=== PATIENT | female | born 1995 | race Caucasian/White ===

== ENCOUNTER 2016-06-24 11:21 | Emergency (ER) | payer MEDICAID, OTHER ==
[~2016-06-24] VITALS: Ht 167.6 cm; Wt 59.0 kg
[~2016-06-24 11:21] MED LIST: ALBU8.5H2 IH; DCS100C PO; FLUT1DIS4 IH; FRS325T PO; IBP600T1 PO; PRD20T PO; PREN-93 PO; PREN1TAB71 PO; RT-ALBUINH IH; SYMBICORT
--- OUTSIDE RECORDS SUMMARY | 2016-06-24 11:28 | XMS REPORT | Continuity of Care Document ---
Author Author [facility] Organization [facility] Address Unknown Phone Unavailable Care Team Providers Care Household Cook Name Role Phone NO, LOCAL PHYSICIAN PCP Unavailable Insurance Providers Payer Name Policy Number Subscriber Name Relationship Self Pay Joycelyn Parson V 18 Self / Same As Patient Advance Directives Directive Response Recorded Date/Time Advance Directives No 04/10/14 2:30am Health Care Power of Channel Process Supervisor No 04/10/14 2:30am Organ Donor Yes 04/10/14 2:30am Chief Complaint and Reason for Visit Chief Complaint Respiratory Problems Reason for Visit Upper respiratory infection Asthma with acute exacerbation in adult Problems Active Problems Medical Problem Onset Date Status Asthma with acute exacerbation in adult Unknown Acute Upper respiratory infection Unknown Acute Medications Current Home Medications Medication Dose Units Route Directions Days/Qty Instructions Start Date Vit/Fe Fumarate/Fa 1 Each 1 Each Oral Daily as needed for 1 04/10/14 Vit/Fe Fumarate/Fa 1 Each 1 Each Oral Daily 04/12/14 Fluticasone/Salmeterol 1 Each 0 Inhalation Twice A Day 1 PUFF Albuterol 8.5 Gm 1 Puff Inhalation Respiratory Every Four Hours as needed for Air Hunger 1 PUFFS 04/12/14 Ibuprofen 600 Mg 600 Mg Oral Every 6 Hours as needed for Cramps 30 11/19 Ferrous Sulfate 325 Mg 325 Mg Oral Daily@ 30 04/14/14 Docusate Sodium 100 Mg 100 Mg Oral Twice A Day 20 04/14/14 [Symbicort] 12/20/15 Prednisone 20 Mg 40 Mg Oral Daily 10 12/20/15 Albuterol Sulfate 8.5 Gm 2 Puff Inhalation Every 4HRS as needed for Shortness Of Breath 1 12/20/15 Social History Social History Problem Response Recorded Date/Time Recent Foreign Travel No 12/20/2015 12:29pm Recent Hopitalizations No 12/20/2015 12:40pm Hospital Discharge Instructions No hospital discharge instructions. Plan of Care Discharge Date 12/20/15 1:47pm Disposition 01 HOME, SELF-CARE Condition at Discharge Improved Instructions/Education Provided VIRAL RESP ILLNESS-ADULT Asthma (ED) Forms Provided Local Medical Staff Listing Work Release Form Prescriptions See Medication Section Referrals ADELAIDA RING MD - Primary Care Physician Additional Instructions/Education All discharge instructions reviewed with patient and/or family. Voiced understanding. Medications as instructed. Tylenol [id number] as directed for headache, fever, chills, pain. Follow-up with a family practitioner for recheck. Return to the emergency department for worsened shortness of air, wheezing, vomiting, headache, fever, or any other concerns. Functional Status No functional status results. Allergies, Adverse Reactions, Alerts No known allergies. Immunizations No immunization records. Vital Signs Acute Vital Signs Vital Response Date/Time Temperature (Fahrenheit) 98.5 degrees F (97.6 - 99.5) 12/20/2015 12:29pm Temperature (Calculated Celsius) 36.49457 degrees C (36.4 - 37.5) 12/20/2015 12:29pm Temperature Source Temporal 12/20/2015 12:29pm Pulse Rate (Adolescent 12-19yrs) 110 bpm (56 - 106) 12/20/2015 1:47pm O2 Sat by Pulse Oximetry 94 % (88 - 100) 12/20/2015 1:47pm Respiratory Rate (Adolescent 12-19yrs) 18 bpm (15 - 20) 12/20/2015 1:47pm Blood Pressure / Blood Pressure Systolic (Adolescent 12-19yrs) 106 mm Hg (115 - 120) 2015 1:47pm Pain Numeric Pain Scale 0-No Pain 12/20/2015 12:29pm Height (Feet) 5 feet 12/20/2015 12:29pm Height (Inches) 5 inches 12/20/2015 12:29pm Height (Calculated Centimeters) 165.063426 cm 12/20/2015 12:29pm Weight (Pounds) 147 pounds 12/20/2015 12:29pm Weight (Calculated Kilograms) 66.539054 kilograms 12/20/2015 12:29pm Calculated BMI 24.46 12/20/2015 12:29pm Results No known relevant diagnostic tests, laboratory data and/or discharge summary. Procedures No known history of procedures. Encounters Encounter Location Arrival/Admit Date Discharge/Depart Date Attending Provider Registered Emergency Room [facility] 12/20/15 12:31pm LEO WALSH Recent Diagnosis
[2016-06-24] MEDS ORDERED: DEXAMETHASONE 4 MG/ML SDV (DECADRON) IH ONE (12:00)
[2016-06-24] MEDS ORDERED: RT-ALBUTEROL/IPRATROPIUM 3 ML (DUONEB) VIAL INH ONE ×2 (12:00→12:45)
--- NOTE | 2016-06-24 12:21 | Diagnostic Imaging Report ---
INDICATION: Difficulty breathing, history of asthma. Comparison studies: None. FINDINGS: Frontal and lateral views demonstrate lungs to be hyperinflated but clear. The heart, mediastinum, pulmonary vascularity are normal. IMPRESSION: There is hyperinflation. Dictated by: Dictated on workstation # [id number]
[2016-06-24] MEDS ORDERED: RT-IPRATROPIUM (ATROVENT) 0.5MG/2.5ML AMP IH ONE (12:42)
[2016-06-24] MEDS ORDERED: RT-ALBUTEROL SULF 2.5 MG/3 ML PRE-MIX VIAL ONE (12:42)
[2016-06-24] MEDS ORDERED: predniSONE 20 MG TAB PO ONE (12:45)
--- NOTE | 2016-06-24 12:45 | ED Respiratory ---
General Chief Complaint: Respiratory Problems Stated Complaint: ASTHMA Source: patient History of Present Illness Time seen by provider: 11:55 Initial Comments C/O ASTHMA FLARE UP STATES SHE HAS HAD A FLARE UP OF SEASONAL ALLERGIES THE LAST WEEK, AND FOR THE LAST FEW DAYS HAS HAD INCREASED SHORTNESS OF BREATH AND WHEEZING HAS HAD A COUGH WITH GREEN SPUTUM NO FEVER + SICK CONTACTS WITH SAME PT IS SUPPOSED TO USE AN INHALER, BUT DOES NOT HAVE ONE. STATES SHE CANNOT AFFORD ONE. PT DOES NOT HAVE A PCP. PCP: NONE Allergies and Home Medications Allergies Coded Allergies: No Known Drug Allergies (Unverified , 04/10/14) Home Medications Albuterol Sulfate 8.5 Gm Hfa.aer.ad #1 2 PUFF IH Q4H PRN PRN SHORTNESS OF BREATH Prescribed by: LEO WALSH on 12/20/15 1336 Albuterol Sulfate 1 Puff Puff #1 2 PUFF IH Q4H Prescribed by: ANNETTA FIGUEREDO on 06/24/16 1329 Doxycycline Monohydrate 100 Mg Capsule #20 100 MG PO BID Prescribed by: ANNETTA FIGUEREDO on 06/24/16 1329 Methylprednisolone 4 Mg Tab.ds.pk #1 4 MG PO UD Prescribed by: ANNETTA FIGUEREDO on 06/24/16 1329 Prednisone 20 Mg Tab #10 40 MG PO DAILY Prescribed by: LEO WALSH on 12/20/15 1336 Constitutional: no symptoms reportedNo fever EENTM: nose congestion see HPI Respiratory: see HPI cough short of breath wheezing Cardiovascular: no symptoms reported Gastrointestinal: no symptoms reported Genitourinary: no symptoms reported : No LMP: May 27, 2016 (NO CONTROL) Musculoskeletal: no symptoms reported Skin: no symptoms reported Psychiatric/Neurological: No Symptoms Reported Hematologic/Lymphatic: No Symptoms Reported Immunological/Allergic: see HPI Past Nueqasd-Zukspo-Gspibu Hx Patient Social History Alcohol Use: Denies Use Recreational Drug Use: No Smoking Status: Never a Smoker Recent Foreign Travel: No Contact w/Someone Who Travel: No Recent Hopitalizations: No Seasonal Allergies Seasonal Allergies: Yes Surgeries HX Surgeries: No Respiratory Hx Respiratory Disorders: Yes Respiratory Disorders: Asthma Cardiovascular Hx Cardiac Disorders: No Neurological Hx Neurological Disorders: No Reproductive System Hx Reproductive Disorders: No Genitourinary Hx Genitourinary Disorders: No Gastrointestinal Hx Gastrointestinal Disorders: No Musculoskeletal Hx Musculoskeletal Disorders: No Endocrine Hx Endocrine Disorders: No HEENT HX ENT Disorders: No Cancer Hx Cancer: No Psychosocial Hx Psychiatric Problems: No Integumentary HX Skin/Integumentary Disorder: No Blood Transfusions Hx Blood Disorders: No Family Medical History Family Medial History: Asthma 19 MOTHER Cardiovascular disease 19 FATHER Physical Exam Vital Signs Vital Sign - Last 12Hours Capillary Refill : General Appearance: WD/WN no apparent distress other (READING A BOOK WHEN I ENTERED ROOM AND READ BOOK THROUGHOUT ENTIRE ER STAY. DOES NOT APPEAR TO BE IN ANY DISCOMFORT OR DISTRESS. SMILING. TALKS IN FULL SENTENCES. HAIR IS TURQUOISE AND PURPLE) HEENT: PERRL/EOMI normal ENT inspection TMs normal pharynx normal Neck: non-tender full range of motion supple normal inspection Respiratory: no respiratory distress no accessory muscle use decreased breath sounds (IN ALL LUNG REID) wheezing (DIFFUSE EXPIRATORY WHEEZING IN ALL LUNG REID) Cardiovascular: normal peripheral pulses regular rate, rhythm no murmur Gastrointestinal: normal bowel sounds non tender soft Extremities: normal inspection Neurologic/Psychiatric: manager of environmental services II-XII nml as tested no motor/sensory deficits alert normal mood/affect oriented x 3 Skin: normal color warm/dry Progress/Results/Core Measures Results/Orders My Orders Orders-ANNETTA FIGUEREDO DO Albuterol/Ipra Inhalation Soln (Duoneb I (06/24/16 12:00) Dexamethasone Injection (Decadron Inject (06/24/16 12:00) Rt Request For Service (06/24/16 11:57) Svn Sm Volume Nebulizer Rt-Rfs (06/24/16 11:57) Chest Pa/Lat (2 View) (06/24/16 11:57) Albuterol/Ipra Inhalation Soln (Duoneb I (06/24/16 12:45) Svn Sm Volume Nebulizer Rt-Rfs (06/24/16 12:43) Prednisone Tablet (Deltasone Tablet) (06/24/16 12:45) Ipratropium 0.02% Neb Solution (Atrovent (06/24/16 12:42) Albuterol Pre-Mix Nebs (Rt) (Proventil P (06/24/16 12:42) Medications Given in ED Vital Signs/I&O Vital Sign - Last 12Hours 06/24/16 06/24/16 06/24/16 06/24/16 11:57 11:57 12:18 12:49 Temp 96.8 96.8 Pulse 102 102 Resp 24 24 B/P 109/65 109/65 Pulse Ox 95 95 100 O2 Delivery Room Air Room Air 06/24/16 13:39 Pulse 104 Resp 18 Pulse Ox 100 O2 Delivery Room Air Progress Note : Progress Note DECREASED WHEEZING AND INCREASED AERATION AFTER NEB TREATMENTS. PT STILL WITH MILD EXPIRATORY WHEEZING. PT STATES SHE FEELS MUCH BETTER DISCUSSED THE IMPORTANCE OF ESTABLISHING WITH PCP AND ALWAYS HAVING AN INHALER Diagnostic Imaging Comments CXR--NO ACUTE PROCESS, HYPERINFLATION--PER RADIOLOGIST REPORT @ 1244 Reviewed: Reviewed by Me Departure Impression Impression: Primary Impression: Asthma with acute exacerbation in adult Additional Impression: Acute bronchitis Disposition: HOME, SELF-CARE Condition: Improved Departure-Patient Inst. Referrals: NO,LOCAL PHYSICIAN (PCP/Family) Primary Care Physician Patient Instructions: Acute Bronchitis, Adult (DC), Asthma Action Plan, Asthma , Adult (DC), Avoiding Asthma Triggers Add. Discharge Instructions: LOTS OF CLEAR LIQUIDS TYLENOL AND MOTRIN NEEDED FOR PAIN OR FEVER ROBITUSSIN DM FOR COUGH FOLLOW UP WITH OF CHOICE TO ESTABLISH CARE SOON POSSIBLE RETURN TO ER IF WORSE All discharge instructions reviewed with patient and/or family. Voiced understanding. Scripts Albuterol Sulfate (Proair Hfa)1 Puff Puff2 Puff IH Q4H BREATHING #1 GM Prov:ANNETTA FIGUEREDO DO 06/24/16 Methylprednisolone (Medrol)4 Mg Tab.ds.pk4 Mg PO UD #1 PKG Prov:ANNETTA FIGUEREDO DO 06/24/16 Doxycycline Monohydrate 100 Mg [id number] Mg PO BID #20 CAP Prov:ANNETTA FIGUEREDO DO 06/24/16 Work/School Note: Local Medical Staff Listing ANNETTA FIGUEREDO DO Jun 24, 2016 12:45
[2016-06-24] MEDS ORDERED: RT-ALBUINH IH (13:29)
[2016-06-24] MEDS ORDERED: DOXY100C42 PO (13:29)
[2016-06-24] MEDS ORDERED: METH4TAB PO (13:29)
== END 2016-06-24 13:49 | disposition home or self-care (01) ==
LOC: EDUNIT# 11:21 → ER 11:24
DX: J45.901 Unspecified asthma with (acute) exacerbation (principal); J20.9 Acute bronchitis, unspecified
CPT/HCPCS: 71020; 94640; 94644; 99282

== ENCOUNTER 2016-11-10 12:46 | Emergency (ER) | payer MEDICAID ==
[~2016-11-10] VITALS: Ht 152.4 cm; Wt 56.7 kg
[~2016-11-10 12:46] MED LIST changes: +DOXY100C42 PO; +METH4TAB PO
[2016-11-10] MEDS ORDERED: RT-ALBUTEROL/IPRATROPIUM 3 ML (DUONEB) VIAL INH ONE ×3 (13:00→13:30)
[2016-11-10] MEDS ORDERED: DEXAMETHASONE 4 MG/ML SDV (DECADRON) IV ONE (13:00)
[2016-11-10] MEDS ORDERED: DEXAMETHASONE PF 10 MG/ML (DECADRON) VIAL IM ONE (13:15)
[2016-11-10] MEDS ORDERED: DEXAMETHASONE PF 10 MG/ML (DECADRON) VIAL ONE (13:19)
--- NOTE | 2016-11-10 13:25 | ED Respiratory ---
General Chief Complaint: Respiratory Problems Stated Complaint: ASTHMA ATTACK History of Present Illness Time seen by provider: 12:50 Initial Comments Patient reports for acute asthma attack, she has been diagnosed with asthma since age 5. She does not currently have any inhalers, due to financial restrictions. Over the last week she's been feeling tightness in her chest. Today she noted wheezing and SOA. She believes seasonal allergies are the most recent trigger. She is not taking any allergy medicine. Timing/Duration: week, getting worse Severity: moderate Prior Episodes/Possible Cause: occasional episodes, allergen exposure Modifying Factors: Improves With Lying Down, Improves With Rest Associated Symptoms: chest pain/soreness, cough, No fever/chills, No headache, No lightheadedness, nasal congestion, shortness of breath, No sore throat Allergies and Home Medications Allergies Coded Allergies: No Known Drug Allergies (Unverified , 04/10/14) Home Medications Albuterol Sulfate 8.5 Gm Hfa.aer.ad, 2 PUFF IH Q4H PRN for SHORTNESS OF BREATH, #1 Ref 0 Prescribed by: LEO WALSH on 12/20/15 1336 Albuterol Sulfate 1 Puff Puff, 2 PUFF IH Q4H, #1 Prescribed by: ANNETTA FIGUEREDO on 06/24/16 1329 Albuterol Sulfate 0.63 Mg/3 Ml Vial.neb, 0.63 MG IH Q4H, #25 Ref 2 Prescribed by: OMAR NELSON on 11/10/16 1341 Doxycycline Monohydrate 100 Mg Capsule, 100 MG PO BID, #20 Prescribed by: ANNETTA FIGUEREDO on 06/24/16 1329 Loratadine 10 Mg Tablet, 10 MG PO DAILY, #30 Ref 0 Prescribed by: OMAR NELSON on 11/10/16 1343 Methylprednisolone 4 Mg Tab.ds.pk, 4 MG PO UD, #1 Prescribed by: ANNETTA FIGUEREDO on 06/24/16 1329 Prednisone 20 Mg Tab, 40 MG PO DAILY, #10 Ref 0 Prescribed by: LEO WALSH on 12/20/15 1336 Prednisone 5 Mg Tablet, 5 MG PO DAILY, #30 Ref 0 take 2 tablets tid for 2 days; then 2 tablets bid for 2 days; then 1 tablet bid for 2 days Prescribed by: OMAR NELSON on 11/10/16 1341 Constitutional: no symptoms reported, see HPI Respiratory: see HPI, cough, short of breath, wheezing Cardiovascular: no symptoms reported, see HPI : No Past Zeqwkfv-Vkwyqh-Aiuymt Hx Patient Social History Recent Foreign Travel: No Contact w/Someone Who Travel: No Recent Hopitalizations: No Seasonal Allergies Seasonal Allergies: Yes Surgeries HX Surgeries: No Respiratory Hx Respiratory Disorders: Yes Respiratory Disorders: Asthma Cardiovascular Hx Cardiac Disorders: No Neurological Hx Neurological Disorders: No Reproductive System Hx Reproductive Disorders: No Genitourinary Hx Genitourinary Disorders: No Gastrointestinal Hx Gastrointestinal Disorders: No Musculoskeletal Hx Musculoskeletal Disorders: No Endocrine Hx Endocrine Disorders: No HEENT HX ENT Disorders: No Cancer Hx Cancer: No Psychosocial Hx Psychiatric Problems: No Integumentary HX Skin/Integumentary Disorder: No Blood Transfusions Hx Blood Disorders: No Reviewed Nursing Assessment Reviewed/Agree w Nursing PMH: Yes Family Medical History Family Medial History: Asthma 19 MOTHER Cardiovascular disease 19 FATHER Physical Exam Vital Signs Vital Sign - Last 12Hours 11/10/16 11/10/16 11/10/16 12:48 12:50 13:40 Temp 97.6 Pulse 112 Resp 18 B/P (MAP) 140/91 Pulse Ox 91 O2 Delivery Room Air O2 Flow Rate 2.00 Capillary Refill : General Appearance: WD/WN, moderate distress (SOA) Eyes: Bilateral Eye EOMI, Bilateral Eye Normal Inspection, Bilateral Eye PERRL HEENT: PERRL/EOMI, normal ENT inspection, TMs normal, pharynx normal Neck: non-tender, full range of motion, supple, normal inspection, No lymphadenopathy (R), No lymphadenopathy (L) Respiratory: chest non-tender, respiratory distress, decreased breath sounds ( lower lobes), wheezing (throughout all lung brown.) Cardiovascular: normal peripheral pulses, regular rate, rhythm, no edema, no murmur Gastrointestinal: normal bowel sounds, non tender, soft Extremities: normal range of motion, non-tender, normal inspection, normal capillary refill Neurologic/Psychiatric: no motor/sensory deficits, alert, normal mood/affect, oriented x 3 Skin: normal color, warm/dry Progress/Results/Core Measures Results/Orders My Orders Orders - OMAR NELSON Rt Request For Service (11/10/16 12:54) Albuterol/Ipra Inhalation Soln (Duoneb I (11/10/16 13:00) Svn Sm Volume Nebulizer Rt-Rfs (11/10/16 12:54) Dexamethasone Injection (Decadron Inject (11/10/16 13:00) Saline Lock/Iv-Start (11/10/16 12:54) Chest Pa/Lat (2 View) (11/10/16 12:55) Svn Sm Volume Nebulizer Rt-Rfs (11/10/16 13:11) Dexamethasone Pf Injection (Decadron Pf (11/10/16 13:30) Albuterol/Ipra Inhalation Soln (Duoneb I (11/10/16 13:30) Svn Sm Volume Nebulizer Rt-Rfs (11/10/16 13:22) Dexamethasone Pf Injection (Decadron Pf (11/10/16 13:19) Medications Given in ED Current Medications Medications Dose Ordered Sig/Aspen Route Start Time Stop Time Status Last Admin Dose Admin Albuterol/ Ipratropium 3 ml ONCE ONCE INH 11/10/16 13:00 11/10/16 13:01 DC 11/10/16 12:59 3 ML Albuterol/ Ipratropium 3 ml ONCE ONCE INH 11/10/16 13:30 11/10/16 13:31 DC 11/10/16 13:26 3 ML Dexamethasone Sodium Phosphate 10 mg ONCE ONCE INH 11/10/16 13:30 11/10/16 13:31 DC 11/10/16 13:26 10 MG Dexamethasone Sodium Phosphate 10 mg ONCE ONCE IV 11/10/16 13:00 11/10/16 13:01 DC 11/10/16 13:01 10 MG Vital Signs/I&O Vital Sign - Last 12Hours 11/10/16 11/10/16 11/10/16 11/10/16 12:48 12:50 12:59 13:26 Temp 97.6 Pulse 112 B/P (MAP) 140/91 Pulse Ox 91 95 96 O2 Delivery Room Air Nasal Cannula Nasal Cannula Nasal Cannula O2 Flow Rate 2.00 2.00 2.00 11/10/16 11/10/16 13:40 14:24 Pulse 109 100 Resp 18 18 B/P (MAP) 116/87 Pulse Ox 96 94 O2 Delivery Nasal Cannula Room Air O2 Flow Rate 1.00 Progress Note : Time: 12:50 Progress Note Initial evaluation, Decadron 10 mg IV and DuoNeb breathing treatment immediately. Chest x-ray. SaO2 on room air was 93%, oxygen initiated per nasal cannula 1.5 L, SaO2 improved to 97%. 1310 after first DuoNeb treatment the patient did have decreased wheezing and improved air movement. She was less anxious. Oxygen decreased to 1 L nasal cannula, SaO2 98%. 1315 Will repeat breathing treatment with Decadron 8 mg. 1340 patient reports improvement in SOA, maintaining SaO2 greater than 95% on room air. 1350 discharge planning discussed with the patient, she understands the importance of keeping albuterol available at home as rescue. She will establish care at [facility]. Diagnostic Imaging Diagonstic Imaging: Xray Plain Films/CT/US/NM/MRI: chest Comments NAME: JOYCELYN PARSON V MED REC#: [id number] PT STATUS: REG ER : 1995 PHYSICIAN: OMAR NELSON ADMIT DATE: 11/10/16/ER Draft Date of Exam:11/10/16 CHEST PA/LAT (2 VIEW) INDICATION: Dyspnea. DISCUSSION: Two views of the chest were obtained, comparison 06/24/2016. No adverse interval change. No focal consolidation, pleural fluid, or pneumothorax. Stable normal heart size. No osseous abnormality. IMPRESSION: 1. Stable negative chest. Dictated on workstation # [id number] Dict: 11/10/16 1328 Trans: 11/10/16 1331 AS6 [id number] Interpreted by: SARAHI IVEY MD Electronically signed by: Reviewed: Reviewed by Me Departure Impression Impression: Primary Impression: Asthma with acute exacerbation in adult Qualified Codes: J45.21 - Mild intermittent asthma with (acute) exacerbation Disposition: HOME, SELF-CARE Condition: Improved Departure-Patient Inst. Decision time for Depature: 14:00 Referrals: NO,LOCAL PHYSICIAN (PCP/Family) Primary Care Physician Patient Instructions: Asthma, Adult (DC) Add. Discharge Instructions: Use albuterol per nebulizer every 4 hours. Take prednisone as directed. Mucinex whyk-swb-gbaqive twice daily. Increase water intake. Establish care at [facility]. Return to emergency department if difficulty breathing, needing albuterol more than every 4 hours, fever greater than 101, new problems or concerns. All discharge instructions reviewed with patient and/or family. Voiced understanding. Scripts Loratadine (Loratadine) 10 Mg Tablet 10 MG PO DAILY, #30 TAB 0 Refills Prov: OMAR NELSON 11/10/16 Albuterol Sulfate (Albuterol Sulfate) 0.63 Mg/3 Ml Vial.neb 0.63 MG IH Q4H for Shortness of Breath, #25 INHALER 2 Refills Prov: OMAR NELSON 11/10/16 Prednisone (Prednisone) 5 Mg Tablet 5 MG PO DAILY, #30 TAB 0 Refills take 2 tablets tid for 2 days; then 2 tablets bid for 2 days; then 1 tablet bid for 2 days Prov: OMAR NELSON 11/10/16 OMAR NELSON Nov 10, 2016 13:25
[2016-11-10] MEDS ORDERED: DEXAMETHASONE PF 10 MG/ML (DECADRON) VIAL INH ONE (13:30)
--- NOTE | 2016-11-10 13:31 | Diagnostic Imaging Report ---
INDICATION: Dyspnea. DISCUSSION: Two views of the chest were obtained, comparison 06/24/2016. No adverse interval change. No focal consolidation, pleural fluid, or pneumothorax. Stable normal heart size. No osseous abnormality. IMPRESSION: 1. Stable negative chest. Dictated by: Dictated on workstation # [id number]
[2016-11-10 13:40] VITALS: BP 116/87
[2016-11-10] MEDS ORDERED: PRED5TAB PO (13:41)
[2016-11-10] MEDS ORDERED: ALBU0.63 IH (13:41)
[2016-11-10] MEDS ORDERED: LORA10TA7 PO (13:43)
[2016-11-10 14:24] VITALS: BP 108/75
== END 2016-11-10 14:24 | disposition home or self-care (01) ==
LOC: EDUNIT# 12:46 → ER 12:47
DX: J45.901 Unspecified asthma with (acute) exacerbation (principal)
CPT/HCPCS: 71020; 94640

== ENCOUNTER 2017-01-29 20:58 | Emergency (ER) | payer MEDICAID ==
[~2017-01-29] VITALS: Ht 162.6 cm; Wt 56.7 kg
[~2017-01-29 20:58] MED LIST changes: +ALBU0.63 IH; +LORA10TA7 PO; +PRED5TAB PO
[2017-01-29] MEDS ORDERED: RT-ALBUTEROL/IPRATROPIUM 3 ML (DUONEB) VIAL INH ONE (21:45)
[2017-01-29] MEDS ORDERED: DEXAMETHASONE 4 MG/ML SDV (DECADRON) ONE (22:02)
--- NOTE | 2017-01-29 22:05 | Diagnostic Imaging Report ---
INDICATION: Cough and congestion. On antibiotics. EXAMINATION: Two-view chest dated 01/29/2017 COMPARISON: 11/10/2016 FINDINGS: Two views of the chest demonstrate normal appearance of the heart and pulmonary vasculature. Lungs are clear. No infiltrates or effusions are seen. Mild hyperinflation noted. IMPRESSION: 1. Minimal hyperinflation perhaps due to reactive airway process; correlate with symptoms. No infiltrates appreciated. Dictated by: Dictated on workstation # [id number]
--- NOTE | 2017-01-29 22:11 | ED Cough/URI ---
General Chief Complaint: Respiratory Problems Stated Complaint: SOA,ASTHMA Nursing Triage Note: C/O FEELING SOA, CHEST CONGESTION NOT RESPONSIVE TO HOME NEBULIZER. SEEN PCP 01/28/17 FOR SAME History of Present Illness Time seen by provider: 21:35 Initial Comments Patient reports SOA. She was evaluated 2 days ago by her primary care provider she's been using her albuterol nebulizer with no improvement she last used it at 1930. She is on prednisone 10 mg daily. She reports in the past when she has an exacerbation of her asthma specialist usually had to put her on 60 mg of prednisone daily for 2-3 days. Timing/Duration: yesterday Severity/Quality: mild, productive cough Prior Episodes/Possible Cause: frequent episodes Modifying Factors: Improves With Albuterol Nebulizer Allergies and Home Medications Allergies Coded Allergies: No Known Drug Allergies (Unverified , 04/10/14) Home Medications Albuterol Sulfate 8.5 Gm Hfa.aer.ad, 2 PUFF IH Q4H PRN for SHORTNESS OF BREATH, #1 Ref 0 Prescribed by: LEO WALSH on 12/20/15 1336 Albuterol Sulfate 1 Puff Puff, 2 PUFF IH Q4H, #1 Prescribed by: ANNETTA FIGUEREDO on 06/24/16 1329 Albuterol Sulfate 0.63 Mg/3 Ml Vial.neb, 0.63 MG IH Q4H, #25 Ref 2 Prescribed by: OMAR NELSON on 11/10/16 1341 Fluticasone/Salmeterol 1 Each Blst.w.dev, 1 EACH IH BID, #1 Ref 2 Prescribed by: OMAR NELSON on 01/29/17 2238 Prednisone 20 Mg Tab, 40 MG PO DAILY, #10 Ref 0 Prescribed by: LEO WALSH on 12/20/15 1336 Prednisone 20 Mg Tab, 10 MG PO DAILY, #20 Ref 0 Take 3 tablets daily for 2 days, then take 2 tablets daily for 2 days, then take 1 tablet daily for 3 days. Prescribed by: OMAR NELSON on 01/29/172237 Constitutional: no symptoms reported, see HPI EENTM: see HPI, nose congestion, No throat pain, No throat swelling Respiratory: see HPI, cough, dyspnea on exertion, phlegm (patient reports clear phlegm mainly in the morning), short of breath, wheezing All Other Systems Reviewed Negative Unless Noted: Yes Past Hpmljfd-Qgwgxy-Gnxhgb Hx Patient Social History Alcohol Use: Denies Use Recreational Drug Use: No Smoking Status: Current Everyday Smoker Type Used: Cigarettes 2nd Hand Smoke Exposure: Yes Recent Foreign Travel: No Contact w/Someone Who Travel: No Recent Infectious Disease Expo: No Recent Hopitalizations: No Immunizations Up To Date Tetanus Booster (TDap): Unknown Seasonal Allergies Seasonal Allergies: Yes Surgeries History of Surgeries: No Respiratory History of Respiratory Disorde: Yes Respiratory Disorders: Asthma Cardiovascular History of Cardiac Disorders: No Neurological History of Neurological Disord: No Reproductive System : No Last Menstrual Period: Jan 29, 2017 Hx Reproductive Disorders: No Genitourinary History of Genitourinary Disor: No Gastrointestinal History of Gastrointestinal Di: No Musculoskeletal History of Musculoskeletal Dis: No Endocrine History of Endocrine Disorders: No HEENT History of HEENT Disorders: No Cancer History of Cancer: No Psychosocial History of Psychiatric Problem: No Integumentary History of Skin or Integumenta: No Blood Transfusions History of Blood Disorders: No Reviewed Nursing Assessment Reviewed/Agree w Nursing PMH: Yes Family Medical History Family Medial History: Asthma 19 MOTHER Cardiovascular disease 19 FATHER Physical Exam Vital Signs Vital Sign - Last 12Hours 01/29/17 21:25 Temp 97.9 Pulse 129 Resp 22 B/P (MAP) 109/69 Pulse Ox 95 O2 Delivery Room Air Capillary Refill : Less Than 3 Seconds General Appearance: WD/WN, mild distress (SOA) Eyes: Bilateral Eye Normal Inspection, Bilateral Eye PERRL, Bilateral Eye EOMI HEENT: PERRL/EOMI, normal ENT inspection, TMs normal, pharynx normal Neck: non-tender, full range of motion, supple Respiratory: chest non-tender, accessory muscle use, wheezing, expiration, inspiration Cardiovascular: normal peripheral pulses, regular rate, rhythm Gastrointestinal: normal bowel sounds, non tender, soft Extremities: normal range of motion, non-tender, normal inspection, normal capillary refill Neurologic/Psychiatric: no motor/sensory deficits, alert, normal mood/affect, oriented x 3 Skin: normal color, warm/dry Lymphatic: no adenopathy Progress/Results/Core Measures Results/Orders My Orders Orders - OMAR NELSON Albuterol/Ipra Inhalation Soln (Duoneb I (01/29/17 21:45) Svn Sm Volume Nebulizer Rt-Rfs (01/29/17 21:42) Chest Pa/Lat (2 View) (01/29/17 21:42) Dexamethasone Injection (Decadron Inject (01/29/17 22:02) Prednisone Tablet (Deltasone Tablet) (01/29/17 22:45) Montelukast Tablet (Singulair Tablet) (01/29/17 22:45) Medications Given in ED Vital Signs/I&O Vital Sign - Last 12Hours 01/29/17 01/29/17 01/29/17 01/29/17 21:25 21:57 22:15 23:20 Temp 97.9 98.0 Pulse 129 121 Resp 22 20 B/P (MAP) 109/69 Pulse Ox 95 96 98 97 O2 Delivery Room Air Room Air Room Air Room Air Blood Pressure Mean: 82 Progress Note : Time: 21:35 Progress Note Initial evaluation completed, recommended DuoNeb treatment per RT. Then we'll reevaluate. 2145 within a few minutes of starting the DuoNeb treatment, the patient's pulse increased to the 140s in the 150s. The treatment was stopped. There was slight improvement in her wheezing and SOA. Will do a Decadron 10 mg nebulized treatment instead. 2210 less wheezing and improvement in the patient's dyspnea. We'll continue to monitor. 2220 patient reports feeling increased chest tightness, SaO2 on room air 92%. Nasal cannula with oxygen at 2 L administered. Lungs had improved air movement with continued wheezing. SaO2 immediately kari to 94-95%. We'll continue to monitor. The patient states that she is only taking prednisone 10 mg once daily in the evening. She has had not had her evening dose. We'll administer prednisone 30 mg by mouth and Singulair 10 mg. patient reports that she was previously on an Advair Diskus and was doing better with her asthma. Her insurance is changed and she was then started on Breo but ran out of this prescription. 2235 SaO2 on room air is 92-96%. Patient reports that her dyspnea is improving, lungs with minimal wheezing at this time. Patient comfortable with returning home. She has nebulizer machine to continue her albuterol. She will follow up at [facility] for more maintenance management of her asthma. Diagnostic Imaging Diagonstic Imaging: Xray Plain Films/CT/US/NM/MRI: chest Comments NAME: JOYCELYN PARSON [facility] REC#: [id number] PT STATUS: REG ER : 1995 PHYSICIAN: OMAR NELSON ADMIT DATE: 01/29/17/ER Draft Date of Exam:01/29/17 CHEST PA/LAT (2 VIEW) INDICATION: Cough and congestion. On antibiotics. EXAMINATION: Two-view chest dated 01/29/2017 COMPARISON: 11/10/2016 FINDINGS: Two views of the chest demonstrate normal appearance of the heart and pulmonary vasculature. Lungs are clear. No infiltrates or effusions are seen. Mild hyperinflation noted. IMPRESSION: 1. Minimal hyperinflation perhaps due to reactive airway process; correlate with symptoms. No infiltrates appreciated. Dictated on workstation # [id number] Dict: 01/29/179 Trans: 01/29/174 COUNT INCLUDES THE [facility] [id number] Interpreted by: LILLIAM ZAMBRANO MD Electronically signed by: Reviewed: Reviewed by Me Departure Impression Impression: Primary Impression: Asthma with acute exacerbation in adult Qualified Codes: J45.41 - Moderate persistent asthma with (acute) exacerbation Disposition: 01 HOME, SELF-CARE Condition: Improved Departure-Patient Inst. Decision time for Depature: 22:40 Referrals: [facility] (PCP) Primary Care Physician KAY JONES APRN (Family) Primary Care Physician Patient Instructions: Asthma, Adult (DC) Add. Discharge Instructions: Taking medication as prescribed. Continue to use albuterol nebulized treatments at home every 4 hours. Follow up with Diandra Jones APRN. Return to emergency department if persistent difficulty breathing, fever greater than 101, or new problems. All discharge instructions reviewed with patient and/or family. Voiced understanding. Scripts Fluticasone/Salmeterol (Advair 250-50 Diskus) 1 Each Blst.w.dev 1 EACH IH BID, #1 INHALER 2 Refills Prov: OMAR NELSON 01/29/17 Prednisone (Prednisone) 20 Mg Tab 10 MG PO DAILY, #20 TAB 0 Refills Take 3 tablets daily for 2 days, then take 2 tablets daily for 2 days, then take 1 tablet daily for 3 days. Prov: OMAR NELSON 01/29/17 Copy Copies To 1: MILTON TATE MD, AMY ARNP Jan 29, 2017 22:11
[2017-01-29] MEDS ORDERED: PRD20T PO (22:38)
[2017-01-29] MEDS ORDERED: FLUT1DIS26 IH (22:38)
[2017-01-29] MEDS ORDERED: predniSONE 20 MG TAB PO ONE (22:45)
[2017-01-29] MEDS ORDERED: MONTELUKAST 10 MG (SINGULAIR) TAB PO ONE (22:45)
[2017-01-29 23:20] VITALS: BP 112/62
== END 2017-01-29 23:20 | disposition home or self-care (01) ==
LOC: EDUNIT# 20:58 → ER 20:59
DX: J45.901 Unspecified asthma with (acute) exacerbation (principal); F17.210 Nicotine dependence, cigarettes, uncomplicated; Z82.49 Family history of ischemic heart disease and other diseases of the circulatory system
CPT/HCPCS: 71020; 94640; 99282

== ENCOUNTER 2017-05-19 21:18 | Emergency (ER) | payer MEDICAID ==
[~2017-05-19] VITALS: Ht 162.6 cm; Wt 72.6 kg
[~2017-05-19 21:18] MED LIST changes: +FLUT1DIS26 IH
[2017-05-19] MEDS ORDERED: DEXAMETHASONE 4 MG/ML SDV (DECADRON) IH ONE (22:30)
[2017-05-19] MEDS ORDERED: ONDANSETRON 4 MG (ZOFRAN) ORAL DISSOLVE TAB SL ONE (22:30)
[2017-05-19] MEDS ORDERED: RT-ALBUTEROL/IPRATROPIUM 3 ML (DUONEB) VIAL INH ONE (22:30)
[2017-05-19] MEDS ORDERED: methylPREDNISolone 125 MG (Solu-MEDROL) VIAL IVP ONE (22:45)
[2017-05-19] MEDS ORDERED: KETOROLAC 30 MG/ML VIAL IVP ONE (22:45)
[2017-05-19] MEDS ORDERED: predniSONE 20 MG TAB PO ONE (23:45)
[2017-05-19] MEDS ORDERED: PRD20T PO (23:52)
--- NOTE | 2017-05-19 23:53 | ED General ---
General Chief Complaint: Respiratory Problems Stated Complaint: ASTHMA/SOA Nursing Triage Note: PT CO OF SOA HAS WHEEZING NOTED STATES STARTED GETTING COLD COUPLE DAYS AND ASTHAMA HAS WORSEND. PT STATES HAD RX TO ALBUTEROL AND IS AFRAID TO TAKE Nursing Sepsis Screen: No Definite Risk Source of Information: Patient Exam Limitations: No Limitations History of Present Illness Date Seen by Provider: May 19, 2017 Time Seen by Provider: 22:14 Initial Comments This 21-year-old young lady presents to the emergency room with complaints of wheezing, shortness of air and stridor that has worsened over the past couple of days. She does have a history of asthma. She reports the stridorous breathing she is experiencing at present is not unusual for asthma exacerbations. She has never been diagnosed with vocal cord dysfunction or any other upper airway problem. She particularly complains of dyspnea on exertion and pain with inspiration. She has had some posttussive emesis. She reports her inhaler has not been particularly helpful. She denies any fever. She has had associated symptoms of chills, myalgia, and headache. Allergies and Home Medications Allergies Coded Allergies: No Known Drug Allergies (Unverified , 04/10/14) Home Medications Albuterol Sulfate 8.5 Gm Hfa.aer.ad, 2 PUFF IH Q4H PRN for SHORTNESS OF BREATH, #1 Ref 0 Prescribed by: LEO WALSH on 12/20/15 1336 Albuterol Sulfate 1 Puff Puff, 2 PUFF IH Q4H, #1 Prescribed by: ANNETTA FIGUEREDO on 06/24/16 1329 Albuterol Sulfate 0.63 Mg/3 Ml Vial.neb, 0.63 MG IH Q4H, #25 Ref 2 Prescribed by: OMAR NELSON on 11/10/16 1341 Fluticasone/Salmeterol 1 Each Blst.w.dev, 1 EACH IH BID, #1 Ref 2 Prescribed by: OMAR NELSON on 01/29/17 2238 Prednisone 20 Mg Tab, 20 MG PO DAILY, #3 Prescribed by: JULIANO MONTEJO on 05/19/17 2352 Constitutional: see HPI, chills EENTM: no symptoms reported Respiratory: see HPI Cardiovascular: no symptoms reported Gastrointestinal: see HPI Genitourinary: no symptoms reported : No LMP: May 07, 2017 Musculoskeletal: see HPI Skin: no symptoms reported Psychiatric/Neurological: See HPI, Headache Hematologic/Lymphatic: No Symptoms Reported Immunological/Allergic: no symptoms reported Past Tnvnzjt-Xhbhtq-Hecuco Hx Patient Social History Alcohol Use: Denies Use Recreational Drug Use: No Smoking Status: Current Everyday Smoker Type Used: Cigarettes 2nd Hand Smoke Exposure: Yes Recent Foreign Travel: No Contact w/Someone Who Travel: No Recent Infectious Disease Expo: No Recent Hopitalizations: No Physical Abuse: No Sexual Abuse: No Immunizations Up To Date Tetanus Booster (TDap): Unknown Seasonal Allergies Seasonal Allergies: Yes Surgeries History of Surgeries: No Respiratory History of Respiratory Disorde: Yes Respiratory Disorders: Asthma Cardiovascular History of Cardiac Disorders: No Neurological History of Neurological Disord: No Reproductive System : No Last Menstrual Period: May 07, 2017 Hx Reproductive Disorders: No Genitourinary History of Genitourinary Disor: No Gastrointestinal History of Gastrointestinal Di: No Musculoskeletal History of Musculoskeletal Dis: No Endocrine History of Endocrine Disorders: No HEENT History of HEENT Disorders: Yes (Strider with asthma exacerbations) Cancer History of Cancer: No Psychosocial History of Psychiatric Problem: No Suicide Risk Score: 0 Integumentary History of Skin or Integumenta: No Blood Transfusions History of Blood Disorders: No Family Medical History Family Medial History: Asthma 19 MOTHER Cardiovascular disease 19 FATHER Physical Exam Vital Signs Vital Signs - First Documented 05/19/17 21:26 Temp 96.7 Pulse 95 Resp 20 B/P (MAP) 128/87 (101) Pulse Ox 98 O2 Delivery Room Air Capillary Refill : Less Than 3 Seconds General Appearance: No Apparent Distress, WD/WN HEENT: PERRL/EOMI, TMs Normal, Normal ENT Inspection, Pharyngeal Erythema Neck: Normal Inspection, Supple Respiratory: No Accessory Muscle Use, No Respiratory Distress, Stridor, Wheezing Cardiovascular: Regular Rate, Rhythm, No Edema, No Murmur Gastrointestinal: Normal Bowel Sounds, Non Tender, Soft Extremity: Normal Inspection, No Pedal Edema Neurologic/Psychiatric: Alert, Oriented x3, No Motor/Sensory Deficits, Normal Mood/Affect, anesthesiology physician II-XII Norm as Tested Skin: Normal Color, Warm/Dry Progress/Results/Core Measures Suspected Sepsis Recent Fever Within 48 Hours: No Infection Criteria Present: None New/Unexplained Altered Menta: No Sepsis Screen: No Definite Risk Sepsis Diagnosis: SIRS Temperature:96.7 Pulse: 95 Respiratory Rate: 20 Blood Pressure 128 /87 Mean: 101 Results/Orders Lab Results Laboratory Tests Test 05/19/17 22:17 Range/Units Group A Streptococcus Screen NEGATIVE NEGATIVE Micro Results Microbiology 05/19/17 Influenza Types A,B Antigen (HARPREET) - Final, Complete 05/19/17 Throat Culture - Preliminary, Resulted No Beta Strep isolated My Orders Orders - JULIANO TORREZ MD Urine Bedside (05/19/17 22:22) Rapid Strep A Screen (05/19/17 22:22) Influenza A And B Antigens (05/19/17 22:22) Albuterol/Ipra Inhalation Soln (Duoneb I (05/19/17 22:30) Dexamethasone Injection (Decadron Inject (05/19/17 22:30) Chest Pa/Lat (2 View) (05/19/17 22:22) Svn Sm Volume Nebulizer Rt-Rfs (05/19/17 22:22) Ondansetron Oral Dissolve Tab (Zofran (05/19/17 22:30) Methylprednisolone Sod Succ (Solu-Medrol (05/19/17 22:45) Ketorolac Injection (Toradol Injection) (05/19/17 22:45) Prednisone Tablet (Deltasone Tablet) (05/19/17 23:45) Medications Given in ED Vital Signs/I&O Capillary Refill : Less Than 3 Seconds Blood Pressure Mean: 101 Point of Care Testing Urine -Bedside: Negative Progress Note : Progress Note Rapid strep and influenza screens were negative. Chest x-ray was also negative. Patient responded well to DuoNeb treatment and nebulized dexamethasone. Zofran was given for nausea. Prednisone was administered for further treatment of asthma exacerbation. Diagnostic Imaging Diagonstic Imaging: Xray Plain Films/CT/US/NM/MRI: chest Comments Chest x-ray viewed by me. Report not yet available. No acute abnormalities appreciated. Departure Impression Impression: Primary Impression: Asthma with acute exacerbation in adult Qualified Codes: J45.901 - Unspecified asthma with (acute) exacerbation Additional Impression: Stridor Disposition: HOME, SELF-CARE Condition: Improved Departure-Patient Inst. Decision time for Depature: 23:30 Referrals: [facility] (PCP) Primary Care Physician KAY JONES APRN (Family) Primary Care Physician Patient Instructions: Asthma, Adult (DC) Add. Discharge Instructions: Drink plenty of clear liquids. Complete your prednisone prescription as prescribed. Use your inhaler up to 4 puffs and a four-hour period of time. Follow-up with your primary care provider within the next week. Return to care if symptoms worsen. You may take ibuprofen up to 600 mg every 6 hours as needed for your chest and abdominal discomfort. Add Tylenol (acetaminophen) up to 1000 mg every 6 hours as needed for additional pain relief if needed. Take prednisone and ibuprofen with food or milk to avoid stomach irritation. Use Zofran (ondansetron) as prescribed for nausea and vomiting. If you smoke, reduce smoking as much as possible and work toward quitting. You may use nicotine substitutes such as gum, lozenges, and patches. Do not use inhaled nicotine replacement without a prescription. All discharge instructions reviewed with patient and/or family. Voiced understanding. Scripts Prednisone (Prednisone) 20 Mg Tab 20 MG PO DAILY, #3 TAB Prov: JULIANO TORREZ MD 05/19/17 JULIANO TORREZ MD May 19, 2017 23:52
[2017-05-20] VITALS: BP 128/87
--- NOTE | 2017-05-20 07:31 | Diagnostic Imaging Report ---
INDICATION: Shortness of breath and wheezing. Comparison made with prior examination from 01/29/2017. PA and lateral views were obtained. FINDINGS: Heart size is normal. Mediastinum is unremarkable. There is no pleural effusion, pneumothorax or pneumonia. There does appear to be some air trapping. IMPRESSION: Nonspecific air trapping may reflect reactive airways disease. No other acute cardiopulmonary abnormality. Dictated by: Dictated on workstation # [id number]
[2017-05-20] MEDS ORDERED: PRD20T PO (18:37)
[2017-05-20] MEDS ORDERED: ALBU2.5V4 IH (18:37)
[2017-05-20] MEDS ORDERED: RT-ALBUINH IH (18:37)
[2017-05-20] MEDS ORDERED: MONT10TA24 PO (18:37)
== END 2017-05-20 | disposition home or self-care (01) ==
LOC: EDUNIT# 21:18 → ER 21:19
DX: J45.901 Unspecified asthma with (acute) exacerbation (principal); R06.1 Stridor; F17.210 Nicotine dependence, cigarettes, uncomplicated; Z82.49 Family history of ischemic heart disease and other diseases of the circulatory system; Z79.52 Long term (current) use of systemic steroids
CPT/HCPCS: 71046; 84703; 87430; 87804; 94640; 99283

== ENCOUNTER 2017-05-20 16:12 | Inpatient (IN) | payer MEDICAID ==
[~2017-05-20] VITALS: Ht 162.6 cm; Wt 60.1 kg
--- NOTE | 2017-05-20 16:22 | ED Cough/URI ---
General Stated Complaint: ASTHMA Source: patient Exam Limitations: no limitations History of Present Illness Date Seen by Provider: May 20, 2017 Time Seen by Provider: 16:20 Initial Comments To ER with reports of asthma exacerbation. She's been short of breath and increasingly wheezy over the past 4 days. She was seen here last night given a prescription for steroids which she has filled. She's been using her albuterol inhaler and nebulizer at home without relief. She does smoke cigarettes but has not smoked in 48 hours. She denies fevers Timing/Duration: constant, getting worse Severity/Quality: moderate Associated Symptoms: cough, shortness of breath, wheezing Allergies and Home Medications Allergies Coded Allergies: No Known Drug Allergies (Unverified , 04/10/14) Home Medications Albuterol Sulfate 1 Puff Puff, 2 PUFF IH Q4H PRN for SHORTNESS OF BREATH, ( Reported) 1 PUFF = 90 MCG Albuterol Sulfate 2.5 Mg/3 Ml Vial.neb, 2.5 MG IH Q6H PRN for SHORTNESS OF BREATH, (Reported) Montelukast Sodium 10 Mg Tablet, 10 MG PO HS, (Reported) LAST FILLED 03/14/17 #30 Prednisone 20 Mg Tab, 20 MG PO DAILY, (Reported) FILLED 05/20/17 #3 FOR A 3 DAY THERAPY Constitutional: see HPI EENTM: see HPI Respiratory: see HPI, cough, dyspnea on exertion, short of breath Cardiovascular: no symptoms reported Genitourinary: no symptoms reported Musculoskeletal: no symptoms reported Skin: no symptoms reported Psychiatric/Neurological: No Symptoms Reported Past Zhsdyax-Janpqu-Ccqzqv Hx Patient Social History Type Used: Cigarettes 2nd Hand Smoke Exposure: Yes Recent Foreign Travel: No Contact w/Someone Who Travel: No Recent Hopitalizations: No Immunizations Up To Date Tetanus Booster (TDap): Unknown Seasonal Allergies Seasonal Allergies: Yes Surgeries History of Surgeries: No Respiratory History of Respiratory Disorde: Yes Respiratory Disorders: Asthma Cardiovascular History of Cardiac Disorders: No Neurological History of Neurological Disord: No Reproductive System Hx Reproductive Disorders: No Genitourinary History of Genitourinary Disor: No Gastrointestinal History of Gastrointestinal Di: No Musculoskeletal History of Musculoskeletal Dis: No Endocrine History of Endocrine Disorders: No HEENT History of HEENT Disorders: No Cancer History of Cancer: No Psychosocial History of Psychiatric Problem: No Integumentary History of Skin or Integumenta: No Blood Transfusions History of Blood Disorders: No Family Medical History Family Medial History: Asthma 19 MOTHER Cardiovascular disease 19 FATHER Physical Exam Vital Signs Vital Signs - First Documented 05/20/17 05/20/17 16:15 16:36 Temp 98.7 Pulse 147 Resp 36 B/P (MAP) 123/66 (85) Pulse Ox 92 O2 Delivery Room Air O2 Flow Rate 2.00 Capillary Refill : General Appearance: WD/WN, moderate distress HEENT: PERRL/EOMI, normal ENT inspection Neck: non-tender, full range of motion Respiratory: respiratory distress (Speaks in short phrases), decreased breath sounds, accessory muscle use, wheezing Cardiovascular: no murmur, tachycardia (rate of 1:30 to 140) Gastrointestinal: normal bowel sounds, non tender, soft Neurologic/Psychiatric: alert, normal mood/affect, oriented x 3 Skin: normal color, warm/dry Progress/Results/Core Measures Suspected Sepsis SIRS Temperature: Pulse: Respiratory Rate: Laboratory Tests 05/20/17 16:20: White Blood Count 21.1H Blood Pressure / Mean: Laboratory Tests 05/20/17 16:20: Creatinine 0.82, Platelet Count 333, Total Bilirubin 0.2 Results/Orders Lab Results Laboratory Tests Test 05/20/17 16:20 Range/Units White Blood Count 21.1 H 4.3-11.0 10^3/uL Red Blood Count 4.59 4.35-5.85 10^6/uL Hemoglobin 13.4 11.5-16.0 G/DL Hematocrit 39 35-52 % Mean Corpuscular Volume 85 80-99 FL Mean Corpuscular Hemoglobin 29 25-34 PG Mean Corpuscular Hemoglobin Concent 34 32-36 G/DL Red Cell Distribution Width 14.5 10.0-14.5 % Platelet Count 333 130-400 10^3/uL Mean Platelet Volume 10.5 H 7.4-10.4 FL Neutrophils (%) (Auto) 85 H 42-75 % Lymphocytes (%) (Auto) 6 L 12-44 % Monocytes (%) (Auto) 9 0-12 % Eosinophils (%) (Auto) 0 0-10 % Basophils (%) (Auto) 0 0-10 % Neutrophils # (Auto) 17.9 H 1.8-7.8 X 10^3 Lymphocytes # (Auto) 1.3 1.0-4.0 X 10^3 Monocytes # (Auto) 1.9 H 0.0-1.0 X 10^3 Eosinophils # (Auto) 0.0 0.0-0.3 10^3/uL Basophils # (Auto) 0.0 0.0-0.1 10^3/uL Neutrophils % (Manual) 89 % Lymphocytes % (Manual) 4 % Monocytes % (Manual) 7 % Eosinophils % (Manual) 0 % Basophils % (Manual) 0 % Band Neutrophils 0 % Blood Morphology Comment NORMAL Sodium Level 141 135-145 MMOL/L Potassium Level 4.4 3.6-5.0 MMOL/L Chloride Level 106 98-107 MMOL/L Carbon Dioxide Level 21 21-32 MMOL/L Anion Gap 14 5-14 MMOL/L Blood Urea Nitrogen 12 7-18 MG/DL Creatinine 0.82 0.60-1.30 MG/DL Estimat Glomerular Filtration Rate > 60 BUN/Creatinine Ratio 15 Glucose Level 126 H 70-105 MG/DL Calcium Level 9.3 8.5-10.1 MG/DL Magnesium Level 1.7 L 1.8-2.4 MG/DL Total Bilirubin 0.2 0.1-1.0 MG/DL Aspartate Amino Transf (AST/SGOT) 21 5-34 U/L Alanine Aminotransferase (ALT/SGPT) 21 0-55 U/L Alkaline Phosphatase 86 40-136 U/L Total Protein 7.9 6.4-8.2 GM/DL Albumin 4.3 3.2-4.5 GM/DL My Orders Orders - TERRI WALLS BEAM DYER RECESSED VAT Cbc With Automated Diff (05/20/17 16:17) Comprehensive Metabolic Panel (05/20/17 16:17) Saline Lock/Iv-Start (05/20/17 16:17) Ipratropium 0.02% Neb Solution (Atrovent (05/20/17 16:30) Svn Sm Volume Nebulizer Rt-Rfs (05/20/17 16:17) Levalbuterol (Non-Formulary) (Xopenex (N (05/20/17 16:30) Magnesium 1 Gm/100 Ml Ivpb (Magnesium [place] (05/20/17 16:30) Arterial Blood Gas (05/20/17 16:19) Magnesium (05/20/17 16:20) Manual Differential (05/20/17 16:20) Medications Given in ED Current Medications Medications Dose Ordered Sig/Aspen Route Start Time Stop Time Status Last Admin Dose Admin Ipratropium [place] 0.5 mg ONCE ONCE IH 05/20/17 16:30 05/20/17 16:31 DC 05/20/17 16:35 0.5 MG Vital Signs/I&O Vital Sign - Last 12Hours 05/20/17 05/20/17 16:15 16:36 Temp 98.7 Pulse 147 Resp 36 B/P (MAP) 123/66 (85) Pulse Ox 92 94 O2 Delivery Room Air Nasal Cannula O2 Flow Rate 2.00 Capillary Refill : Progress Note : Progress Note Patient was seen last night at around 2300 for the same complaint and had a chest x-ray at this time so we will not be repeating that today.Patient was also given inhaled, IV, and by mouth steroids last night which would explain the patient's leukocytosis today. 1710- Patient's hour long Xopenex treatment continues at this time. She has increased air movement on auscultation she still has wheezes throughout. Departure Communication (Admissions) Progress Notes 1734-since the patient has failed outpatient treatment with oral prednisone and nebulizer at home and presents with respiratory distress, we will admit, she has improved quite significantly, respiratory rate has decreased as has her respiratory effort. Lung sounds are still queasy but she is moving better air at this time. Oxygen saturation 95% on 2 L. We will admit for supple oxygen, continued nebulizer treatments and Solu-Medrol. I discussed this plan with Dr. Aguila she agrees to admit. Impression Impression: Primary Impression: Status asthmaticus Disposition: ADMITTED INPATIENT Condition: Improved Admissions Decision to Admit Reason: Admit from ER (General) Decision to Admit/Date: May 20, 2017 Time/Decision to Admit Time: 17:35 Departure-Patient Inst. Referrals: [facility] (PCP) Primary Care Physician KAY JONES APRN (Family) Primary Care Physician TERRI WALLS APRN May 20, 2017 16:22
[2017-05-20] MEDS ORDERED: RT-IPRATROPIUM (ATROVENT) 0.5MG/2.5ML AMP IH ONE (16:30)
[2017-05-20] MEDS ORDERED: RT-LEVALBUTEROL (XOPENEX) 1.25 MG/3 ML NEB NON-FORMULARY INH SCH (16:30)
[2017-05-20 16:40] LABS: BASOPHILS % (AUTO) 0 % (0-10); EOSINOPHILS % (AUTO) 0 % (0-10); HEMATOCRIT 39 % (35-52); HEMOGLOBIN 13.4 G/DL (11.5-16.0); LYMPHOCYTES # (AUTO) 1.3 X 10^3 (1.0-4.0); LYMPHOCYTES % (AUTO) 6 % (12-44); MEAN CORPUSCULAR HEMOGLOBIN 29 PG (25-34); MEAN CORPUSCULAR HGB CONC 34 G/DL (32-36); MEAN CORPUSCULAR VOLUME 85 FL (80-99); MEAN PLATELET VOLUME 10.5 FL (7.4-10.4); MONOCYTES # (AUTO) 1.9 X 10^3 (0.0-1.0); MONOCYTES % (AUTO) 9 % (0-12); NEUTROPHILS # (AUTO) 17.9 X 10^3 (1.8-7.8); NEUTROPHILS % (AUTO) 85 % (42-75); PLATELET COUNT 333 10^3/uL (130-400); RED BLOOD COUNT 4.59 10^6/uL (4.35-5.85); RED CELL DISTRIBUTION WIDTH 14.5 % (10.0-14.5); WHITE BLOOD COUNT 21.1 10^3/uL (4.3-11.0)
[2017-05-20 17:05] LABS: ALANINE AMINOTRANSFERASE 21 U/L (0-55); ALBUMIN 4.3 GM/DL (3.2-4.5); ALKALINE PHOSPHATASE 86 U/L (40-136); BILIRUBIN,TOTAL 0.2 MG/DL (0.1-1.0); BUN/CREATININE RATIO 15; CALCIUM 9.3 MG/DL (8.5-10.1); CARBON DIOXIDE 21 MMOL/L (21-32); CHLORIDE 106 MMOL/L (98-107); CREATININE SERUM 0.82 MG/DL (0.60-1.30); GFR ESTIMATED > 60; GLUCOSE 126 MG/DL (70-105); MAGNESIUM 1.7 MG/DL (1.8-2.4); POTASSIUM 4.4 MMOL/L (3.6-5.0); SODIUM 141 MMOL/L (135-145); TOTAL PROTEIN 7.9 GM/DL (6.4-8.2)
[2017-05-20] MEDS: MAGNESIUM 1 GM/100 ML IVPB 100 ML IV SCH ×2 (17:13→17:34)
[2017-05-20 17:55] LABS: BAND NEUTROPHILS 0 %; BASOPHILS % (MANUAL) 0 %; EOSINOPHILS % (MANUAL) 0 %; LYMPHOCYTES % (MANUAL) 4 %; MONOCYTES % (MANUAL) 7 %; NEUTROPHILS % (MANUAL) 89 %; RBC MORPH NORMAL
[2017-05-20 18:02] VITALS: BP 109/58
[2017-05-20] MEDS ORDERED: MONT10TA24 PO (18:37)
[2017-05-20] MEDS ORDERED: PRD20T PO (18:37)
[2017-05-20] MEDS ORDERED: ALBU2.5V4 IH (18:37)
[2017-05-20] MEDS ORDERED: RT-ALBUINH IH (18:37)
[2017-05-20] MEDS ORDERED: ONDANSETRON 4 MG/2 ML (SDV) Z0FRAN IVP PRN (19:00)
[2017-05-20] MEDS: NS W/KCL 20 MEQ/L 1,000 ML IV SCH (19:09)
[2017-05-20] MEDS: methylPREDNISolone 125 MG (Solu-MEDROL) VIAL IVP SCH (19:09)
[2017-05-20] MEDS ORDERED: 1/2 NS IV SOLUTION 1,000 ML IV SCH (19:15)
[2017-05-20] MEDS ORDERED: DEXTROSE 10% IV SOLUTION 1,000 ML IV SCH (19:15)
[2017-05-20] MEDS ORDERED: D5 1/2 NS W/KCL 20 MEQ/L 1,000 ML IV SCH (19:15)
[2017-05-20] MEDS ORDERED: 1/2 NS W/KCL 20 MEQ/L 1,000 ML IV SCH (19:15)
[2017-05-20] MEDS ORDERED: NS IV 1000 ML X 1 WIDE OPEN IV ONE (19:15)
[2017-05-20] MEDS ORDERED: D5 1/2 NS IV 1,000 ML IV SCH (19:15)
[2017-05-20 20:00] VITALS: BP 109/58
[2017-05-20] MEDS ORDERED: INFLUENZA TRIvalent 2017-2018 0.5 ML/45 MCG SYR IM ONE (20:15)
[2017-05-20] MEDS ORDERED: RT-ALBUTEROL/IPRATROPIUM 3 ML (DUONEB) VIAL INH SCH (22:00)
[2017-05-21] VITALS (16 sets, daily range): BP systolic 94–123; BP diastolic 41–83
[2017-05-21] MEDS: methylPREDNISolone 125 MG (Solu-MEDROL) VIAL IVP SCH ×3 (02:26→20:10)
[2017-05-21] MEDS: RT-LEVALBUTEROL (XOPENEX) 1.25 MG/3 ML NEB NON-FORMULARY INH SCH ×2 (02:29→06:30)
[2017-05-21] MEDS: NS W/KCL 20 MEQ/L 1,000 ML IV SCH ×2 (05:15→15:17)
[2017-05-21] MEDS ORDERED: RT-IPRATROPIUM (ATROVENT) 0.5MG/2.5ML AMP IH STA (09:24)
[2017-05-21] MEDS ORDERED: RT-LEVALBUTEROL (XOPENEX) 1.25 MG/3 ML NEB NON-FORMULARY INH STA (09:24)
[2017-05-21] MEDS ORDERED: RT-LEVALBUTEROL (XOPENEX) 1.25 MG/3 ML NEB NON-FORMULARY INH SCH (10:00)
[2017-05-21 10:46] LABS: ABG BASE EXCESS -3.3 MMOL/L (-2.5-2.5); ABG OXYGEN SATURATION 96 % (94-100); ABG PCO2 38 MMHG (35-45); ABG PH 7.36 (7.37-7.43); ABG PO2 71 MMHG (79-93); ABG TCO2 22.5 MMOL/L (21.0-31.0)
[2017-05-21 10:47] LABS: ALLENS TEST YES-POS; INSPIRED O2 4 L; PATIENT TEMP 97.7; VENTILATOR NO
--- NOTE | 2017-05-21 11:39 | History & Physicial (CHS) ---
ANDREEA DE LA VEGA MED STUDENT 05/21/17 1139: HPI History of Present Illness: Patient is a 21 yo F w/ PMH of asthma who was admitted through the ED 05/20 for asthma exacerbation. Patient states symptoms started w/ nasal congestion 5 days ago, tried nyquil and dayquil w/o improvement. Day 2 developed asthma symptoms and started to use her albuterol inhaler more frequently. Day 3 patient presented to the ED and was discharged after receiving breathing treatment and PO steroids, strep and flu negative. Day 4 no improvement is symptoms and was admitted through the ED. Today patient was satting 87% on 2 LNC which was increased to 4 LNC w/ minimal improvement in O2 sats. Patient has been hospitalized multiple times for asthma exacerbations w/ allergies and cold temperature triggers, her most recent admission was February or March 2017. Admits SOB, denies CP, cough, soar throat, edema. Source: patient Exam Limitations: no limitations Date seen by provider: May 21, 2017 Time Seen by Provider: 10:30 Attending Physician Tabatha Aguila MD [facility],[facility] Consult Date of Admission May 20, 2017 at 17:37 Home Medications Home Medications Reviewed patient Home Medication Reconciliation Form Allergies Coded Allergies: No Known Drug Allergies (Unverified , 04/10/14) [id number] Hx Patient Social History Alcohol Use: Denies Use Recreational Drug Use: No Smoking Status: Current Everyday Smoker Type Used: Cigarettes 2nd Hand Smoke Exposure: Yes Recent Foreign Travel: No Contact w/other who traveled: No Recent Hopitalizations: No Recent Infectious Disease Expo: No Physical Abuse Screen: No Sexual Abuse: No Immunizations Up To Date Tetanus Booster (TDap): Unknown Date of Pneumonia Vaccine: May 20, 2015 Past Medical History Asthma w/ frequent exacerbations Family Medical History Significant Family History: Asthma, Heart Disease Family History: Asthma 19 MOTHER Cardiovascular disease 19 FATHER Completed stroke paternal grandfather Review of Systems (CHC) Constitutional: No fever EENTM: No blurred vision Respiratory: No cough, dyspnea on exertion, No hemoptysis, short of breath, wheezing Cardiovascular: No chest pain, No edema Gastrointestinal: No abdominal pain, No constipation, No diarrhea Genitourinary: No dysuria Musculoskeletal: no symptoms reported Skin: no symptoms reported Psychiatric/Neurological: No Symptoms Reported Physical Exam-(CHC) Physical Exam Vital Signs VS - Last 72 Hours, by Label 05/20/17 05/20/17 05/20/17 05/20/17 16:15 16:36 18:02 18:06 Temp 98.7 97.3 98.7 Pulse 147 117 123 Resp 36 16 24 B/P (MAP) 123/66 (85) 109/58 (75) Pulse Ox 92 94 96 93 O2 Delivery Room Air Nasal Cannula Nasal Cannula Nasal Cannula O2 Flow Rate 2.00 2.00 05/20/17 05/20/17 05/20/17 05/20/17 18:15 19:06 19:30 20:00 Temp 99.3 Pulse 108 123 89 Resp 20 B/P (MAP) 109/58 (75) Pulse Ox 93 97 O2 Delivery Room Air Nasal Cannula FiO2 2 05/20/17 05/20/17 05/21/17 05/21/17 20:15 22:36 00:00 00:30 Temp 97.5 Pulse 118 107 Resp 17 B/P (MAP) 102/53 (69) Pulse Ox 96 93 O2 Delivery Nasal Cannula Nasal Cannula Nasal Cannula O2 Flow Rate 2.00 2.00 1.00 05/21/17 05/21/17 05/21/17 05/21/17 01:00 02:30 04:00 06:30 Temp 97.4 Pulse 103 99 Resp 18 B/P (MAP) 101/58 (72) Pulse Ox 96 95 96 O2 Delivery Nasal Cannula Nasal Cannula Nasal Cannula O2 Flow Rate 2.00 1.00 2.00 05/21/17 05/21/17 05/21/17 05/21/17 07:00 08:00 08:54 09:00 Temp 97.9 Pulse 88 106 Resp 18 B/P (MAP) 101/58 (72) Pulse Ox 93 87 89 O2 Delivery Nasal Cannula Nasal Cannula Nasal Cannula O2 Flow Rate 2.00 2.00 4.00 05/21/17 05/21/17 09:30 11:54 Pulse Ox 89 93 O2 Delivery Nasal Cannula O2 Flow Rate 4.00 Capillary Refill : Less Than 3 Seconds General Appearance: mild distress Eyes: Bilateral Eye EOMI HEENT: PERRL/EOMI Neck: non-tender, full range of motion, supple Respiratory: respiratory distress, wheezing, expiration Cardiovascular: no edema Peripheral Pulses: 2+ Radial Pulses (R), 2+ Radial Pulses (L) Gastrointestinal: normal bowel sounds, non tender, soft, No distended, No guarding, No rebound Extremities: normal range of motion, no pedal edema, no calf tenderness 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, no motor/sensory deficits Skin: normal color, warm/dry Clinical Quality Measures DVT/VTE Risk/Contraindication: Risk Factor Score Per Nursin RFS Level Per Nursing on Admit: 1=Low/No VTE PPX Assessment/Plan Assessment/Plan Admission Dx Status Asthmaticus Plan Status Asthmaticus, hx of multiple hospital admissions for asthma exacerbations - expiratory wheezing throughout bilateral lung brown - requiring 4 L NC Plan: Continue heliox therapy Duonebs q2h Methylprednisolone q8h Transfer to ICU for inceased level of care Nausea Ondansetron prn TABATHA AGUILA MD 05/21/172141: Home Medications Allergies Coded Allergies: No Known Drug Allergies (Unverified , 04/10/14) [id number] Hx Past Medical History Never been intubated for asthma Family Medical History Family History: Asthma 19 MOTHER Cardiovascular disease 19 FATHER Completed stroke paternal grandfather Review of Systems (CHC) Constitutional: no symptoms reported EENTM: nose congestion (5 days prior) Physical Exam-([facility]) Physical Exam Vital Signs VS - Last 72 Hours, by Label 05/20/17 05/20/17 05/20/17 05/20/17 16:15 16:36 18:02 18:06 Temp 98.7 97.3 98.7 Pulse 147 117 123 Resp 36 16 24 B/P (MAP) 123/66 (85) 109/58 (75) Pulse Ox 92 94 96 93 O2 Delivery Room Air Nasal Cannula Nasal Cannula Nasal Cannula O2 Flow Rate 2.00 2.00 05/20/17 05/20/17 05/20/17 05/20/17 18:15 19:06 19:30 20:00 Temp 99.3 Pulse 108 123 89 Resp 20 B/P (MAP) 109/58 (75) Pulse Ox 93 97 O2 Delivery Room Air Nasal Cannula FiO2 2 05/20/17 05/20/17 05/21/17 05/21/17 20:15 22:36 00:00 00:30 Temp 97.5 Pulse 118 107 Resp 17 B/P (MAP) 102/53 (69) Pulse Ox 96 93 O2 Delivery Nasal Cannula Nasal Cannula Nasal Cannula O2 Flow Rate 2.00 2.00 1.00 05/21/17 05/21/17 05/21/17 05/21/17 01:00 02:30 04:00 06:30 Temp 97.4 Pulse 103 99 Resp 18 B/P (MAP) 101/58 (72) Pulse Ox 96 95 96 O2 Delivery Nasal Cannula Nasal Cannula Nasal Cannula O2 Flow Rate 2.00 1.00 2.00 05/21/17 05/21/17 05/21/17 05/21/17 07:00 08:00 08:54 09:00 Temp 97.9 Pulse 88 106 Resp 18 B/P (MAP) 101/58 (72) Pulse Ox 93 87 89 O2 Delivery Nasal Cannula Nasal Cannula Nasal Cannula O2 Flow Rate 2.00 2.00 4.00 05/21/17 05/21/17 05/21/17 05/21/17 09:30 11:54 12:00 13:00 Temp 97.7 Pulse 115 129 Resp 20 B/P (MAP) 118/58 (78) Pulse Ox 89 93 95 O2 Delivery Nasal Cannula Non Rebreather O2 Flow Rate 4.00 4.00 05/21/17 05/21/17 05/21/17 05/21/17 13:30 13:30 13:45 14:00 Temp 98.1 Pulse 140 126 123 Resp 18 20 18 B/P (MAP) 107/69 (82) 123/75 (91) 110/74 (86) Pulse Ox 94 95 97 O2 Delivery Room Air Non Rebreather Non Rebreather Non Rebreather O2 Flow Rate 4.00 4.00 4.00 05/21/17 05/21/17 05/21/17 05/21/17 14:54 15:00 16:00 16:00 Pulse 133 108 Resp 18 20 B/P (MAP) 122/80 (94) 104/41 (62) Pulse Ox 97 97 98 O2 Delivery Nasal Cannula Non Rebreather Room Air Non Rebreather O2 Flow Rate 4.00 4.00 4.00 05/21/17 05/21/17 05/21/17 05/21/17 16:31 17:00 18:00 18:52 Pulse 130 111 Resp 16 18 B/P (MAP) 112/74 (87) 107/71 (83) Pulse Ox 97 98 95 O2 Delivery Nasal Cannula Non Rebreather Non Rebreather Nasal Cannula O2 Flow Rate 4.00 4.00 4.00 4.00 05/21/17 05/21/17 19:00 20:15 Pulse 136 Pulse Ox 98 O2 Delivery Nasal Cannula O2 Flow Rate 4.00 General Appearance: moderate distress (shortness of breath with talking) HEENT: PERRL/EOMI Neck: non-tender, supple Respiratory: accessory muscle use, No crackles, wheezing (diffuse with ins/exp) Cardiovascular: regular rate, rhythm, no edema, no murmur Gastrointestinal: normal bowel sounds, non tender, soft Back: no CVA tenderness Extremities: normal range of motion, no pedal edema, no calf tenderness 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, no motor/sensory deficits, alert, normal mood/affect, oriented x 3 Skin: normal color, warm/dry Lymphatic: no adenopathy Assessment/Plan Assessment/Plan (1) DVT prophylaxis Status: Acute Assessment & Plan: - SCDs and ambulation (2) Tobacco abuse Status: Chronic Assessment & Plan: - Discussed the importance of cessation given uncontrolled asthma with frequent exacerbations (3) Status asthmaticus Status: Acute Assessment & Plan: - Consulted Pulm given need for heliox - Continue q 2hr duoneb treatment - Mag Sulfate - IV steroids - Titrate oxygen as tolerated ANDREEA DE LA VEGA MED STUDENT May 21, 2017 11:39 TABATHA AGUILA MD May 21, 2017 21:42
[2017-05-21] MEDS: RT-ALBUTEROL/IPRATROPIUM 3 ML (DUONEB) VIAL INH SCH ×4 (11:54→20:15)
--- NOTE | 2017-05-21 12:44 | Pulmonary Consultation ---
History of Present Illness History of Present Illness Date of Consultation 05/21/17 12:37 Time Seen by Provider: 12:37 Date of Admission History of Present Illness 21yo with hx of asthma and multiple hospitalizations secondary to asthma presented to ED secondary to progressive worsening SOB. last admission was . Onset was 5days ago with nasal congestion and progressed to SOB and wheezing. Pt used over the counter meds without improvement. She was seen in ED 3days ago and discharged after receiving SVN tx and steroids. Sp02 on 2liters today was 87% in ED. CXR shows airtrapping. I am consulted for pulmonary management. Allergies and Home Medications Allergies Coded Allergies: No Known Drug Allergies (Unverified , 04/10/14) Home Medications Albuterol Sulfate 1 Puff Puff, 2 PUFF IH Q4H PRN for SHORTNESS OF BREATH, ( Reported) 1 PUFF = 90 MCG Albuterol Sulfate 2.5 Mg/3 Ml Vial.neb, 2.5 MG IH Q6H PRN for SHORTNESS OF BREATH, (Reported) Montelukast Sodium 10 Mg Tablet, 10 MG PO HS, (Reported) LAST FILLED 03/14/17 #30 Prednisone 20 Mg Tab, 20 MG PO DAILY, (Reported) FILLED 05/20/17 #3 FOR A 3 DAY THERAPY Past [id number]-Ytzquo Hx Patient Social History Alcohol Use: Denies Use Recreational Drug Use: No Smoking Status: Current Everyday Smoker Type Used: Cigarettes 2nd Hand Smoke Exposure: Yes Recent Foreign Travel: No Contact w/Someone Who Travel: No Recent Infectious Disease Expo: No Recent Hopitalizations: No Immunizations Up To Date Tetanus Booster (TDap): Unknown PED Vaccines UTD: Yes Date of Pneumonia Vaccine: May 20, 2015 Seasonal Allergies Seasonal Allergies: Yes Surgeries History of Surgeries: No Respiratory History of Respiratory Disorde: Yes Respiratory Disorders: Asthma Currently Using CPAP: No Currently Using BIPAP: No Cardiovascular History of Cardiac Disorders: No Neurological History of Neurological Disord: No Reproductive System Hx Reproductive Disorders: No Genitourinary History of Genitourinary Disor: No Gastrointestinal History of Gastrointestinal Di: No Musculoskeletal History of Musculoskeletal Dis: No Endocrine History of Endocrine Disorders: No HEENT History of HEENT Disorders: Yes (Strider with asthma exacerbations) Cancer History of Cancer: No Psychosocial History of Psychiatric Problem: No Integumentary History of Skin or Integumenta: Yes Skin/Integumentary Disorders: Eczema Blood Transfusions History of Blood Disorders: No Family Medical History Significant Family History: Asthma, Heart Disease Family Medial History: Asthma 19 MOTHER Cardiovascular disease 19 FATHER Completed stroke paternal grandfather Review of Systems Time Seen by Provider: 13:19 Constitutional: Sweats, Weakness, Malaise, No: Fever, Chills, Other Eyes: No: Pain, Vision change, Conjunctivae inflammation, Eyelid inflammation, Other, Redness ENT: No: Ear pain, Ear discharge, Nose pain, Nose discharge, Nose congestion, Mouth pain, Mouth swelling, Throat pain, Throat swelling, Other Respiratory: Cough, Dry, Shortness of breath, SOB with excertion, Wheezing, Pleuritic Pain, No: Hemoptysis Cardiovascular: Chest Pain, Palpitations, Orthopnea, Paroxysmal Noc. Dyspnea, Lt Headedness, No: Edema Gastrointestinal: No: Nausea, Vomiting, Abdominal Pain, Diarrhea, Constipation , Melena, Hematochezia, Other Genitourinary: No Dysuria, No Frequency, No Incontinence, No Hematuria, No Retention, No Other Musculoskeletal: back pain, No: other, neck pain, shoulder pain, arm pain, hand pain, leg pain, foot pain Skin: No: Rash, Lesions, Jaundice Neurological: Weakness, Incoordination, No: Confusion Exam Exam Vital Signs Date Time Temp Pulse Resp B/P (MAP) Pulse Ox O2 Delivery O2 Flow Rate FiO2 05/21/17 11:54 93 05/21/17 09:30 89 Nasal Cannula 4.00 05/21/17 09:00 89 Nasal Cannula 4.00 05/21/17 08:54 87 Nasal Cannula 2.00 05/21/17 08:00 97.9 106 18 101/58 (72) 93 Nasal Cannula 2.00 05/21/17 07:00 88 05/21/17 06:30 96 Nasal Cannula 2.00 05/21/17 04:00 97.4 99 18 101/58 (72) 95 Nasal Cannula 1.00 05/21/17 02:30 96 Nasal Cannula 2.00 05/21/17 01:00 103 05/21/17 00:30 107 05/21/17 00:00 97.5 118 17 102/53 (69) 93 Nasal Cannula 1.00 05/20/17 22:36 96 Nasal Cannula 2.00 05/20/17 20:15 Nasal Cannula 2.00 05/20/17 20:00 99.3 89 20 109/58 (75) 97 Nasal Cannula 05/20/17 19:30 123 93 2 05/20/17 19:06 108 05/20/17 18:15 Room Air 05/20/17 18:06 98.7 123 24 93 Nasal Cannula 2.00 05/20/17 18:02 97.3 117 16 109/58 (75) 96 Nasal Cannula 05/20/17 16:36 94 Nasal Cannula 2.00 05/20/17 16:15 98.7 147 36 123/66 (85) 92 Room Air I & O 05/21/17 07:00 Intake Total 1620 ml Output Total 900 ml Balance 720 ml General Appearance: Anxious, Moderate Distress HEENT: PERRL/EOMI Neck: Full Range of Motion, Non Tender Respiratory: Accessory Muscle Use, Decreased Breath Sounds, Respiratory Distress, Wheezing Cardiovascular: No Edema, Tachycardia Capillary Refill: Less Than 3 Seconds Peripheral Pulses: 2+ Radial Pulses (R), 2+ Radial Pulses (L) Gastrointestinal: normal bowel sounds, non tender, soft, No distended, No guarding, No rebound Extremity: Normal Capillary Refill, Normal Inspection, Normal Range of Motion, Non Tender Neurologic/Psychiatric: Alert, Oriented x3 Skin: Normal Color, Cool Lymphatic: No Adenopathy Results Lab Laboratory Tests 05/20/17 16:20 Assessment/Plan Assessment/Plan Asthma AE - chronically uncontrolled -SVNs Q2, solumedrol -Continue Heliox -IVF -s/p magnesium sulfate. 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 I discussed with pt ITALIAN TEACHER and Dr. Aguila. 60min critical time spent with patient and medical staff discussing pt's current situation. Clinical Quality Measures DVT/VTE Risk/Contraindication: Risk Factor Score Per Nursin RFS Level Per Nursing on Admit: 1=Low/No VTE PPX CHINEDU MOSQUEDA DO May 21, 2017 12:44
[2017-05-21 13:52] LABS: BASOPHILS % (AUTO) 0 % (0-10); EOSINOPHILS % (AUTO) 0 % (0-10); HEMATOCRIT 37 % (35-52); HEMOGLOBIN 12.7 G/DL (11.5-16.0); LYMPHOCYTES # (AUTO) 0.6 X 10^3 (1.0-4.0); LYMPHOCYTES % (AUTO) 2 % (12-44); MEAN CORPUSCULAR HEMOGLOBIN 29 PG (25-34); MEAN CORPUSCULAR HGB CONC 34 G/DL (32-36); MEAN CORPUSCULAR VOLUME 86 FL (80-99); MEAN PLATELET VOLUME 10.5 FL (7.4-10.4); MONOCYTES # (AUTO) 0.8 X 10^3 (0.0-1.0); MONOCYTES % (AUTO) 3 % (0-12); NEUTROPHILS # (AUTO) 23.5 X 10^3 (1.8-7.8); NEUTROPHILS % (AUTO) 95 % (42-75); PLATELET COUNT 318 10^3/uL (130-400); RED BLOOD COUNT 4.33 10^6/uL (4.35-5.85); WHITE BLOOD COUNT 24.9 10^3/uL (4.3-11.0)
[2017-05-21 14:15] LABS: BUN/CREATININE RATIO 13; CALCIUM 9.1 MG/DL (8.5-10.1); CARBON DIOXIDE 22 MMOL/L (21-32); CHLORIDE 109 MMOL/L (98-107); CREATININE SERUM 0.78 MG/DL (0.60-1.30); GFR ESTIMATED > 60; GLUCOSE 218 MG/DL (70-105); MAGNESIUM 1.9 MG/DL (1.8-2.4); PHOSPHORUS 3.4 MG/DL (2.3-4.7); POTASSIUM 4.4 MMOL/L (3.6-5.0); SODIUM 140 MMOL/L (135-145)
[2017-05-21] MEDS: MAGNESIUM 1 GM/D5W 100 ML IVPB IV SCH (18:31)
[2017-05-21] MEDS: RT-ALBUTEROL SULF 2.5 MG/3 ML PRE-MIX VIAL INH SCH ×2 (18:52→21:58)
[2017-05-21] MEDS: MONTELUKAST 10 MG (SINGULAIR) TAB PO SCH (20:11)
[2017-05-22] MEDS: RT-ALBUTEROL/IPRATROPIUM 3 ML (DUONEB) VIAL INH SCH ×7 (00:03→22:11)
[2017-05-22] MEDS: RT-ALBUTEROL SULF 2.5 MG/3 ML PRE-MIX VIAL INH SCH ×4 (02:06→15:02)
[2017-05-22] MEDS: methylPREDNISolone 125 MG (Solu-MEDROL) VIAL IVP SCH ×4 (02:46→18:04)
[2017-05-22] MEDS: NS W/KCL 20 MEQ/L 1,000 ML IV SCH ×4 (02:46→23:09)
[2017-05-22 03:52] LABS: BASOPHILS % (AUTO) 0 % (0-10); EOSINOPHILS % (AUTO) 0 % (0-10); HEMATOCRIT 36 % (35-52); HEMOGLOBIN 12.2 G/DL (11.5-16.0); LYMPHOCYTES # (AUTO) 0.8 X 10^3 (1.0-4.0); LYMPHOCYTES % (AUTO) 3 % (12-44); MEAN CORPUSCULAR HEMOGLOBIN 29 PG (25-34); MEAN CORPUSCULAR HGB CONC 34 G/DL (32-36); MEAN CORPUSCULAR VOLUME 86 FL (80-99); MEAN PLATELET VOLUME 10.6 FL (7.4-10.4); MONOCYTES # (AUTO) 1.3 X 10^3 (0.0-1.0); MONOCYTES % (AUTO) 4 % (0-12); NEUTROPHILS # (AUTO) 29.1 X 10^3 (1.8-7.8); NEUTROPHILS % (AUTO) 93 % (42-75); PLATELET COUNT 297 10^3/uL (130-400); RED BLOOD COUNT 4.16 10^6/uL (4.35-5.85); RED CELL DISTRIBUTION WIDTH 15.2 % (10.0-14.5)
[2017-05-22 04:05] LABS: WHITE BLOOD COUNT 31.2 10^3/uL (4.3-11.0)
--- NOTE | 2017-05-22 04:23 | Pulmonary Progress Note ---
Subjective Time Seen by Provider: 04:23 Subjective/Events-last exam PT is still very wheezy and SOB. Exam Exam Vital Signs Date Time Temp Pulse Resp B/P (MAP) Pulse Ox O2 Delivery O2 Flow Rate FiO2 05/22/17 04:07 35 Vapotherm 10 05/22/17 03:43 92 Vapotherm 10.00 35 05/22/17 02:06 92 Vapotherm 10.00 35 05/22/17 01:00 119 05/22/17 00:03 95 Vapotherm 10.00 35 05/22/17 00:00 35 Vapotherm 10 05/21/17 23:00 124 114/76 (89) 95 Vapotherm 35.00 10.00 05/21/17 22:00 132 118/83 (95) 95 Vapotherm 35.00 10.00 05/21/17 21:58 96 Vapotherm 10.00 35 05/21/17 21:00 130 114/71 (85) 95 Vapotherm 35.00 10.00 05/21/17 20:15 98 Nasal Cannula 4.00 05/21/17 20:00 111 94/51 (65) 98 Vapotherm 35.00 10.00 05/21/17 20:00 Room Air 05/21/17 19:00 135 117/72 (87) 97 Non Rebreather 4.00 05/21/17 19:00 136 05/21/17 18:52 95 Nasal Cannula 4.00 05/21/17 18:00 111 18 107/71 (83) 98 Non Rebreather 4.00 05/21/17 17:00 130 16 112/74 (87) 97 Non Rebreather 4.00 05/21/17 16:31 Nasal Cannula 4.00 05/21/17 16:00 108 20 104/41 (62) 98 Non Rebreather 4.00 05/21/17 16:00 Room Air 05/21/17 15:00 133 18 122/80 (94) 97 Non Rebreather 4.00 05/21/17 14:54 97 Nasal Cannula 4.00 05/21/17 14:00 123 18 110/74 (86) 97 Non Rebreather 4.00 05/21/17 13:45 126 20 123/75 (91) 95 Non Rebreather 4.00 05/21/17 13:30 98.1 140 18 107/69 (82) 94 Non Rebreather 4.00 05/21/17 13:30 Room Air 05/21/17 13:00 129 05/21/17 12:00 97.7 115 20 118/58 (78) 95 Non Rebreather 4.00 05/21/17 11:54 93 05/21/17 09:30 89 Nasal Cannula 4.00 05/21/17 09:00 89 Nasal Cannula 4.00 05/21/17 08:54 87 Nasal Cannula 2.00 05/21/17 08:00 97.9 106 18 101/58 (72) 93 Nasal Cannula 2.00 05/21/17 07:00 88 05/21/17 06:30 96 Nasal Cannula 2.00 I & O 05/22/17 07:00 Intake Total 1522 ml Output Total 500 ml Balance 1022 ml General Appearance: Anxious, Moderate Distress HEENT: PERRL/EOMI Neck: Full Range of Motion, Non Tender Respiratory: Accessory Muscle Use, Decreased Breath Sounds, Wheezing Cardiovascular: No Edema, Tachycardia Capillary Refill: Less Than 3 Seconds Peripheral Pulses: 2+ Radial Pulses (R), 2+ Radial Pulses (L) Gastrointestinal: normal bowel sounds, non tender, soft Extremity: Normal Capillary Refill, Normal Inspection, Normal Range of Motion, Non Tender Neurologic/Psychiatric: Alert, Oriented x3 Skin: Normal Color, Cool Lymphatic: No Adenopathy Results Lab Laboratory Tests 05/20/17 16:20 05/21/17 13:42 05/22/17 03:20 Assessment/Plan Assessment/Plan Asthma AE - chronically uncontrolled -SVNs Q2, solumedrol -Continue Heliox -IVF -s/p magnesium sulfate. -repeat labs Allergic rhinitis -singulair, zyrtec, flonase Leukocytosis - secondary to steroids -Decrease solumedrol 40 IV Q 6. 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 233 Clinical Quality Measures DVT/VTE Risk/Contraindication: Risk Factor Score Per Nursin RFS Level Per Nursing on Admit: 1=Low/No VTE PPX CHINEDU MOSQUEDA DO May 22, 2017 04:23
[2017-05-22 04:32] LABS: ALANINE AMINOTRANSFERASE 25 U/L (0-55); ALBUMIN 3.6 GM/DL (3.2-4.5); ALKALINE PHOSPHATASE 69 U/L (40-136); BILIRUBIN,TOTAL 0.2 MG/DL (0.1-1.0); BUN/CREATININE RATIO 18; CALCIUM 8.5 MG/DL (8.5-10.1); CARBON DIOXIDE 19 MMOL/L (21-32); CHLORIDE 109 MMOL/L (98-107); CREATININE SERUM 0.66 MG/DL (0.60-1.30); GFR ESTIMATED > 60; GLUCOSE 161 MG/DL (70-105); POTASSIUM 4.2 MMOL/L (3.6-5.0); SODIUM 141 MMOL/L (135-145); TOTAL PROTEIN 6.4 GM/DL (6.4-8.2)
[2017-05-22 04:38] LABS: ANISOCYTOSIS SLIGHT; BAND NEUTROPHILS 1 %; BASOPHILS % (MANUAL) 0 %; EOSINOPHILS % (MANUAL) 0 %; LYMPHOCYTES % (MANUAL) 2 %; MONOCYTES % (MANUAL) 2 %; NEUTROPHILS % (MANUAL) 95 %
[2017-05-22] MEDS ORDERED: methylPREDNISolone 125 MG (Solu-MEDROL) VIAL IVP SCH (06:00)
--- NOTE | 2017-05-22 06:24 | Diagnostic Imaging Report ---
INDICATION: Shortness of breath Portable chest 4:31 AM Heart size and pulmonary vascularity are normal. Lungs are clear. There are no effusions or pneumothoraces. IMPRESSION: Negative chest Dictated by: Dictated on workstation # [id number]
[2017-05-22] MEDS: LORATADINE (CLARITIN) 10 MG TAB PO SCH (08:14)
[2017-05-22] MEDS: RT-BUDESONIDE NEBS 0.5 MG/2ML (PULMICORT) AMP INH SCH ×2 (08:26→18:19)
[2017-05-22 10:15] VITALS: BP_SYST 132; BP_DIAS 58; BP_DIAS 90
[2017-05-22] MEDS: BENZONATATE 100 MG (TESSALON) CAPSULE PO PRN ×2 (10:28→18:04)
--- NOTE | 2017-05-22 10:37 | Progress Note (SOAP) ---
ANDREEA DE LA VEGA MED STUDENT 05/22/17 1037: Subjective Subjective/Events-last exam Patient is a 21 F admitted for status asthmaticus. Reports feeling better today but still wheezing and cough has become productive w/ thick green mucus. She was able to ambulate to the toilet w/ minimal difficulty. No other questions or concerns. Review of Systems Date Seen by Provider: May 22, 2017 Time Seen by Provider: 09:45 General: No Chills HEENT: No Head Aches, No Visual Changes Pulmonary: Cough Cardiovascular: No: Chest Pain, Edema Gastrointestinal: No: Nausea, Vomiting, Abdominal Pain, Diarrhea, Constipation Genitourinary: No Dysuria Objective Exam Last Set of Vital Signs Vital Signs Date Time Temp Pulse Resp B/P (MAP) Pulse Ox O2 Delivery O2 Flow Rate FiO2 05/22/17 10:11 94 Vapotherm 10.00 35 05/22/17 08:01 98.0 05/22/17 07:00 125 05/21/17 23:00 114/76 (89) 05/21/17 18:00 18 Capillary Refill : Less Than 3 Seconds I&O Intake and Output 05/22/17 00:00 Intake Total 2722 ml Output Total 1400 ml Balance 1322 ml Intake Oral 622 ml IV Total 2100 ml Output Urine Total 1400 ml # Voids 2 # Bowel Movements 1 General: Alert, Oriented X3, Cooperative, No Acute Distress HEENT: Atraumatic, EOMI Neck: Supple, No JVD Lungs: Other (Expiratory wheezing throughout lung brown bilaterally) Heart: Normal S1, Normal S2, No Murmurs Abdomen: Normal Bowel Sounds, Soft, No Tenderness Extremities: No Clubbing, No Cyanosis, No Edema, Normal Pulses Neuro: Cranial Nerves 3-12 NL Psych/Mental Status: Mental Status NL, Mood NL Results/Procedures Lab Laboratory Tests 05/21/17 10:38: Blood Gas Puncture Site RT RAD, Blood Gas Patient Temperature 97.7, Arterial Blood pH 7.36L, Arterial Blood Partial Pressure CO2 38, Arterial Blood Partial Pressure O2 71L, Arterial Blood HCO3 21L, Arterial Blood Total CO2 22.5, Arterial Blood Oxygen Saturation 96, Arterial Blood Base Excess -3.3L, Donovan Test YES-POS, Blood Gas Ventilator Setting NO, Blood Gas Inspired Oxygen 4 L 05/21/17 13:42: White Blood Count 24.9H, Red Blood Count 4.33L, Hemoglobin 12.7, Hematocrit 37, Mean Corpuscular Volume 86, Mean Corpuscular Hemoglobin 29, Mean Corpuscular Hemoglobin Concent 34, Red Cell Distribution Width 15.0H, Platelet Count 318, Mean Platelet Volume 10.5H, Neutrophils (%) (Auto) 95H, Lymphocytes (%) (Auto) 2L, Monocytes (%) (Auto) 3, Eosinophils (%) (Auto) 0, Basophils (%) (Auto) 0, Neutrophils # (Auto) 23.5H, Lymphocytes # (Auto) 0.6L, Monocytes # (Auto) 0.8, Eosinophils # (Auto) 0.0, Basophils # (Auto) 0.0, Sodium Level 140, Potassium Level 4.4, Chloride Level 109H, Carbon Dioxide Level 22, Anion Gap 9, Blood Urea Nitrogen 10, Creatinine 0.78, Estimat Glomerular Filtration Rate > 60, BUN/ Creatinine Ratio 13, Glucose Level 218H, Calcium Level 9.1, Phosphorus Level 3.4 , Magnesium Level 1.9 05/22/17 03:20: White Blood Count 31.2*H, Red Blood Count 4.16L, Hemoglobin 12.2, Hematocrit 36 , Mean Corpuscular Volume 86, Mean Corpuscular Hemoglobin 29, Mean Corpuscular Hemoglobin Concent 34, Red Cell Distribution Width 15.2H, Platelet Count 297, Mean Platelet Volume 10.6H, Neutrophils (%) (Auto) 93H, Lymphocytes (%) (Auto) 3L, Monocytes (%) (Auto) 4, Eosinophils (%) (Auto) 0, Basophils (%) (Auto) 0, Neutrophils # (Auto) 29.1H, Lymphocytes # (Auto) 0.8L, Monocytes # (Auto) 1.3H, Eosinophils # (Auto) 0.0, Basophils # (Auto) 0.0, Sodium Level 141, Potassium Level 4.2, Chloride Level 109H, Carbon Dioxide Level 19L, Anion Gap 13, Blood Urea Nitrogen 12, Creatinine 0.66, Estimat Glomerular Filtration Rate > 60, BUN/ Creatinine Ratio 18, Glucose Level 161H, Calcium Level 8.5, Magnesium Level 2.1 , Neutrophils % (Manual) 95, Lymphocytes % (Manual) 2, Monocytes % (Manual) 2, Eosinophils % (Manual) 0, Basophils % (Manual) 0, Band Neutrophils 1, Anisocytosis SLIGHT, Total Bilirubin 0.2, Aspartate Amino Transf (AST/SGOT) 17, Alanine Aminotransferase (ALT/SGPT) 25, Alkaline Phosphatase 69, Total Protein 6.4, Albumin 3.6 Assessment/Plan Assessment/Plan Admission Dx Status Asthmaticus, hx of multiple hospital admissions for asthma exacerbations Plan Expiratory wheezing throughout bilateral lung brown Requiring 10 L vapotherm w/ 35% FiO2 w/ low 90s sats Plan: Continue vapotherm w/ trial of wheening Duonebs q4h Methylprednisolone q6h Albuterol q4h Budesonide bid Montelukast qhs Fluticasone qd Continue ICU care w/ anticipated d/c to floor pending O2 wheening trial Nausea Ondansetron prn Clinical Quality Measures DVT/VTE Risk/Contraindication: Risk Factor Score Per Nursin RFS Level Per Nursing on Admit: 1=Low/No VTE PPX TABATHA ROJAS MD 05/22/17 1941: Assessment/Plan Assessment/Plan (1) Status asthmaticus Status: Acute Assessment & Plan: - Dr Ahn consulted - Continue q 2hr duoneb treatment - Mag Sulfate - IV steroids - Titrate oxygen as tolerated - Encourage ambulation (2) Tobacco abuse Status: Chronic Assessment & Plan: - Discussed the importance of cessation given uncontrolled asthma with frequent exacerbations (3) DVT prophylaxis Status: Acute Assessment & Plan: - SCDs and ambulation ANDREEA DE LA VEGA MED STUDENT May 22, 2017 10:37 TABATHA ROJAS MD May 22, 2017 19:41
[2017-05-22] MEDS: FLUTICASONE NASAL SPRAY (FLONASE) 16 GM BTL NS SCH (11:33)
[2017-05-22] MEDS ORDERED: RT-ALBUTEROL/IPRATROPIUM 3 ML (DUONEB) VIAL INH SCH (14:00)
[2017-05-22 16:36] VITALS: BP 126/80
[2017-05-22] MEDS: RT-ALBUTEROL/IPRATROPIUM 3 ML (DUONEB) VIAL INH PRN (18:19)
[2017-05-22 20:00] VITALS: BP 119/94
[2017-05-22] MEDS: MONTELUKAST 10 MG (SINGULAIR) TAB PO SCH (20:56)
[2017-05-23] VITALS (7 sets, daily range): BP systolic 99–134; BP diastolic 55–83
[2017-05-23] MEDS: methylPREDNISolone 125 MG (Solu-MEDROL) VIAL IVP SCH ×4 (00:26→18:47)
[2017-05-23] MEDS: RT-ALBUTEROL/IPRATROPIUM 3 ML (DUONEB) VIAL INH PRN ×2 (00:42→13:30)
[2017-05-23] MEDS: RT-ALBUTEROL/IPRATROPIUM 3 ML (DUONEB) VIAL INH SCH ×5 (03:09→21:05)
[2017-05-23 04:27] LABS: BASOPHILS % (AUTO) 0 % (0-10); EOSINOPHILS % (AUTO) 0 % (0-10); HEMATOCRIT 39 % (35-52); HEMOGLOBIN 13.1 G/DL (11.5-16.0); LYMPHOCYTES # (AUTO) 1.1 X 10^3 (1.0-4.0); LYMPHOCYTES % (AUTO) 4 % (12-44); MEAN CORPUSCULAR HEMOGLOBIN 29 PG (25-34); MEAN CORPUSCULAR HGB CONC 34 G/DL (32-36); MEAN CORPUSCULAR VOLUME 87 FL (80-99); MEAN PLATELET VOLUME 10.9 FL (7.4-10.4); MONOCYTES # (AUTO) 0.9 X 10^3 (0.0-1.0); MONOCYTES % (AUTO) 4 % (0-12); NEUTROPHILS # (AUTO) 23.8 X 10^3 (1.8-7.8); NEUTROPHILS % (AUTO) 92 % (42-75); PLATELET COUNT 323 10^3/uL (130-400); RED CELL DISTRIBUTION WIDTH 15.5 % (10.0-14.5); WHITE BLOOD COUNT 25.8 10^3/uL (4.3-11.0)
[2017-05-23 04:39] LABS: BUN/CREATININE RATIO 18; CARBON DIOXIDE 22 MMOL/L (21-32); CHLORIDE 106 MMOL/L (98-107); CREATININE SERUM 0.71 MG/DL (0.60-1.30); GFR ESTIMATED > 60; GLUCOSE 126 MG/DL (70-105); POTASSIUM 4.1 MMOL/L (3.6-5.0); SODIUM 139 MMOL/L (135-145)
[2017-05-23 04:47] LABS: MAGNESIUM 2.1 MG/DL (1.8-2.4)
--- NOTE | 2017-05-23 06:15 | Pulmonary Progress Note ---
Subjective Time Seen by Provider: 06:11 Subjective/Events-last exam PT still wheezing and requiring oxygen Exam Exam Vital Signs Date Time Temp Pulse Resp B/P (MAP) Pulse Ox O2 Delivery O2 Flow Rate FiO2 05/23/17 04:00 98.5 95 24 125/63 (83) 95 Nasal Cannula 4.00 05/23/17 04:00 Nasal Cannula 4.00 05/23/17 03:10 97 Nasal Cannula 4.00 05/23/17 01:00 124 05/23/17 00:43 94 Nasal Cannula 4.00 05/23/17 00:00 Nasal Cannula 4.00 05/23/17 00:00 97.2 98 22 134/83 (100) 95 Nasal Cannula 4.00 05/22/17 22:11 92 Nasal Cannula 4.00 05/22/17 20:17 93 Nasal Cannula 4.00 05/22/17 20:00 Nasal Cannula 4.00 05/22/17 20:00 96.8 126 24 119/94 (102) 92 Nasal Cannula 4.00 05/22/17 19:00 142 05/22/17 18:38 96 Nasal Cannula 4.00 05/22/17 18:19 95 Nasal Cannula 4.00 05/22/17 16:36 98.1 117 20 126/80 (95) 96 Nasal Cannula 4.00 05/22/17 16:36 Nasal Cannula 4.00 05/22/17 15:43 94 Nasal Cannula 4.00 05/22/17 13:00 100 05/22/17 12:59 Nasal Cannula 4.00 05/22/17 12:11 98.2 05/22/17 12:03 94 Nasal Cannula 4.00 05/22/17 10:15 114 20 132/58 (82) 92 Vapotherm 35.00 10.00 05/22/17 10:11 94 Vapotherm 10.00 35 05/22/17 08:27 Vapotherm 05/22/17 08:26 94 Vapotherm 10.00 35 05/22/17 08:25 35 Vapotherm 10 05/22/17 08:01 98.0 05/22/17 07:00 125 05/22/17 06:26 94 Vapotherm 10.00 35 I & O 05/23/17 07:00 Intake Total 1500 ml Balance 1500 ml General Appearance: Anxious, Mild Distress HEENT: PERRL/EOMI Neck: Full Range of Motion, Non Tender Respiratory: Accessory Muscle Use, Decreased Breath Sounds, Wheezing Cardiovascular: No Edema, Tachycardia Capillary Refill: Less Than 3 Seconds Peripheral Pulses: 2+ Radial Pulses (R), 2+ Radial Pulses (L) Gastrointestinal: normal bowel sounds, non tender, soft Extremity: Normal Capillary Refill, Normal Inspection, Normal Range of Motion, Non Tender Neurologic/Psychiatric: Alert, Oriented x3 Skin: Normal Color, Cool Lymphatic: No Adenopathy Results Lab Laboratory Tests 05/21/17 13:42 05/22/17 03:20 05/23/17 03:20 Assessment/Plan Assessment/Plan Asthma AE - chronically uncontrolled -SVNs Q2, solumedrol -IVF -repeat labs Allergic rhinitis -singulair, zyrtec, flonase Leukocytosis - secondary to steroids -solumedrol 40 IV Q 6. 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
[2017-05-23] MEDS: RT-BUDESONIDE NEBS 0.5 MG/2ML (PULMICORT) AMP INH SCH ×2 (06:25→18:43)
[2017-05-23] MEDS: RT-ALBUTEROL SULF 2.5 MG/3 ML PRE-MIX VIAL INH SCH (06:26)
[2017-05-23] MEDS: PANTOPRAZOLE 40 MG (PROTONIX) TAB PO SCH (06:58)
--- NOTE | 2017-05-23 07:24 | Diagnostic Imaging Report ---
INDICATION: Status asthmaticus, shortness of air. TECHNIQUE: Single view chest 3:19 AM. CORRELATION STUDY: 05/22/2017 FINDINGS: The heart size, mediastinal configuration and pulmonary vascularity are within normal limits. Lung brown do remain mildly hyperinflated but overall clear. No infiltrate. IMPRESSION: 1. Nonspecific air trapping. No infiltrate. Dictated by: Dictated on workstation # [id number]
[2017-05-23] MEDS: LORATADINE (CLARITIN) 10 MG TAB PO SCH (08:46)
[2017-05-23] MEDS: FLUTICASONE NASAL SPRAY (FLONASE) 16 GM BTL NS SCH (08:46)
[2017-05-23] MEDS: NS W/KCL 20 MEQ/L 1,000 ML IV SCH (09:21)
--- NOTE | 2017-05-23 11:34 | Progress Note (SOAP) ---
ANDREEA DE LA VEGA MED STUDENT 05/23/17 1133: Subjective Subjective/Events-last exam Patient states feeling better than yesterday and was able to move about the room w/o SOB. She would like to be moved to the 4th floor and take a shower. No other questions or concerns. Review of Systems Date Seen by Provider: May 23, 2017 Time Seen by Provider: 10:06 General: No Chills, No Night Sweats HEENT: No Head Aches, No Visual Changes Pulmonary: Cough Cardiovascular: No: Chest Pain, Edema Gastrointestinal: No: Nausea, Vomiting, Abdominal Pain, Diarrhea, Constipation Genitourinary: No Dysuria Neurological: No: Weakness, Numbness Objective Exam Last Set of Vital Signs Vital Signs Date Time Temp Pulse Resp B/P (MAP) Pulse Ox O2 Delivery O2 Flow Rate FiO2 05/23/17 10:16 92 Nasal Cannula 4.00 05/23/17 07:00 106 05/23/17 04:00 98.5 24 125/63 (83) 05/22/17 10:11 35 Capillary Refill : Less Than 3 Seconds I&O Intake and Output 05/23/17 00:00 Intake Total 1800 ml Output Total 550 ml Balance 1250 ml Intake Oral 800 ml IV Total 1000 ml Output Urine Total 550 ml # Voids 3 General: Alert, Oriented X3 HEENT: Atraumatic, PERRLA, EOMI Neck: Supple, No JVD Lungs: Other (bilateral wheezing throughout) Heart: Normal S1, Normal S2, No Murmurs, Other (Tachy) Abdomen: Normal Bowel Sounds, Soft, No Tenderness Extremities: No Clubbing, No Cyanosis, No Edema, Normal Pulses Skin: No Rashes, No Breakdown Psych/Mental Status: Mental Status NL, Mood NL Results/Procedures Lab Laboratory Tests 05/23/17 03:20: White Blood Count 25.8H, Red Blood Count 4.50, Hemoglobin 13.1, Hematocrit 39, Mean Corpuscular Volume 87, Mean Corpuscular Hemoglobin 29, Mean Corpuscular Hemoglobin Concent 34, Red Cell Distribution Width 15.5H, Platelet Count 323, Mean Platelet Volume 10.9H, Neutrophils (%) (Auto) 92H, Lymphocytes (%) (Auto) 4L, Monocytes (%) (Auto) 4, Eosinophils (%) (Auto) 0, Basophils (%) (Auto) 0, Neutrophils # (Auto) 23.8H, Lymphocytes # (Auto) 1.1, Monocytes # (Auto) 0.9, Eosinophils # (Auto) 0.0, Basophils # (Auto) 0.0, Sodium Level 139, Potassium Level 4.1, Chloride Level 106, Carbon Dioxide Level 22, Anion Gap 11, Blood Urea Nitrogen 13, Creatinine 0.71, Estimat Glomerular Filtration Rate > 60, BUN/ Creatinine Ratio 18, Glucose Level 126H, Calcium Level 9.0, Phosphorus Level 4.0 , Magnesium Level 2.1 Radiology CXR 05/22 416 IMPRESSION: Negative chest CXR 05/23 315 IMPRESSION: 1. Nonspecific air trapping. No infiltrate. Assessment/Plan Assessment/Plan Admission Dx Status asthmaticus Plan Expiratory wheezing throughout bilateral lung brown Off vapotherm 4 L O2 via NC sating low 90's Subjectively feeling better Plan: Duonebs q3h & q2h prn Methylprednisolone q6h Albuterol q3h Budesonide bid Montelukast qhs Fluticasone qd Loratadine qd Transfer to 4th floor for continued care Nausea Ondansetron prn Clinical Quality Measures DVT/VTE Risk/Contraindication: Risk Factor Score Per Nursin RFS Level Per Nursing on Admit: 1=Low/No VTE PPX TABATHA ROJAS MD 05/23/17 1201: Objective Exam General: Alert, Oriented X3 Lungs: Other (bilateral wheezing throughout, breathless with speech, mild increase work of breathing) Heart: No Murmurs, Other (Tachycardic) Assessment/Plan Assessment/Plan (1) Tachycardia Assessment & Plan: - Likely Iatrogenic from medication - TSH pending (2) Status asthmaticus Status: Acute Assessment & Plan: - Dr Ahn consulted - Will space to q 3hr treatments and continue to monitor - Mag Sulfate - IV steroids - Titrate oxygen as tolerated - Encourage ambulation - Transfer to floor today (3) Tobacco abuse Status: Chronic Assessment & Plan: - Discussed the importance of cessation given uncontrolled asthma with frequent exacerbations (4) DVT prophylaxis Status: Acute Assessment & Plan: - SCDs and ambulation ANDREEA DE LA VEGA MED STUDENT May 23, 2017 11:33 TABATHA ROJAS MD May 23, 2017 12:01
[2017-05-23] MEDS: MONTELUKAST 10 MG (SINGULAIR) TAB PO SCH (20:13)
[2017-05-24] MEDS: RT-ALBUTEROL/IPRATROPIUM 3 ML (DUONEB) VIAL INH PRN (00:09)
[2017-05-24] MEDS: methylPREDNISolone 125 MG (Solu-MEDROL) VIAL IVP SCH ×3 (00:59→13:03)
[2017-05-24 03:47] VITALS: BP 105/59
[2017-05-24 05:07] LABS: BASOPHILS % (AUTO) 0 % (0-10); EOSINOPHILS % (AUTO) 0 % (0-10); HEMATOCRIT 36 % (35-52); HEMOGLOBIN 12.2 G/DL (11.5-16.0); LYMPHOCYTES # (AUTO) 1.2 X 10^3 (1.0-4.0); LYMPHOCYTES % (AUTO) 6 % (12-44); MEAN CORPUSCULAR HEMOGLOBIN 29 PG (25-34); MEAN CORPUSCULAR HGB CONC 34 G/DL (32-36); MEAN CORPUSCULAR VOLUME 86 FL (80-99); MEAN PLATELET VOLUME 10.7 FL (7.4-10.4); MONOCYTES # (AUTO) 0.9 X 10^3 (0.0-1.0); MONOCYTES % (AUTO) 5 % (0-12); NEUTROPHILS # (AUTO) 16.1 X 10^3 (1.8-7.8); NEUTROPHILS % (AUTO) 88 % (42-75); PLATELET COUNT 307 10^3/uL (130-400); RED BLOOD COUNT 4.19 10^6/uL (4.35-5.85); RED CELL DISTRIBUTION WIDTH 15.1 % (10.0-14.5); WHITE BLOOD COUNT 18.2 10^3/uL (4.3-11.0)
[2017-05-24 05:18] LABS: ALANINE AMINOTRANSFERASE 42 U/L (0-55); ALBUMIN 3.5 GM/DL (3.2-4.5); ALKALINE PHOSPHATASE 64 U/L (40-136); BILIRUBIN,TOTAL 0.2 MG/DL (0.1-1.0); BUN/CREATININE RATIO 20; CALCIUM 8.7 MG/DL (8.5-10.1); CARBON DIOXIDE 24 MMOL/L (21-32); CHLORIDE 102 MMOL/L (98-107); GFR ESTIMATED > 60; GLUCOSE 141 MG/DL (70-105); POTASSIUM 4.4 MMOL/L (3.6-5.0); SODIUM 139 MMOL/L (135-145); TOTAL PROTEIN 6.1 GM/DL (6.4-8.2)
[2017-05-24] MEDS: PANTOPRAZOLE 40 MG (PROTONIX) TAB PO SCH (06:10)
[2017-05-24] MEDS: RT-BUDESONIDE NEBS 0.5 MG/2ML (PULMICORT) AMP INH SCH ×2 (07:14→18:39)
[2017-05-24 08:30] VITALS: BP 106/63
[2017-05-24] MEDS: LORATADINE (CLARITIN) 10 MG TAB PO SCH (08:40)
[2017-05-24] MEDS: FLUTICASONE NASAL SPRAY (FLONASE) 16 GM BTL NS SCH (08:40)
[2017-05-24] MEDS ORDERED: RT-ALBUTEROL SULF 2.5 MG/3 ML PRE-MIX VIAL INH SCH (10:00)
[2017-05-24] MEDS ORDERED: RT-ALBUTEROL SULF 2.5 MG/3 ML PRE-MIX VIAL INH PRN (12:00)
[2017-05-24] MEDS: RT-ALBUTEROL/IPRATROPIUM 3 ML (DUONEB) VIAL INH SCH ×5 (12:18→22:38)
[2017-05-24 12:30] VITALS: BP 102/72
--- NOTE | 2017-05-24 13:20 | Progress Note (SOAP) ---
Subjective Subjective/Events-last exam Patient states that she is feeling better but she is still requiring oxygen. Tolerating PO diet and ambulation. Review of Systems Date Seen by Provider: May 24, 2017 Time Seen by Provider: 11:30 Pulmonary: Dyspnea, Cough Cardiovascular: Palpitations, No: Chest Pain, Edema Gastrointestinal: No: Nausea, Vomiting, Abdominal Pain, Diarrhea, Constipation Genitourinary: No Dysuria, No Frequency Objective Exam Last Set of Vital Signs Vital Signs Date Time Temp Pulse Resp B/P (MAP) Pulse Ox O2 Delivery O2 Flow Rate FiO2 05/24/17 12:20 91 Nasal Cannula 2.50 05/24/17 08:30 97.5 120 20 106/63 (77) 05/22/17 10:11 35 Capillary Refill : Less Than 3 Seconds I&O Intake and Output 05/24/17 00:00 Intake Total 2860 ml Balance 2860 ml Intake Oral 2460 ml IV Total 400 ml # Voids 12 # Bowel Movements 1 General: Alert, Oriented X3, Cooperative, No Acute Distress HEENT: Mucous Memb Moist/[place] Lungs: Other (Diffuse wheezing in all lung brown, no crackles, mild increased work of breathing with minimal activity) Heart: Regular Rate, No Murmurs Abdomen: Normal Bowel Sounds, Soft, No Tenderness Extremities: No Clubbing, No Edema, No Tenderness/Swelling Results/Procedures Lab Laboratory Tests 05/24/17 04:45: White Blood Count 18.2H, Red Blood Count 4.19L, Hemoglobin 12.2, Hematocrit 36, Mean Corpuscular Volume 86, Mean Corpuscular Hemoglobin 29, Mean Corpuscular Hemoglobin Concent 34, Red Cell Distribution Width 15.1H, Platelet Count 307, Mean Platelet Volume 10.7H, Neutrophils (%) (Auto) 88H, Lymphocytes (%) (Auto) 6L, Monocytes (%) (Auto) 5, Eosinophils (%) (Auto) 0, Basophils (%) (Auto) 0, Neutrophils # (Auto) 16.1H, Lymphocytes # (Auto) 1.2, Monocytes # (Auto) 0.9, Eosinophils # (Auto) 0.0, Basophils # (Auto) 0.0, Sodium Level 139, Potassium Level 4.4, Chloride Level 102, Carbon Dioxide Level 24, Anion Gap 13, Blood Urea Nitrogen 14, Creatinine 0.70, Estimat Glomerular Filtration Rate > 60, BUN/ Creatinine Ratio 20, Glucose Level 141H, Calcium Level 8.7, Total Bilirubin 0.2 , Aspartate Amino Transf (AST/SGOT) 18, Alanine Aminotransferase (ALT/SGPT) 42, Alkaline Phosphatase 64, Total Protein 6.1L, Albumin 3.5, Thyroid Stimulating Hormone (TSH) 0.16L Radiology CXR 05/22 416 IMPRESSION: Negative chest CXR 05/23 315 IMPRESSION: 1. Nonspecific air trapping. No infiltrate. Assessment/Plan Assessment/Plan Plan (1) Tachycardia Status: Acute Assessment & Plan: - Likely Iatrogenic from medication but improved - TSH low, T4/T3 pending (2) Status asthmaticus Status: Acute Assessment & Plan: - Dr Ahn consulted - Will space to q 4 hr treatments with PRN albuterol available q 2hrs and continue to monitor - Mag Sulfate - IV steroids spaced to q8hrs - Titrate oxygen as tolerated - Encourage ambulation Qualifiers: Qualified Codes: J45.52 - Severe persistent asthma with status asthmaticus (3) Tobacco abuse Status: Chronic Assessment & Plan: - Discussed the importance of cessation given uncontrolled asthma with frequent exacerbations (4) DVT prophylaxis Status: Acute Assessment & Plan: - SCDs and ambulation Clinical Quality Measures DVT/VTE Risk/Contraindication: Risk Factor Score Per Nursin RFS Level Per Nursing on Admit: 1=Low/No VTE PPX TABATHA ROJAS MD May 24, 2017 13:20
[2017-05-24] MEDS: methylPREDNISolone 40 MG/ML (Solu-MEDROL) VIAL IV SCH ×2 (13:56→20:47)
[2017-05-24 16:25] VITALS: BP 113/65
[2017-05-24 19:40] VITALS: BP 117/74
[2017-05-24] MEDS: MONTELUKAST 10 MG (SINGULAIR) TAB PO SCH (20:47)
[2017-05-24 23:46] VITALS: BP 122/88
[2017-05-25] MEDS: RT-ALBUTEROL/IPRATROPIUM 3 ML (DUONEB) VIAL INH SCH ×4 (02:28→14:31)
[2017-05-25 04:00] VITALS: BP 123/81
[2017-05-25 04:56] LABS: BASOPHILS % (AUTO) 0 % (0-10); EOSINOPHILS % (AUTO) 0 % (0-10); HEMATOCRIT 38 % (35-52); HEMOGLOBIN 12.9 G/DL (11.5-16.0); LYMPHOCYTES # (AUTO) 1.5 X 10^3 (1.0-4.0); LYMPHOCYTES % (AUTO) 8 % (12-44); MEAN CORPUSCULAR HEMOGLOBIN 29 PG (25-34); MEAN CORPUSCULAR HGB CONC 34 G/DL (32-36); MEAN CORPUSCULAR VOLUME 85 FL (80-99); MEAN PLATELET VOLUME 10.4 FL (7.4-10.4); MONOCYTES # (AUTO) 1.6 X 10^3 (0.0-1.0); MONOCYTES % (AUTO) 8 % (0-12); NEUTROPHILS # (AUTO) 16.7 X 10^3 (1.8-7.8); NEUTROPHILS % (AUTO) 85 % (42-75); PLATELET COUNT 336 10^3/uL (130-400); RED BLOOD COUNT 4.49 10^6/uL (4.35-5.85); RED CELL DISTRIBUTION WIDTH 14.9 % (10.0-14.5); WHITE BLOOD COUNT 19.7 10^3/uL (4.3-11.0)
[2017-05-25 05:22] LABS: ALANINE AMINOTRANSFERASE 63 U/L (0-55); ALBUMIN 3.7 GM/DL (3.2-4.5); ALKALINE PHOSPHATASE 65 U/L (40-136); BILIRUBIN,TOTAL 0.2 MG/DL (0.1-1.0); BUN/CREATININE RATIO 28; CALCIUM 8.7 MG/DL (8.5-10.1); CARBON DIOXIDE 23 MMOL/L (21-32); CHLORIDE 103 MMOL/L (98-107); CREATININE SERUM 0.72 MG/DL (0.60-1.30); GFR ESTIMATED > 60; GLUCOSE 118 MG/DL (70-105); POTASSIUM 4.2 MMOL/L (3.6-5.0); SODIUM 138 MMOL/L (135-145); TOTAL PROTEIN 6.6 GM/DL (6.4-8.2)
[2017-05-25] MEDS: methylPREDNISolone 40 MG/ML (Solu-MEDROL) VIAL IV SCH (06:14)
[2017-05-25] MEDS: PANTOPRAZOLE 40 MG (PROTONIX) TAB PO SCH (06:18)
[2017-05-25] MEDS: RT-BUDESONIDE NEBS 0.5 MG/2ML (PULMICORT) AMP INH SCH (06:37)
[2017-05-25 08:00] VITALS: BP 116/60
[2017-05-25] MEDS: LORATADINE (CLARITIN) 10 MG TAB PO SCH (09:43)
[2017-05-25] MEDS: FLUTICASONE NASAL SPRAY (FLONASE) 16 GM BTL NS SCH (09:43)
[2017-05-25 12:00] VITALS: BP 121/74
--- NOTE | 2017-05-25 15:25 | Discharge Summary ---
Diagnosis/Chief Complaint Date of Admission May 20, 2017 at 17:37 Date of Discharge May 25, 2017 Admission Diagnosis Admission Diagnosis Status Asthmaticus Persistent Tachycardia Tobacco Use Discharge Diagnosis See Above Chief Complaint/HPI Chief Complaint/HPI See H&P Discharge Summary-Simple/Stand Consultations Dr Ahn: Pulmonology Discharge Physical Examination Allergies: Coded Allergies: No Known Drug Allergies (Unverified , 04/10/14) Vitals & I&Os Vital Sign - Last 12Hours Date Time Temp Pulse Resp B/P (MAP) Pulse Ox O2 Delivery O2 Flow Rate FiO2 05/25/17 14:31 88 Room Air 05/25/17 12:00 97.4 97 20 121/74 (90) 1.00 05/22/17 10:11 35 Intake and Output 05/25/17 00:00 Intake Total 1140 ml Balance 1140 ml General Appearance: Alert, Oriented X3, Cooperative, No Acute Distress HEENT: Mucous Memb Moist/Thor Respiratory: Other (Mild inspiratory wheezing, normal work of breathing off oxygen, no crackles) Cardiovascular: Regular Rate, No Murmurs Abdominal: Normal Bowel Sounds, Soft, No Tenderness, No Hepatosplenomegaly, No Masses Extremities: No Edema, No Tenderness/Swelling Skin: No Rashes Neuro: Normal Speech, Strength at 5/5 X4 Ext, Sensation Intact, Cranial Nerves 3-12 NL Psych/Mental Status: Mental Status NL, Mood NL Hospital Course See final discharge diagnosis. Pending Labs T3 pending Radiology Reviewed CXR 05/22 416 IMPRESSION: Negative chest CXR 05/23 315 IMPRESSION: 1. Nonspecific air trapping. No infiltrate. Discussion & Recommendations Status Asthmaticus: Patient required 2 days in ICU for Heliox and q 2 hrs breathing treatments. She was then transitioned to floor as steroids and breathing treatments were spaced out. Patient continued to improved daily. On day of discharge patient had some mild inspiratory wheezing but was insistent that she wanted to go home. Patient did well off oxygen and was satting 92s at time of discharge. She has nebulizer and solution at home. Breo inhalers waiting for patient at [facility] for pickup. She was discharged on a prolonged steroid taper and will have appt with PCP Diandra Love this week. She is to continue breathing treatments every 4 hrs until seen by PCP. Discussed the concern with her working in [employer] given poorly controlled asthma. Discussed the importance of smoking cessation given severity of asthma. Patient also discharged on Singulair and allergy medication to start daily. Persistent Tachycardia: TSH was found to be low. T4 normal but T3 pending. Will need follow up in clinic. Tobacco Use: Discussed cessation at length with patient and she is motivated to quit. Discharge Condition at discharge Guarded Instructions to patient/family Please see electronic discharge instructions given to patient. Discharge Medications Reviewed and agree with Discharge Medication list on patient's Discharge Instruction sheet Clinical Quality Measures DVT/VTE Risk/Contraindication: Risk Factor Score Per Nursin RFS Level Per Nursing on Admit: 1=Low/No VTE PPX Copy Copies To 1: Diandra ROSARIO HOLLY R MD May 25, 2017 15:25
[2017-05-25] MEDS ORDERED: FLUT1AER IH (15:31)
[2017-05-25] MEDS ORDERED: LORA10TA7 PO (15:31)
[2017-05-25] MEDS ORDERED: PRD20T PO (15:31)
--- NOTE | 2017-05-25 15:36 | Discharge Instructions ---
Discharge Inst-[facility] Discharge Medications New, Converted or Re-Newed RX: Transmitted to Pharmacy New Medications: Fluticasone/Vilanterol (Breo Ellipta 100-25 Mcg INH) 1 Each Blst.w.dev 1 EACH IH DAILY, #1 DISK Prednisone (Prednisone) 20 Mg Tab 20 MG PO DAILY, #70 TAB 3 tabs BID x 5 days 2 tabs BID x 5 days 1 tab BID x 5 days 1 tab daily x 5 days 1/2 tab daily x 4 days then STOP Loratadine (Loratadine) 10 Mg Tablet 10 MG PO DAILY, #30 TAB Continued Medications: Albuterol Sulfate (Proair Hfa) 1 Puff Puff 2 PUFF IH Q4H PRN for SHORTNESS OF BREATH, PUFF 1 PUFF = 90 MCG Albuterol Sulfate (Albuterol Sulfate) 2.5 Mg/3 Ml Vial.neb 2.5 MG IH Q6H PRN for SHORTNESS OF BREATH, EA Montelukast Sodium (Montelukast Sodium) 10 Mg Tablet 10 MG PO HS, TAB LAST FILLED 03/14/17 #30 Patient Instructions Goal/Follow Up Appt: You will be called tomorrow with followup appt with Diandra Love Patient Instructions: - Make sure you start you prednisone taper tomorrow - Schedule your breathing treatments at home with nebulizer - DO NOT SMOKE [facility] - Increasing shortness of breath after breathing treatments Activity & Diet Discharge Diet: No Restrictions Activity as Tolerated: Yes [facility] 1[facility] May 25, 2017 15:36
--- NOTE | 2017-05-28 08:59 | Physician Query Clarification ---
PQ-Intro New Diagnosis Admission/Discharge Admission Date: May 20, 2017 at 18:00 Discharge Date: May 25, 2017 at 16:05 The medical record reflects the following clinical scenario: History/Risk Factors: Patient moved to ICU Clinical Findings: 05/21/2017- Sats 87%, pulse over 100, accessory muscle use Treatment: Patient put on nonrebreather at 4L, Vapotherm Question: What condition best reflects the above clinical scenario? Please document below. 1. Acute Respiratory failure 2. Asthma with Status Asthmaticus 3. Other, with explanation of the clinical findings. 4. Clinically undetermined, no explanation for the clinical findings. PHYSICIAN RESPONSE What condition reflects above: 2 In responding to this query, please exercise your independent professional judgment. The purpose of this communication is to more accurately reflect the complexity of your patients condition. The fact that a question is asked does not imply that any particular answer is desired or expected. Thank you for your timely response to this clarification. Requestors name: [ ] Phone # [ ] THIS PHYSICIAN QUERY FORM IS A PERMANENT PART OF THE MEDICAL RECORD ARSH GONZALEZ May 28, 2017 08:59 TABATHA ROJAS MD Jun 04, 2017 21:11
== END 2017-05-25 16:05 | disposition home or self-care (01) | DRG 203 ==
LOC: EDUNIT# 16:12 → ER 16:13 → OBSVTOIN 17:37 → INTOOBSV 17:37 → UNDOADMOB 17:37 → 4TH 17:37 → ICU 05-21 13:25 → 4TH 05-21 13:25 → ICU 05-22 00:11 → 4TH 05-23 11:45 → UNDODISIN 05-25 16:05
PROVIDERS: ADMIT Family Medicine; ATTEND Family Medicine
DX: J45.902 Unspecified asthma with status asthmaticus (principal); R00.0 Tachycardia, unspecified; F17.210 Nicotine dependence, cigarettes, uncomplicated
CPT/HCPCS: 36415; 71045; 80048; 80053; 82805; 83735; 84100; 84439; 84443; 84481; 85007; 85025; 85027; 94150; 94640; 94644; 94664; 94760; 96365

== ENCOUNTER 2017-08-29 08:50 | Emergency (ER) | payer MEDICAID ==
[~2017-08-29] VITALS: Ht 162.6 cm; Wt 61.2 kg
[~2017-08-29 08:50] MED LIST changes: +ALBU2.5V4 IH; +FLUT1AER IH; +MONT10TA24 PO
[2017-08-29 08:55] VITALS: BP 108/85
[2017-08-29] MEDS: RT-ALBUTEROL/IPRATROPIUM 3 ML (DUONEB) VIAL ONE (09:07)
[2017-08-29] MEDS: RT-ALBUTEROL/IPRATROPIUM 3 ML (DUONEB) VIAL INH ONE ×2 (09:15→09:35)
--- NOTE | 2017-08-29 09:26 | ED Respiratory ---
General Chief Complaint: Respiratory Problems Stated Complaint: ASTHMA Nursing Triage Note: PT TO ED 6 CO OF ASHTMA ATTACK, PT STATES STARTED LAST PM WORSENING THIS AM. Source: patient Exam Limitations: no limitations History of Present Illness Date Seen by Provider: August 29, 2017 Time Seen by Provider: 08:58 Initial Comments This 21-year-old young lady presents to the emergency room with complaints of shortness of air and tight wheezing. She has known history of asthma and has required admission in the past for asthma exacerbations. Despite her asthma problems, she continues to smoke. 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 She uses a nebulizer machine at home and did treatments last night and again this morning. She does not have a rescue inhaler. She denies any notable cough or fever. She does complain of problems with allergies with nasal congestion. Allergies and Home Medications Allergies Coded Allergies: No Known Drug Allergies (Unverified , 04/10/14) Home Medications Albuterol Sulfate 1 Puff Puff, 2 PUFF IH Q4H PRN for SHORTNESS OF BREATH, ( Reported) 1 PUFF = 90 MCG Albuterol Sulfate 2.5 Mg/3 Ml Vial.neb, 2.5 MG IH Q6H PRN for SHORTNESS OF BREATH, (Reported) Albuterol Sulfate 1 Puff Puff, 1-4 PUFF IH Q4H PRN for SHORTNESS OF BREATH 1 PUFF = 90 MCG Prescribed by: JULIANO MONTEJO on 08/29/17926 Fluticasone/Vilanterol 1 Each Blst.w.dev, 1 EACH IH DAILY Prescribed by: TABATHA ROJAS on 05/25/17 153 Loratadine 10 Mg Tablet, 10 MG PO DAILY Prescribed by: TABATHA ROJAS on 05/25/17 153 Montelukast Sodium 10 Mg Tablet, 10 MG PO HS, (Reported) LAST FILLED 03/14/17 #30 Prednisone 20 Mg Tab, 20 MG PO DAILY 3 tabs BID x 5 days 2 tabs BID x 5 days 1 tab BID x 5 days 1 tab daily x 5 days 1/2 tab daily x 4 days then STOP Prescribed by: TABATHA ROJAS on 05/25/17 153 Prednisone 20 Mg Tab, 40 MG PO DAILY Prescribed by: JULIANO MONTEJO on 08/29/17926 Patient Home Medication List Home Medication List Reviewed: Yes Review of Systems Constitutional: no symptoms reported EENTM: see HPI Respiratory: see HPI Cardiovascular: no symptoms reported Gastrointestinal: no symptoms reported Genitourinary: no symptoms reported : No Musculoskeletal: no symptoms reported Skin: no symptoms reported Psychiatric/Neurological: No Symptoms Reported Hematologic/Lymphatic: No Symptoms Reported Past Hzsudyk-Jyunmx-Tyrkie Hx Past Med/Social Hx: Reviewed Nursing Past Med/Soc Hx Patient Social History Alcohol Use: Denies Use Recreational Drug Use: No Type Used: Cigarettes 2nd Hand Smoke Exposure: Yes Recent Foreign Travel: No Contact w/Someone Who Travel: No Recent Infectious Disease Expo: No Recent Hopitalizations: No Physical Abuse: No Sexual Abuse: No Immunizations Up To Date Tetanus Booster (TDap): Unknown PED Vaccines UTD: Yes Date of Pneumonia Vaccine: May 20, 2015 Seasonal Allergies Seasonal Allergies: Yes Past Medical History Surgeries: No Respiratory: Yes Asthma Currently Using CPAP: No Currently Using BIPAP: No Cardiac: No Neurological: No Reproductive Disorders: No Genitourinary: No Gastrointestinal: No Musculoskeletal: No Endocrine: No HEENT: Yes (Strider with asthma exacerbations) Cancer: No Psychosocial: No Nursing Suicide Risk Score: 0 Integumentary: Yes Eczema Blood Disorders: No Family Medical History Asthma 19 MOTHER Cardiovascular disease 19 FATHER Completed stroke paternal grandfather Asthma, Heart Disease Physical Exam Vital Signs Vital Signs - First Documented 08/29/17 08:55 Temp 96.2 Pulse 101 Resp 24 B/P (MAP) 108/85 (93) Pulse Ox 96 O2 Delivery Room Air Capillary Refill : Less Than 3 Seconds General Appearance: WD/WN, no apparent distress HEENT: PERRL/EOMI, normal ENT inspection, TMs normal, pharynx normal Neck: normal inspection Respiratory: no respiratory distress, no accessory muscle use, wheezing (tight inspiratory and expiratory wheezes throughout) Cardiovascular: regular rate, rhythm, no edema, no murmur Extremities: normal inspection, no pedal edema 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, no motor/sensory deficits, alert, normal mood/affect, oriented x 3 Skin: normal color, warm/dry Progress/Results/Core Measures Suspected Sepsis Recent Fever Within 48 Hours: No Infection Criteria Present: None New/Unexplained Altered Menta: No Sepsis Screen: No Definite Risk SIRS Temperature:96.2 Pulse: 101 Respiratory Rate: 24 Blood Pressure 108 /85 Mean: 93 Results/Orders My Orders Orders - JULIANO TORREZ MD Albuterol/Ipra Inhalation Soln (Duoneb I (08/29/17 09:15) Svn Small Volume Nebulizer (08/29/17 09:02) Albuterol/Ipra Inhalation Soln (Duoneb I (08/29/17 08:59) Prednisone Tablet (Deltasone Tablet) (08/29/17 09:30) Albuterol/Ipra Inhalation Soln (Duoneb I (08/29/17 09:30) Svn Small Volume Nebulizer (08/29/17 09:18) Rx-Albuterol Inhaler (Rx-Proair) (08/29/17 09:29) Medications Given in ED Current Medications Medications Dose Ordered Sig/Aspen Route Start Time Stop Time Status Last Admin Dose Admin Albuterol/ Ipratropium 3 ml ONCE ONCE INH 08/29/17 09:15 08/29/17 09:16 DC 08/29/17 09:15 3 ML Albuterol/ Ipratropium 3 ml STK-MED ONCE .ROUTE 08/29/17 08:59 08/29/17 09:04 DC 08/29/17 09:07 3 ML Prednisone 40 mg ONCE ONCE PO 08/29/17 09:30 08/29/17 09:31 DC 08/29/17 09:31 40 MG Vital Signs/I&O 08/29/17 08/29/17 08/29/17 08:55 09:08 09:15 Temp 96.2 Pulse 101 Resp 24 B/P (MAP) 108/85 (93) Pulse Ox 96 97 97 O2 Delivery Room Air Room Air Room Air Capillary Refill : Less Than 3 Seconds Blood Pressure Mean: 93 Progress Note : Progress Note Patient received a DuoNeb treatment and was reassessed. She still had some significant wheezing. A second DuoNeb treatment was administered. She had improvement in her wheezing and shortness of air with some mild residual wheezing on repeat exam. Patient declined IV therapy with hydration and IV steroids. Alternatively she was given prednisone 40 mg orally and orally hydrated. She was given strict instructions to return if symptoms worsen. She was advised to stay home from work for the remainder of the day. She was also strongly advised to discontinue smoking. Departure Impression Primary Impression: Acute asthma exacerbation Qualified Codes: J45.901 - Unspecified asthma with (acute) exacerbation Additional Impressions: Environmental and seasonal allergies Smoking Disposition: 01 HOME, SELF-CARE Condition: Improved Departure-Patient Inst. Decision time for Depature: 09:20 Referrals: [facility] (PCP) Primary Care Physician KAY JONES APRN (Family) Primary Care Physician Patient Instructions: Asthma, Adult (DC) Add. Discharge Instructions: Use your nebulizer machine up to every 4 hours as needed for wheezing and shortness of air. Use your rescue inhaler when your nebulizer machine is not available. You may use up to 4 puffs in a 4 hour period of time. Complete the prednisone prescription as prescribed. Continue use of Singulair and add an antihistamine such as Claritin (loratadine) , Zyrtec (cetirizine), etc. It is critical that you quit smoking. Work toward quitting smoking immediately. You may use nicotine replacement with patches, gum, or lozenges. Avoid nicotine replacement with inhaled products or chewing tobacco. Seek assistance from your primary care provider if needed. Follow-up with your primary care provider for asthma maintenance as soon as possible. Return to the ER if you have worsening symptoms. Continue using your respirator at work. Stay well-hydrated. All discharge instructions reviewed with patient and/or family. Voiced understanding. Scripts Prednisone (Prednisone) 20 Mg Tab 40 MG PO DAILY, #8 TAB Prov: JULIANO TORREZ MD 08/29/17 Albuterol Sulfate (PROAIR HFA) 1 Puff Puff 1-4 PUFF IH Q4H PRN for SHORTNESS OF BREATH, #1 PUFF 1 PUFF = 90 MCG Prov: JULIANO TORREZ MD 08/29/17 Work/School Note: Work Release Form Date Seen in the Emergency Department: August 29, 2017 Return to Work: August 30, 2017 Other Restrictions Listed Below: Must use respirator at work JULIANO TORREZ MD August 29, 2017 09:26
[2017-08-29] MEDS ORDERED: PRD20T PO (09:27)
[2017-08-29] MEDS ORDERED: RT-ALBUINH IH (09:27)
[2017-08-29] MEDS ORDERED: RX-ALBUTEROL INHALER (PROAIR) 8 GM IH ONE (09:29)
[2017-08-29] MEDS: predniSONE 20 MG TAB PO ONE (09:31)
== END 2017-08-29 09:37 | disposition home or self-care (01) ==
LOC: EDUNIT# 08:50 → ER 08:52
DX: J45.901 Unspecified asthma with (acute) exacerbation (principal); J30.2 Other seasonal allergic rhinitis; F17.200 Nicotine dependence, unspecified, uncomplicated; Z79.51 Long term (current) use of inhaled steroids; Z79.52 Long term (current) use of systemic steroids; Z82.49 Family history of ischemic heart disease and other diseases of the circulatory system
CPT/HCPCS: 94640; 99282

== ENCOUNTER 2017-10-01 21:01 | Emergency (ER) | payer MEDICAID ==
[~2017-10-01] VITALS: Ht 162.6 cm; Wt 63.5 kg
[2017-10-01] MEDS ORDERED: CYCL10TA9 PO (21:18)
--- NOTE | 2017-10-01 21:18 | ED General ---
General Stated Complaint: POSS HEAT EXHASTION Source of Information: Patient, Other Exam Limitations: No Limitations History of Present Illness Date Seen by Provider: Oct 01, 2017 Time Seen by Provider: 21:05 Initial Comments The patient presents to the ER by private conveyance with her significant other a chief complaint that she thinks she got dehydrated today. She says she was drinking fluids but several times about the day she stopped sweating and just felt dizzy and weak as well as she thinks she's heard some muscles in her back, Between her shoulder blades. She urinated several times a day but she just feels miserable. She also has pain in the right side of her thoracic spine between her shoulder blades is tender to palpation. She's been using ibuprofen and Aleve for her pain tonight. She's been drinking water but not Gatorade. She' s had no nausea or vomiting. No fevers or chills. No cough, diarrhea, constipation or pain anywhere else. Allergies and Home Medications Allergies Coded Allergies: No Known Drug Allergies (Unverified , 04/10/14) Home Medications Albuterol Sulfate 1 Puff Puff, 2 PUFF IH Q4H PRN for SHORTNESS OF BREATH, ( Reported) 1 PUFF = 90 MCG Albuterol Sulfate 2.5 Mg/3 Ml Vial.neb, 2.5 MG IH Q6H PRN for SHORTNESS OF BREATH, (Reported) Albuterol Sulfate 1 Puff Puff, 1-4 PUFF IH Q4H PRN for SHORTNESS OF BREATH 1 PUFF = 90 MCG Prescribed by: JULIANO MONTEJO on 08/29/17 0927 Fluticasone/Vilanterol 1 Each Blst.w.dev, 1 EACH IH DAILY Prescribed by: TABATHA ROJAS on 05/25/17 1531 Loratadine 10 Mg Tablet, 10 MG PO DAILY Prescribed by: TABATHA ROJAS on 05/25/17 1531 Montelukast Sodium 10 Mg Tablet, 10 MG PO HS, (Reported) LAST FILLED 03/14/17 #30 Prednisone 20 Mg Tab, 20 MG PO DAILY 3 tabs BID x 5 days 2 tabs BID x 5 days 1 tab BID x 5 days 1 tab daily x 5 days 1/2 tab daily x 4 days then STOP Prescribed by: TABATHA ROJAS on 05/25/17 1531 Prednisone 20 Mg Tab, 40 MG PO DAILY Prescribed by: JULIANO MONTEJO on 08/29/17 9986 Patient Home Medication List Home Medication List Reviewed: Yes Review of Systems Constitutional: No chills, No diaphoresis; malaise EENTM: No ear discharge, No ear pain Respiratory: No cough, No short of breath Cardiovascular: No chest pain Gastrointestinal: No abdominal pain, No constipation, No diarrhea, No nausea Genitourinary: No decreased output, No discharge, No dysuria, No frequency, No hematuria Musculoskeletal: see HPI, back pain; No joint pain Skin: No dryness, No pruritus Past Qrmcnvb-Mcxcky-Stmwic Hx Patient Social History Alcohol Use: Denies Use Recreational Drug Use: No Smoking Status: Current Everyday Smoker Type Used: Cigarettes (0.25 ppd) 2nd Hand Smoke Exposure: Yes Recent Foreign Travel: No Contact w/Someone Who Travel: No Recent Hopitalizations: No Immunizations Up To Date Tetanus Booster (TDap): Unknown PED Vaccines UTD: Yes Date of Pneumonia Vaccine: May 20, 2015 Seasonal Allergies Seasonal Allergies: Yes Past Medical History Surgeries: No Respiratory: Yes Asthma Currently Using CPAP: No Currently Using BIPAP: No Cardiac: No Neurological: No Reproductive Disorders: No Genitourinary: No Gastrointestinal: No Musculoskeletal: No Endocrine: No HEENT: Yes (Strider with asthma exacerbations) Cancer: No Psychosocial: No Integumentary: Yes Eczema Blood Disorders: No Family Medical History Asthma 19 MOTHER Cardiovascular disease 19 FATHER Completed stroke paternal grandfather Asthma, Heart Disease Physical Exam Vital Signs Capillary Refill : General Appearance: No Apparent Distress, WD/WN Eyes: Bilateral Eye Normal Inspection, Bilateral Eye PERRL, Bilateral Eye EOMI HEENT: PERRL/EOMI, TMs Normal, Normal ENT Inspection, Pharynx Normal Neck: Full Range of Motion, Normal Inspection, Non Tender, Supple Respiratory: Chest Non Tender, Lungs Clear, Normal Breath Sounds, No Accessory Muscle Use, No Respiratory Distress Cardiovascular: Regular Rate, Rhythm, No Edema, Normal Peripheral Pulses Back: Normal Inspection, Vertebral Tenderness (T8 through T10 mildly tender to palpation as well as the right paraspinous muscles.) Extremity: Normal Capillary Refill, Normal Inspection Neurologic/Psychiatric: Alert, Oriented x3, Normal Mood/Affect Progress/Results/Core Measures Suspected Sepsis SIRS Temperature: Pulse: Respiratory Rate: Blood Pressure / Mean: Results/Orders Vital Signs/I&O Capillary Refill : Departure Impression Primary Impression: Heat exposure Qualified Codes: T67.9XXA - Effect of heat and light, unspecified, initial encounter Additional Impression: Strain of thoracic paraspinal muscles excluding T1 and T2 levels Qualified Codes: S29.012A - Strain of muscle and tendon of back wall of thorax , initial encounter Disposition: 01 HOME, SELF-CARE Condition: Stable Departure-Patient Inst. Decision time for Depature: 21:16 Referrals: [facility] (PCP) Primary Care Physician KAY JONES APRN (Family) Primary Care Physician Patient Instructions: Heat Exhaustion and Heat Stroke (DC) Add. Discharge Instructions: Go home and drink water or half strength sports drinks. Start with a clear liquid diet if you tolerates that with no nausea or problems then you can advance that to more substantial findings. For your back pain you can use a heating pad alternated with ice as well as creams such as icy hot or Biofreeze. You can use Tylenol 1000 mg every 8 hours and either ibuprofen 800 mg every 8 hours or Aleve 2 capsules twice a day. If you have spasm of the muscles in your back you can take one tablet of the Flexeril every 8 hours as needed. If your symptoms are not resolved in the next 2 days then you should follow up with your primary care provider. Scripts Cyclobenzaprine HCl (Cyclobenzaprine HCl) 10 Mg Tablet 10 MG PO Q8H PRN for SPASMS, #8 TAB 0 Refills Prov: HONEY QUINTERO 10/01/17 Work/School Note: Work Release Form Date Seen in the Emergency Department: Oct 01, 2017 Return to Work: Oct 03, 2017 Restrictions: No Restrictions Copy Copies To 1: MATTHEW RINCON TITUS J Oct 01, 2017 21:18
[2017-10-01 21:23] VITALS: BP 123/74
== END 2017-10-01 21:23 | disposition home or self-care (01) ==
LOC: EDUNIT# 21:01 → ER 21:02
DX: S29.012A Strain of muscle and tendon of back wall of thorax, initial encounter (principal); T67.9XXA Effect of heat and light, unspecified, initial encounter; J45.909 Unspecified asthma, uncomplicated; F17.210 Nicotine dependence, cigarettes, uncomplicated; Z87.2 Personal history of diseases of the skin and subcutaneous tissue; Z79.52 Long term (current) use of systemic steroids; X50.0XXA Overexertion from strenuous movement or load, initial encounter
CPT/HCPCS: 99281

== ENCOUNTER 2017-10-06 16:45 | Emergency (ER) | payer MEDICAID ==
[~2017-10-06] VITALS: Ht 162.6 cm; Wt 63.5 kg
[~2017-10-06 16:45] MED LIST changes: +CYCL10TA9 PO
[2017-10-06] MEDS ORDERED: METH-313 PO (17:19)
--- NOTE | 2017-10-06 17:19 | ED Upper Extremity ---
General Stated Complaint: BACK PAIN Source: patient Exam Limitations: no limitations History of Present Illness Date Seen by Provider: Oct 06, 2017 Time Seen by Provider: 17:16 Initial Comments to ER with reports of medial right shoulder blade pain. This been present for about a week. She was seen here on October 01 for he exposure illness. She mentioned it to the provider at that time and was given a prescription for ibuprofen and Flexeril but she denies improvement. Pain is worse with any arm movement, deep breathing and coughing. Onset: last week Severity: moderate Pain/Injury Location: right shoulder Modifying Factors: Worse With Movement Allergies and Home Medications Allergies Coded Allergies: No Known Drug Allergies (Unverified , 04/10/14) Home Medications Albuterol Sulfate 1 Puff Puff, 2 PUFF IH Q4H PRN for SHORTNESS OF BREATH, ( Reported) 1 PUFF = 90 MCG Albuterol Sulfate 2.5 Mg/3 Ml Vial.neb, 2.5 MG IH Q6H PRN for SHORTNESS OF BREATH, (Reported) Albuterol Sulfate 1 Puff Puff, 1-4 PUFF IH Q4H PRN for SHORTNESS OF BREATH 1 PUFF = 90 MCG Prescribed by: JULIANO MONTEJO on 08/29/17 0927 Cyclobenzaprine HCl 10 Mg Tablet, 10 MG PO Q8H PRN for SPASMS Prescribed by: HONEY QUINTERO on 10/01/172117 Fluticasone/Vilanterol 1 Each Blst.w.dev, 1 EACH IH DAILY Prescribed by: TABATHA ROJAS on 05/25/17 1531 Loratadine 10 Mg Tablet, 10 MG PO DAILY Prescribed by: TABATHA ROJAS on 05/25/17 1531 Methocarbamol 750 Mg Tablet, 750 MG PO Q6H PRN for PAIN-MODERATE TO SEVERE Prescribed by: TERRI WALLS on 10/06/17 1719 Montelukast Sodium 10 Mg Tablet, 10 MG PO HS, (Reported) LAST FILLED 03/14/17 #30 Prednisone 20 Mg Tab, 20 MG PO DAILY 3 tabs BID x 5 days 2 tabs BID x 5 days 1 tab BID x 5 days 1 tab daily x 5 days 1/2 tab daily x 4 days then STOP Prescribed by: TABATHA ROJAS on 05/25/17 1531 Prednisone 20 Mg Tab, 40 MG PO DAILY Prescribed by: JULIANO MONTEJO on 08/29/17 0927 Patient Home Medication List Home Medication List Reviewed: Yes Constitutional: see HPI EENTM: see HPI Respiratory: no symptoms reported Cardiovascular: no symptoms reported Genitourinary: no symptoms reported Musculoskeletal: see HPI Skin: no symptoms reported Psychiatric/Neurological: No Symptoms Reported Past Xeflrqz-Kgqxls-Ftvpch Hx Patient Social History Type Used: Cigarettes 2nd Hand Smoke Exposure: Yes Recent Foreign Travel: No Contact w/Someone Who Travel: No Recent Hopitalizations: No Immunizations Up To Date Tetanus Booster (TDap): Unknown PED Vaccines UTD: Yes Date of Pneumonia Vaccine: May 20, 2015 Seasonal Allergies Seasonal Allergies: Yes Past Medical History Surgeries: No Respiratory: Yes Asthma Currently Using CPAP: No Currently Using BIPAP: No Cardiac: No Neurological: No Reproductive Disorders: No Genitourinary: No Gastrointestinal: No Musculoskeletal: No Endocrine: No HEENT: Yes (Strider with asthma exacerbations) Cancer: No Psychosocial: No Integumentary: Yes Eczema Blood Disorders: No Family Medical History Asthma 19 MOTHER Cardiovascular disease 19 FATHER Completed stroke paternal grandfather Asthma, Heart Disease Physical Exam Vital Signs Vital Signs - First Documented 10/06/17 17:11 Temp 98.0 Pulse 88 Resp 16 B/P (MAP) 106/79 (88) Pulse Ox 99 O2 Delivery Room Air Capillary Refill : General Appearance: WD/WN, no apparent distress HEENT: PERRL/EOMI, normal ENT inspection Neck: non-tender, full range of motion Respiratory: no respiratory distress, no accessory muscle use Gastrointestinal: normal bowel sounds, non tender Shoulder: normal inspection, non-tender, no evidence of injury, limited ROM Elbow/Forearm: normal inspection, non-tender Wrist: Yes normal inspection, Yes non-tender Hand: normal inspection, non-tender, Right Neurologic/Psychiatric: alert, normal mood/affect, oriented x 3 Skin: normal color, warm/dry Progress/Results/Core Measures Results/Orders My Orders Orders - TERRI WALLS APRN Chest Pa/Lat (2 View) (10/06/17 17:15) Vital Signs/I&O 10/06/17 17:11 Temp 98.0 Pulse 88 Resp 16 B/P (MAP) 106/79 (88) Pulse Ox 99 O2 Delivery Room Air Departure Impression Primary Impression: Periscapular pain Disposition: 01 HOME, SELF-CARE Condition: Critical Departure-Patient Inst. Decision time for Depature: 17:17 Referrals: [facility] (PCP) Primary Care Physician KAY JONES APRN (Family) Primary Care Physician Patient Instructions: Shoulder Pain (DC) Add. Discharge Instructions: 1. Follow-up with your doctor when you're able to. Take steroids as directed but do not use the ibuprofen while you're using the steroids as this can upset her stomach. If you do choose to use both make sure that you're also taking an acid day worker like Prilosec or Pepcid. Heat would be helpful, stop the Flexeril use the new muscle relaxer. Scripts Prednisone (Prednisone) 20 Mg Tab 40 MG PO DAILY, #6 TAB Prov: TERRI WALLS APRN 10/06/17 Methocarbamol (Robaxin-750) 750 Mg Tablet 750 MG PO Q6H PRN for PAIN-MODERATE TO SEVERE, #14 TAB Prov: TERRI WALLS APRN 10/06/17 TERRI WALLS APRN Oct 06, 2017 17:19
--- NOTE | 2017-10-06 17:44 | Diagnostic Imaging Report ---
CHEST PA/LAT (2 VIEW) Indication: Mid back pain. Difficult to breathe. Comparison: 05/23/2017. Findings: No focal pneumonic consolidation, pleural effusion or pneumothorax. Normal heart size and pulmonary vasculature. No compression fracture of the thoracic spine. There are no displaced rib fractures. Impression: No acute cardiopulmonary process. Dictated by: Dictated on workstation # [id number]
[2017-10-06] MEDS ORDERED: PRD20T PO (17:52)
[2017-10-06 17:58] VITALS: BP 106/79
== END 2017-10-06 17:58 | disposition home or self-care (01) ==
LOC: EDUNIT# 16:45 → ER 16:46
DX: M25.511 Pain in right shoulder (principal); J45.909 Unspecified asthma, uncomplicated; Z79.51 Long term (current) use of inhaled steroids; Z79.52 Long term (current) use of systemic steroids; Z87.2 Personal history of diseases of the skin and subcutaneous tissue
CPT/HCPCS: 71046

== ENCOUNTER 2018-01-07 14:15 | Emergency (ER) | payer SELFPAY ==
[~2018-01-07] VITALS: Ht 162.6 cm; Wt 63.5 kg
[~2018-01-07 14:15] MED LIST changes: +METH-313 PO
[2018-01-07] MEDS ORDERED: RT-ALBUTEROL/IPRATROPIUM 3 ML (DUONEB) VIAL INH ONE (14:45)
[2018-01-07] MEDS ORDERED: predniSONE 20 MG TAB PO ONE (14:45)
--- NOTE | 2018-01-07 15:00 | Diagnostic Imaging Report ---
INDICATION: Asthma and malaise. PA and lateral chest obtained at 0312 hours p.m. and is compared 10/06/2017. Heart and mediastinal silhouette are normal in appearance. The lungs are clear. There is no pneumothorax or pleural fluid. There is hyperinflation. IMPRESSION: Hyperinflation with no acute pulmonary infiltrate or pleural fluid. Dictated by: Dictated on workstation # [id number]
--- NOTE | 2018-01-07 15:25 | ED Respiratory ---
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 Source: patient Exam Limitations: no limitations History of Present Illness Date Seen by Provider: Jan 07, 2018 Time Seen by Provider: 14:30 Initial Comments Patient is a 22-year-old female who presents to the emergency room with complaints of chest tightness, shortness of breath, and wheezing for the past day. She reports that yesterday she was welding galvanized metal that caused her asthma to flareup. She has tried breathing treatments at home without relief. She does have a history of asthma. Timing/Duration: yesterday Prior Episodes/Possible Cause: irritant gases exposure, smoke exposure Associated Symptoms: shortness of breath, wheezing Allergies and Home Medications Allergies Coded Allergies: No Known Drug Allergies (Unverified , 04/10/14) Home Medications Albuterol Sulfate 1 Puff Puff, 2 PUFF IH Q4H PRN for SHORTNESS OF BREATH, ( Reported) 1 PUFF = 90 MCG Albuterol Sulfate 2.5 Mg/3 Ml Vial.neb, 2.5 MG IH Q6H PRN for SHORTNESS OF BREATH, (Reported) Albuterol Sulfate 1 Puff Puff, 1-4 PUFF IH Q4H PRN for SHORTNESS OF BREATH 1 PUFF = 90 MCG Prescribed by: JULIANO MONTEJO on 08/29/17 09 Cyclobenzaprine HCl 10 Mg Tablet, 10 MG PO Q8H PRN for SPASMS Prescribed by: HONEY QUINTERO on 10/01/172117 Fluticasone/Vilanterol 1 Each Blst.w.dev, 1 EACH IH DAILY Prescribed by: TABATHA ROJAS on 05/25/17 1531 Loratadine 10 Mg Tablet, 10 MG PO DAILY Prescribed by: TABATHA ROJAS on 05/25/17 1531 Methocarbamol 750 Mg Tablet, 750 MG PO Q6H PRN for PAIN-MODERATE TO SEVERE Prescribed by: TERRI WALLS on 10/06/17 1719 Montelukast Sodium 10 Mg Tablet, 10 MG PO HS, (Reported) LAST FILLED 03/14/17 #30 Prednisone 20 Mg Tab, 20 MG PO DAILY 3 tabs BID x 5 days 2 tabs BID x 5 days 1 tab BID x 5 days 1 tab daily x 5 days 1/2 tab daily x 4 days then STOP Prescribed by: TABATHA ROJAS on 05/25/17 1531 Prednisone 20 Mg Tab, 40 MG PO DAILY Prescribed by: JULIANO MONTEJO on 08/29/17 0927 Prednisone 20 Mg Tab, 40 MG PO DAILY Prescribed by: TERRI WALLS on 10/06/17 1752 Prednisone 20 Mg Tab, 40 MG PO DAILY Prescribed by: LOUIE KHAN on 01/07/18 1533 Patient Home Medication List Home Medication List Reviewed: Yes Review of Systems Review of Systems Constitutional: see HPI; No chills, No fever Respiratory: see HPI, short of breath, wheezing All Other Systems Reviewed Negative Unless Noted: Yes Past Tsnlcnb-Auyvty-Rcfdev Hx Past Med/Social Hx: Reviewed Nursing Past Med/Soc Hx Patient Social History Alcohol Use: Rarely Uses Recreational Drug Use: No Type Used: Cigarettes 2nd Hand Smoke Exposure: Yes Recent Foreign Travel: No Contact w/Someone Who Travel: No Recent Infectious Disease Expo: No Recent Hopitalizations: No Physical Abuse: No Sexual Abuse: No Immunizations Up To Date Tetanus Booster (TDap): Unknown PED Vaccines UTD: Yes Date of Pneumonia Vaccine: May 20, 2015 Seasonal Allergies Seasonal Allergies: Yes Past Medical History Surgeries: No Respiratory: Yes Asthma Currently Using CPAP: No Currently Using BIPAP: No Cardiac: No Neurological: No Last Menstrual Period: Dec 30, 2017 Reproductive Disorders: No Genitourinary: No Gastrointestinal: No Musculoskeletal: No Endocrine: No HEENT: Yes (Strider with asthma exacerbations) Cancer: No Psychosocial: No Integumentary: Yes Eczema Blood Disorders: No Family Medical History Reviewed Nursing Family Hx Asthma 19 MOTHER Cardiovascular disease 19 FATHER Completed stroke paternal grandfather Asthma, Heart Disease Physical Exam Vital Signs - First Documented 01/07/18 01/07/18 14:25 15:10 Temp 97.9 Pulse 92 Resp 18 B/P (MAP) 124/72 (89) Pulse Ox 97 O2 Delivery Room Air Capillary Refill : Less Than 3 Seconds Height: 5'4.00" Weight: 140lbs. 9.0oz. 63.351074vh; 22.8 BMI Method:Stated General Appearance: WD/WN, no apparent distress Neck: non-tender, full range of motion, supple, normal inspection, carotid bruit Respiratory: chest non-tender, no respiratory distress, no accessory muscle use , wheezing (through all lung feilds ) Cardiovascular: normal peripheral pulses, regular rate, rhythm, no edema, no gallop, no JVD, no murmur Gastrointestinal: normal bowel sounds, non tender, soft, no organomegaly, no pulsatile mass Neurologic/Psychiatric: alert, normal mood/affect, oriented x 3 Skin: normal color, warm/dry Progress/Results/Core Measures Suspected Sepsis Recent Fever Within 48 Hours: No Infection Criteria Present: None New/Unexplained Altered Menta: No Sepsis Screen: No Definite Risk SIRS Temperature:97.9 Pulse: 92 Respiratory Rate: 18 Blood Pressure 124 /72 Mean: 89 Results/Orders My Orders Orders - LOUIE KHAN Albuterol/Ipra Inhalation Soln (Duoneb I (01/07/18 14:45) Svn Small Volume Nebulizer (01/07/18 14:38) Prednisone Tablet (Deltasone Tablet) (01/07/18 14:45) Chest Pa/Lat (2 View) (01/07/18 14:38) Vital Signs/I&O 01/07/18 01/07/18 01/07/18 14:25 15:10 15:37 Temp 97.9 Pulse 92 80 Resp 18 18 B/P (MAP) 124/72 (89) 100/70 (89) Pulse Ox 97 97 O2 Delivery Room Air Room Air Capillary Refill : Less Than 3 Seconds Blood Pressure Mean: 89 Progress Note : Time: 15:29 Progress Note Seen and evaluated the patient. She did have wheezing throughout all lung brown. She is now feeling much better after the breathing treatment. There is no wheezing noted on auscultation at this time. Her chest tightness has resolved. I will be giving her a prescription for steroids to help resolve any inflammation she might have. She agrees with plan of care, plans for discharge, return precautions were given. Diagnostic Imaging Diagonstic Imaging: Xray Plain Films/CT/US/NM/MRI: chest Comments NAME: JOYCELYN PARSON MED REC#: [id number] PT STATUS: DEP ER : 1995 PHYSICIAN: LOUIE KHAN ADMIT DATE: 01/07/18/ER Signed Date of Exam: 01/07/18 CHEST PA/LAT (2 VIEW) INDICATION: Asthma and malaise. PA and lateral chest obtained at 0312 hours p.m. and is compared 10/06/2017. Heart and mediastinal silhouette are normal in appearance. The lungs are clear. There is no pneumothorax or pleural fluid. There is hyperinflation. IMPRESSION: Hyperinflation with no acute pulmonary infiltrate or pleural fluid. Dictated by: Dictated on workstation # [id number] Dict: 01/07/18 1456 Trans: 01/07/18 1620 Interpreted by: MALLORY OSEGUERA MD Electronically signed by: MALLORY OSEGUERA MD 01/07/18 1620 Reviewed: Reviewed by Me Departure Impression Primary Impression: Asthma with acute exacerbation in adult Disposition: HOME, SELF-CARE Condition: Stable/Unchanged Departure-Patient Inst. Decision time for Depature: 15:30 Referrals: [facility] ([facility]) Primary Care Physician KAY JONES APRN (Family) Primary Care Physician Patient Instructions: Asthma, Adult (DC) Add. Discharge Instructions: Take medication as directed. Continue home medications as previously prescribed. Follow-up with her primary care provider within 1 week for recheck. Return back to the emergency room for any worsening symptoms or concerns as needed. If you are welding anything with aluminum I'm advising you to use a respirator with appropriate filter. All discharge instructions reviewed with patient and/or family. Voiced understanding. Scripts Prednisone (Prednisone) 20 Mg Tab 40 MG PO DAILY for 5 Days, #10 TAB Prov: LOUIE KHAN 01/07/18 Work/School Note: Work Release Form Date Seen in the Emergency Department: Jan 07, 2018 Return to Work: Jan 08, 2018 Restrictions: No Restrictions LOUIE KHAN Jan 07, 2018 15:25
[2018-01-07] MEDS ORDERED: PRD20T PO (15:33)
[2018-01-07 15:37] VITALS: BP 100/70
== END 2018-01-07 15:35 | disposition home or self-care (01) ==
LOC: EDUNIT# 14:15 → ER 14:16
DX: J45.901 Unspecified asthma with (acute) exacerbation (principal); R07.89 Other chest pain; Z79.52 Long term (current) use of systemic steroids; Z79.51 Long term (current) use of inhaled steroids; Z77.22 Contact with and (suspected) exposure to environmental tobacco smoke (acute) (chronic); Z82.49 Family history of ischemic heart disease and other diseases of the circulatory system
CPT/HCPCS: 71046; 94640

== ENCOUNTER 2018-01-15 18:10 | Emergency (ER) | payer SELFPAY ==
[~2018-01-15] VITALS: Ht 162.6 cm; Wt 63.5 kg
--- OUTSIDE RECORDS SUMMARY | 2018-01-15 18:14 | XMS REPORT ---
Author Author JONESKAY Magallanes [facility] Address [address] [place] [address] Care Team Providers Care Rug Frame Mounter Name Role Phone KAY JONES Unavailable PROBLEMS Type Condition ICD9-CM Code BEM79-HF Code Onset Dates Condition Status SNOMED Code Problem Flexural eczema L20.82 Active 00771329 Problem Mild intermittent asthma with acute exacerbation J45.21 Active 712116263 Problem Abnormal CBC R79.89 Active [id number] ALLERGIES No Information ENCOUNTERS Encounter Location Date Diagnosis [place] [address] [address] Dec, [facility] [address] [address] Sep, Mild intermittent asthma with acute exacerbation J45.21 [facility] [address] [address] Sep, Mild intermittent asthma with acute exacerbation J45.21 [place] [address] [place] [id number] [place] [id number] May, [place] [id number] [address] Apr, [place] [id number] [address] Mar, Mild intermittent asthma with acute exacerbation J45.21 [place] [address] [address] Mar, Mild intermittent asthma with acute exacerbation J45.21 ; Flexural eczema L20.82 ; Tobacco abuse Z72.0 and Tobacco abuse counseling Z71.6 [place] [id number] [address] Jan, Mild intermittent asthma with acute exacerbation J45.21 [facility] [address] [facility] [id number] [place] [address] Jan, Mild intermittent asthma with acute exacerbation J45.21 [facility] [address] [facility] [id number] [place] [address] Jul, Bronchitis J40 IMMUNIZATIONS No Known Immunizations SOCIAL HISTORY Never Assessed REASON FOR VISIT PALS PLAN OF CARE VITAL SIGNS MEDICATIONS Medication Instructions Dosage Frequency Start Date End Date Duration Status Breo Ellipta 100-25 MCG/INH Inhalation Once a day 1 puff 24h May, 90 days Active ProAir HFA 108 (90 Base) MCG/ACT Inhalation every 4 hrs 2 puffs as needed 4h Jul, 90 days Active RESULTS No Results PROCEDURES No Known procedures INSTRUCTIONS MEDICATIONS ADMINISTERED No Known Medications MEDICAL (GENERAL) HISTORY Type Description Date Medical History asthma Hospitalization History Asthma/ Bronchitis February 2017
--- OUTSIDE RECORDS SUMMARY | 2018-01-15 18:14 | XMS REPORT ---
Author Author JONESKAY Magallanes Organization [facility] Address [address] [place] [address] Care Team Providers Care Tax Expert Name Role Phone KAY JONES Unavailable PROBLEMS Type Condition ICD9-CM Code EEO65-AN Code Onset Dates Condition Status SNOMED Code Problem Flexural eczema L20.82 Active 78660355 Problem Mild intermittent asthma with acute exacerbation J45.21 Active 576642497 Problem Abnormal CBC R79.89 Active 508813465 ALLERGIES No Information ENCOUNTERS Encounter Location Date Diagnosis [facility] [address] [address] Sep, [facility] [address] [address] May, [facility] [address] [address] Apr, [facility] [address] [address] Mar, Mild intermittent asthma with acute exacerbation J45.21 [facility] [id number] [place] [address] Mar, Mild intermittent asthma with acute exacerbation J45.21 ; Flexural eczema L20.82 ; Tobacco abuse Z72.0 and Tobacco abuse counseling Z71.6 [facility] [id number] [place] [address] Jan, Mild intermittent asthma with acute exacerbation J45.21 [facility] [id number] [place] [address] Jan, Mild intermittent asthma with acute exacerbation J45.21 [facility] [address] [address] Jul, Bronchitis J40 IMMUNIZATIONS No Known Immunizations SOCIAL HISTORY Never Assessed REASON FOR VISIT BREO note PLAN OF CARE VITAL SIGNS MEDICATIONS Medication Instructions Dosage Frequency Start Date End Date Duration Status Qvar 40 MCG/ACT Inhalation Twice a day 1 puff 12h Jan, 30 days Active RESULTS No Results PROCEDURES No Known procedures INSTRUCTIONS MEDICATIONS ADMINISTERED No Known Medications MEDICAL (GENERAL) HISTORY Type Description Date Medical History asthma Hospitalization History Asthma/ Bronchitis February 2016
--- OUTSIDE RECORDS SUMMARY | 2018-01-15 18:14 | XMS REPORT ---
Author Author KAY JONES [facility] Address [address] [place] [address] Care Team Providers Care Handbag Designer Name Role Phone KAY JONES Unavailable PROBLEMS Type Condition ICD9-CM Code VZO11-DS Code Onset Dates Condition Status SNOMED Code Problem Flexural eczema L20.82 Active 29832598 Problem Mild intermittent asthma with acute exacerbation J45.21 Active 765203440 Problem Abnormal CBC R79.89 Active 515129204 ALLERGIES No Known Allergies ENCOUNTERS Encounter Location Date Diagnosis [place] [address] [address] Dec, [facility] [address] [address] Sep, Mild intermittent asthma with acute exacerbation J45.21 [facility] [address] [address] Sep, Mild intermittent asthma with acute exacerbation J45.21 [place] [address] [id number] [place] [address] May, [place] [address] [place] [address] [id number] [place] [address] Apr, [place] [address] [address] Mar, Mild intermittent asthma with acute exacerbation J45.21 [place] [address] [address] Mar, Mild intermittent asthma with acute exacerbation J45.21 ; Flexural eczema L20.82 ; Tobacco abuse Z72.0 and Tobacco abuse counseling Z71.6 [place] [address] [address] Jan, Mild intermittent asthma with acute exacerbation J45.21 [facility] [address] [facility] [id number] [place] [address] Jan, Mild intermittent asthma with acute exacerbation J45.21 [facility] [address] [facility] [id number] [place] [address] Jul, Bronchitis J40 IMMUNIZATIONS No Known Immunizations SOCIAL HISTORY Never Assessed REASON FOR VISIT Asthma-twoodeNVA PLAN OF CARE Activity Details Follow Up 3 Months, prn Reason:CHM/Asthma VITAL SIGNS Height 64 in 2017-09-09 Weight 142.4 lbs 2017-09-09 Temperature 98.0 degrees Fahrenheit 2017-09-09 Heart Rate 76 bpm 2017-09-09 Respiratory Rate 18 2017-09-09 BMI 24.44 kg/m2 2017-09-09 Blood pressure systolic 98 mmHg 2017-09-09 Blood pressure diastolic 74 mmHg 2017-09-09 MEDICATIONS Medication Instructions Dosage Frequency Start Date End Date Duration Status ProAir HFA 108 (90 Base) MCG/ACT Inhalation every 4 hrs 2 puffs as needed 4h Jul, 12 months Active Albuterol Sulfate 0.083% USE ONE VIAL IN NEBULIZER EVERY 6 HOURS NEEDED Active PredniSONE 20 mg Orally Once a day 2 tablet 24h Sep, Sep, 05 days Active Fluticasone Propionate 50 MCG/ACT Nasally Once a day 1 spray in each nostril 24h 12 months Active Albuterol Sulfate (2.5 MG/3ML) 0.083% Inhalation every 6 hrs prn 1 ampule Jan, 12 months Active Breo Ellipta 100-25 MCG/INH Inhalation Once a day 1 puff 24h May, Sep, 12 months Active Singulair 10 mg Orally Once a day 1 tablet in the evening 24h 90 days Active RESULTS No Results PROCEDURES No Known procedures INSTRUCTIONS MEDICATIONS ADMINISTERED No Known Medications MEDICAL (GENERAL) HISTORY Type Description Date Medical History asthma Hospitalization History Asthma/ Bronchitis February 2017
--- OUTSIDE RECORDS SUMMARY | 2018-01-15 18:14 | XMS REPORT ---
Author Author JONESKAY Magallanes [facility] Address [address] [place] [address] Care Team Providers Care Yellow Pages Space Salesperson Name Role Phone KAY JONES Unavailable PROBLEMS Type Condition ICD9-CM Code VZJ43-BG Code Onset Dates Condition Status SNOMED Code Problem Flexural eczema L20.82 Active 52460075 Problem Mild intermittent asthma with acute exacerbation J45.21 Active 503368673 Problem Abnormal CBC R79.89 Active 670467952 ALLERGIES No Known Allergies ENCOUNTERS Encounter Location Date Diagnosis [facility] [id number] [place] [address] Sep, [facility] [address] [address] May, [facility] [id number] [place] [address] Apr, [facility] [address] [address] Mar, Mild intermittent asthma with acute exacerbation J45.21 [facility] [id number] [place] [address] Mar, Mild intermittent asthma with acute exacerbation J45.21 ; Flexural eczema L20.82 ; Tobacco abuse Z72.0 and Tobacco abuse counseling Z71.6 [facility] [id number] [place] [address] Jan, Mild intermittent asthma with acute exacerbation J45.21 [facility] [id number] [place] [address] Jan, Mild intermittent asthma with acute exacerbation J45.21 [facility] [id number] [place] [phone] Jul, Bronchitis J40 IMMUNIZATIONS No Known Immunizations SOCIAL HISTORY Never Assessed REASON FOR VISIT Congestion x 2 weeks---CRyburn,CCMA PLAN OF CARE Activity Details Follow Up prn Reason:est care VITAL SIGNS Height 64 in 2017-01-27 Weight 126.0 lbs 2017-01-27 Temperature 98.1 degrees Fahrenheit 2017-01-27 Heart Rate 86 bpm 2017-01-27 Respiratory Rate 20 2017-01-27 BMI 21.63 kg/m2 2017-01-27 Blood pressure systolic 118 mmHg 2017-01-27 Blood pressure diastolic 77 mmHg 2017-01-27 MEDICATIONS Medication Instructions Dosage Frequency Start Date End Date Duration Status Singulair 10 mg Orally Once a day 1 tablet in the evening 24h 90 days Active Albuterol Sulfate (2.5 MG/3ML) 0.083% Inhalation every 6 hrs prn 1 ampule Jan, 12 months Active PredniSONE 20 mg Orally Once a day 1 tablet 24h Jan, Jan, 05 days Active Breo Ellipta 100-25 MCG/INH Inhalation Once a day 1 puff 24h Jan, 12 months Active ProAir HFA 108 (90 Base) MCG/ACT Inhalation every 4 hrs 2 puffs as needed 4h Jul, 12 months Active RESULTS No Results PROCEDURES No Known procedures INSTRUCTIONS MEDICATIONS ADMINISTERED No Known Medications MEDICAL (GENERAL) HISTORY Type Description Date Medical History asthma Hospitalization History Asthma/ Bronchitis February 2016
[2018-01-15] MEDS ORDERED: RT-ALBUTEROL/IPRATROPIUM 3 ML (DUONEB) VIAL INH ONE (18:15)
--- OUTSIDE RECORDS SUMMARY | 2018-01-15 18:15 | XMS REPORT ---
Author Author JONESKAY Magallanes Organization [facility] Address [address] [place] [address] Care Team Providers Care Fitting Room Attendant Name Role Phone KAY JONES Unavailable PROBLEMS Type Condition ICD9-CM Code YIR25-IX Code Onset Dates Condition Status SNOMED Code Problem Flexural eczema L20.82 Active 63030059 Problem Mild intermittent asthma with acute exacerbation J45.21 Active 429447111 Problem Abnormal CBC R79.89 Active 297552044 ALLERGIES No Information ENCOUNTERS Encounter Location Date Diagnosis [facility] [address] [id number] [place] [address] Sep, Mild intermittent asthma with acute exacerbation J45.21 [facility] [id number] [place] [address] May, [facility] [id number] [place] [address] Apr, [facility] [id number] [place] [address] Mar, Mild intermittent asthma with acute exacerbation J45.21 [facility] [id number] [place] [address] Mar, Mild intermittent asthma with acute exacerbation J45.21 ; Flexural eczema L20.82 ; Tobacco abuse Z72.0 and Tobacco abuse counseling Z71.6 [facility] [id number] [place] [address] Jan, Mild intermittent asthma with acute exacerbation J45.21 [facility] [id number] [place] [address] Jan, Mild intermittent asthma with acute exacerbation J45.21 [facility] [address] [id number] [place] [address] Jul, Bronchitis J40 IMMUNIZATIONS No Known Immunizations SOCIAL HISTORY Never Assessed REASON FOR VISIT Deferred lab order PLAN OF CARE VITAL SIGNS MEDICATIONS No Known Medications RESULTS No Results PROCEDURES No Known procedures INSTRUCTIONS MEDICATIONS ADMINISTERED No Known Medications MEDICAL (GENERAL) HISTORY Type Description Date Medical History asthma Hospitalization History Asthma/ Bronchitis February 2017
--- OUTSIDE RECORDS SUMMARY | 2018-01-15 18:15 | XMS REPORT ---
Author Author JONESKAY Magallanes Organization [facility] Address [address] [place] [address] Care Team Providers Care College Director Name Role Phone KAY JONES Unavailable PROBLEMS Type Condition ICD9-CM Code ORN80-ZB Code Onset Dates Condition Status SNOMED Code Problem Flexural eczema L20.82 Active 91379467 Problem Mild intermittent asthma with acute exacerbation J45.21 Active 700001512 Problem Abnormal CBC R79.89 Active 526068071 ALLERGIES No Known Allergies ENCOUNTERS Encounter Location Date Diagnosis [facility] [id number] [place] [address] Sep, Mild intermittent asthma with acute exacerbation J45.21 [facility] [id number] [place] [address] May, [facility] [id number] [place] [address] Apr, [facility] [id number] [place] [address] Mar, Mild intermittent asthma with acute exacerbation J45.21 [facility] [id number] [place] [address] Mar, Mild intermittent asthma with acute exacerbation J45.21 ; Flexural eczema L20.82 ; Tobacco abuse Z72.0 and Tobacco abuse counseling Z71.6 [facility] [id number] [place] [address] Jan, Mild intermittent asthma with acute exacerbation J45.21 [facility] [id number] [place] [address] Jan, Mild intermittent asthma with acute exacerbation J45.21 [facility] [address] [place] [id number] [address] Jul, Bronchitis J40 IMMUNIZATIONS No Known Immunizations SOCIAL HISTORY Never Assessed REASON FOR VISIT Establish Care-----ROSIennettRViolet PLAN OF CARE Activity Details Follow Up 6 Months, prn Reason: VITAL SIGNS Height 64 in 2017-03-14 Weight 130 lbs 2017-03-14 Temperature 97.7 degrees Fahrenheit 2017-03-14 Heart Rate 70 bpm 2017-03-14 Respiratory Rate 20 2017-03-14 BMI 22.31 kg/m2 2017-03-14 Blood pressure systolic 104 mmHg 2017-03-14 Blood pressure diastolic 60 mmHg 2017-03-14 MEDICATIONS Medication Instructions Dosage Frequency Start Date End Date Duration Status Qvar 40 MCG/ACT Inhalation Twice a day 1 puff 12h Jan, 30 days Not-Taking Albuterol Sulfate (2.5 MG/3ML) 0.083% Inhalation every 6 hrs prn 1 ampule Jan, 12 months Active Triamcinolone Acetonide 0.025 % Externally Twice a day apply thin layer to eczematous areas twice daily 12h Mar, 10 days Active PredniSONE 20 mg Orally Once a day 1 tablet 24h Mar, Mar, 05 days Active ProAir HFA 108 (90 Base) MCG/ACT Inhalation every 4 hrs 2 puffs as needed 4h Jul, 12 months Active Singulair 10 mg Orally Once a day 1 tablet in the evening 24h 90 days Active RESULTS No Results PROCEDURES Procedure Date Ordered Result Body Site COMPLETE CBC W/AUTO DIFF WBC Mar 14, 2017 COMPREHEN METABOLIC PANEL Mar 14, 2017 LIPID PANEL Mar 14, 2017 ASSAY THYROID STIM HORMONE Mar 14, 2017 VENIPUNCT, ROUTINE* Mar 14, 2017 INSTRUCTIONS MEDICATIONS ADMINISTERED No Known Medications MEDICAL (GENERAL) HISTORY Type Description Date Medical History asthma Hospitalization History Asthma/ Bronchitis February 2017
--- OUTSIDE RECORDS SUMMARY | 2018-01-15 18:15 | XMS REPORT ---
Author Author JONESKAY Magallanes Organization [facility] Address [address] [place] [address] Care Team Providers Care Front Desk Coordinator Name Role Phone KAY JONES Unavailable PROBLEMS Type Condition ICD9-CM Code GKR65-VQ Code Onset Dates Condition Status SNOMED Code Problem Flexural eczema L20.82 Active 90918629 Problem Mild intermittent asthma with acute exacerbation J45.21 Active 095589655 Problem Abnormal CBC R79.89 Active 083158698 ALLERGIES No Information ENCOUNTERS Encounter Location Date Diagnosis [place] [address] [place] [id number] [place] [address] Sep, Mild intermittent asthma with acute exacerbation J45.21 [facility] [id number] [place] [address] Sep, Mild intermittent asthma with acute exacerbation J45.21 [facility] [id number] [place] [address] May, [facility] [id number] [place] [address] Apr, [facility] [id number] [place] [address] Mar, Mild intermittent asthma with acute exacerbation J45.21 [facility] [id number] [place] [address] Mar, Mild intermittent asthma with acute exacerbation J45.21 ; Flexural eczema L20.82 ; Tobacco abuse Z72.0 and Tobacco abuse counseling Z71.6 [place] [address] [place] [id number] [place] [address] Jan, Mild intermittent asthma with acute exacerbation J45.21 [place] [address] [place] [address] Jan, Mild intermittent asthma with acute exacerbation J45.21 [facility] [address] [facility] [id number] [place] [phone] Jul, Bronchitis J40 IMMUNIZATIONS No Known Immunizations SOCIAL HISTORY Never Assessed REASON FOR VISIT Medication refill request PLAN OF CARE VITAL SIGNS MEDICATIONS Unknown Medications RESULTS No Results PROCEDURES No Known procedures INSTRUCTIONS MEDICATIONS ADMINISTERED No Known Medications MEDICAL (GENERAL) HISTORY Type Description Date Medical History asthma Hospitalization History Asthma/ Bronchitis February 2017
--- OUTSIDE RECORDS SUMMARY | 2018-01-15 18:15 | XMS REPORT | Continuity of Care Document ---
Author Author [facility] Organization [facility] Address Unknown Phone Unavailable Allergies Active Description Code Type Severity Reaction Onset Reported/Identified Relationship to Patient Clinical Status Yes No Known Drug Allergies [id number] Drug Allergy Unknown N/A 04/10/2014 Medications There is no data. Problems Date Dx Coded Attending Type Code Diagnosis Diagnosed By 04/10/2014 MARÍA ELENA HESS, ADELAIDA Miranda Ot V22.1 SUPERVIS OTH NORMAL PREG 04/14/2014 Ot 285.1 AC POSTHEMORRHAG ANEMIA 04/14/2014 Ot 645.11 POST TERM PREG, DELIV W/WO MENTION OF AN 04/14/2014 Ot 648.22 ANEMIA- DELIVERED W P/P 04/14/2014 Ot V06.1 DIPHTHERIA- TETANUS-PERTUSSIS, COMBINED [ 04/14/2014 Ot V06.4 VAC-MEASLE- MUMPS-RUBELLA 04/14/2014 Ot V27.0 DELIVER- SINGLE LIVEBORN 08/09/2014 MARÍA ELENA HESS, ADELAIDA Miranda Ot V28.89 08/09/2014 ADELAIDA RING MD Ot V28.89 08/09/2014 ADELAIDA RING MD Ot V28.89 08/26/2014 ADELAIDA RING MD Ot V28.89 12/20/2015 LEO GARCIA Ot J06.9 ACUTE UPPER RESPIRATORY INFECTION, UNSPE 12/20/2015 LEO GARCIA Ot J45.901 UNSPECIFIED ASTHMA WITH (ACUTE) EXACERBA 12/20/2015 LEO GARCIA Ot R06.02 SHORTNESS OF BREATH 12/21/2015 LEO GARCIA Ot J06.9 ACUTE UPPER RESPIRATORY INFECTION, UNSPE 12/21/2015 LEO GARCIA Ot J45.901 UNSPECIFIED ASTHMA WITH (ACUTE) EXACERBA 12/21/2015 LEO GARCIA Ot R06.02 SHORTNESS OF BREATH 06/24/2016 TERELL DO, ANNETTA K Ot J20.9 ACUTE BRONCHITIS, UNSPECIFIED 06/24/2016 TERELL DO, ANNETTA K Ot J45.901 UNSPECIFIED ASTHMA WITH (ACUTE) EXACERBA 06/26/2016 TERELL DO, ANNETTA K Ot J20.9 ACUTE BRONCHITIS, UNSPECIFIED 06/26/2016 TERELL DO, ANNETTA K Ot J45.901 UNSPECIFIED ASTHMA WITH (ACUTE) EXACERBA 11/10/2016 LESLIE, OMAR STUCCO APPLICATOR Ot J45.901 UNSPECIFIED ASTHMA WITH (ACUTE) EXACERBA 11/10/2016 LESLIE, OMAR STUCCO APPLICATOR Ot J45.909 UNSPECIFIED ASTHMA, UNCOMPLICATED 11/12/2016 LESLIE, OMAR STUCCO APPLICATOR Ot J45.901 UNSPECIFIED ASTHMA WITH (ACUTE) EXACERBA 11/12/2016 LESLIE, OMAR STUCCO APPLICATOR Ot J45.909 UNSPECIFIED ASTHMA, UNCOMPLICATED 01/29/2017 LESLIE, OMAR STUCCO APPLICATOR Ot F17.210 NICOTINE DEPENDENCE, CIGARETTES, UNCOMPL 01/29/2017 LESLIE, OMAR STUCCO APPLICATOR Ot J45.901 UNSPECIFIED ASTHMA WITH (ACUTE) EXACERBA 01/29/2017 LESLIE, OMAR STUCCO APPLICATOR Ot R06.02 SHORTNESS OF BREATH 01/29/2017 LESLIE, OMAR STUCCO APPLICATOR Ot Z82.49 FAMILY HX OF ISCHEM HEART DIS AND OTH DI 01/31/2017 LESLIE, OMAR STUCCO APPLICATOR Ot F17.210 NICOTINE DEPENDENCE, CIGARETTES, UNCOMPL 01/31/2017 LESLIE, OMAR STUCCO APPLICATOR Ot J45.901 UNSPECIFIED ASTHMA WITH (ACUTE) EXACERBA 01/31/2017 LESLIE, OMAR STUCCO APPLICATOR Ot R06.02 SHORTNESS OF BREATH 01/31/2017 LESLIE, OMAR STUCCO APPLICATOR Ot Z82.49 FAMILY HX OF ISCHEM HEART DIS AND OTH DI 05/20/2017 SHAN HESS, JULIANO T Ot F17.210 NICOTINE DEPENDENCE, CIGARETTES, UNCOMPL 05/20/2017 SHAN HESS, JULIANO T Ot J45.901 UNSPECIFIED ASTHMA WITH (ACUTE) EXACERBA 05/20/2017 SHAN HESS, JULIANO T Ot R06.02 SHORTNESS OF BREATH 05/20/2017 SHAN HESS, JULIANO T Ot R06.1 STRIDOR 05/20/2017 SHAN HESS, JULIANO T Ot 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 05/20/2017 JULIANO TORREZ MD T Ot Z82.49 FAMILY HX OF ISCHEM HEART DIS AND OTH DI 05/20/2017 TABATHA ROJAS MD R Ot F17.210 NICOTINE DEPENDENCE, CIGARETTES, UNCOMPL 05/20/2017 CRYSTAL HESS, TABATHA R Ot J45.902 UNSPECIFIED ASTHMA WITH STATUS ASTHMATIC 05/20/2017 TABATHA ROJAS MD R Ot R00.0 TACHYCARDIA, UNSPECIFIED 05/21/2017 JULIANO TORREZ MD T Ot F17.210 NICOTINE DEPENDENCE, CIGARETTES, UNCOMPL 05/21/2017 JULIANO TORREZ MD T Ot J45.901 UNSPECIFIED ASTHMA WITH (ACUTE) EXACERBA 05/21/2017 JULIANO TORREZ MD T Ot R06.02 SHORTNESS OF BREATH 05/21/2017 JULIANO TORREZ MD T Ot R06.1 STRIDOR 05/21/2017 JULIANO TORREZ MD T Ot 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 05/21/2017 JULIANO TORREZ MD T Ot Z82.49 FAMILY HX OF ISCHEM HEART DIS AND OTH DI 05/25/2017 TABATHA ROJAS MD Ot F17.210 NICOTINE DEPENDENCE, CIGARETTES, UNCOMPL 05/25/2017 TABATHA ROJAS MD R Ot J45.902 UNSPECIFIED ASTHMA WITH STATUS ASTHMATIC 05/25/2017 TABATHA ROJAS MD Ot R00.0 TACHYCARDIA, UNSPECIFIED 05/26/2017 TABATHA ROJAS MD R Ot F17.210 NICOTINE DEPENDENCE, CIGARETTES, UNCOMPL 05/26/2017 TABATHA ROJAS MD R Ot J45.902 UNSPECIFIED ASTHMA WITH STATUS ASTHMATIC 05/26/2017 TABATHA ROJAS MD R Ot R00.0 TACHYCARDIA, UNSPECIFIED 05/26/2017 TABATHA ROJAS MD R Ot F17.210 NICOTINE DEPENDENCE, CIGARETTES, UNCOMPL 05/26/2017 TABATHA ROJAS MD R Ot J45.902 UNSPECIFIED ASTHMA WITH STATUS ASTHMATIC 05/26/2017 TABATHA ROJAS MD Ot R00.0 TACHYCARDIA, UNSPECIFIED 08/29/2017 JULIANO TORREZ MD T Ot F17.200 NICOTINE DEPENDENCE, UNSPECIFIED, UNCOMP 08/29/2017 JULIANO TORREZ MD Ot J30.2 OTHER SEASONAL ALLERGIC RHINITIS 08/29/2017 JULIANO TORREZ MD Ot J45.901 UNSPECIFIED ASTHMA WITH (ACUTE) EXACERBA 08/29/2017 JULIANO TORREZ MD Ot R06.02 SHORTNESS OF BREATH 08/29/2017 JULIANO TORREZ MD Ot Z79.51 ALF (CURRENT) USE OF INHALED STERO 08/29/2017 JULIANO TORREZ MD Ot Z79.52 ALF (CURRENT) USE OF SYSTEMIC STER 08/29/2017 JULIANO TORREZ MD Ot Z82.49 FAMILY HX OF ISCHEM HEART DIS AND OTH DI 09/01/2017 JULIANO TORREZ MD Ot F17.200 NICOTINE DEPENDENCE, UNSPECIFIED, UNCOMP 09/01/2017 JULIANO TORREZ MD Ot J30.2 OTHER SEASONAL ALLERGIC RHINITIS 09/01/2017 JULIANO TORREZ MD, Ot J45.901 UNSPECIFIED ASTHMA WITH (ACUTE) EXACERBA 09/01/2017 JULIANO TORREZ MD Ot R06.02 SHORTNESS OF BREATH 09/01/2017 JULIANO TORREZ MD Ot Z79.51 ALF (CURRENT) USE OF INHALED STERO 09/01/2017 JULIANO TORREZ MD Ot Z79.52 ALF (CURRENT) USE OF SYSTEMIC STER 09/01/2017 JULIANO TORREZ MD Ot Z82.49 FAMILY HX OF ISCHEM HEART DIS AND OTH DI 10/01/2017 HONEY QUINTERO MD Ot F17.210 NICOTINE DEPENDENCE, CIGARETTES, UNCOMPL 10/01/2017 HONEY QUINTERO MD Ot J45.909 UNSPECIFIED ASTHMA, UNCOMPLICATED 10/01/2017 HONEY QUINTERO MD Ot R42 DIZZINESS AND GIDDINESS 10/01/2017 HONEY QUINTERO MD Ot S29.012A STRAIN OF MUSCLE AND TENDON OF BACK WALL 10/01/2017 HONEY QUINTERO MD Ot T67.9XXA EFFECT OF HEAT AND LIGHT, UNSPECIFIED, I 10/01/2017 HONEY QUINTERO MD Ot X50.0XXA OVEREXERTION FROM STRENUOUS MOVEMENT OR 10/01/2017 HONEY QUINTERO MD Ot 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 10/01/2017 HONEY QUINTERO MD Ot Z87.2 PERSONAL HISTORY OF DISEASES OF THE SKIN 10/06/2017 TERRI WALLS APRN Ot J45.909 UNSPECIFIED ASTHMA, UNCOMPLICATED 10/06/2017 TERRI WALLS APRN Ot M25.511 PAIN IN RIGHT SHOULDER 10/06/2017 TERRI WALLS APRN Ot Z79.51 ALF (CURRENT) USE OF INHALED STERO 10/06/2017 TERRI WALLS APRN Ot Z79.52 ALF (CURRENT) USE OF SYSTEMIC STER 10/06/2017 TERRI WALLS APRN Ot Z87.2 PERSONAL HISTORY OF DISEASES OF THE SKIN 01/09/2018 LOUIE KHAN Ot J45.901 UNSPECIFIED ASTHMA WITH (ACUTE) EXACERBA 01/09/2018 LOUIE KHAN Ot R07.89 OTHER CHEST PAIN 01/09/2018 LOUIE KHAN Ot Z77.22 CNTCT W AND EXPSR TO ENVIRON TOBACCO SMO 01/09/2018 LOUIE KHAN Ot Z79.51 AIDS COUNSELOR (CURRENT) USE OF INHALED STERO 01/09/2018 LOUIE KHAN Ot Z79.52 ALF (CURRENT) USE OF SYSTEMIC STER 01/09/2018 LOUIE KHAN Ot Z82.49 FAMILY HX OF ISCHEM HEART DIS AND OTH DI Procedures Code Description Performed By Performed On 96.49 OTHER INSTILLATION 04/11/2014 73.6 EPISIOTOMY 04/12/2014 Results Test Result Range THYROID ANALYZER - 03/14/17 10:01 TSH 1.97 mIU/L NR Streptococcus pyogenes antigen detection - 05/19/17 22:17 Streptococcus pyogenes antigen detection NEGATIVE NEGATIVE Bacterial throat culture - 05/19/17 22:17 Bacterial throat culture NBS [facility] Influenza virus A and B antigen detection - 05/19/17 22:30 FLU RESULT NEGATIVE FOR INFLUENZA A AND B ANTIGENS BY IA [facility] Complete blood count (CBC) with automated white blood cell (WBC) differential - 05/20/17 16:20 Blood leukocytes automated count (number/volume) 21.1 10*3/uL 4.3-11.0 Blood erythrocytes automated count (number/volume) 4.59 10*6/uL 4.35-5.85 Venous blood hemoglobin measurement (mass/volume) 13.4 g/dL 11.5-16.0 Blood hematocrit (volume fraction) 39 % 35-52 Automated erythrocyte mean corpuscular volume 85 [foz_us] 80-99 Automated erythrocyte mean corpuscular hemoglobin (mass per erythrocyte) 29 pg 25-34 Automated erythrocyte mean corpuscular hemoglobin concentration measurement ( mass/volume) 34 g/dL 32-36 Automated erythrocyte distribution width ratio 14.5 % 10.0-14.5 Automated blood platelet count (count/volume) 333 10*3/uL 130-400 Automated blood platelet mean volume measurement 10.5 [foz_us] 7.4-10.4 Automated blood neutrophils/100 leukocytes 85 % 42-75 Automated blood lymphocytes/100 leukocytes 6 % 12-44 Blood monocytes/100 leukocytes 9 % 0-12 Automated blood eosinophils/100 leukocytes 0 % 0-10 Automated blood basophils/100 leukocytes 0 % 0-10 Blood neutrophils automated count (number/volume) 17.9 10*3 1.8-7.8 Blood lymphocytes automated count (number/volume) 1.3 10*3 1.0-4.0 Blood monocytes automated count (number/volume) 1.9 10*3 0.0-1.0 Automated eosinophil count 0.0 10*3/uL 0.0-0.3 Automated blood basophil count (count/volume) 0.0 10*3/uL 0.0-0.1 Comprehensive metabolic panel - 05/20/17 16:20 Serum or plasma sodium measurement (moles/volume) 141 mmol/L 135-145 Serum or plasma potassium measurement (moles/volume) 4.4 mmol/L 3.6-5.0 Serum or plasma chloride measurement (moles/volume) 106 mmol/L 98-107 Carbon dioxide 21 mmol/L 21-32 Serum or plasma anion gap determination (moles/volume) 14 mmol/L 5-14 Serum or plasma urea nitrogen measurement (mass/volume) 12 mg/dL 7-18 Serum or plasma creatinine measurement (mass/volume) 0.82 mg/dL 0.60-1.30 Serum or plasma urea nitrogen/creatinine mass ratio 15 NRG Serum or plasma creatinine measurement with calculation of estimated glomerular filtration rate > NRG Serum or plasma glucose measurement (mass/volume) 126 mg/dL 70-105 Serum or plasma calcium measurement (mass/volume) 9.3 mg/dL 8.5-10.1 Serum or plasma total bilirubin measurement (mass/volume) 0.2 mg/dL 0.1-1.0 Serum or plasma alkaline phosphatase measurement (enzymatic activity/volume) 86 U/L 40-136 Serum or plasma aspartate aminotransferase measurement (enzymatic activity/ volume) 21 U/L 5-34 Serum or plasma alanine aminotransferase measurement (enzymatic activity/volume ) 21 U/L 0-55 Serum or plasma protein measurement (mass/volume) 7.9 g/dL 6.4-8.2 Serum or plasma albumin measurement (mass/volume) 4.3 g/dL 3.2-4.5 Magnesium - 05/20/17 16:20 Magnesium 1.7 mg/dL 1.8-2.4 Blood manual differential performed detection - 05/20/17 16:20 Blood monocytes/100 leukocytes 7 % NRG Manual blood segmented neutrophils/100 leukocytes 89 % NRG Blood band neutrophils/100 leukocytes 0 % NRG Manual blood lymphocytes/100 leukocytes 4 % NRG Manual eosinophils/100 leukocytes in nose 0 % NRG Manual blood basophils/100 leukocytes 0 % NRG Blood erythrocyte morphology finding identification NORMAL NRG Arterial blood gas measurement - 05/21/17 10:38 Blood pCO2 38 mm[Hg] 35-45 Blood pO2 71 mm[Hg] 79-93 Arterial blood bicarbonate measurement (moles/volume) 21 mmol/L 23-27 Arterial blood base excess by calculation -3.3 mmol/L - 2.5-2.5 Arterial blood oxygen saturation measurement 96 % 94-100 * Inhaled oxygen flow rate 4 L NRG Arterial blood pH measurement with patient temperature correction 7.36 7.37-7.43 Arterial blood carbon dioxide, total measurement (moles/volume) 22.5 mmol/L 21.0-31.0 Body site RT RAD NRG Assessment of wrist artery patency prior to arterial puncture YES- POS NRG Setting of ventilation mode NO NRG Measurement of body temperature 97.7 NRG Complete blood count (CBC) with automated white blood cell (WBC) differential - 05/21/17 13:42 Blood leukocytes automated count (number/volume) 24.9 10*3/uL 4.3-11.0 Blood erythrocytes automated count (number/volume) 4.33 10*6/uL 4.35-5.85 Venous blood hemoglobin measurement (mass/volume) 12.7 g/dL 11.5-16.0 Blood hematocrit (volume fraction) 37 % 35-52 Automated erythrocyte mean corpuscular volume 86 [foz_us] 80-99 Automated erythrocyte mean corpuscular hemoglobin (mass per erythrocyte) 29 pg 25-34 Automated erythrocyte mean corpuscular hemoglobin concentration measurement ( mass/volume) 34 g/dL 32-36 Automated erythrocyte distribution width ratio 15.0 % 10.0-14.5 Automated blood platelet count (count/volume) 318 10*3/uL 130-400 Automated blood platelet mean volume measurement 10.5 [foz_us] 7.4-10.4 Automated blood neutrophils/100 leukocytes 95 % 42-75 Automated blood lymphocytes/100 leukocytes 2 % 12-44 Blood monocytes/100 leukocytes 3 % 0-12 Automated blood eosinophils/100 leukocytes 0 % 0-10 Automated blood basophils/100 leukocytes 0 % 0-10 Blood neutrophils automated count (number/volume) 23.5 10*3 1.8-7.8 Blood lymphocytes automated count (number/volume) 0.6 10*3 1.0-4.0 Blood monocytes automated count (number/volume) 0.8 10*3 0.0-1.0 Automated eosinophil count 0.0 10*3/uL 0.0-0.3 Automated blood basophil count (count/volume) 0.0 10*3/uL 0.0-0.1 Whole blood basic metabolic panel - 05/21/17 13:42 Serum or plasma sodium measurement (moles/volume) 140 mmol/L 135-145 Serum or plasma potassium measurement (moles/volume) 4.4 mmol/L 3.6-5.0 Serum or plasma chloride measurement (moles/volume) 109 mmol/L 98-107 Carbon dioxide 22 mmol/L 21-32 Serum or plasma anion gap determination (moles/volume) 9 mmol/L 5-14 Serum or plasma urea nitrogen measurement (mass/volume) 10 mg/dL 7-18 Serum or plasma creatinine measurement (mass/volume) 0.78 mg/dL 0.60-1.30 Serum or plasma urea nitrogen/creatinine mass ratio 13 NRG Serum or plasma creatinine measurement with calculation of estimated glomerular filtration rate > NRG Serum or plasma glucose measurement (mass/volume) 218 mg/dL 70-105 Serum or plasma calcium measurement (mass/volume) 9.1 mg/dL 8.5-10.1 Serum or plasma phosphate measurement (mass/volume) - 05/21/17 13:42 Serum or plasma phosphate measurement (mass/volume) 3.4 mg/dL 2.3-4.7 Magnesium - 05/21/17 13:42 Magnesium 1.9 mg/dL 1.8-2.4 Complete blood count (CBC) with automated white blood cell (WBC) differential - 05/22/17 03:20 Blood leukocytes automated count (number/volume) 31.2 10*3/uL 4.3-11.0 Blood erythrocytes automated count (number/volume) 4.16 10*6/uL 4.35-5.85 Venous blood hemoglobin measurement (mass/volume) 12.2 g/dL 11.5-16.0 Blood hematocrit (volume fraction) 36 % 35-52 Automated erythrocyte mean corpuscular volume 86 [foz_us] 80-99 Automated erythrocyte mean corpuscular hemoglobin (mass per erythrocyte) 29 pg 25-34 Automated erythrocyte mean corpuscular hemoglobin concentration measurement ( mass/volume) 34 g/dL 32-36 Automated erythrocyte distribution width ratio 15.2 % 10.0-14.5 Automated blood platelet count (count/volume) 297 10*3/uL 130-400 Automated blood platelet mean volume measurement 10.6 [foz_us] 7.4-10.4 Automated blood neutrophils/100 leukocytes 93 % 42-75 Automated blood lymphocytes/100 leukocytes 3 % 12-44 Blood monocytes/100 leukocytes 4 % 0-12 Automated blood eosinophils/100 leukocytes 0 % 0-10 Automated blood basophils/100 leukocytes 0 % 0-10 Blood neutrophils automated count (number/volume) 29.1 10*3 1.8-7.8 Blood lymphocytes automated count (number/volume) 0.8 10*3 1.0-4.0 Blood monocytes automated count (number/volume) 1.3 10*3 0.0-1.0 Automated eosinophil count 0.0 10*3/uL 0.0-0.3 Automated blood basophil count (count/volume) 0.0 10*3/uL 0.0-0.1 Comprehensive metabolic panel - 05/22/17 03:20 Serum or plasma sodium measurement (moles/volume) 141 mmol/L 135-145 Serum or plasma potassium measurement (moles/volume) 4.2 mmol/L 3.6-5.0 Serum or plasma chloride measurement (moles/volume) 109 mmol/L 98-107 Carbon dioxide 19 mmol/L 21-32 Serum or plasma anion gap determination (moles/volume) 13 mmol/L 5-14 Serum or plasma urea nitrogen measurement (mass/volume) 12 mg/dL 7-18 Serum or plasma creatinine measurement (mass/volume) 0.66 mg/dL 0.60-1.30 Serum or plasma urea nitrogen/creatinine mass ratio 18 NRG Serum or plasma creatinine measurement with calculation of estimated glomerular filtration rate > NRG Serum or plasma glucose measurement (mass/volume) 161 mg/dL 70-105 Serum or plasma calcium measurement (mass/volume) 8.5 mg/dL 8.5-10.1 Serum or plasma total bilirubin measurement (mass/volume) 0.2 mg/dL 0.1-1.0 Serum or plasma alkaline phosphatase measurement (enzymatic activity/volume) 69 U/L 40-136 Serum or plasma aspartate aminotransferase measurement (enzymatic activity/ volume) 17 U/L 5-34 Serum or plasma alanine aminotransferase measurement (enzymatic activity/volume ) 25 U/L 0-55 Serum or plasma protein measurement (mass/volume) 6.4 g/dL 6.4-8.2 Serum or plasma albumin measurement (mass/volume) 3.6 g/dL 3.2-4.5 Blood manual differential performed detection - 05/22/17 03:20 Blood monocytes/100 leukocytes 2 % NRG Manual blood segmented neutrophils/100 leukocytes 95 % NRG Blood band neutrophils/100 leukocytes 1 % NRG Manual blood lymphocytes/100 leukocytes 2 % NRG Manual eosinophils/100 leukocytes in nose 0 % NRG Manual blood basophils/100 leukocytes 0 % NRG Blood anisocytosis detection by light microscopy SLIGHT NRG Magnesium - 05/22/17 03:20 Magnesium 2.1 mg/dL 1.8-2.4 Complete blood count (CBC) with automated white blood cell (WBC) differential - 05/23/17 03:20 Blood leukocytes automated count (number/volume) 25.8 10*3/uL 4.3-11.0 Blood erythrocytes automated count (number/volume) 4.50 10*6/uL 4.35-5.85 Venous blood hemoglobin measurement (mass/volume) 13.1 g/dL 11.5-16.0 Blood hematocrit (volume fraction) 39 % 35-52 Automated erythrocyte mean corpuscular volume 87 [foz_us] 80-99 Automated erythrocyte mean corpuscular hemoglobin (mass per erythrocyte) 29 pg 25-34 Automated erythrocyte mean corpuscular hemoglobin concentration measurement ( mass/volume) 34 g/dL 32-36 Automated erythrocyte distribution width ratio 15.5 % 10.0-14.5 Automated blood platelet count (count/volume) 323 10*3/uL 130-400 Automated blood platelet mean volume measurement 10.9 [foz_us] 7.4-10.4 Automated blood neutrophils/100 leukocytes 92 % 42-75 Automated blood lymphocytes/100 leukocytes 4 % 12-44 Blood monocytes/100 leukocytes 4 % 0-12 Automated blood eosinophils/100 leukocytes 0 % 0-10 Automated blood basophils/100 leukocytes 0 % 0-10 Blood neutrophils automated count (number/volume) 23.8 10*3 1.8-7.8 Blood lymphocytes automated count (number/volume) 1.1 10*3 1.0-4.0 Blood monocytes automated count (number/volume) 0.9 10*3 0.0-1.0 Automated eosinophil count 0.0 10*3/uL 0.0-0.3 Automated blood basophil count (count/volume) 0.0 10*3/uL 0.0-0.1 Whole blood basic metabolic panel - 05/23/17 03:20 Serum or plasma sodium measurement (moles/volume) 139 mmol/L 135-145 Serum or plasma potassium measurement (moles/volume) 4.1 mmol/L 3.6-5.0 Serum or plasma chloride measurement (moles/volume) 106 mmol/L 98-107 Carbon dioxide 22 mmol/L 21-32 Serum or plasma anion gap determination (moles/volume) 11 mmol/L 5-14 Serum or plasma urea nitrogen measurement (mass/volume) 13 mg/dL 7-18 Serum or plasma creatinine measurement (mass/volume) 0.71 mg/dL 0.60-1.30 Serum or plasma urea nitrogen/creatinine mass ratio 18 NRG Serum or plasma creatinine measurement with calculation of estimated glomerular filtration rate > NRG Serum or plasma glucose measurement (mass/volume) 126 mg/dL 70-105 Serum or plasma calcium measurement (mass/volume) 9.0 mg/dL 8.5-10.1 Serum or plasma phosphate measurement (mass/volume) - 05/23/17 03:20 Serum or plasma phosphate measurement (mass/volume) 4.0 mg/dL 2.3-4.7 Magnesium - 05/23/17 03:20 Magnesium 2.1 mg/dL 1.8-2.4 Complete blood count (CBC) with automated white blood cell (WBC) differential - 05/24/17 04:45 Blood leukocytes automated count (number/volume) 18.2 10*3/uL 4.3-11.0 Blood erythrocytes automated count (number/volume) 4.19 10*6/uL 4.35-5.85 Venous blood hemoglobin measurement (mass/volume) 12.2 g/dL 11.5-16.0 Blood hematocrit (volume fraction) 36 % 35-52 Automated erythrocyte mean corpuscular volume 86 [foz_us] 80-99 Automated erythrocyte mean corpuscular hemoglobin (mass per erythrocyte) 29 pg 25-34 Automated erythrocyte mean corpuscular hemoglobin concentration measurement ( mass/volume) 34 g/dL 32-36 Automated erythrocyte distribution width ratio 15.1 % 10.0-14.5 Automated blood platelet count (count/volume) 307 10*3/uL 130-400 Automated blood platelet mean volume measurement 10.7 [foz_us] 7.4-10.4 Automated blood neutrophils/100 leukocytes 88 % 42-75 Automated blood lymphocytes/100 leukocytes 6 % 12-44 Blood monocytes/100 leukocytes 5 % 0-12 Automated blood eosinophils/100 leukocytes 0 % 0-10 Automated blood basophils/100 leukocytes 0 % 0-10 Blood neutrophils automated count (number/volume) 16.1 10*3 1.8-7.8 Blood lymphocytes automated count (number/volume) 1.2 10*3 1.0-4.0 Blood monocytes automated count (number/volume) 0.9 10*3 0.0-1.0 Automated eosinophil count 0.0 10*3/uL 0.0-0.3 Automated blood basophil count (count/volume) 0.0 10*3/uL 0.0-0.1 Comprehensive metabolic panel - 05/24/17 04:45 Serum or plasma sodium measurement (moles/volume) 139 mmol/L 135-145 Serum or plasma potassium measurement (moles/volume) 4.4 mmol/L 3.6-5.0 Serum or plasma chloride measurement (moles/volume) 102 mmol/L 98-107 Carbon dioxide 24 mmol/L 21-32 Serum or plasma anion gap determination (moles/volume) 13 mmol/L 5-14 Serum or plasma urea nitrogen measurement (mass/volume) 14 mg/dL 7-18 Serum or plasma creatinine measurement (mass/volume) 0.70 mg/dL 0.60-1.30 Serum or plasma urea nitrogen/creatinine mass ratio 20 NRG Serum or plasma creatinine measurement with calculation of estimated glomerular filtration rate > NRG Serum or plasma glucose measurement (mass/volume) 141 mg/dL 70-105 Serum or plasma calcium measurement (mass/volume) 8.7 mg/dL 8.5-10.1 Serum or plasma total bilirubin measurement (mass/volume) 0.2 mg/dL 0.1-1.0 Serum or plasma alkaline phosphatase measurement (enzymatic activity/volume) 64 U/L 40-136 Serum or plasma aspartate aminotransferase measurement (enzymatic activity/ volume) 18 U/L 5-34 Serum or plasma alanine aminotransferase measurement (enzymatic activity/volume ) 42 U/L 0-55 Serum or plasma protein measurement (mass/volume) 6.1 g/dL 6.4-8.2 Serum or plasma albumin measurement (mass/volume) 3.5 g/dL 3.2-4.5 THYROID STIMULATING HORMONE - 05/24/17 04:45 THYROID STIMULATING HORMONE 0.16 u[iU]/mL 0.35-4.94 Complete blood count (CBC) with automated white blood cell (WBC) differential - 05/25/17 04:32 Blood leukocytes automated count (number/volume) 19.7 10*3/uL 4.3-11.0 Blood erythrocytes automated count (number/volume) 4.49 10*6/uL 4.35-5.85 Venous blood hemoglobin measurement (mass/volume) 12.9 g/dL 11.5-16.0 Blood hematocrit (volume fraction) 38 % 35-52 Automated erythrocyte mean corpuscular volume 85 [foz_us] 80-99 Automated erythrocyte mean corpuscular hemoglobin (mass per erythrocyte) 29 pg 25-34 Automated erythrocyte mean corpuscular hemoglobin concentration measurement ( mass/volume) 34 g/dL 32-36 Automated erythrocyte distribution width ratio 14.9 % 10.0-14.5 Automated blood platelet count (count/volume) 336 10*3/uL 130-400 Automated blood platelet mean volume measurement 10.4 [foz_us] 7.4-10.4 Automated blood neutrophils/100 leukocytes 85 % 42-75 Automated blood lymphocytes/100 leukocytes 8 % 12-44 Blood monocytes/100 leukocytes 8 % 0-12 Automated blood eosinophils/100 leukocytes 0 % 0-10 Automated blood basophils/100 leukocytes 0 % 0-10 Blood neutrophils automated count (number/volume) 16.7 10*3 1.8-7.8 Blood lymphocytes automated count (number/volume) 1.5 10*3 1.0-4.0 Blood monocytes automated count (number/volume) 1.6 10*3 0.0-1.0 Automated eosinophil count 0.0 10*3/uL 0.0-0.3 Automated blood basophil count (count/volume) 0.0 10*3/uL 0.0-0.1 Comprehensive metabolic panel - 05/25/17 04:32 Serum or plasma sodium measurement (moles/volume) 138 mmol/L 135-145 Serum or plasma potassium measurement (moles/volume) 4.2 mmol/L 3.6-5.0 Serum or plasma chloride measurement (moles/volume) 103 mmol/L 98-107 Carbon dioxide 23 mmol/L 21-32 Serum or plasma anion gap determination (moles/volume) 12 mmol/L 5-14 Serum or plasma urea nitrogen measurement (mass/volume) 20 mg/dL 7-18 Serum or plasma creatinine measurement (mass/volume) 0.72 mg/dL 0.60-1.30 Serum or plasma urea nitrogen/creatinine mass ratio 28 NRG Serum or plasma creatinine measurement with calculation of estimated glomerular filtration rate > NRG Serum or plasma glucose measurement (mass/volume) 118 mg/dL 70-105 Serum or plasma calcium measurement (mass/volume) 8.7 mg/dL 8.5-10.1 Serum or plasma total bilirubin measurement (mass/volume) 0.2 mg/dL 0.1-1.0 Serum or plasma alkaline phosphatase measurement (enzymatic activity/volume) 65 U/L 40-136 Serum or plasma aspartate aminotransferase measurement (enzymatic activity/ volume) 26 U/L 5-34 Serum or plasma alanine aminotransferase measurement (enzymatic activity/volume ) 63 U/L 0-55 Serum or plasma protein measurement (mass/volume) 6.6 g/dL 6.4-8.2 Serum or plasma albumin measurement (mass/volume) 3.7 g/dL 3.2-4.5 Serum or plasma thyroxine (T4) free measurement (mass/volume) - 05/25/17 04:32 Serum or plasma thyroxine (T4) free measurement (mass/volume) 0.80 ng/dL 0.70-1.48 TRIIODOTHRYONINE T3 FREE - 05/25/17 04:32 TRIIODOTHYRONINE T3 FREE 1.9 pg/mL 2.4-4.5 Encounters ACCT No. Visit Date/Time Discharge Status Pt. Type Provider Facility Loc./Unit Complaint [id number] 01/07/2018 14:16:00 01/07/2018 15:35:00 DIS Outpatient LOUIE KHAN [facility] ER ASTHMA [id number] 10/06/2017 16:46:00 10/06/2017 17:58:00 DIS Emergency TERRI WALLS APRN [facility] ER BACK PAIN [id number] 10/01/2017 21:02:00 10/01/2017 21:23:00 DIS Emergency HONEY QUINTERO MD [facility] ER POSS HEAT EXHASTION [id number] 08/29/2017 08:52:00 08/29/2017 09:37:00 DIS Emergency JULIANO TORREZ MD [facility] ER ASTHMA [id number] 05/20/2017 18:00:00 05/25/2017 16:05:00 DIS Inpatient TABATHA ROJAS MD [facility] 4TH STATUS ASTHMATICUS [id number] 05/19/2017 21:19:00 05/20/2017 00:00:00 DIS Emergency JULIANO TORREZ MD [facility] ER ASTHMA/SOA [id number] 01/29/2017 20:59:00 01/29/2017 23:20:00 DIS Emergency OMAR NELSON [facility] ER SOA,ASTHMA [id number] 11/10/2016 12:47:00 11/10/2016 14:24:00 DIS Emergency OMAR NELSON [facility] ER ASTHMA ATTACK [id number] 06/24/2016 11:24:00 06/24/2016 13:49:00 DIS Emergency ANNETTA FIGUEREDO DO [facility] ER ASTHMA [id number] 12/20/2015 12:31:00 12/20/2015 13:47:00 DIS Emergency NICO RUIZERICEN Jennifer [facility] ER ASTHMA ATTACK [id number] 04/10/2014 02:20:00 04/10/2014 04:30:00 DIS Outpatient [facility] [id number] 01/18/2014 10:09:00 01/18/2014 23:59:59 CLS Outpatient ADELAIDA RING MD [facility] RAD [id number] 11/30/2013 10:10:00 11/30/2013 23:59:59 CLS Outpatient ADELAIDA RING MD [facility] RAD [id number] 04/11/2014 19:02:00 Document Registration [id number] 09/09/2017 14:20:00 09/09/2017 23:59:59 CLS Outpatient KAY JONESKen [facility] [place] [id number] 03/14/2017 09:20:00 Document Registration
--- OUTSIDE RECORDS SUMMARY | 2018-01-15 18:15 | XMS REPORT ---
Author Author TABATHA ROJAS Organization [facility] Address [address] [place] [address] Care Team Providers Care Machine Technician Name Role Phone TABATHA ROJAS Unavailable PROBLEMS Type Condition ICD9-CM Code WKP17-JO Code Onset Dates Condition Status SNOMED Code Problem Flexural eczema L20.82 Active 58008992 Problem Mild intermittent asthma with acute exacerbation J45.21 Active 103096852 Problem Abnormal CBC R79.89 Active 308819780 ALLERGIES No Information ENCOUNTERS Encounter Location Date Diagnosis [place] [id number] [place] [phone] Sep, Mild intermittent asthma with acute exacerbation J45.21 [facility] [address] [phone] Sep, Mild intermittent asthma with acute exacerbation J45.21 [facility] [id number] [place] [phone] May, [facility] [id number] [place] [phone] Apr, [facility] [id number] [place] [phone] Mar, Mild intermittent asthma with acute exacerbation J45.21 [facility] [id number] [place] [phone] Mar, Mild intermittent asthma with acute exacerbation J45.21 ; Flexural eczema L20.82 ; Tobacco abuse Z72.0 and Tobacco abuse counseling Z71.6 [place] [id number] [place] [phone] Jan, Mild intermittent asthma with acute exacerbation J45.21 [place] [address] [place] [address] Jan, Mild intermittent asthma with acute exacerbation J45.21 [facility] [address] [facility] [id number] [place], [place] [phone] Jul, Bronchitis J40 IMMUNIZATIONS No Known Immunizations SOCIAL HISTORY Never Assessed REASON FOR VISIT Repository Medication PLAN OF CARE VITAL SIGNS MEDICATIONS Medication Instructions Dosage Frequency Start Date End Date Duration Status Breo Ellipta 100-25 MCG/INH Inhalation Once a day 1 puff 24h May, Active RESULTS No Results PROCEDURES No Known procedures INSTRUCTIONS MEDICATIONS ADMINISTERED No Known Medications MEDICAL (GENERAL) HISTORY Type Description Date Medical History asthma Hospitalization History Asthma/ Bronchitis February 2017
--- NOTE | 2018-01-15 18:21 | ED Dyspnea ---
General Stated Complaint: ASTHMA ISSUES/COUGH/CONGESTION Source of Information: Patient Exam Limitations: No Limitations History of Present Illness Date Seen by Provider: Jan 15, 2018 Time Seen by Provider: 18:18 Initial Comments To ER as reports of persistent dyspnea wheezing and shortness of breath. She has a nebulizer at home but she is out of her medication for this. She was seen here last week for the same and given prednisone and inhaler but she states they didn't really help. She states that she is unable to fill any medications due to cost. However, she is able to afford cigarettes as she does smell of cigarettes and states that she smokes about 5-10 per day Timing/Duration: 1 Week Severity: Moderate Associated Symptoms: Cough Allergies and Home Medications Allergies Coded Allergies: No Known Drug Allergies (Unverified , 04/10/14) Home Medications Albuterol Sulfate 1 Puff Puff, 2 PUFF IH Q4H PRN for SHORTNESS OF BREATH, ( Reported) 1 PUFF = 90 MCG Albuterol Sulfate 2.5 Mg/3 Ml Vial.neb, 2.5 MG IH Q6H PRN for SHORTNESS OF BREATH, (Reported) Albuterol Sulfate 1 Puff Puff, 1-4 PUFF IH Q4H PRN for SHORTNESS OF BREATH 1 PUFF = 90 MCG Prescribed by: JULIANO MONTEJO on 08/29/17 0927 Albuterol Sulfate 2.5 Mg/3 Ml Vial.neb, 2.5 MG IH Q4H Prescribed by: TERRI WALLS on 01/15/18 1907 Cyclobenzaprine HCl 10 Mg Tablet, 10 MG PO Q8H PRN for SPASMS Prescribed by: HONEY QUINTERO on 10/01/178 Fluticasone/Vilanterol 1 Each Blst.w.dev, 1 EACH IH DAILY Prescribed by: TABATHA ROJAS on 05/25/17 1531 Loratadine 10 Mg Tablet, 10 MG PO DAILY Prescribed by: TABATHA ROJAS on 05/25/17 1531 Methocarbamol 750 Mg Tablet, 750 MG PO Q6H PRN for PAIN-MODERATE TO SEVERE Prescribed by: TERRI WALLS on 10/06/17 1719 Montelukast Sodium 10 Mg Tablet, 10 MG PO HS, (Reported) LAST FILLED 03/14/17 #30 Prednisone 20 Mg Tab, 20 MG PO DAILY 3 tabs BID x 5 days 2 tabs BID x 5 days 1 tab BID x 5 days 1 tab daily x 5 days 1/2 tab daily x 4 days then STOP Prescribed by: TABATHA ROJAS on 05/25/17 1531 Prednisone 20 Mg Tab, 40 MG PO DAILY Prescribed by: JULIANO MONTEJO on 08/29/17 0927 Prednisone 20 Mg Tab, 40 MG PO DAILY Prescribed by: TERRI WALLS on 10/06/17 1752 Prednisone 20 Mg Tab, 40 MG PO DAILY Prescribed by: LOUIE KHAN on 01/07/18 1533 Prednisone 5 Mg Tablet, 8 TAB PO DAILY Prescribed by: TERRI WALLS on 01/15/18 1907 Patient Home Medication List Home Medication List Reviewed: Yes Review of Systems Review of Systems Constitutional: see HPI EENTM: see HPI Respiratory: see HPI, cough, dyspnea on exertion, short of breath, wheezing Genitourinary: no symptoms reported Musculoskeletal: no symptoms reported Skin: no symptoms reported Psychiatric/Neurological: No Symptoms Reported Past Sudxfaq-Hvjhlo-Bfrhfk Hx Patient Social History Type Used: Cigarettes 2nd Hand Smoke Exposure: Yes Recent Foreign Travel: No Contact w/Someone Who Travel: No Recent Hopitalizations: No Immunizations Up To Date Tetanus Booster (TDap): Unknown PED Vaccines UTD: Yes Date of Pneumonia Vaccine: May 20, 2015 Seasonal Allergies Seasonal Allergies: Yes Past Medical History Surgeries: No Respiratory: Yes Asthma Currently Using CPAP: No Currently Using BIPAP: No Cardiac: No Neurological: No Reproductive Disorders: No Genitourinary: No Gastrointestinal: No Musculoskeletal: No Endocrine: No HEENT: Yes (Strider with asthma exacerbations) Cancer: No Psychosocial: No Integumentary: Yes Eczema Blood Disorders: No Family Medical History Asthma 19 MOTHER Cardiovascular disease 19 FATHER Completed stroke paternal grandfather Asthma, Heart Disease Physical Exam Vital Signs Vital Signs - First Documented 01/15/18 18:16 Temp 97.4 Pulse 84 Resp 18 B/P (MAP) 118/77 (91) Pulse Ox 98 O2 Delivery Room Air Capillary Refill : Height, Weight, BMI Height: 5'4.00" Weight: 140lbs. 9.0oz. 63.468495ly; 22.8 BMI Method:Stated General Appearance: No Apparent Distress, WD/WN HEENT: PERRL/EOMI, TMs Normal Neck: Full Range of Motion, Normal Inspection Respiratory: No Accessory Muscle Use, No Respiratory Distress, Decreased Breath Sounds, Wheezing Cardiovascular: Regular Rate, Rhythm, Normal Peripheral Pulses Gastrointestinal: Normal Bowel Sounds, Non Tender, Soft Neurologic/Psychiatric: Alert, Oriented x3 Skin: Normal Color, Warm/Dry Progress/Results/Core Measures Results/Orders Micro Results Microbiology 01/15/18 Influenza Types A,B Antigen (HARPREET) - Final, Complete My Orders Orders - TERRI WALLS APRN Albuterol/Ipra Inhalation Soln (Duoneb I (01/15/18 18:15) Svn Small Volume Nebulizer (01/15/18 18:12) Chest Pa/Lat (2 View) (01/15/18 18:12) Influenza A And B Antigens (01/15/18 18:12) Prednisone Tablet (Deltasone Tablet) (01/15/18 18:30) Rx-Albuterol Nebs (Rx-Proventil Nebs) (01/15/18 19:07) Medications Given in ED Current Medications Medications Dose Ordered Sig/Aspen Route Start Time Stop Time Status Last Admin Dose Admin Albuterol/ Ipratropium 3 ml ONCE ONCE INH 01/15/18 18:15 01/15/18 18:16 DC 01/15/18 18:28 3 ML Prednisone 60 mg ONCE ONCE PO 01/15/18 18:30 01/15/18 18:31 DC 01/15/18 18:23 60 MG Vital Signs/I&O 01/15/18 01/15/18 18:16 18:28 Temp 97.4 Pulse 84 Resp 18 B/P (MAP) 118/77 (91) Pulse Ox 98 97 O2 Delivery Room Air Room Air Departure Impression Primary Impression: Asthma with acute exacerbation in adult Disposition: 01 HOME, SELF-CARE Condition: Stable Departure-Patient Inst. Decision time for Depature: 18:20 Referrals: [facility] (PCP/Family) Primary Care Physician Patient Instructions: Asthma in Adults Add. Discharge Instructions: 1. I feel obligated to tell you that if you can afford cigarettes you can afford some medications. Some medications are extremely pricey however and he would benefit from establishing care with [facility]. They are able to provide medications that they prescribed at little or no cost to you based on certain criteria. You should call [facility] tomorrow to make an appointment to be seen. Scripts Albuterol Sulfate (Albuterol Sulfate) 2.5 Mg/3 Ml Vial.neb 2.5 MG IH Q4H, #25 EA Prov: TERRI WALLS APRN 01/15/18 Prednisone (Prednisone) 5 Mg Tablet 8 TAB PO DAILY, #32 TAB Prov: TERRI WALLS APRN 01/15/18 Work/School Note: Work Release Form Date Seen in the Emergency Department: Jan 15, 2018 Return to Work: Jan 17, 2018 TERRI WALLS APRN Jan 15, 2018 18:21
[2018-01-15] MEDS ORDERED: predniSONE 20 MG TAB PO ONE (18:30)
--- NOTE | 2018-01-15 19:03 | Diagnostic Imaging Report ---
CHEST PA/LAT (2 VIEW) Indication: Shortness breath and cough Comparison: 01/07/2018 Findings: No focal pneumonic consolidation, pleural effusion or pneumothorax. Normal heart size and pulmonary vasculature. Impression: No acute cardiopulmonary process. Dictated by: Dictated on workstation # [id number]
[2018-01-15] MEDS ORDERED: RX-ALBUTEROL NEB 2.5 MG/3 ML PACK #5 IH STA (19:07)
[2018-01-15] MEDS ORDERED: ALBU2.5V4 IH (19:07)
[2018-01-15] MEDS ORDERED: PRED5TAB PO (19:07)
[2018-01-15] MEDS ORDERED: RX-ONDANSETRON 4 MG ODT (ZOFRAN) PPK #4 ONE (19:09)
[2018-01-15] MEDS ORDERED: RX-ONDANSETRON 4 MG ODT (ZOFRAN) PPK #4 PO STA (19:11)
[2018-01-15 19:20] VITALS: BP 118/77
== END 2018-01-15 19:20 | disposition home or self-care (01) ==
LOC: EDUNIT# 18:10 → ER 18:11
DX: J45.901 Unspecified asthma with (acute) exacerbation (principal); F17.210 Nicotine dependence, cigarettes, uncomplicated; Z79.51 Long term (current) use of inhaled steroids; Z79.52 Long term (current) use of systemic steroids; Z82.49 Family history of ischemic heart disease and other diseases of the circulatory system
CPT/HCPCS: 71046; 87804; 94640

== ENCOUNTER 2018-02-03 13:10 | Emergency (ER) | payer SELFPAY ==
[~2018-02-03] VITALS: Ht 162.6 cm; Wt 63.5 kg
[2018-02-03] MEDS ORDERED: RT-ALBUTEROL/IPRATROPIUM 3 ML (DUONEB) VIAL ONE ×2 (13:22→13:25)
[2018-02-03] MEDS ORDERED: predniSONE 20 MG TAB PO ONE (13:30)
[2018-02-03] MEDS ORDERED: RX-ALBUTEROL INHALER (PROAIR) 8 GM IH PRN (13:30)
[2018-02-03] MEDS ORDERED: RT-ALBUTEROL/IPRATROPIUM 3 ML (DUONEB) VIAL INH ONE (13:30)
[2018-02-03] MEDS ORDERED: PRD20T PO (13:35)
[2018-02-03] MEDS ORDERED: RT-ALBUTEROL SULF 2.5 MG/3 ML PRE-MIX VIAL INH STA (13:35)
--- NOTE | 2018-02-03 13:35 | ED Respiratory ---
General Stated Complaint: SOB Source: patient Exam Limitations: no limitations History of Present Illness Date Seen by Provider: Feb 03, 2018 Time Seen by Provider: 13:15 Initial Comments Here with report of short of breath and wheezing for the past couple of days. She has been using nebulizer to help but is out of those medicines. Does have history of asthma and can sometimes have severe exacerbations. She is trying to prevent that. She does smoke but has not I will smoke or couple days. Denies fever or chills. Denies vomiting or diarrhea. Timing/Duration: yesterday, getting worse Severity: moderate Prior Episodes/Possible Cause: occasional episodes Modifying Factors: Worse With Activity; Improves With Albuterol Nebulizer Associated Symptoms: cough; No fever/chills, No nasal congestion; shortness of breath, wheezing Allergies and Home Medications Allergies Coded Allergies: No Known Drug Allergies (Unverified , 04/10/14) Home Medications Albuterol Sulfate 1 Puff Puff, 2 PUFF IH Q4H PRN for SHORTNESS OF BREATH, ( Reported) 1 PUFF = 90 MCG Albuterol Sulfate 2.5 Mg/3 Ml Vial.neb, 2.5 MG IH Q6H PRN for SHORTNESS OF BREATH, (Reported) Albuterol Sulfate 1 Puff Puff, 1-4 PUFF IH Q4H PRN for SHORTNESS OF BREATH 1 PUFF = 90 MCG Prescribed by: JULIANO MONTEJO on 08/29/17 0927 Albuterol Sulfate 2.5 Mg/3 Ml Vial.neb, 2.5 MG IH Q4H Prescribed by: TERRI WALLS on 01/15/18 1907 Cyclobenzaprine HCl 10 Mg Tablet, 10 MG PO Q8H PRN for SPASMS Prescribed by: HONEY QUINTERO on 10/01/172117 Fluticasone/Vilanterol 1 Each Blst.w.dev, 1 EACH IH DAILY Prescribed by: TABATHA ROJAS on 05/25/17 1531 Loratadine 10 Mg Tablet, 10 MG PO DAILY Prescribed by: TABATHA ROJAS on 05/25/17 1531 Methocarbamol 750 Mg Tablet, 750 MG PO Q6H PRN for PAIN-MODERATE TO SEVERE Prescribed by: TERRI WALLS on 10/06/17 1719 Montelukast Sodium 10 Mg Tablet, 10 MG PO HS, (Reported) LAST FILLED 03/14/17 #30 Prednisone 20 Mg Tab, 20 MG PO DAILY 3 tabs BID x 5 days 2 tabs BID x 5 days 1 tab BID x 5 days 1 tab daily x 5 days 1/2 tab daily x 4 days then STOP Prescribed by: TABATHA ROJAS on 05/25/17 1531 Prednisone 20 Mg Tab, 40 MG PO DAILY Prescribed by: JULIANO MONTEJO on 08/29/17 0927 Prednisone 20 Mg Tab, 40 MG PO DAILY Prescribed by: TERRI WALLS on 10/06/17 1752 Prednisone 20 Mg Tab, 40 MG PO DAILY Prescribed by: LOUIE KHAN on 01/07/18 1533 Prednisone 5 Mg Tablet, 8 TAB PO DAILY Prescribed by: TERRI WALLS on 01/15/18 1907 Prednisone 20 Mg Tab, 40 MG PO DAILY Prescribed by: SHANITA MARTELL on 02/03/18 1335 Patient Home Medication List Home Medication List Reviewed: Yes Review of Systems Review of Systems Constitutional: see HPI; No chills, No fever EENTM: see HPI Respiratory: see HPI, cough, short of breath, wheezing Cardiovascular: no symptoms reported Gastrointestinal: No abdominal pain, No nausea, No vomiting Genitourinary: no symptoms reported : No Musculoskeletal: no symptoms reported Past Wjqsfkm-Qpipmn-Tvnnax Hx Past Med/Social Hx: Reviewed Nursing Past Med/Soc Hx Patient Social History Alcohol Use: Denies Use Recreational Drug Use: No Smoking Status: Current Everyday Smoker Type Used: Cigarettes 2nd Hand Smoke Exposure: Yes Recent Hopitalizations: No Immunizations Up To Date Tetanus Booster (TDap): Unknown PED Vaccines UTD: Yes Date of Pneumonia Vaccine: May 20, 2015 Seasonal Allergies Seasonal Allergies: Yes Past Medical History Surgeries: No Respiratory: Yes Asthma Currently Using CPAP: No Currently Using BIPAP: No Cardiac: No Neurological: No Reproductive Disorders: No Genitourinary: No Gastrointestinal: No Musculoskeletal: No Endocrine: No HEENT: Yes (Strider with asthma exacerbations) Cancer: No Psychosocial: No Integumentary: Yes Eczema Blood Disorders: No Family Medical History Reviewed Nursing Family Hx Asthma 19 MOTHER Cardiovascular disease 19 FATHER Completed stroke paternal grandfather Asthma, Heart Disease Physical Exam Vital Signs - First Documented 02/03/18 13:44 Pulse Ox 98 O2 Delivery Room Air Capillary Refill : Height: 5'4.00" Weight: 140lbs. 9.0oz. 63.875912ry; 22.8 BMI Method:Stated General Appearance: WD/WN, no apparent distress HEENT: PERRL/EOMI, pharynx normal Neck: full range of motion, supple Respiratory: accessory muscle use, wheezing, expiration Cardiovascular: regular rate, rhythm, no murmur Neurologic/Psychiatric: alert, oriented x 3 Skin: normal color, warm/dry Progress/Results/Core Measures Suspected Sepsis SIRS Temperature: Pulse: Respiratory Rate: Blood Pressure / Mean: Results/Orders My Orders Orders - SHANITA MARTELL MD Albuterol/Ipra Inhalation Soln (Duoneb I (02/03/18 13:22) Prednisone Tablet (Deltasone Tablet) (02/03/18 13:30) Albuterol/Ipra Inhalation Soln (Duoneb I (02/03/18 13:30) Svn Small Volume Nebulizer (02/03/18 13:22) Rx-Albuterol Inhaler (Rx-Proair) (02/03/18 13:30) Albuterol/Ipra Inhalation Soln (Duoneb I (02/03/18 13:25) Albuterol Pre-Mix Nebs (Rt) (Proventil (02/03/18 13:35) Svn Small Volume Nebulizer (02/03/18 13:35) Medications Given in ED Current Medications Medications Dose Ordered Sig/Aspen Route Start Time Stop Time Status Last Admin Dose Admin Albuterol Sulfate 2 PUFFS QID PRN IH 02/03/18 13:30 02/03/18 13:44 8 GM Albuterol/ Ipratropium 3 ml STK-MED ONCE .ROUTE 02/03/18 13:25 02/03/18 13:26 DC 02/03/18 13:30 3 ML Vital Signs/I&O 02/03/18 13:44 Pulse Ox 98 O2 Delivery Room Air Capillary Refill : Progress Note : Progress Note Seen and evaluated. Duo neb ordered. Prednisone 40 mg by mouth ordered. Albuterol MDI given. Repeat albuterol neb 2. 1414: Overall much better and wheezing essentially resolved. Discharged home with return precautions. Patient verbalize understanding instructions and agreement with plan. Departure Impression Primary Impression: Asthma with acute exacerbation in adult Qualified Codes: J45.41 - Moderate persistent asthma with (acute) exacerbation Disposition: HOME, SELF-CARE Condition: Improved Departure-Patient Inst. Decision time for Depature: 13:30 Referrals: [facility] (PCP/Family) Primary Care Physician Patient Instructions: Asthma, Adult (DC) Add. Discharge Instructions: Take medications as directed. Follow-up with your DrKia in 2 days for recheck and further evaluation as scheduled. You will need additional prescriptions ordered from your doctor during your doctor's appointment. Return for worse pain, fever, vomiting, weakness, breathing problems or other concerns as needed. Scripts Prednisone (Prednisone) 20 Mg Tab 40 MG PO DAILY, #8 TAB 0 Refills Prov: SHANITA MARTELL MD 02/03/18 Work/School Note: Work Release Form Date Seen in the Emergency Department: Feb 03, 2018 Return to Work: Feb 04, 2018 Restrictions: No Restrictions SHANITA MARTELL MD Feb 03, 2018 13:35
[2018-02-03 14:30] VITALS: BP 110/68
== END 2018-02-03 14:30 | disposition home or self-care (01) ==
LOC: ER 13:10 → EDUNIT# 13:10 → ER 14:30
DX: J45.901 Unspecified asthma with (acute) exacerbation (principal); F17.210 Nicotine dependence, cigarettes, uncomplicated; Z79.51 Long term (current) use of inhaled steroids; Z82.49 Family history of ischemic heart disease and other diseases of the circulatory system; Z79.52 Long term (current) use of systemic steroids
CPT/HCPCS: 94640; 99283

== ENCOUNTER 2018-03-03 21:56 | Emergency (ER) | payer SELFPAY ==
[~2018-03-03] VITALS: Ht 162.6 cm; Wt 63.5 kg
--- OUTSIDE RECORDS SUMMARY | 2018-03-03 22:03 | XMS REPORT | Continuity of Care Document ---
Author Author [facility] Organization [facility] Address Unknown Phone Unavailable Allergies Active Description Code Type Severity Reaction Onset Reported/Identified Relationship to Patient Clinical Status Yes No Known Drug Allergies [id number] Drug Allergy Unknown N/A 04/10/2014 Medications There [...] ELENA HESS, ADELAIDA Miranda Ot V28.89 08/09/2014 MARÍA ELENA HESS, ADELAIDA Miranda Ot V28.89 08/09/2014 ADELAIDA RING MD Ot V28.89 08/26/2014 MARÍA ELENA HESS, ADELAIDA Miranda Ot V28.89 12/20/2015 LEO GARCIA Ot J06.9 [...] ASTHMA WITH (ACUTE) EXACERBA 11/10/2016 LESLIE, OMAR WEB SEARCH EVALUATOR Ot J45.901 UNSPECIFIED ASTHMA WITH (ACUTE) EXACERBA 11/10/2016 LESLIE, OMAR WEB SEARCH EVALUATOR Ot J45.909 UNSPECIFIED ASTHMA, UNCOMPLICATED 11/12/2016 LESLIE, OMAR WEB SEARCH EVALUATOR Ot J45.901 UNSPECIFIED ASTHMA WITH (ACUTE) EXACERBA 11/12/2016 LESLIE, OMAR WEB SEARCH EVALUATOR Ot J45.909 UNSPECIFIED ASTHMA, UNCOMPLICATED 01/29/2017 LESLIE, OMAR WEB SEARCH EVALUATOR Ot F17.210 NICOTINE DEPENDENCE, CIGARETTES, UNCOMPL 01/29/2017 LESLIE, OMAR WEB SEARCH EVALUATOR Ot J45.901 UNSPECIFIED ASTHMA WITH (ACUTE) EXACERBA 01/29/2017 LESLIE, OMAR WEB SEARCH EVALUATOR Ot R06.02 SHORTNESS OF BREATH 01/29/2017 LESLIE, OMAR WEB SEARCH EVALUATOR Ot Z82.49 FAMILY HX OF ISCHEM HEART DIS AND OTH DI 01/31/2017 LESLIE, OMAR WEB SEARCH EVALUATOR Ot F17.210 NICOTINE DEPENDENCE, CIGARETTES, UNCOMPL 01/31/2017 LESLIE, OMAR WEB SEARCH EVALUATOR Ot J45.901 UNSPECIFIED ASTHMA WITH (ACUTE) EXACERBA 01/31/2017 LESLIE, OMAR WEB SEARCH EVALUATOR Ot R06.02 SHORTNESS OF BREATH 01/31/2017 LESLIE, OMAR WEB SEARCH EVALUATOR Ot Z82.49 FAMILY HX OF ISCHEM HEART DIS AND OTH DI 05/20/2017 SHAN HESS, JULIANO T Ot F17.210 NICOTINE DEPENDENCE, CIGARETTES, UNCOMPL 05/20/2017 SHAN HESS, JULIANO T Ot J45.901 UNSPECIFIED ASTHMA WITH (ACUTE) EXACERBA 05/20/2017 SHAN HESS, JULIANO T Ot R06.02 SHORTNESS OF BREATH 05/20/2017 SHAN HESS, JULIANO T Ot R06.1 STRIDOR 05/20/2017 SHAN HESS, JULIANO T Ot Z79.52 RETIREMENT (CURRENT) USE OF SYSTEMIC STER 05/20/2017 SHAN HESS, JULIANO T Ot Z82.49 FAMILY HX OF ISCHEM [...] 05/21/2017 JULIANO TORREZ MD T Ot Z79.52 RETIREMENT (CURRENT) USE OF SYSTEMIC STER 05/21/2017 JULIANO TORREZ MD T Ot Z82.49 FAMILY HX OF ISCHEM HEART DIS AND OTH DI 05/25/2017 TABATHA ROJAS MD Ot F17.210 NICOTINE DEPENDENCE, CIGARETTES, UNCOMPL 05/25/2017 CRYSTAL HESS, TABATHA R Ot J45.902 UNSPECIFIED ASTHMA WITH STATUS ASTHMATIC 05/25/2017 TABATHA ROJAS MD R Ot R00.0 TACHYCARDIA, [...] ROJAS MD R Ot R00.0 TACHYCARDIA, UNSPECIFIED 08/29/2017 JULIANO TORREZ MD T Ot F17.200 NICOTINE DEPENDENCE, UNSPECIFIED, UNCOMP 08/29/2017 JULIANO TORREZ MD Ot J30.2 OTHER SEASONAL ALLERGIC RHINITIS 08/29/2017 JULIANO TORREZ MD Ot J45.901 UNSPECIFIED ASTHMA WITH (ACUTE) EXACERBA 08/29/2017 JULIANO TORREZ MD Ot R06.02 SHORTNESS OF BREATH 08/29/2017 JULIANO TORREZ MD Ot Z79.51 RETIREMENT (CURRENT) USE OF INHALED STERO 08/29/2017 JULIANO TORREZ MD Ot 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 08/29/2017 JULIANO [...] BREATH 09/01/2017 JULIANO TORREZ MD Ot Z79.51 RETIREMENT (CURRENT) USE OF INHALED STERO 09/01/2017 JULIANO TORREZ MD Ot 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 09/01/2017 JULIANO TORREZ MD Ot Z82.49 FAMILY HX OF ISCHEM HEART DIS AND OTH DI 10/01/2017 HONEY QUINETRO MD Ot F17.210 NICOTINE DEPENDENCE, CIGARETTES, UNCOMPL [...] OR 10/01/2017 HONEY QUINTERO MD Ot Z79.52 RETIREMENT (CURRENT) USE OF SYSTEMIC STER 10/01/2017 HONEY QUINTERO MD Ot Z87.2 PERSONAL HISTORY OF DISEASES OF THE SKIN 10/06/2017 TERRI WALLS APRN Ot J45.909 UNSPECIFIED ASTHMA, UNCOMPLICATED 10/06/2017 TERRI WALLS APRN Ot M25.511 PAIN IN RIGHT SHOULDER 10/06/2017 TERRI WALLS APRN Ot Z79.51 RETIREMENT (CURRENT) USE OF INHALED STERO 10/06/2017 TERRI WALLS APRN Ot Z79.52 RETIREMENT (CURRENT) USE OF SYSTEMIC STER 10/06/2017 TERRI WALLS APRN Ot Z87.2 PERSONAL HISTORY OF DISEASES OF THE SKIN 01/07/2018 BERNKT LOUIE Ot J45.901 UNSPECIFIED ASTHMA WITH (ACUTE) EXACERBA 01/07/2018 BERNOT, LOUIE Ot R07.89 OTHER CHEST PAIN 01/07/2018 BERNOT, LUOIE Ot Z77.22 CNTCT W AND EXPSR TO ENVIRON TOBACCO SMO 01/07/2018 BERNOT, LOUIE Ot Z79.51 RETIREMENT (CURRENT) USE OF INHALED STERO 01/07/2018 BERNOT, LOUIE Ot Z79.52 RETIREMENT (CURRENT) USE OF SYSTEMIC STER 01/07/2018 BERNOT, LOUIE Ot Z82.49 FAMILY HX OF ISCHEM HEART DIS AND OTH DI 01/09/2018 BERNKT LOUIE Ot J45.901 UNSPECIFIED ASTHMA WITH (ACUTE) EXACERBA 01/09/2018 BERNOT, LOUIE Ot R07.89 OTHER CHEST PAIN 01/09/2018 BERNOT, LOUIE Ot Z77.22 CNTCT W AND EXPSR TO ENVIRON TOBACCO SMO 01/09/2018 BERNOT, LOUIE Ot 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 01/09/2018 BERNOT, LOUIE Ot 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 01/09/2018 BERNOT, LOUIE Ot Z82.49 FAMILY HX OF ISCHEM HEART DIS AND OTH DI 01/19/2018 TERRI WALLS APRN Ot F17.210 NICOTINE DEPENDENCE, CIGARETTES, UNCOMPL 01/19/2018 TERRI WALLS APRN Ot J45.901 UNSPECIFIED ASTHMA WITH (ACUTE) EXACERBA 01/19/2018 TERRI WALLS APRN Ot R06.02 SHORTNESS OF BREATH 01/19/2018 TERRI WALLS APRN Ot 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 01/19/2018 TERRI WALLS APRN Ot Z79.52 RETIREMENT (CURRENT) USE OF SYSTEMIC STER 01/19/2018 TERRI WALLS APRN Ot Z82.49 FAMILY HX OF ISCHEM HEART DIS AND OTH DI 02/05/2018 SHANITA MARTELL MD, Ot F17.210 NICOTINE DEPENDENCE, CIGARETTES, UNCOMPL 02/05/2018 SHANITA MARTELL MD, Ot J45.901 UNSPECIFIED ASTHMA WITH (ACUTE) EXACERBA 02/05/2018 SHANITA MARTELL MD, Ot R06.02 SHORTNESS OF BREATH 02/05/2018 SHANITA MARTELL MD, Ot Z79.51 RETIREMENT (CURRENT) USE OF INHALED STERO 02/05/2018 SHANITA MARTELL MD, Ot 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 02/05/2018 SHANITA MARTELL MD, Ot Z82.49 FAMILY HX OF ISCHEM HEART DIS AND OTH DI Procedures Code Description Performed By Performed On 96.49 OTHER INSTILLATION 04/11/2014 73.6 EPISIOTOMY 04/12/2014 Results Test Result Range THYROID ANALYZER - 03/14/17 10:01 TSH 1.97 mIU/L [facility] Streptococcus pyogenes antigen detection - 05/19/17 22:17 Streptococcus pyogenes antigen detection NEGATIVE NEGATIVE Bacterial throat culture - 05/19/17 22:17 Bacterial throat culture NBS [facility] Influenza virus A and B antigen detection - 05/19/17 22:30 FLU RESULT NEGATIVE FOR INFLUENZA A AND B ANTIGENS BY IA [facility] Complete blood count (CBC) with automated white [...] 04:32 TRIIODOTHYRONINE T3 FREE 1.9 pg/mL 2.4-4.5 Influenza virus A and B antigen detection - 01/15/18 18:14 FLU RESULT NEGATIVE FOR INFLUENZA A AND B ANTIGENS BY IA [facility] Encounters ACCT No. Visit Date/Time Discharge Status Pt. Type Provider Facility Loc./Unit Complaint [id number] 02/03/2018 13:10:00 02/03/2018 23:59:59 CLS Outpatient SHANITA MARTELL MD [facility] ER SOB [id number] 01/15/2018 18:11:00 01/15/2018 19:20:00 DIS Outpatient TERRI WALLS APRN [facility] ER ASTHMA ISSUES/COUGH/ CONGESTION [id number] 01/07/2018 14:16:00 01/07/2018 15:35:00 DIS Emergency LOUIE KHAN [facility] ER ASTHMA [id number] 10/06/2017 16:46:00 10/06/2017 17:58:00 DIS Emergency TERRI WALLS APRN [facility] ER BACK PAIN [id number] 10/01/2017 21:02:00 10/01/2017 21:23:00 DIS Emergency HONEY QUINTERO MD [facility] ER POSS HEAT EXHASTION [id number] 08/29/2017 08:52:00 08/29/2017 09:37:00 DIS Emergency JULIANO TORREZ MD [facility] ER ASTHMA [id number] 05/20/2017 18:00:00 05/25/2017 16:05:00 DIS Inpatient TABATHA ROJAS MD [facility] 4TH STATUS ASTHMATICUS [id number] 05/19/2017 21:19:00 05/20/2017 00:00:00 DIS Emergency JULIANO TORREZ MD [facility] ER ASTHMA/SOA [id number] 01/29/2017 20:59:00 01/29/2017 23:20:00 DIS Emergency OMAR NELSON [facility] ER SOA,ASTHMA [id number] 11/10/2016 12:47:00 11/10/2016 14:24:00 DIS Emergency OMAR NELSON WEB SEARCH EVALUATOR [facility] ER ASTHMA ATTACK [id number] 06/24/2016 11:24:00 06/24/2016 13:49:00 DIS Emergency TERELL DOANNETTA K [facility] ER ASTHMA [id number] 12/20/2015 12:31:00 12/20/2015 13:47:00 DIS Emergency LEO GARCIA [facility] ER ASTHMA ATTACK [id number] 04/10/2014 02:20:00 04/10/2014 04:30:00 DIS Outpatient ADELAIDA RING MD [facility] WSo CONTRACTIONS [id number] 01/18/2014 10:09:00 01/18/2014 23:59:59 CLS Outpatient ADELAIDA RING MD [facility] RAD [id number] 11/30/2013 10:10:00 11/30/2013 23:59:59 CLS Outpatient ADELAIDA RING MD [facility] RAD [id number] 04/11/2014 19:02:00 Document Registration [id number] 09/09/2017 14:20:00 09/09/2017 23:59:59 [facility] [id number] 03/14/2017 09:20:00 Document Registration
[2018-03-03 22:33] LABS: BILIRUBIN,URINE NEGATIVE (NEGATIVE); CLARITY,URINE CLEAR; COLOR,URINE YELLOW; GLUCOSE, URINE (UA) NEGATIVE (NEGATIVE); KETONES,URINE NEGATIVE (NEGATIVE); LEUKOCYTE ESTERASE ,URINE 1+ (NEGATIVE); NITRITE,URINE NEGATIVE (NEGATIVE); PH,URINE 5 (5-9); PROTEIN,URINE NEGATIVE (NEGATIVE); UROBILINOGEN,URINE NORMAL (NORMAL); WBC,URINE 0-2 /HPF
[2018-03-03 22:34] LABS: BACTERIA,URINE FEW /HPF
--- NOTE | 2018-03-03 22:42 | ED GU-Female ---
General Chief Complaint: Abdominal/GI Problems Stated Complaint: CRAMPING,NAUSEA Nursing Triage Note: Pt arrived with cc of nausea and cramping. Pt stated she has right lower quadrant cramping, nausea, light headedness and dizziness. Pt has had decrease in appetite and had positive test a few weeks ago. She does not remember last period, because they are not regular. Pt stated she ahd good bowel movement today. Nursing Sepsis Screen: No Definite Risk History of Present Illness Date Seen by Provider: Mar 03, 2018 Time Seen by Provider: 22:25 Initial Comments 22-year-old female presents for abdominal cramping and positive test. She's having intermittent nausea, no vomiting. She has not been seen by an OB doctor. She states her positive test was a few weeks ago. She is unsure of her last menstrual cycle. She denies any vaginal discharge or spotting. She states the cramping is intermittent and is usually localized to her right lower quadrant. She has not started a vitamin. Timing/Duration: intermittent Severity/Quality: mild Location: RLQ Radiation: none Prior Genitourinary Problems: none Sexual [place] History: less than 2 months ago, single partner Associated Symptoms: abdominal pain; No dysuria, No fever/chills, No lower back pain, No mass; nausea/vomiting; No nocturia, No urinary frequency Allergies and Home Medications Allergies Coded Allergies: No Known Drug Allergies (Unverified , 04/10/14) Home Medications Albuterol Sulfate 1 Puff Puff, 2 PUFF IH Q4H PRN for SHORTNESS OF BREATH, ( Reported) 1 PUFF = 90 MCG Albuterol Sulfate 2.5 Mg/3 Ml Vial.neb, 2.5 MG IH Q6H PRN for SHORTNESS OF BREATH, (Reported) Albuterol Sulfate 1 Puff Puff, 1-4 PUFF IH Q4H PRN for SHORTNESS OF BREATH 1 PUFF = 90 MCG Prescribed by: JULIANO MONTEJO on 08/29/17 09 Albuterol Sulfate 2.5 Mg/3 Ml Vial.neb, 2.5 MG IH Q4H Prescribed by: TERRI WALLS on 01/15/18 190 Cyclobenzaprine HCl 10 Mg Tablet, 10 MG PO Q8H PRN for SPASMS Prescribed by: HONEY QUINTERO on 6/27/18 2118 Fluticasone/Vilanterol 1 Each Blst.w.dev, 1 EACH IH DAILY Prescribed by: TABATHA ROJAS on 05/25/17 1531 Loratadine 10 Mg Tablet, 10 MG PO DAILY Prescribed by: TABATHA ROJAS on 05/25/17 1531 Methocarbamol 750 Mg Tablet, 750 MG PO Q6H PRN for PAIN-MODERATE TO SEVERE Prescribed by: TERRI WALLS on 10/06/17 1719 Montelukast Sodium 10 Mg Tablet, 10 MG PO HS, (Reported) LAST FILLED 03/14/17 #30 Ondansetron HCl 4 Mg Tab, 4 MG PO Q8H PRN for NAUSEA/VOMITING-1ST LINE Prescribed by: OMAR NELSON on 03/03/18 2243 Prednisone 20 Mg Tab, 20 MG PO DAILY 3 tabs BID x 5 days 2 tabs BID x 5 days 1 tab BID x 5 days 1 tab daily x 5 days 1/2 tab daily x 4 days then STOP Prescribed by: TABATHA ROJAS on 05/25/17 1531 Prednisone 20 Mg Tab, 40 MG PO DAILY Prescribed by: JULIANO MONTEJO on 08/29/17 0927 Prednisone 20 Mg Tab, 40 MG PO DAILY Prescribed by: TERRI WALLS on 10/06/17 1752 Prednisone 20 Mg Tab, 40 MG PO DAILY Prescribed by: LOUIE KHAN on 01/07/18 1533 Prednisone 5 Mg Tablet, 8 TAB PO DAILY Prescribed by: TERRI WALLS on 01/15/18 1907 Prednisone 20 Mg Tab, 40 MG PO DAILY Prescribed by: SHANITA MARTELL on 02/03/18 1335 Patient Home Medication List Home Medication List Reviewed: Yes Review of Systems Review of Systems Constitutional: no symptoms reported, see HPI Gastrointestinal: RLQ, see HPI : Yes All Other Systemes Reviewed Negative Unless Noted: Yes Past Vnvaiko-Qpazpk-Gjlbhc Hx Past Med/Social Hx: Reviewed Nursing Past Med/Soc Hx Patient Social History Alcohol Use: Denies Use Recreational Drug Use: No Smoking Status: Current Everyday Smoker Type Used: Cigarettes 2nd Hand Smoke Exposure: Yes Recent Foreign Travel: No Contact w/Someone Who Travel: No Recent Infectious Disease Expo: No Recent Hopitalizations: No Physical Abuse: No Sexual Abuse: No Mistreated: No Fear: No Immunizations Up To Date Tetanus Booster (TDap): Unknown PED Vaccines UTD: Yes Date of Pneumonia Vaccine: May 20, 2015 Seasonal Allergies Seasonal Allergies: Yes Past Medical History Surgeries: No Respiratory: Yes Asthma Currently Using CPAP: No Currently Using BIPAP: No Cardiac: No Neurological: No : Yes Reproductive Disorders: No Genitourinary: No Gastrointestinal: No Musculoskeletal: No Endocrine: No HEENT: Yes ([place] with asthma exacerbations) Cancer: No Psychosocial: No Integumentary: Yes Eczema Blood Disorders: No Family Medical History Asthma 19 MOTHER Cardiovascular disease 19 FATHER Completed stroke paternal grandfather Asthma, Heart Disease Physical Exam Vital Signs Vital Signs - First Documented 03/03/18 22:00 Temp 96.2 Pulse 87 Resp 16 B/P (MAP) 122/78 (93) Pulse Ox 99 O2 Delivery Room Air Capillary Refill : Less Than 3 Seconds Height, Weight, BMI Height: 5'4.00" Weight: 140lbs. oz. 63.964138ih; 22.8 BMI Method:Stated General Appearance: WD/WN, no apparent distress Cardiovascular: normal peripheral pulses, regular rate, rhythm, no edema Respiratory: chest non-tender, lungs clear, normal breath sounds Gastrointestinal: normal bowel sounds, soft; No distended, No guarding, No rebound; tenderness (trace tenderness to palpation right lower quadrant); No hernia, No mass Back: normal inspection, no CVA tenderness, no vertebral tenderness Extremities: normal range of motion, non-tender, normal inspection, no pedal edema, no calf tenderness, normal capillary refill Neurologic/Psychiatric: no motor/sensory deficits, alert, normal mood/affect, oriented x 3 Skin: normal color, warm/dry Progress/Results/Core Measures Suspected Sepsis Recent Fever Within 48 Hours: No Infection Criteria Present: None New/Unexplained Altered Menta: No Sepsis Screen: No Definite Risk SIRS Temperature:96.2 Pulse: 87 Respiratory Rate: 16 Laboratory Tests 03/03/18 22:10: White Blood Count 10.0 Blood Pressure 122 /78 Mean: 93 Laboratory Tests 03/03/18 22:10: Creatinine 0.76, Platelet Count 316, Total Bilirubin 0.2 Results/Orders Lab Results Laboratory Tests Test 03/03/18 22:05 03/03/18 22:10 Range/Units Urine Color YELLOW Urine Clarity CLEAR Urine pH 5 5-9 Urine Specific [place] 1.025 H 1.016-1.022 Urine Protein NEGATIVE NEGATIVE Urine Glucose (UA) NEGATIVE NEGATIVE Urine Ketones NEGATIVE NEGATIVE Urine Nitrite NEGATIVE NEGATIVE Urine Bilirubin NEGATIVE NEGATIVE Urine Urobilinogen NORMAL NORMAL MG/DL Urine Leukocyte Esterase 1+ H NEGATIVE Urine RBC (Auto) NEGATIVE NEGATIVE Urine RBC NONE /HPF Urine WBC 0-2 /HPF Urine Squamous Epithelial Cells 5-10 /HPF Urine Crystals NONE /LPF Urine Bacteria FEW H /HPF Urine Casts NONE /LPF Urine Mucus SMALL H /LPF Urine Culture Indicated NO White Blood Count 10.0 4.3-11.0 10^3/uL Red Blood Count 4.83 4.35-5.85 10^6/uL Hemoglobin 14.5 11.5-16.0 G/DL Hematocrit 42 35-52 % Mean Corpuscular Volume 87 80-99 FL Mean Corpuscular Hemoglobin 30 25-34 PG Mean Corpuscular Hemoglobin Concent 35 32-36 G/DL Red Cell Distribution Width 14.1 10.0-14.5 % Platelet Count 316 130-400 10^3/uL Mean Platelet Volume 10.3 7.4-10.4 FL Neutrophils (%) (Auto) 59 42-75 % Lymphocytes (%) (Auto) 26 12-44 % Monocytes (%) (Auto) 12 0-12 % Eosinophils (%) (Auto) 3 0-10 % Basophils (%) (Auto) 0 0-10 % Neutrophils # (Auto) 5.9 1.8-7.8 X 10^3 Lymphocytes # (Auto) 2.6 1.0-4.0 X 10^3 Monocytes # (Auto) 1.2 H 0.0-1.0 X 10^3 Eosinophils # (Auto) 0.3 0.0-0.3 10^3/uL Basophils # (Auto) 0.0 0.0-0.1 10^3/uL Sodium Level 135 135-145 MMOL/L Potassium Level 3.9 3.6-5.0 MMOL/L Chloride Level 103 98-107 MMOL/L Carbon Dioxide Level 21 21-32 MMOL/L Anion Gap 11 5-14 MMOL/L Blood Urea Nitrogen 11 7-18 MG/DL Creatinine 0.76 0.60-1.30 MG/DL Estimat Glomerular Filtration Rate > 60 BUN/Creatinine Ratio 14 Glucose Level 90 70-105 MG/DL Calcium Level 9.3 8.5-10.1 MG/DL Corrected Calcium 9.1 8.5-10.1 MG/DL Total Bilirubin 0.2 0.1-1.0 MG/DL Aspartate Amino Transf (AST/SGOT) 18 5-34 U/L Alanine Aminotransferase (ALT/SGPT) 18 0-55 U/L Alkaline Phosphatase 68 40-136 U/L Total Protein 7.1 6.4-8.2 GM/DL Albumin 4.2 3.2-4.5 GM/DL Human Chorionic Gonadotropin, Quant 53692 H <5 MIU/ML My Orders Orders - OMAR NELSON Ua Culture If Indicated (03/03/18 22:09) Urine Bedside (03/03/18 22:09) Cbc With Automated Diff (03/03/18 22:36) Comprehensive Metabolic Panel (03/03/18 22:36) Hcg,Quantitative (03/03/18 22:36) Vital Signs/I&O 03/03/18 22:00 Temp 96.2 Pulse 87 Resp 16 B/P (MAP) 122/78 (93) Pulse Ox 99 O2 Delivery Room Air Capillary Refill : Less Than 3 Seconds Blood Pressure Mean: 93 Point of Care Testing Urine -Bedside: Positive Progress Note : Time: 22:25 Progress Note Urine positive, we'll do CBC and quantitative hCG. Patient seen and evaluated, explaining that we do not have ultrasound capabilities overnight, will await what her lab results show and determine plan of care from there. 2330 based on Quant HCG 61,488, expect her to be approximately 5-6 weeks gestation. She currently is denying any abdominal cramping at the present time. Encouraged that should begin taking a vitamin and see an CONSOLIDATOR this week. Emergency department return precautions reviewed with the patient. All questions answered. Departure Impression Primary Impression: First trimester Additional Impression: Abdominal cramping Disposition: HOME, SELF-CARE Condition: Improved Departure-Patient Inst. Referrals: [facility] (PCP/Family) Primary Care Physician Patient Instructions: How to Plan and Prepare for a Healthy , Nausea and Vomiting of (DC) Add. Discharge Instructions: Small frequent meals. You may take Tylenol 650 mg every 6 hours for pain. You may take Zofran every 8 hours for nausea. Begin a vitamin tomorrow. Schedule a follow-up with your CONSOLIDATOR. If pain becomes acutely worse over night, we do not have ultrasound services, you would need to be seen at an Emergency Dept in [place] or return here for transfer. Return to emergency department for increased abdominal pain especially associated with bleeding, fever greater than 101, or new concerns. All discharge instructions reviewed with patient and/or family. Voiced understanding. Scripts Ondansetron HCl (Zofran) 4 Mg Tab 4 MG PO Q8H PRN for NAUSEA/VOMITING-1ST LINE, #12 TAB 0 Refills Prov: OMAR NELSON 03/03/18 Work/School Note: Work Release Form Date Seen in the Emergency Department: Mar 03, 2018 Return to Work: Mar 05, 2018 Restrictions: Need Release from Doctor Other Restrictions Listed Below: No lifting greater than 15-20 lbs. No work on elevated surfaces Restrictions: Needs to be seen by CONSOLIDATOR OMAR NELSON Mar 03, 2018 22:42
[2018-03-03] MEDS ORDERED: ONDN4T PO (22:43)
[2018-03-03 22:46] LABS: BASOPHILS % (AUTO) 0 % (0-10); EOSINOPHILS # (AUTO) 0.3 10^3/uL (0.0-0.3); EOSINOPHILS % (AUTO) 3 % (0-10); HEMATOCRIT 42 % (35-52); HEMOGLOBIN 14.5 G/DL (11.5-16.0); LYMPHOCYTES # (AUTO) 2.6 X 10^3 (1.0-4.0); LYMPHOCYTES % (AUTO) 26 % (12-44); MEAN CORPUSCULAR HEMOGLOBIN 30 PG (25-34); MEAN CORPUSCULAR HGB CONC 35 G/DL (32-36); MEAN CORPUSCULAR VOLUME 87 FL (80-99); MEAN PLATELET VOLUME 10.3 FL (7.4-10.4); MONOCYTES # (AUTO) 1.2 X 10^3 (0.0-1.0); MONOCYTES % (AUTO) 12 % (0-12); NEUTROPHILS # (AUTO) 5.9 X 10^3 (1.8-7.8); NEUTROPHILS % (AUTO) 59 % (42-75); PLATELET COUNT 316 10^3/uL (130-400); RED BLOOD COUNT 4.83 10^6/uL (4.35-5.85); RED CELL DISTRIBUTION WIDTH 14.1 % (10.0-14.5)
[2018-03-03 23:06] LABS: ALANINE AMINOTRANSFERASE 18 U/L (0-55); ALBUMIN 4.2 GM/DL (3.2-4.5); ALKALINE PHOSPHATASE 68 U/L (40-136); BILIRUBIN,TOTAL 0.2 MG/DL (0.1-1.0); BUN/CREATININE RATIO 14; CALCIUM 9.3 MG/DL (8.5-10.1); CARBON DIOXIDE 21 MMOL/L (21-32); CHLORIDE 103 MMOL/L (98-107); CREATININE SERUM 0.76 MG/DL (0.60-1.30); GFR ESTIMATED > 60; GLUCOSE 90 MG/DL (70-105); POTASSIUM 3.9 MMOL/L (3.6-5.0); SODIUM 135 MMOL/L (135-145); TOTAL PROTEIN 7.1 GM/DL (6.4-8.2)
[2018-03-03 23:45] VITALS: BP 105/68
== END 2018-03-03 23:45 | disposition home or self-care (01) ==
LOC: EDUNIT# 21:56 → ER 21:57
DX: O26.891 Other specified pregnancy related conditions, first trimester (principal); R10.31 Right lower quadrant pain; O99.511 Diseases of the respiratory system complicating pregnancy, first trimester; J45.901 Unspecified asthma with (acute) exacerbation; O99.331 Smoking (tobacco) complicating pregnancy, first trimester; F17.210 Nicotine dependence, cigarettes, uncomplicated; Z79.51 Long term (current) use of inhaled steroids; Z79.52 Long term (current) use of systemic steroids; Z82.49 Family history of ischemic heart disease and other diseases of the circulatory system; Z3A.01 Less than 8 weeks gestation of pregnancy
CPT/HCPCS: 36415; 80053; 81000; 84702; 84703; 85025

== ENCOUNTER 2018-03-17 07:30 | Emergency (ER) | payer SELFPAY ==
[~2018-03-17] VITALS: Ht 162.6 cm; Wt 63.5 kg
[~2018-03-17 07:30] MED LIST changes: +ONDN4T PO
[2018-03-17] MEDS ORDERED: RT-ALBUTEROL SULF 2.5 MG/3 ML PRE-MIX VIAL INH STA (07:55)
--- OUTSIDE RECORDS SUMMARY | 2018-03-17 07:55 | XMS REPORT ---
Author Author MATTHEW RINCON [facility] Address [address] [place] [address] Care Team Providers Care Coppersmith Helper Name Role Phone RINCONMATTHEW Unavailable PROBLEMS Type Condition ICD9-CM Code [id number] Code Onset Dates Condition Status SNOMED Code Problem Flexural eczema L20.82 Active 27537517 Problem Mild intermittent asthma with acute exacerbation J45.21 Active 502093090 Problem Abnormal CBC R79.89 Active [id number] ALLERGIES No Information ENCOUNTERS Encounter Location Date Diagnosis [facility] [address] [address] Mar, [facility] [address] [address] Mar, [facility] [address] [address] Sep, Mild intermittent asthma with acute exacerbation J45.21 [facility] [address] [address] Sep, Mild intermittent asthma with acute exacerbation J45.21 [facility] [address] [address] May, [facility] [address] [address] Apr, [facility] [address] [address] Mar, Mild intermittent asthma with acute exacerbation J45.21 [facility] [address] [address] Mar, Mild intermittent asthma with acute exacerbation J45.21 ; Flexural eczema L20.82 ; Tobacco abuse Z72.0 and Tobacco abuse counseling Z71.6 [facility] [address] [facility] [id number] [address] Jan, Mild intermittent asthma with acute exacerbation J45.21 [facility] [address] [facility] [id number], [place] [address] Jan, Mild intermittent asthma with acute exacerbation J45.21 [facility] [address] [facility] [id number], [place] [address] Jul, Bronchitis J40 IMMUNIZATIONS No Known Immunizations SOCIAL HISTORY Never Assessed REASON FOR VISIT PLAN OF CARE VITAL SIGNS MEDICATIONS Unknown Medications RESULTS No Results PROCEDURES No Known procedures INSTRUCTIONS MEDICATIONS ADMINISTERED No Known Medications MEDICAL (GENERAL) HISTORY Type Description Date Medical History asthma Hospitalization History Asthma/ Bronchitis February 2017
--- OUTSIDE RECORDS SUMMARY | 2018-03-17 07:55 | XMS REPORT ---
Author Author MATTHEW RINCON [facility] Address [address] [place] [address] Care Team Providers Care Management Tech Name Role Phone RINCONMATTHEW Unavailable PROBLEMS Type Condition ICD9-CM Code KDH81-GS Code Onset Dates Condition Status SNOMED Code Problem Flexural eczema L20.82 Active 88346737 Problem Mild intermittent asthma with acute exacerbation J45.21 Active 461381804 Problem Abnormal CBC R79.89 Active [id number] ALLERGIES No Information ENCOUNTERS Encounter Location Date Diagnosis [facility] [address] [address] Mar, [facility] [address] [address] Mar, [facility] [address] [address] Sep, Mild intermittent asthma with acute exacerbation J45.21 [facility] [address] [address] Sep, Mild intermittent asthma with acute exacerbation J45.21 [facility] [address] [address] May, [facility] [address] [address] Apr, [facility] [address] [address] Mar, Mild intermittent asthma with acute exacerbation J45.21 [facility] [address] [address] Mar, Mild intermittent asthma with acute exacerbation J45.21 ; Flexural eczema L20.82 ; Tobacco abuse Z72.0 and Tobacco abuse counseling Z71.6 [facility] [address] [facility] [id number] [place] [address] Jan, Mild intermittent asthma with acute exacerbation J45.21 [facility] [address] [facility] [id number] [place] [address] Jan, Mild intermittent asthma with acute exacerbation J45.21 [facility] [address] [facility] [id number] [place] [address] Jul, Bronchitis J40 IMMUNIZATIONS No Known Immunizations SOCIAL HISTORY Never Assessed REASON FOR VISIT Triage JStrasserRN PLAN OF CARE VITAL SIGNS MEDICATIONS Unknown Medications RESULTS No Results PROCEDURES No Known procedures INSTRUCTIONS MEDICATIONS ADMINISTERED No Known Medications MEDICAL (GENERAL) HISTORY Type Description Date Medical History asthma Hospitalization History Asthma/ Bronchitis February 2017
--- OUTSIDE RECORDS SUMMARY | 2018-03-17 07:56 | XMS REPORT | Continuity of Care Document ---
Author Author [facility] Organization [facility] Address Unknown Phone Unavailable Allergies Active Description Code Type Severity Reaction Onset Reported/Identified Relationship to Patient Clinical Status Yes No Known Drug Allergies [id number] Drug Allergy Unknown N/A 04/10/2014 Medications There [...] ASTHMA WITH (ACUTE) EXACERBA 11/10/2016 LESLIE, OMAR SUPERVISOR PAINTING Ot J45.901 UNSPECIFIED ASTHMA WITH (ACUTE) EXACERBA 11/10/2016 LESLIE, OMAR SUPERVISOR PAINTING Ot J45.909 UNSPECIFIED ASTHMA, UNCOMPLICATED 11/12/2016 LESLIE, OMAR SUPERVISOR PAINTING Ot J45.901 UNSPECIFIED ASTHMA WITH (ACUTE) EXACERBA 11/12/2016 LESLIE, OMAR SUPERVISOR PAINTING Ot J45.909 UNSPECIFIED ASTHMA, UNCOMPLICATED 01/29/2017 LESLIE, OMAR SUPERVISOR PAINTING Ot F17.210 NICOTINE DEPENDENCE, CIGARETTES, UNCOMPL 01/29/2017 LESLIE, OMAR SUPERVISOR PAINTING Ot J45.901 UNSPECIFIED ASTHMA WITH (ACUTE) EXACERBA 01/29/2017 LESLIE, OMAR SUPERVISOR PAINTING Ot R06.02 SHORTNESS OF BREATH 01/29/2017 LESLIE, OMAR SUPERVISOR PAINTING Ot Z82.49 FAMILY HX OF ISCHEM HEART DIS AND OTH DI 01/31/2017 LESLIE, OMAR SUPERVISOR PAINTING Ot F17.210 NICOTINE DEPENDENCE, CIGARETTES, UNCOMPL 01/31/2017 LESLIE, OMAR SUPERVISOR PAINTING Ot J45.901 UNSPECIFIED ASTHMA WITH (ACUTE) EXACERBA 01/31/2017 LESLIE, OMAR SUPERVISOR PAINTING Ot R06.02 SHORTNESS OF BREATH 01/31/2017 LESLIE, OMAR SUPERVISOR PAINTING Ot Z82.49 FAMILY HX OF ISCHEM HEART DIS AND OTH DI 05/20/2017 SHAN HESS, JULIANO T Ot F17.210 NICOTINE DEPENDENCE, CIGARETTES, UNCOMPL 05/20/2017 SHAN HESS, JULIANO T Ot J45.901 UNSPECIFIED ASTHMA WITH (ACUTE) EXACERBA 05/20/2017 SHAN HESS, JULIANO T Ot R06.02 SHORTNESS OF BREATH 05/20/2017 SHAN HESS, JULIANO T Ot R06.1 STRIDOR 05/20/2017 SHAN HESS, JULIANO T Ot Z79.52 NURSING HOME (CURRENT) USE OF SYSTEMIC STER 05/20/2017 SHAN [...] 05/21/2017 JULIANO TORREZ MD T Ot Z79.52 NURSING HOME (CURRENT) USE OF SYSTEMIC STER 05/21/2017 JULIANO [...] F17.200 NICOTINE DEPENDENCE, UNSPECIFIED, UNCOMP 08/29/2017 JULIANO TORRZE MD Ot J30.2 OTHER SEASONAL ALLERGIC RHINITIS 08/29/2017 JULIANO TORREZ MD Ot J45.901 UNSPECIFIED ASTHMA WITH (ACUTE) EXACERBA 08/29/2017 JULIANO TORREZ MD Ot R06.02 SHORTNESS OF BREATH 08/29/2017 JULIANO TORREZ MD Ot Z79.51 NURSING HOME (CURRENT) USE OF INHALED STERO 08/29/2017 JULIANO TORREZ MD Ot Z79.52 AGENCY SALES DIRECTOR (CURRENT) USE OF SYSTEMIC STER 08/29/2017 JULIANO [...] BREATH 09/01/2017 JULIANO TORREZ MD Ot Z79.51 NURSING HOME (CURRENT) USE OF INHALED STERO 09/01/2017 JULIANO TORREZ MD Ot Z79.52 AGENCY SALES DIRECTOR (CURRENT) USE OF SYSTEMIC STER 09/01/2017 JULIANO [...] OR 10/01/2017 HONEY QUINTERO MD Ot Z79.52 NURSING HOME (CURRENT) USE OF SYSTEMIC STER 10/01/2017 HONEY QUINTERO MD Ot Z87.2 PERSONAL HISTORY OF DISEASES OF THE SKIN 10/06/2017 TERRI WALLS APRN Ot J45.909 UNSPECIFIED ASTHMA, UNCOMPLICATED 10/06/2017 TERRI WALLS APRN Ot M25.511 PAIN IN RIGHT SHOULDER 10/06/2017 TERRI WALLS APRN Ot Z79.51 NURSING HOME (CURRENT) USE OF INHALED STERO 10/06/2017 TERRI WALLS APRN Ot Z79.52 NURSING HOME (CURRENT) USE OF SYSTEMIC STER 10/06/2017 TERRI WALLS APRN Ot Z87.2 PERSONAL HISTORY OF DISEASES OF THE SKIN 01/07/2018 BERNKT LOUIE Ot J45.901 UNSPECIFIED ASTHMA WITH (ACUTE) EXACERBA 01/07/2018 BERNOT, LOUIE Ot R07.89 OTHER CHEST PAIN 01/07/2018 BERNOT, LOUIE Ot Z77.22 CNTCT W AND EXPSR TO ENVIRON TOBACCO SMO 01/07/2018 BERNOT, LOUIE Ot Z79.51 NURSING HOME (CURRENT) USE OF INHALED STERO 01/07/2018 BERNOT, LOUIE Ot Z79.52 NURSING HOME (CURRENT) USE OF SYSTEMIC STER 01/07/2018 BERNOT, LOUIE Ot Z82.49 FAMILY HX OF ISCHEM HEART DIS AND OTH DI 01/09/2018 BERNKT LOUIE Ot J45.901 UNSPECIFIED ASTHMA WITH (ACUTE) EXACERBA 01/09/2018 BERNOT, LOUIE Ot R07.89 OTHER CHEST PAIN 01/09/2018 BERNOT, LOUIE Ot Z77.22 CNTCT W AND EXPSR TO ENVIRON TOBACCO SMO 01/09/2018 BERNOT, LOUIE Ot Z79.51 AGENCY SALES DIRECTOR (CURRENT) USE OF INHALED STERO 01/09/2018 BERNOT, LOUIE Ot Z79.52 AGENCY SALES DIRECTOR (CURRENT) USE OF SYSTEMIC STER 01/09/2018 BERNOT, LOUIE Ot Z82.49 FAMILY HX OF ISCHEM HEART DIS AND OTH DI 01/19/2018 TERRI WALLS APRN Ot F17.210 NICOTINE DEPENDENCE, CIGARETTES, UNCOMPL 01/19/2018 TERRI WALLS APRN Ot J45.901 UNSPECIFIED ASTHMA WITH (ACUTE) EXACERBA 01/19/2018 TERRI WLALS APRN Ot R06.02 SHORTNESS OF BREATH 01/19/2018 TERRI WALLS APRN Ot Z79.51 AGENCY SALES DIRECTOR (CURRENT) USE OF INHALED STERO 01/19/2018 TERRI WALLS APRN Ot Z79.52 NURSING HOME (CURRENT) USE OF SYSTEMIC STER 01/19/2018 TERRI WALLS APRN Ot Z82.49 FAMILY HX OF ISCHEM HEART DIS AND OTH DI 02/05/2018 SHANITA MARTELL MD Ot F17.210 NICOTINE DEPENDENCE, CIGARETTES, UNCOMPL 02/05/2018 SHANITA MARTELL MD, Ot J45.901 UNSPECIFIED ASTHMA WITH (ACUTE) EXACERBA 02/05/2018 SHANITA MARTELL MD Ot R06.02 SHORTNESS OF BREATH 02/05/2018 SHANITA MARTELL MD Ot Z79.51 NURSING HOME (CURRENT) USE OF INHALED STERO 02/05/2018 SHANITA MARTELL MD Ot Z79.52 AGENCY SALES DIRECTOR (CURRENT) USE OF SYSTEMIC STER 02/05/2018 SHANITA MARTELL MD Ot Z82.49 FAMILY HX OF ISCHEM HEART DIS AND OTH DI 03/05/2018 OMAR NELSON SUPERVISOR PAINTING Ot F17.210 NICOTINE DEPENDENCE, CIGARETTES, UNCOMPL 03/05/2018 LESLIE OMAR SUPERVISOR PAINTING Ot J45.901 UNSPECIFIED ASTHMA WITH (ACUTE) EXACERBA 03/05/2018 OMAR NELSON SUPERVISOR PAINTING Ot O26.891 OTH RELATED CONDITIONS, FIRST 03/05/2018 LESLIE OMAR SUPERVISOR PAINTING Ot O99.331 SMOKING (TOBACCO) COMPLICATING 03/05/2018 LESLIE OMAR SUPERVISOR PAINTING Ot O99.511 DISEASES OF THE RESP SYS COMP , 03/05/2018 LESLIE OMAR SUPERVISOR PAINTING Ot R10.31 RIGHT LOWER QUADRANT PAIN 03/05/2018 OMAR NELSON SUPERVISOR PAINTING Ot Z3A.01 LESS THAN 8 WEEKS GESTATION OF 03/05/2018 OMAR NELSON SUPERVISOR PAINTING Ot Z79.51 NURSING HOME (CURRENT) USE OF INHALED STERO 03/05/2018 LESLIE OMAR SUPERVISOR PAINTING Ot Z79.52 NURSING HOME (CURRENT) USE OF SYSTEMIC STER 03/05/2018 OMAR NELSON Ot Z82.49 FAMILY HX OF ISCHEM HEART DIS AND OTH DI Procedures Code Description Performed By Performed On 96.49 OTHER INSTILLATION 04/11/2014 73.6 EPISIOTOMY 04/12/2014 Results Test Result Range THYROID ANALYZER - 03/14/17 10:01 TSH 1.97 mIU/L NRG Streptococcus pyogenes antigen detection - 05/19/17 22:17 Streptococcus pyogenes antigen detection NEGATIVE NEGATIVE Bacterial throat culture - 05/19/17 22:17 Bacterial throat culture NBS NRG Influenza virus A and B antigen detection - 05/19/17 22:30 FLU RESULT NEGATIVE FOR INFLUENZA A AND B ANTIGENS BY IA NRG Complete blood count (CBC) with automated [...] INFLUENZA A AND B ANTIGENS BY IA NR Complete urinalysis with reflex to culture - 03/03/18 22:05 Urine color determination YELLOW NRG Urine clarity determination CLEAR NRG Urine pH measurement by test strip 5 5-9 Specific gravity of urine by test strip 1.025 1.016- 1.022 Urine protein assay by test strip, semi-quantitative NEGATIVE NEGATIVE Urine glucose detection by automated test strip NEGATIVE NEGATIVE Erythrocytes detection in urine sediment by light microscopy NEGATIVE NEGATIVE Urine ketones detection by automated test strip NEGATIVE NEGATIVE Urine nitrite detection by test strip NEGATIVE NEGATIVE Urine total bilirubin detection by test strip NEGATIVE NEGATIVE Urine urobilinogen measurement by automated test strip (mass/volume) NORMAL NORMAL Urine leukocyte esterase detection by dipstick 1+ NEGATIVE Automated urine sediment erythrocyte count by microscopy (number/high power field) NONE NRG Automated urine sediment leukocyte count by microscopy (number/high power field ) [HPF] NRG Bacteria detection in urine sediment by light microscopy FEW NRG Squamous epithelial cells detection in urine sediment by light microscopy 5-10 NRG Crystals detection in urine sediment by light microscopy NONE NRG Casts detection in urine sediment by light microscopy NONE NRG Mucus detection in urine sediment by light microscopy SMALL NRG Complete urinalysis with reflex to culture NO NRG Complete blood count (CBC) with automated white blood cell (WBC) differential - 03/03/18 22:10 Blood leukocytes automated count (number/volume) 10.0 10*3/uL 4.3-11.0 Blood erythrocytes automated count (number/volume) 4.83 10*6/uL 4.35-5.85 Venous blood hemoglobin measurement (mass/volume) 14.5 g/dL 11.5-16.0 Blood hematocrit (volume fraction) 42 % 35-52 Automated erythrocyte mean corpuscular volume 87 [foz_us] 80-99 Automated erythrocyte mean corpuscular hemoglobin (mass per erythrocyte) 30 pg 25-34 Automated erythrocyte mean corpuscular hemoglobin concentration measurement ( mass/volume) 35 g/dL 32-36 Automated erythrocyte distribution width ratio 14.1 % 10.0-14.5 Automated blood platelet count (count/volume) 316 10*3/uL 130-400 Automated blood platelet mean volume measurement 10.3 [foz_us] 7.4-10.4 Automated blood neutrophils/100 leukocytes 59 % 42-75 Automated blood lymphocytes/100 leukocytes 26 % 12-44 Blood monocytes/100 leukocytes 12 % 0-12 Automated blood eosinophils/100 leukocytes 3 % 0-10 Automated blood basophils/100 leukocytes 0 % 0-10 Blood neutrophils automated count (number/volume) 5.9 10*3 1.8-7.8 Blood lymphocytes automated count (number/volume) 2.6 10*3 1.0-4.0 Blood monocytes automated count (number/volume) 1.2 10*3 0.0-1.0 Automated eosinophil count 0.3 10*3/uL 0.0-0.3 Automated blood basophil count (count/volume) 0.0 10*3/uL 0.0-0.1 Comprehensive metabolic panel - 03/03/18 22:10 Serum or plasma sodium measurement (moles/volume) 135 mmol/L 135-145 Serum or plasma potassium measurement (moles/volume) 3.9 mmol/L 3.6-5.0 Serum or plasma chloride measurement (moles/volume) 103 mmol/L 98-107 Carbon dioxide 21 mmol/L 21-32 Serum or plasma anion gap determination (moles/volume) 11 mmol/L 5-14 Serum or plasma urea nitrogen measurement (mass/volume) 11 mg/dL 7-18 Serum or plasma creatinine measurement (mass/volume) 0.76 mg/dL 0.60-1.30 Serum or plasma urea nitrogen/creatinine mass ratio 14 NRG Serum or plasma creatinine measurement with calculation of estimated glomerular filtration rate > NRG Serum or plasma glucose measurement (mass/volume) 90 mg/dL 70-105 Serum or plasma calcium measurement (mass/volume) 9.3 mg/dL 8.5-10.1 Serum or plasma total bilirubin measurement (mass/volume) 0.2 mg/dL 0.1-1.0 Serum or plasma alkaline phosphatase measurement (enzymatic activity/volume) 68 U/L 40-136 Serum or plasma aspartate aminotransferase measurement (enzymatic activity/ volume) 18 U/L 5-34 Serum or plasma alanine aminotransferase measurement (enzymatic activity/volume ) 18 U/L 0-55 Serum or plasma protein measurement (mass/volume) 7.1 g/dL 6.4-8.2 Serum or plasma albumin measurement (mass/volume) 4.2 g/dL 3.2-4.5 CALCIUM CORRECTED 9.1 mg/dL 8.5-10.1 Serum or plasma choriogonadotropin measurement (units/volume) - 03/03/18 22:10 Serum or plasma choriogonadotropin measurement (units/volume) 14609 m[iU]/mL <5 Encounters ACCT No. Visit Date/Time Discharge Status Pt. Type Provider Facility Loc./Unit Complaint [id number] 03/03/2018 21:57:00 03/03/2018 23:45:00 DIS Outpatient OMAR NELSON [facility] ER CRAMPING,NAUSEA [id number] 02/03/2018 13:10:00 02/03/2018 23:59:59 CLS Outpatient SHANITA MARTELL MD [facility] ER SOB [id number] 01/15/2018 18:11:00 01/15/2018 19:20:00 DIS Outpatient TERRI WALLS MINING ENGINEERING TECHNOLOGIST [facility] ER ASTHMA ISSUES/COUGH/ CONGESTION [id number] 01/07/2018 14:16:00 01/07/2018 15:35:00 DIS Emergency LOUIE KHAN [facility] ER ASTHMA [id number] 10/06/2017 16:46:00 10/06/2017 17:58:00 DIS Emergency TERRI WALLS MINING ENGINEERING TECHNOLOGIST [facility] ER BACK PAIN [id number] 10/01/2017 21:02:00 10/01/2017 21:23:00 DIS Emergency HONEY QUINTERO MD [facility] ER POSS HEAT EXHASTION [id number] 08/29/2017 08:52:00 08/29/2017 09:37:00 DIS Emergency JULIANO TORREZ MD [facility] ER ASTHMA [id number] 05/20/2017 18:00:00 05/25/2017 16:05:00 DIS Inpatient CRYSTAL HESS, TABATHA Mast [facility] 4TH STATUS ASTHMATICUS [id number] 05/19/2017 21:19:00 05/20/2017 00:00:00 DIS Emergency JULIANO TORREZ MD [facility] ER ASTHMA/SOA [id number] 01/29/2017 20:59:00 01/29/2017 23:20:00 DIS Emergency LESLIEOMAR SUPERVISOR PAINTING [facility] ER SOA,ASTHMA [id number] 11/10/2016 12:47:00 11/10/2016 14:24:00 DIS Emergency LESLIEOMAR Fierro SUPERVISOR PAINTING [facility] ER ASTHMA ATTACK [id number] 06/24/2016 11:24:00 06/24/2016 13:49:00 DIS Emergency ANNETTA FIGUEREDO DO [facility] ER ASTHMA [id number] 12/20/2015 12:31:00 12/20/2015 13:47:00 DIS Emergency LEO GARCIA [facility] ER ASTHMA ATTACK [id number] 04/10/2014 02:20:00 04/10/2014 04:30:00 DIS Outpatient ADELAIDA RING MD [facility] WSo CONTRACTIONS [id number] 01/18/2014 10:09:00 01/18/2014 23:59:59 CLS Outpatient ADELAIDA RING MD [facility] RAD [id number] 11/30/2013 10:10:00 11/30/2013 23:59:59 CLS Outpatient ADELAIDA RING MD [facility] RAD [id number] 03/17/2018 07:31:00 ACT Emergency JAYSHREE HESS, SHANITA Seth [facility] ER TROUBLE BREATHING [id number] 04/11/2014 19:02:00 Document Registration [id number] 03/07/2018 15:55:00 03/07/2018 23:59:59 CLS Outpatient KAY JONES [facility] [id number] 03/14/2017 09:20:00 Document Registration
[2018-03-17] MEDS ORDERED: RT-ALBUTEROL/IPRATROPIUM 3 ML (DUONEB) VIAL INH ONE (08:00)
[2018-03-17] MEDS ORDERED: predniSONE 20 MG TAB PO ONE (08:00)
--- NOTE | 2018-03-17 08:12 | ED Respiratory ---
General Chief Complaint: Respiratory Problems Stated Complaint: TROUBLE BREATHING Nursing Triage Note: ARRIVED VIA AMB TO ROOM 09. COMPLAINS OF SOA FOR LAST SEVREAL DAYS. STATES HER INHALER HAS NOT WORKED. Source: patient Exam Limitations: no limitations History of Present Illness Date Seen by Provider: Mar 17, 2018 Time Seen by Provider: 07:45 Initial Comments Here with report of shortness of air over the last couple days that has worsened. She tried her inhaler this morning and that is not working. Does have long-standing history of asthma and is on albuterol nebs. She only has to neb treatments at home. Last time that she had used steroids was a couple months ago. She is currently having a miscarriage. This is been verified at outside facility by ultrasound. Denies fevers currently. Timing/Duration: week, getting worse Severity: moderate Prior Episodes/Possible Cause: occasional episodes Modifying Factors: Worse With Activity; Improves With Albuterol Nebulizer; Worse With Coughing; Improves With Rest Associated Symptoms: cough; No fever/chills; nasal congestion, shortness of breath, wheezing Allergies and Home Medications Allergies Coded Allergies: No Known Drug Allergies (Unverified , 04/10/14) Home Medications Albuterol Sulfate 2.5 Mg/3 Ml Vial.neb, 2.5 MG IH Q6H PRN for SHORTNESS OF BREATH, (Reported) Albuterol Sulfate 1 Puff Puff, 1-4 PUFF IH Q4H PRN for SHORTNESS OF BREATH 1 PUFF = 90 MCG Prescribed by: JULIANO MONTEJO on 08/29/17 09 Albuterol Sulfate 2.5 Mg/3 Ml Vial.neb, 2.5 MG INH Q4H PRN for WHEEZING Prescribed by: SHANITA MARTELL on 03/17/18818 Prednisone 20 Mg Tab, 40 MG PO DAILY Prescribed by: SHANITA MARTELL on 03/17/18818 Patient Home Medication List Home Medication List Reviewed: Yes Review of Systems Review of Systems Constitutional: see HPI; No chills, No fever EENTM: nose congestion, throat pain Respiratory: short of breath, wheezing Cardiovascular: No chest pain, No palpitations Gastrointestinal: No abdominal pain, No nausea, No vomiting Genitourinary: no symptoms reported Musculoskeletal: no symptoms reported Skin: no symptoms reported Psychiatric/Neurological: Depressed; Denies Weakness Past Fxlspdt-Uycupo-Mnzagr Hx Past Med/Social Hx: Reviewed Nursing Past Med/Soc Hx Patient Social History Alcohol Use: Occasionally Uses Recreational Drug Use: No Smoking Status: Current Everyday Smoker Type Used: Cigarettes 2nd Hand Smoke Exposure: Yes Recent Foreign Travel: No Contact w/Someone Who Travel: No Recent Infectious Disease Expo: No Recent Hopitalizations: No Immunizations Up To Date Tetanus Booster (TDap): Unknown PED Vaccines UTD: Yes Date of Pneumonia Vaccine: May 20, 2015 Seasonal Allergies Seasonal Allergies: Yes Past Medical History Surgeries: No Respiratory: Yes Asthma Currently Using CPAP: No Currently Using BIPAP: No Cardiac: No Neurological: No Reproductive Disorders: No Genitourinary: No Gastrointestinal: No Musculoskeletal: No Endocrine: No HEENT: Yes (Strider with asthma exacerbations) Cancer: No Psychosocial: No Integumentary: Yes Eczema Blood Disorders: No Family Medical History Reviewed Nursing Family Hx Asthma 19 MOTHER Cardiovascular disease 19 FATHER Completed stroke paternal grandfather Asthma, Heart Disease Physical Exam Vital Signs - First Documented 03/17/18 07:37 Temp 98.0 Pulse 112 Resp 18 B/P (MAP) 139/92 (108) Pulse Ox 95 O2 Delivery Room Air Capillary Refill : Less Than 3 Seconds Height: 5'4.00" Weight: 140lbs. oz. 63.335030ad; 22.8 BMI Method:Stated General Appearance: WD/WN, no apparent distress HEENT: PERRL/EOMI, pharynx normal Neck: full range of motion, supple Respiratory: no respiratory distress, accessory muscle use, wheezing, expiration, other (increased vocal cord sounds consistent with vocal cord dysfunction as well as wheezing) Cardiovascular: regular rate, rhythm, no murmur Gastrointestinal: non tender, soft Extremities: non-tender, normal inspection Neurologic/Psychiatric: alert, oriented x 3 Skin: normal color, warm/dry Progress/Results/Core Measures Suspected Sepsis Recent Fever Within 48 Hours: No Infection Criteria Present: Suspected New Infection New/Unexplained Altered Menta: No Sepsis Screen: No Definite Risk SIRS Temperature:98.0 Pulse: 112 Respiratory Rate: 18 Blood Pressure 139 /92 Mean: 108 Results/Orders My Orders Orders - SHANITA MARTELL MD Albuterol Pre-Mix Nebs (Rt) (Proventil (03/17/18 07:55) Albuterol/Ipra Inhalation Soln (Duoneb I (03/17/18 08:00) Svn Small Volume Nebulizer (03/17/18 07:55) Svn Small Volume Nebulizer (03/17/18 07:55) Prednisone Tablet (Deltasone Tablet) (03/17/18 08:00) Medications Given in ED Current Medications Medications Dose Ordered Sig/Aspen Route Start Time Stop Time Status Last Admin Dose Admin Albuterol/ Ipratropium 3 ml ONCE ONCE INH 03/17/18 08:00 03/17/18 08:01 DC 03/17/18 08:11 3 ML Vital Signs/I&O 03/17/18 03/17/18 07:37 08:13 Temp 98.0 Pulse 112 Resp 18 B/P (MAP) 139/92 (108) Pulse Ox 95 97 O2 Delivery Room Air Capillary Refill : Less Than 3 Seconds Blood Pressure Mean: 108 Progress Note : Progress Note Seen and evaluated. Duo neb treatment and albuterol treatment ordered. Prednisone 40 mg by mouth ordered. Monitor patient. 0830: Improved. Discharged home with return precautions. Patient verbalize understanding instructions and agreement with plan. Departure Impression Primary Impression: Acute bronchitis Qualified Codes: J20.9 - Acute bronchitis, unspecified Additional Impression: Asthma with acute exacerbation in adult Qualified Codes: J45.41 - Moderate persistent asthma with (acute) exacerbation Disposition: 01 HOME, SELF-CARE Condition: Improved Departure-Patient Inst. Decision time for Depature: 08:17 Referrals: [facility] (PCP/Family) Primary Care Physician Patient Instructions: Acute Bronchitis, Adult (DC), Asthma, Adult (DC), Vocal Cord Dysfunction Add. Discharge Instructions: All discharge instructions reviewed with patient and/or family. Voiced understanding. Continue home medications as previously prescribed. Take prescriptions as indicated. Follow-up with your doctor this week for recheck and further evaluation and to discuss long-term asthma control medication. Return for worse pain, fever, vomiting, weakness, breathing problems or other concerns as needed. Scripts Prednisone (Prednisone) 20 Mg Tab 40 MG PO DAILY, #10 TAB 0 Refills Prov: SHANITA MARTELL MD 03/17/18 Albuterol Sulfate (Albuterol Sulfate) 2.5 Mg/3 Ml Vial.neb 2.5 MG INH Q4H PRN for WHEEZING, #50 EA 1 Refill Prov: SHANITA MARTELL MD 03/17/18 SHANITA MARTELL MD Mar 17, 2018 08:12
[2018-03-17] MEDS ORDERED: ALBU2.5V4 INH (08:19)
[2018-03-17] MEDS ORDERED: PRD20T PO (08:19)
[2018-03-17 08:34] VITALS: BP 139/92
== END 2018-03-17 08:34 | disposition home or self-care (01) ==
LOC: EDUNIT# 07:30 → ER 07:31
DX: J45.901 Unspecified asthma with (acute) exacerbation (principal); J20.9 Acute bronchitis, unspecified; F17.210 Nicotine dependence, cigarettes, uncomplicated; Z82.49 Family history of ischemic heart disease and other diseases of the circulatory system; Z79.51 Long term (current) use of inhaled steroids; Z79.52 Long term (current) use of systemic steroids
CPT/HCPCS: 94640; 99283

== ENCOUNTER 2018-06-08 22:09 | Emergency (ER) | payer SELFPAY ==
[~2018-06-08] VITALS: Ht 162.6 cm; Wt 68.0 kg
[~2018-06-08 22:09] MED LIST changes: +ALBU2.5V4 INH
--- OUTSIDE RECORDS SUMMARY | 2018-06-08 22:17 | XMS REPORT | Continuity of Care Document ---
Author Author [facility] Organization [facility] Address Unknown Phone Unavailable Allergies Active Description Code Type Severity Reaction Onset Reported/Identified Relationship to Patient Clinical Status Yes No Known Drug Allergies [id number] Drug Allergy Unknown N/A 04/10/2014 Medications There [...] MARÍA ELENA HESS, ADELAIDA Miranda Ot V28.89 08/26/2014 MARÍA ELENA HESS, ADELAIDA Miradna Ot V28.89 12/20/2015 LEO GARCIA Ot J06.9 [...] ASTHMA WITH (ACUTE) EXACERBA 11/10/2016 LESLIE, OMAR THEORETICAL PHYSICIST Ot J45.901 UNSPECIFIED ASTHMA WITH (ACUTE) EXACERBA 11/10/2016 LESLIE, OMAR THEORETICAL PHYSICIST Ot J45.909 UNSPECIFIED ASTHMA, UNCOMPLICATED 11/12/2016 LESLIE, OMAR THEORETICAL PHYSICIST Ot J45.901 UNSPECIFIED ASTHMA WITH (ACUTE) EXACERBA 11/12/2016 LESLIE, OMAR THEORETICAL PHYSICIST Ot J45.909 UNSPECIFIED ASTHMA, UNCOMPLICATED 01/29/2017 LESLIE, OMAR THEORETICAL PHYSICIST Ot F17.210 NICOTINE DEPENDENCE, CIGARETTES, UNCOMPL 01/29/2017 LESLIE, OMAR THEORETICAL PHYSICIST Ot J45.901 UNSPECIFIED ASTHMA WITH (ACUTE) EXACERBA 01/29/2017 LESLIE, OMAR THEORETICAL PHYSICIST Ot R06.02 SHORTNESS OF BREATH 01/29/2017 LESLIE, OMAR THEORETICAL PHYSICIST Ot Z82.49 FAMILY HX OF ISCHEM HEART DIS AND OTH DI 01/31/2017 LESLIE, OMAR THEORETICAL PHYSICIST Ot F17.210 NICOTINE DEPENDENCE, CIGARETTES, UNCOMPL 01/31/2017 LESLIE, OMAR THEORETICAL PHYSICIST Ot J45.901 UNSPECIFIED ASTHMA WITH (ACUTE) EXACERBA 01/31/2017 LESLIE, OMAR THEORETICAL PHYSICIST Ot R06.02 SHORTNESS OF BREATH 01/31/2017 LESLIE, OMAR THEORETICAL PHYSICIST Ot Z82.49 FAMILY HX OF ISCHEM HEART DIS AND OTH DI 05/20/2017 SHAN HESS, JULIANO T Ot F17.210 NICOTINE DEPENDENCE, CIGARETTES, UNCOMPL 05/20/2017 SHAN HESS, JULIANO T Ot J45.901 UNSPECIFIED ASTHMA WITH (ACUTE) EXACERBA 05/20/2017 SHAN HESS, JULIANO T Ot R06.02 SHORTNESS OF BREATH 05/20/2017 SHAN HESS, JULIANO T Ot R06.1 STRIDOR 05/20/2017 SHAN HESS, JULIANO T Ot Z79.52 MANAGER OF CORPORATE COMMUNICATIONS (CURRENT) USE OF SYSTEMIC STER 05/20/2017 SHAN [...] 05/21/2017 JULIANO TORREZ MD T Ot Z79.52 MANAGER OF CORPORATE COMMUNICATIONS (CURRENT) USE OF SYSTEMIC STER 05/21/2017 JULIANO [...] BREATH 08/29/2017 JULIANO TORREZ MD Ot Z79.51 MANAGER OF CORPORATE COMMUNICATIONS (CURRENT) USE OF INHALED STERO 08/29/2017 JULIANO [...] STERO 09/01/2017 JULIANO TORREZ MD Ot Z79.52 MANAGER OF CORPORATE COMMUNICATIONS (CURRENT) USE OF SYSTEMIC STER 09/01/2017 JULIANO [...] OR 10/01/2017 HONEY QUINTERO MD Ot Z79.52 MANAGER OF CORPORATE COMMUNICATIONS (CURRENT) USE OF SYSTEMIC STER 10/01/2017 HONEY QUINTERO MD Ot Z87.2 PERSONAL HISTORY OF DISEASES OF THE SKIN 10/06/2017 TERRI WALLS APRN Ot J45.909 UNSPECIFIED ASTHMA, UNCOMPLICATED 10/06/2017 TERRI WALLS APRN Ot M25.511 PAIN IN RIGHT SHOULDER 10/06/2017 TERRI WALLS APRN Ot Z79.51 ALF (CURRENT) USE OF INHALED STERO 10/06/2017 TERRI WALLS APRN Ot Z79.52 MANAGER OF CORPORATE COMMUNICATIONS (CURRENT) USE OF SYSTEMIC STER 10/06/2017 TERRI WALLS APRN Ot Z87.2 PERSONAL HISTORY OF DISEASES OF THE SKIN 01/07/2018 BERNKT LOUIE Ot J45.901 UNSPECIFIED ASTHMA WITH (ACUTE) EXACERBA 01/07/2018 BERNOT, LOUIE Ot R07.89 OTHER CHEST PAIN 01/07/2018 BERNOT, LOUIE Ot Z77.22 CNTCT W AND EXPSR TO ENVIRON TOBACCO SMO 01/07/2018 BERNOT, LOUIE Ot Z79.51 MANAGER OF CORPORATE COMMUNICATIONS (CURRENT) USE OF INHALED STERO 01/07/2018 BERNOT, LOUIE Ot Z79.52 MANAGER OF CORPORATE COMMUNICATIONS (CURRENT) USE OF SYSTEMIC STER 01/07/2018 BERNOT, LOUIE Ot Z82.49 FAMILY HX OF ISCHEM HEART DIS AND OTH DI 01/09/2018 BERNOT, LOUIE Ot J45.901 UNSPECIFIED ASTHMA WITH (ACUTE) EXACERBA 01/09/2018 BERNOT, LOUIE Ot R07.89 OTHER CHEST PAIN 01/09/2018 BERNOT, LOUIE Ot Z77.22 CNTCT W AND EXPSR TO ENVIRON TOBACCO SMO 01/09/2018 BERNOT, LOUIE Ot Z79.51 ALF (CURRENT) USE OF INHALED STERO 01/09/2018 BERNOT, LOUIE Ot Z79.52 MANAGER OF CORPORATE COMMUNICATIONS (CURRENT) USE OF SYSTEMIC STER 01/09/2018 BERNOT, LOUIE Ot Z82.49 FAMILY HX OF ISCHEM HEART DIS AND OTH DI 01/15/2018 TERRI WALLS APRN Ot F17.210 NICOTINE DEPENDENCE, CIGARETTES, UNCOMPL 01/15/2018 TERRI WALLS APRN Ot J45.901 UNSPECIFIED ASTHMA WITH (ACUTE) EXACERBA 01/15/2018 TERRI WALLS APRN Ot R06.02 SHORTNESS OF BREATH 01/15/2018 TERRI WALLS APRN Ot Z79.51 ALF (CURRENT) USE OF INHALED STERO 01/15/2018 TERRI WALLS APRN Ot Z79.52 ALF (CURRENT) USE OF SYSTEMIC STER 01/15/2018 TERRI WALLS APRN Ot Z82.49 FAMILY HX OF ISCHEM HEART DIS AND OTH DI 01/19/2018 TERRI WALLS APRN Ot F17.210 NICOTINE DEPENDENCE, CIGARETTES, UNCOMPL 01/19/2018 TERRI WALLS APRN Ot J45.901 UNSPECIFIED ASTHMA WITH (ACUTE) EXACERBA 01/19/2018 TERRI WALLS APRN Ot R06.02 SHORTNESS OF BREATH 01/19/2018 TERRI WALLS APRN Ot Z79.51 MANAGER OF CORPORATE COMMUNICATIONS (CURRENT) USE OF INHALED STERO 01/19/2018 TERRI WALLS APRN Ot Z79.52 ALF (CURRENT) USE OF SYSTEMIC STER 01/19/2018 TERRI WALLS APRN Ot Z82.49 FAMILY HX OF ISCHEM HEART DIS AND OTH DI 02/03/2018 SHANITA MARTELL MD Ot F17.210 NICOTINE DEPENDENCE, CIGARETTES, UNCOMPL 02/03/2018 SHANITA MARTELL MD Ot J45.901 UNSPECIFIED ASTHMA WITH (ACUTE) EXACERBA 02/03/2018 SHANITA MARTELL MD Ot R06.02 SHORTNESS OF BREATH 02/03/2018 SHANITA MARTELL MD Ot Z79.51 MANAGER OF CORPORATE COMMUNICATIONS (CURRENT) USE OF INHALED STERO 02/03/2018 SHANITA MARTELL MD Ot Z79.52 MANAGER OF CORPORATE COMMUNICATIONS (CURRENT) USE OF SYSTEMIC STER 02/03/2018 SHANITA MARTELL MD Ot Z82.49 FAMILY HX OF ISCHEM HEART DIS AND OTH DI 02/05/2018 SHANITA MARTELL MD Ot F17.210 NICOTINE DEPENDENCE, CIGARETTES, UNCOMPL 02/05/2018 SHANITA MARTELL MD Ot J45.901 UNSPECIFIED ASTHMA WITH (ACUTE) EXACERBA 02/05/2018 SHANITA MARTELL MD Ot R06.02 SHORTNESS OF BREATH 02/05/2018 SHANITA MARTELL MD Ot Z79.51 ALF (CURRENT) USE OF INHALED STERO 02/05/2018 SHANITA MARTELL MD Ot Z79.52 MANAGER OF CORPORATE COMMUNICATIONS (CURRENT) USE OF SYSTEMIC STER 02/05/2018 SHANITA MARTELL MD Ot Z82.49 FAMILY HX OF ISCHEM HEART DIS AND OTH DI 03/03/2018 LESLIE, OMAR THEORETICAL PHYSICIST Ot F17.210 NICOTINE DEPENDENCE, CIGARETTES, UNCOMPL 03/03/2018 LESLIE, OMAR THEORETICAL PHYSICIST Ot J45.901 UNSPECIFIED ASTHMA WITH (ACUTE) EXACERBA 03/03/2018 LESLIE, OMAR THEORETICAL PHYSICIST Ot O26.891 OTH RELATED CONDITIONS, FIRST 03/03/2018 LESLIE, OMAR THEORETICAL PHYSICIST Ot O99.331 SMOKING (TOBACCO) COMPLICATING 03/03/2018 LESLIE, OMAR THEORETICAL PHYSICIST Ot O99.511 DISEASES OF THE RESP SYS COMP , 03/03/2018 LESLIE, OMAR THEORETICAL PHYSICIST Ot R10.31 RIGHT LOWER QUADRANT PAIN 03/03/2018 LESLIE, OMAR THEORETICAL PHYSICIST Ot Z3A.01 LESS THAN 8 WEEKS GESTATION OF 03/03/2018 LESLIE OMAR THEORETICAL PHYSICIST Ot Z79.51 MANAGER OF CORPORATE COMMUNICATIONS (CURRENT) USE OF INHALED STERO 03/03/2018 LESLIE, OMAR THEORETICAL PHYSICIST Ot Z79.52 ALF (CURRENT) USE OF SYSTEMIC STER 03/03/2018 LESLIE OMAR THEORETICAL PHYSICIST Ot Z82.49 FAMILY HX OF ISCHEM HEART DIS AND OTH DI 03/05/2018 LESLIE, OMAR THEORETICAL PHYSICIST Ot F17.210 NICOTINE DEPENDENCE, CIGARETTES, UNCOMPL 03/05/2018 LESLIE, OMAR THEORETICAL PHYSICIST Ot J45.901 UNSPECIFIED ASTHMA WITH (ACUTE) EXACERBA 03/05/2018 LESLIE, OMAR THEORETICAL PHYSICIST Ot O26.891 OTH RELATED CONDITIONS, FIRST 03/05/2018 LESLIE, OAMR THEORETICAL PHYSICIST Ot O99.331 SMOKING (TOBACCO) COMPLICATING 03/05/2018 LESLIE, OMAR THEORETICAL PHYSICIST Ot O99.511 DISEASES OF THE RESP SYS COMP , 03/05/2018 LESLIE, OMAR THEORETICAL PHYSICIST Ot R10.31 RIGHT LOWER QUADRANT PAIN 03/05/2018 LESLIE, OMAR THEORETICAL PHYSICIST Ot Z3A.01 LESS THAN 8 WEEKS GESTATION OF 03/05/2018 LESLIEOMAR Fierro Ot Z79.51 ALF (CURRENT) USE OF INHALED STERO 03/05/2018 OMAR NELSON Ot Z79.52 ALF (CURRENT) USE OF SYSTEMIC STER 03/05/2018 LESLIEOMAR Fierro Ot Z82.49 FAMILY HX OF ISCHEM HEART DIS AND OTH DI 03/19/2018 SHANITA MARTELL MD Ot F17.210 NICOTINE DEPENDENCE, CIGARETTES, UNCOMPL 03/19/2018 SHANITA MARTELL MD Ot J20.9 ACUTE BRONCHITIS, UNSPECIFIED 03/19/2018 SHANITA MARTELL MD Ot J45.901 UNSPECIFIED ASTHMA WITH (ACUTE) EXACERBA 03/19/2018 SHANITA MARTELL MD Ot R06.02 SHORTNESS OF BREATH 03/19/2018 SHANITA MARTELL MD Ot Z79.51 ALF (CURRENT) USE OF INHALED STERO 03/19/2018 SHANITA MARTELL MD Ot Z79.52 ALF (CURRENT) USE OF SYSTEMIC STER 03/19/2018 SHANITA MARTELL MD Ot Z82.49 FAMILY HX OF ISCHEM HEART DIS AND OTH DI Procedures Code Description Performed By Performed On 96.49 OTHER INSTILLATION 04/11/2014 73.6 EPISIOTOMY 04/12/2014 Results Test Result Range THYROID ANALYZER - 03/14/17 10:01 TSH 1.97 mIU/L [facility] Streptococcus pyogenes antigen detection - 05/19/17 22:17 Streptococcus pyogenes antigen detection NEGATIVE NEGATIVE Bacterial throat culture - 05/19/17 22:17 Bacterial throat culture NBS [facility] Influenza virus A and B antigen detection - 05/19/17 22:30 FLU RESULT NEGATIVE FOR INFLUENZA A AND B ANTIGENS BY IA [facility] Complete blood count (CBC) with automated white [...] AND B ANTIGENS BY IA [facility] Complete urinalysis with reflex to culture - [...] 22:10 Serum or plasma choriogonadotropin measurement (units/volume) 81262 m[iU]/mL <5 Encounters ACCT No. Visit Date/Time Discharge Status Pt. Type Provider Facility Loc./Unit Complaint [id number] 03/17/2018 07:31:00 03/17/2018 08:34:00 DIS Outpatient SHANITA MARTELL MD [facility] ER TROUBLE BREATHING [id number] 03/03/2018 21:57:00 03/03/2018 23:45:00 DIS Emergency OMAR NELSON [facility] ER CRAMPING,NAUSEA [id number] 02/03/2018 13:10:00 02/03/2018 23:59:59 CLS Emergency SHANITA MARTELL MD [facility] ER SOB [id number] 01/15/2018 18:11:00 01/15/2018 19:20:00 DIS Emergency TERRI WALLS APRN [facility] ER ASTHMA ISSUES/COUGH/ CONGESTION [id number] 01/07/2018 14:16:00 01/07/2018 15:35:00 DIS Emergency LOUIE KHAN [facility] ER ASTHMA [id number] 10/06/2017 16:46:00 10/06/2017 17:58:00 DIS Emergency TERRI WALLS APRN [facility] ER BACK PAIN [id number] 10/01/2017 21:02:00 10/01/2017 21:23:00 DIS Emergency HONEY QUINTERO MD [facility] ER POSS HEAT EXHASTION [id number] 08/29/2017 08:52:00 08/29/2017 09:37:00 DIS Emergency JULIANO TORREZ MD [facility] ER ASTHMA [id number] 05/20/2017 18:00:00 05/25/2017 16:05:00 DIS Inpatient TABATHA ROJAS MD [facility] 4TH STATUS ASTHMATICUS [id number] 05/19/2017 21:19:00 05/20/2017 00:00:00 DIS Emergency JULIANO TORREZ MD [facility] ER ASTHMA/SOA [id number] 01/29/2017 20:59:00 01/29/2017 23:20:00 DIS Emergency LESLIE, OMAR THEORETICAL PHYSICIST [facility] ER SOA,ASTHMA [id number] 11/10/2016 12:47:00 11/10/2016 14:24:00 DIS Emergency LESLIE, OMAR THEORETICAL PHYSICIST [facility] ER ASTHMA ATTACK [id number] 06/24/2016 11:24:00 06/24/2016 13:49:00 DIS Emergency TERELL DO, ANNETTA K [facility] ER ASTHMA [id number] 12/20/2015 12:31:00 12/20/2015 13:47:00 DIS Emergency LEO GARCIA L [facility] ER ASTHMA ATTACK [id number] 04/10/2014 02:20:00 04/10/2014 04:30:00 DIS Outpatient ADELAIDA RING MD [facility] WSo CONTRACTIONS [id number] 01/18/2014 10:09:00 01/18/2014 23:59:59 CLS Outpatient ADELAIDA RING MD [facility] RAD [id number] 11/30/2013 10:10:00 11/30/2013 23:59:59 CLS Outpatient ADELAIDA RING MD [facility] RAD [id number] 04/11/2014 19:02:00 Document Registration [id number] 03/07/2018 15:55:00 03/07/2018 23:59:59 CLS Outpatient [facility] [id number] 03/14/2017 09:20:00 Document Registration
--- NOTE | 2018-06-08 22:55 | ED Cough/URI ---
General Stated Complaint: FEVER Source: patient Exam Limitations: no limitations History of Present Illness Date Seen by Provider: Jun 08, 2018 Time Seen by Provider: 22:45 Initial Comments Patient presents to ER by private conveyance with chief complaint of a couple days of cough and increased wheezing and fever for one day. Does not thermometer. Been using Tylenol and NyQuil [id number]. She has a history of asthma but she ran out of her albuterol couple days ago. She stopped smoking 2 days ago usually smokes about 5 cigarettes per day. No nausea vomiting diarrhea or constipation. Several sick contacts. Allergies and Home Medications Allergies Coded Allergies: No Known Drug Allergies (Unverified , 04/10/14) Home Medications Albuterol Sulfate 2.5 Mg/3 Ml Vial.neb, 2.5 MG IH Q6H PRN for SHORTNESS OF BREATH, (Reported) Albuterol Sulfate 1 Puff Puff, 1-4 PUFF IH Q4H PRN for SHORTNESS OF BREATH 1 PUFF = 90 MCG Prescribed by: JULIANO MONTEJO on 08/29/17 09 Albuterol Sulfate 2.5 Mg/3 Ml Vial.neb, 2.5 MG INH Q4H PRN for WHEEZING Prescribed by: SHANITA MARTELL on 03/17/18 08 Albuterol Sulfate 2.5 Mg/0.5 Ml Vial.neb, 2.5 MG INH Q4H PRN for WHEEZING Prescribed by: HONEY QUINTERO on 06/08/18 230 Prednisone 20 Mg Tab, 40 MG PO DAILY Prescribed by: SHANITA MARTELL on 03/17/18818 Vits #93/Iron Fum/FA 1 Each Tablet, 1 EACH PO DAILY Prescribed by: HONEY QUINTERO on 06/08/18 230 Patient Home Medication List Home Medication List Reviewed: Yes Review of Systems Review of Systems Constitutional: chills, fever, malaise EENTM: No ear pain, No eye pain Respiratory: cough, phlegm; No short of breath; wheezing Cardiovascular: No chest pain, No edema Gastrointestinal: No abdominal pain, No constipation, No diarrhea, No nausea, No vomiting Genitourinary: No discharge, No dysuria : No LMP: May 18, 2018 Musculoskeletal: No back pain, No joint pain Past Llaautw-Butpsx-Bseose Hx Patient Social History Alcohol Use: Denies Use Recreational Drug Use: No Smoking Status: Current Everyday Smoker Type Used: Cigarettes (quarter pack per day) 2nd Hand Smoke Exposure: Yes Recent Foreign Travel: No Contact w/Someone Who Travel: No Recent Hopitalizations: No Immunizations Up To Date Tetanus Booster (TDap): Unknown PED Vaccines UTD: Yes Date of Pneumonia Vaccine: May 20, 2015 Seasonal Allergies Seasonal Allergies: Yes Past Medical History Surgeries: No Respiratory: Yes Asthma Currently Using CPAP: No Currently Using BIPAP: No Cardiac: No Neurological: No Reproductive Disorders: No Genitourinary: No Gastrointestinal: No Musculoskeletal: No Endocrine: No HEENT: Yes (Strider with asthma exacerbations) Cancer: No Psychosocial: No Integumentary: Yes Eczema Blood Disorders: No Family Medical History Asthma 19 MOTHER Cardiovascular disease 19 FATHER Completed stroke paternal grandfather Asthma, Heart Disease Physical Exam Vital Signs - First Documented 06/08/18 22:45 Temp 99.4 Pulse 107 Resp 19 B/P (MAP) 116/73 (87) Capillary Refill : Height: 5'4.00" Weight: 140lbs. oz. 63.704010be; 22.8 BMI Method:Stated General Appearance: WD/WN, no apparent distress Eyes: Bilateral Eye Normal Inspection, Bilateral Eye PERRL, Bilateral Eye EOMI HEENT: PERRL/EOMI, normal ENT inspection, TMs normal, pharynx normal Neck: non-tender, full range of motion, supple, normal inspection Respiratory: chest non-tender, no respiratory distress, no accessory muscle use , wheezing Cardiovascular: normal peripheral pulses, regular rate, rhythm, no edema Progress/Results/Core Measures Suspected Sepsis SIRS Temperature: Pulse: Respiratory Rate: Blood Pressure / Mean: Results/Orders Micro Results Microbiology 06/08/18 Influenza Types A,B Antigen (HARPREET) - Final, Complete My Orders Orders - HONEY QUINTERO Influenza A And B Antigens (06/08/18 22:48) Albuterol/Ipra Inhalation Soln (Duoneb I (06/08/18 23:00) Svn Small Volume Nebulizer (06/08/18 22:48) Urine Bedside (06/08/18 22:48) Medications Given in ED Current Medications Medications Dose Ordered Sig/Aspen Route Start Time Stop Time Status Last Admin Dose Admin Albuterol/ Ipratropium 3 ml ONCE ONCE INH 06/08/18 23:00 06/08/18 23:01 DC 06/08/18 23:09 3 ML Vital Signs/I&O 06/08/18 22:45 Temp 99.4 Pulse 107 Resp 19 B/P (MAP) 116/73 (87) Capillary Refill : Progress Note #1: Time: 22:57 Progress Note We are going to discontinue the chest x-ray and just give her breathing treatment. Her urine from seat test was positive. We can send her home with a prescription for more albuterol if the DuoNeb improved her breathing status. Will test her for influenza but since her several other people here being tested for strep we will just elect to treat her if they are positive. She does not have a sore throat. We have encouraged Tylenol, fluids and humidifier and vapor rubs. We'll send her home's prescription for vitamins and albuterol. Progress Note #2: Time: 23:36 Progress Note On second observation the patient's wheezing is completely gone. Her vital signs are still very good. We are going to send her home with some albuterol and a prophylactic dose of Tamiflu since there are multiple people in her household with influenza and have her follow-up with a OB provider. Departure Impression Primary Impression: Influenza-like symptoms Additional Impressions: Asthma with acute exacerbation in adult Qualified Codes: J45.901 - Unspecified asthma with (acute) exacerbation Qualified Codes: Z3A.01 - Less than 8 weeks gestation of Disposition: 01 HOME, SELF-CARE Condition: Improved Departure-Patient Inst. Decision time for Depature: 23:36 Ref[place]: [facility]1[place] [place] Primary Care Physician Patient Instructions: Asthma, Adult (DC), LOCAL PHYSICIAN LIST, Viral Upper Respiratory Infection, Adult (DC) Add. Discharge Instructions: Use the albuterol fniuyh-hwj-devrw 6 hours for the next couple days. packaging supervisor the Tamiflu and start taking it 1 x 75 mg capsule daily for the next week. Establish care with an OB provider and follow-up in the next week or 2. If you have difficulty breathing or your albuterol was not sufficient then you should return to the nearest ER. Scripts Oseltamivir Phosphate (Tamiflu) 75 Mg Cap 75 MG PO DAILY for 7 Days, #7 CAP 0 Refills Prov: HONEY QUINTERO 06/08/18 Vits #93/Iron Fum/FA ( Formula Tablet) 1 Each Tablet 1 EACH PO DAILY for 90 Days, #90 TAB 0 Refills Prov: HONEY QUINTERO 06/08/18 Albuterol Sulfate (Albuterol Sulfate) 2.5 Mg/0.5 Ml Vial.neb 2.5 MG INH Q4H PRN for WHEEZING for 30 Days, #120 EACH 0 Refills Prov: HONEY QUINTERO 06/08/18 HONEY QUINTERO Jun 08, 2018 22:55
[2018-06-08] MEDS ORDERED: RT-ALBUTEROL/IPRATROPIUM 3 ML (DUONEB) VIAL INH ONE (23:00)
[2018-06-08] MEDS ORDERED: PREN-102 PO (23:00)
[2018-06-08] MEDS ORDERED: ALB0.5V INH (23:00)
[2018-06-08] MEDS ORDERED: OSLT75C PO (23:39)
[2018-06-08] MEDS ORDERED: RX-ALBUTEROL NEB 2.5 MG/3 ML PACK #5 IH STA (23:46)
[2018-06-08 23:50] VITALS: BP 115/72
== END 2018-06-08 23:53 | disposition home or self-care (01) ==
LOC: EDUNIT# 22:09 → ER 22:11
DX: O26.891 Other specified pregnancy related conditions, first trimester (principal); R50.9 Fever, unspecified; R05 Cough; R06.2 Wheezing; O99.511 Diseases of the respiratory system complicating pregnancy, first trimester; J45.901 Unspecified asthma with (acute) exacerbation; O99.331 Smoking (tobacco) complicating pregnancy, first trimester; F17.210 Nicotine dependence, cigarettes, uncomplicated; Z79.51 Long term (current) use of inhaled steroids; Z82.49 Family history of ischemic heart disease and other diseases of the circulatory system; Z79.52 Long term (current) use of systemic steroids; Z3A.01 Less than 8 weeks gestation of pregnancy
CPT/HCPCS: 84703; 87804; 94640

== ENCOUNTER 2018-08-02 22:58 | Emergency (ER) | payer SELFPAY ==
[~2018-08-02] VITALS: Ht 162.6 cm; Wt 68.0 kg
[~2018-08-02 22:58] MED LIST changes: +ALB0.5V INH; +OSLT75C PO; +PREN-102 PO
[2018-08-02] MEDS ORDERED: RX-ALBUTEROL NEB 2.5 MG/3 ML PACK #5 IH STA (23:14)
[2018-08-02] MEDS ORDERED: methylPREDNISolone 125 MG (Solu-MEDROL) VIAL IVP ONE (23:15)
--- NOTE | 2018-08-02 23:20 | ED General ---
General Chief Complaint: Psych/Social Disorder Stated Complaint: PANIC ATTACK Allergies and Home Medications Allergies Coded Allergies: No Known Drug Allergies (Unverified , 04/10/14) Home Medications Albuterol Sulfate 2.5 Mg/3 Ml Vial.neb, 2.5 MG IH Q6H PRN for SHORTNESS OF BREATH, (Reported) Albuterol Sulfate 1 Puff Puff, 1-4 PUFF IH Q4H PRN for SHORTNESS OF BREATH 1 PUFF = 90 MCG Prescribed by: JULIANO MONTEJO on 08/29/17 0927 Albuterol Sulfate 2.5 Mg/3 Ml Vial.neb, 2.5 MG INH Q4H PRN for WHEEZING Prescribed by: SHANITA MARTELL on 03/17/18 08 Albuterol Sulfate 2.5 Mg/0.5 Ml Vial.neb, 2.5 MG INH Q4H PRN for WHEEZING Prescribed by: HONEY QUINTERO on 06/08/18 230 Oseltamivir Phosphate 75 Mg Cap, 75 MG PO DAILY Prescribed by: HONEY QUINTERO on 06/08/18 233 Prednisone 20 Mg Tab, 40 MG PO DAILY Prescribed by: SHANITA MARTELL on 03/17/18 08 Vits #93/Iron Fum/FA 1 Each Tablet, 1 EACH PO DAILY Prescribed by: HONEY QUINTERO on 06/08/18 230 Past Sgqfzws-Namjtb-[place] Hx Patient Social History Type Used: Cigarettes 2nd Hand Smoke Exposure: Yes Recent Hopitalizations: No Immunizations Up To Date Tetanus Booster (TDap): Unknown PED Vaccines UTD: Yes Date of Pneumonia Vaccine: May 20, 2015 Seasonal Allergies Seasonal Allergies: Yes Past Medical History Surgeries: No Respiratory: Yes Asthma Currently Using CPAP: No Currently Using BIPAP: No Cardiac: No Neurological: No Reproductive Disorders: No Genitourinary: No Gastrointestinal: No Musculoskeletal: No Endocrine: No HEENT: Yes (Strider with asthma exacerbations) Cancer: No Psychosocial: No Integumentary: Yes Eczema Blood Disorders: No Family Medical History Asthma 19 MOTHER Cardiovascular disease 19 FATHER Completed stroke paternal grandfather Asthma, Heart Disease Physical Exam Vital Signs Capillary Refill : Height, Weight, BMI Height: 5'4.00" Weight: 150lbs. oz. 68.126437fa; 22.8 BMI Method:Stated Progress/Results/Core Measures Suspected Sepsis SIRS Temperature: Pulse: Respiratory Rate: Blood Pressure / Mean: Results/Orders My Orders Orders - ANNETTA FIGUEREDO DO Methylprednisolone Sod Succ (Solu-Medrol (08/02/18 23:15) Ed Iv/Invasive Line Start (08/02/18 23:06) Heart Tones (08/02/18 23:06) Monitor-Rhythm Ecg Trace Only (08/02/18 23:06) Rx-Albuterol Nebs (Rx-Proventil Nebs) (08/02/18 23:14) Vital Signs/I&O Capillary Refill : Progress Note : Progress Note NO SYMPTOMS DURING ER STAY STRESSED THE [facility] AND IMPORTANCE OF BEING ON MAINTENANCE MEDICATIONS AND DECREASED USE OF ALBUTEROL REGULAR MEDICATION, AND TO USE IT ONLY A RESCUE MEDICATION. ALSO STRESSED THE IMPORTANCE OF FO[facility]ING [facility] TO ESTABLISH OB CARE Departure Impression Primary Impression: Anxiety Additional Impression: Asthma with acute exacerbation in adult Disposition: 01 HOME, SELF-CARE Condition: Improved Departure-Patient Inst. Referrals: [facility] (PCP/Family) Primary Care Physician Patient Instructions: Anxiety, Adult (DC), Asthma Action Plan, Asthma and , Asthma, Adult (DC), Avoiding Asthma Triggers Add. Discharge Instructions: FOLLOW UP WITH [facility] THIS WEEK FOR FOLLOW UP ON ASTHMA AND ALSO TO ESTABLISH OB CARE All discharge instructions reviewed with patient and/or family. Voiced understanding. Scripts Methylprednisolone (Medrol) 4 Mg Tab.ds.pk 4 MG PO UD, #1 PKG Prov: ANNETTA FIGUEREDO DO 08/02/18 Albuterol Sulfate (Albuterol Sulfate) 2.5 Mg/3 Ml Vial.neb 2.5 MG IH Q4H, #1 EA Prov: ANNETTA FIGUEREDO DO 08/02/18 Fluticasone/Vilanterol (Breo Ellipta 100-25 Mcg INH) 1 Each Blst.w.dev 1 EACH IH DAILY, #1 UNIT Prov: ANNETTA FIGUEREDO DO 08/02/18 ANNETTA FIGUEREDO DO Aug 02, 2018 23:20
[2018-08-02] MEDS ORDERED: ALBU2.5V4 IH (23:22)
[2018-08-02] MEDS ORDERED: FLUT1AER IH (23:22)
[2018-08-02] MEDS ORDERED: METH4TAB PO (23:22)
[2018-08-02 23:32] VITALS: BP 109/83
== END 2018-08-02 23:31 | disposition home or self-care (01) ==
LOC: EDUNIT# 22:58 → ER 23:01
DX: F41.9 Anxiety disorder, unspecified (principal); J45.901 Unspecified asthma with (acute) exacerbation; Z79.52 Long term (current) use of systemic steroids; Z77.22 Contact with and (suspected) exposure to environmental tobacco smoke (acute) (chronic); Z82.49 Family history of ischemic heart disease and other diseases of the circulatory system
CPT/HCPCS: 93041

== ENCOUNTER 2018-11-27 14:30 | Inpatient (IN) | payer MEDICAID, OTHER ==
[~2018-11-27] VITALS: Ht 162.6 cm; Wt 69.4 kg
[2018-11-27] VITALS (8 sets, daily range): BP systolic 104–137; BP diastolic 46–89
[2018-11-27] MEDS ORDERED: RT-SODIUM CHL INHALATION 3 ML VIAL ONE (14:42)
[2018-11-27] MEDS ORDERED: RT-epiNEPHrine (RACEMIC) 2.25% 0.5 ML VIAL ONE (14:42)
[2018-11-27] MEDS ORDERED: RT-ALBUTEROL/IPRATROPIUM 3 ML (DUONEB) VIAL INH ONE ×2 (14:45→19:15)
[2018-11-27] MEDS ORDERED: DEXAMETHASONE 4 MG/ML SDV (DECADRON) ONE (14:51)
[2018-11-27] MEDS ORDERED: methylPREDNISolone 125 MG (Solu-MEDROL) VIAL IV STA (14:56)
[2018-11-27] MEDS ORDERED: NS IV 1000 ML 1,000 ML IV ONE (14:56)
[2018-11-27] MEDS ORDERED: DEXAMETHASONE 4 MG/ML SDV (DECADRON) IH ONE (15:00)
[2018-11-27] MEDS ORDERED: RT-epiNEPHrine (RACEMIC) 2.25% 0.5 ML VIAL INH ONE (15:00)
[2018-11-27] MEDS ORDERED: MAGNESIUM 1 GM/100 ML IVPB 100 ML IV ONE (15:30)
[2018-11-27] MEDS: MAGNESIUM 1 GM/100 ML IVPB 100 ML IV ONE (15:42)
[2018-11-27 15:47] LABS: BASOPHILS % (AUTO) 0 % (0-10); EOSINOPHILS # (AUTO) 0.3 10^3/uL (0.0-0.3); EOSINOPHILS % (AUTO) 2 % (0-10); HEMATOCRIT 33 % (35-52); HEMOGLOBIN 10.7 G/DL (11.5-16.0); LYMPHOCYTES # (AUTO) 2.3 X 10^3 (1.0-4.0); LYMPHOCYTES % (AUTO) 12 % (12-44); MEAN CORPUSCULAR HEMOGLOBIN 27 PG (25-34); MEAN CORPUSCULAR HGB CONC 33 G/DL (32-36); MEAN CORPUSCULAR VOLUME 81 FL (80-99); MONOCYTES % (AUTO) 11 % (0-12); NEUTROPHILS # (AUTO) 13.6 X 10^3 (1.8-7.8); NEUTROPHILS % (AUTO) 75 % (42-75); PLATELET COUNT 340 10^3/uL (130-400); RED CELL DISTRIBUTION WIDTH 14.7 % (10.0-14.5); WHITE BLOOD COUNT 18.2 10^3/uL (4.3-11.0)
[2018-11-27 15:58] LABS: BUN/CREATININE RATIO 7; CALCIUM 8.3 MG/DL (8.5-10.1); CARBON DIOXIDE 22 MMOL/L (21-32); CHLORIDE 108 MMOL/L (98-107); CREATININE SERUM 0.59 MG/DL (0.60-1.30); GFR ESTIMATED > 60; GLUCOSE 128 MG/DL (70-105); MAGNESIUM 1.3 MG/DL (1.6-2.4); POTASSIUM 3.4 MMOL/L (3.6-5.0); SODIUM 139 MMOL/L (135-145)
--- NOTE | 2018-11-27 16:07 | Diagnostic Imaging Report ---
EXAMINATION: Portable erect AP chest at 03:55 p.m. INDICATION: Shortness of breath. FINDINGS: The heart size is within normal limits and stable when compared to 01/15/2018. The lungs are clear. There is no evidence for pneumonia or for a pleural effusion and there is no sign of pneumothorax. The mediastinum is not widened. The osseous structures are intact. IMPRESSION: There is no evidence for active disease. Dictated by: Dictated on workstation # [id number]
[2018-11-27 16:36] LABS: ANISOCYTOSIS SLIGHT; BAND NEUTROPHILS 3 %; BASOPHILS % (MANUAL) 0 %; EOSINOPHILS % (MANUAL) 0 %; LYMPHOCYTES % (MANUAL) 15 %; MONOCYTES % (MANUAL) 12 %; NEUTROPHILS % (MANUAL) 70 %
--- NOTE | 2018-11-27 17:01 | NUR ---
report given to KATHRYN Campbell to assume care.
[2018-11-27] MEDS ORDERED: cefTRIAXone FOR IV USE 1,000 MG in WATER (STERILE) FOR INJECTION 10 ML IV ONE (17:45)
[2018-11-27] MEDS ORDERED: RT-ALBUTEROL/IPRATROPIUM 3 ML (DUONEB) VIAL ONE (19:01)
[2018-11-27] MEDS ORDERED: RT-ALBUTEROL SULF 2.5 MG/3 ML PRE-MIX VIAL ONE (19:01)
[2018-11-27] MEDS ORDERED: RT-ALBUTEROL SULF 2.5 MG/3 ML PRE-MIX VIAL INH STA (19:05)
[2018-11-27 19:09] LABS: BILIRUBIN,URINE NEGATIVE (NEGATIVE); CLARITY,URINE CLEAR; COLOR,URINE YELLOW; GLUCOSE, URINE (UA) 1+ (NEGATIVE); KETONES,URINE NEGATIVE (NEGATIVE); LEUKOCYTE ESTERASE ,URINE 1+ (NEGATIVE); NITRITE,URINE NEGATIVE (NEGATIVE); PH,URINE 6.5 (5-9); PROTEIN,URINE NEGATIVE (NEGATIVE); UROBILINOGEN,URINE NORMAL (NORMAL)
[2018-11-27 19:22] LABS: WBC,URINE RARE /HPF
[2018-11-27 19:23] LABS: BACTERIA,URINE NEGATIVE /HPF
--- NOTE | 2018-11-27 19:26 | ED Respiratory ---
General Chief Complaint: Respiratory Problems Stated Complaint: ASHTMA EXACERBATION, Nursing Triage Note: Pt to ED with SOB and cough. Pt reports symptoms have persisted for a couple days. Pt reports taking breathing treatments at home with no relief. Pt audibly wheezing. Pt reports, "Feels like I can't get air in or out." Pt is 26 weeks . Source: patient Exam Limitations: no limitations History of Present Illness Date Seen by Provider: Nov 27, 2018 Time Seen by Provider: 14:46 Initial Comments This 23-year-old young lady at approximately 26 weeks gestational age presents to the emergency room with severe asthma exacerbation. She has inspiratory and expiratory wheezing. She has had increasing cough and shortness of breath over the past few days. She used DuoNeb treatments 2 earlier today without much benefit. She was previously a patient of [facility] but moved to [facility] in July. 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 She is not on maintenance medications for asthma at this time. She denies fever. She has a history of severe asthma exacerbation. She had a prolonged ICU stay last year and required heliox therapy for status asthmaticus. Patient has very audible inspiratory and expiratory wheezing with evident dyspnea. Allergies and Home Medications Allergies Coded Allergies: No Known Drug Allergies (Unverified , 04/10/14) Home Medications Albuterol Sulfate 2.5 Mg/3 Ml Vial.neb, 2.5 MG IH Q6H PRN for SHORTNESS OF BREATH, (Reported) Albuterol Sulfate 1 Puff Puff, 1-4 PUFF IH Q4H PRN for SHORTNESS OF BREATH 1 PUFF = 90 MCG Prescribed by: JULIANO MONTEJO on 08/29/17 0927 Albuterol Sulfate 2.5 Mg/3 Ml Vial.neb, 2.5 MG INH Q4H PRN for WHEEZING Prescribed by: SHANITA MARTELL on 03/17/18 0819 Albuterol Sulfate 2.5 Mg/0.5 Ml Vial.neb, 2.5 MG INH Q4H PRN for WHEEZING Prescribed by: HONEY QUINTERO on 06/08/18 2300 Albuterol Sulfate 2.5 Mg/3 Ml Vial.neb, 2.5 MG IH Q4H Prescribed by: ANNETTA FIGUEREDO on 08/02/18 2322 Fluticasone/Vilanterol 1 Each Blst.w.dev, 1 EACH IH DAILY Prescribed by: ANNETTA FIGUEREDO on 08/02/182321 Methylprednisolone 4 Mg Tab.ds.pk, 4 MG PO UD Prescribed by: ANNETTA FIGUEREDO on 08/02/182321 Oseltamivir Phosphate 75 Mg Cap, 75 MG PO DAILY Prescribed by: HONEY QUINTERO on 06/08/18 233 Prednisone 20 Mg Tab, 40 MG PO DAILY Prescribed by: SHANITA MARTELL on 03/17/18 0819 Vits #93/Iron Fum/FA 1 Each Tablet, 1 EACH PO DAILY Prescribed by: HONEY QUINTERO on 06/08/18 2300 Patient Home Medication List Home Medication List Reviewed: Yes Review of Systems Review of Systems Constitutional: no symptoms reported EENTM: no symptoms reported Respiratory: see HPI Cardiovascular: no symptoms reported Gastrointestinal: no symptoms reported Genitourinary: no symptoms reported : Yes Musculoskeletal: no symptoms reported Skin: no symptoms reported Psychiatric/Neurological: No Symptoms Reported Hematologic/Lymphatic: No Symptoms Reported Immunological/Allergic: no symptoms reported Past Ajtofaa-Auwscl-Edacho Hx Past Med/Social Hx: Reviewed and Corrections made Patient Social History Alcohol Use: Denies Use Recreational Drug Use: No Smoking Status: Former Smoker Type Used: Cigarettes 2nd Hand Smoke Exposure: Yes Recent Foreign Travel: No Contact w/Someone Who Travel: No Recent Infectious Disease Expo: No Recent Hopitalizations: No Physical Abuse: No Sexual Abuse: No Immunizations Up To Date Tetanus Booster (TDap): Unknown PED Vaccines UTD: Yes Date of Pneumonia Vaccine: May 20, 2015 Seasonal Allergies Seasonal Allergies: Yes Past Medical History Surgeries: No Respiratory: Yes Asthma Currently Using CPAP: No Currently Using BIPAP: No Cardiac: No Neurological: No : Yes Reproductive Disorders: No Genitourinary: No Gastrointestinal: No Musculoskeletal: No Endocrine: No HEENT: No Cancer: No Psychosocial: No Integumentary: Yes Eczema Blood Disorders: No Family Medical History Asthma 19 MOTHER Cardiovascular disease 19 FATHER Completed stroke paternal grandfather Asthma, Heart Disease Physical Exam Vital Signs - First Documented 11/27/18 14:32 Temp 97.6 Pulse 151 Resp 25 B/P (MAP) 100/79 (86) Pulse Ox 96 O2 Delivery Room Air Capillary Refill : Less Than 3 Seconds Height: 5'4.00" Weight: 153lbs. oz. 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, no motor/sensory deficits, alert, normal mood/affect, oriented x 3 Skin: normal color, warm/dry Focused Exam Lactate Level 11/27/18 17:45: Lactic Acid Level 1.37 Lactic Acid Level Laboratory Tests Test 11/27/18 17:45 Lactic Acid Level 1.37 MMOL/L (0.50-2.00) Progress/Results/Core Measures Suspected Sepsis Recent Fever Within 48 Hours: No Infection Criteria Present: None New/Unexplained Altered Menta: No Sepsis Screen: No Definite Risk SIRS Temperature:97.6 Pulse: 151 Respiratory Rate: 25 Laboratory Tests 11/27/18 15:30: White Blood Count 18.2H Blood Pressure 100 /79 Mean: 86 11/27/18 17:45: Lactic Acid Level 1.37 Laboratory Tests 11/27/18 15:30: Creatinine 0.59L, Platelet Count 340 Results/Orders Lab Results Laboratory Tests Test 11/27/18 15:30 11/27/18 17:45 11/27/18 18:59 Range/Units White Blood Count 18.2 H 4.3-11.0 10^3/uL Red Blood Count 4.03 L 4.35-5.85 10^6/uL Hemoglobin 10.7 L 11.5-16.0 G/DL Hematocrit 33 L 35-52 % Mean Corpuscular Volume 81 80-99 FL Mean Corpuscular Hemoglobin 27 25-34 PG Mean Corpuscular Hemoglobin Concent 33 32-36 G/DL Red Cell Distribution Width 14.7 H 10.0-14.5 % Platelet Count 340 130-400 10^3/uL Mean Platelet Volume 10.0 7.4-10.4 FL Neutrophils (%) (Auto) 75 42-75 % Lymphocytes (%) (Auto) 12 12-44 % Monocytes (%) (Auto) 11 0-12 % Eosinophils (%) (Auto) 2 0-10 % Basophils (%) (Auto) 0 0-10 % Neutrophils # (Auto) 13.6 H 1.8-7.8 X 10^3 Lymphocytes # (Auto) 2.3 1.0-4.0 X 10^3 Monocytes # (Auto) 2.0 H 0.0-1.0 X 10^3 Eosinophils # (Auto) 0.3 0.0-0.3 10^3/uL Basophils # (Auto) 0.0 0.0-0.1 10^3/uL Neutrophils % (Manual) 70 % Lymphocytes % (Manual) 15 % Monocytes % (Manual) 12 % Eosinophils % (Manual) 0 % Basophils % (Manual) 0 % Band Neutrophils 3 % Anisocytosis SLIGHT Sodium Level 139 135-145 MMOL/L Potassium Level 3.4 L 3.6-5.0 MMOL/L Chloride Level 108 H 98-107 MMOL/L Carbon Dioxide Level 22 21-32 MMOL/L Anion Gap 9 5-14 MMOL/L Blood Urea Nitrogen 4 L 7-18 MG/DL Creatinine 0.59 L 0.60-1.30 MG/DL Estimat Glomerular Filtration Rate > 60 BUN/Creatinine Ratio 7 Glucose Level 128 H 70-105 MG/DL Calcium Level 8.3 L 8.5-10.1 MG/DL Magnesium Level 1.3 L 1.6-2.4 MG/DL C-Reactive Protein High Sensitivity 1.31 H 0.00-0.50 MG/DL Lactic Acid Level 1.37 0.50-2.00 MMOL/L Urine Color YELLOW Urine Clarity CLEAR Urine pH 6.5 5-9 Urine Specific [place] 1.010 L 1.016-1.022 Urine Protein NEGATIVE NEGATIVE Urine Glucose (UA) 1+ H NEGATIVE Urine Ketones NEGATIVE NEGATIVE Urine Nitrite NEGATIVE NEGATIVE Urine Bilirubin NEGATIVE NEGATIVE Urine Urobilinogen NORMAL NORMAL MG/DL Urine Leukocyte Esterase 1+ H NEGATIVE Urine RBC (Auto) NEGATIVE NEGATIVE Urine RBC NONE /HPF Urine WBC RARE /HPF Urine Squamous Epithelial Cells 5-10 /HPF Urine Crystals NONE /LPF Urine Bacteria NEGATIVE /HPF Urine Casts NONE /LPF Urine Mucus NEGATIVE /LPF Urine Culture Indicated NO Urine Opiates Screen NEGATIVE NEGATIVE Urine Oxycodone Screen NEGATIVE NEGATIVE Urine Methadone Screen NEGATIVE NEGATIVE Urine Propoxyphene Screen NEGATIVE NEGATIVE Urine Barbiturates Screen NEGATIVE NEGATIVE Ur Tricyclic Antidepressants Screen NEGATIVE NEGATIVE Urine Phencyclidine Screen NEGATIVE NEGATIVE Urine Amphetamines Screen NEGATIVE NEGATIVE Urine Methamphetamines Screen NEGATIVE NEGATIVE Urine Benzodiazepines Screen NEGATIVE NEGATIVE Urine Cocaine Screen NEGATIVE NEGATIVE Urine Cannabinoids Screen NEGATIVE NEGATIVE Micro Results Microbiology 11/27/18 Blood Culture - Preliminary, Resulted No growth 11/27/18 Blood Culture - Preliminary, Resulted No growth 11/27/18 Influenza Types A,B Antigen (HARPREET) - Final, Complete My Orders Orders - JULIANO TORREZ MD Albuterol/Ipra Inhalation Soln (Duoneb I (11/27/18 14:45) Svn Small Volume Nebulizer (11/27/18 14:45) Rt Epinephrine (Racemic Epinephrine 2.25 (11/27/18 15:00) Svn Small Volume Nebulizer (11/27/18 14:47) Rt Epinephrine (Racemic Epinephrine 2.25 (11/27/18 14:42) Sodium Chl Inhalation (Rt-Sodium Chl Inh (11/27/18 14:42) Dexamethasone Injection (Decadron Inject (11/27/18 15:00) Methylprednisolone Sod Succ (Solu-Medrol (11/27/18 14:56) Ed Iv/Invasive Line Start (11/27/18 14:56) Ns Iv 1000 Ml (Sodium Chloride 0.9%) (11/27/18 14:56) Basic Metabolic Panel (11/27/18 14:56) Cbc With Automated Diff (11/27/18 14:56) Magnesium (11/27/18 14:56) Dexamethasone Injection (Decadron Inject (11/27/18 14:51) Magnesium 1 Gm/100 Ml Ivpb (Magnesium Dupont (11/27/18 15:30) Magnesium 1 Gm/100 Ml Ivpb (Magnesium [place]ont (11/27/18 15:30) Chest 1 View, Ap/Pa Only (11/27/18 15:46) Manual Differential (11/27/18 15:30) Hs C Reactive Protein (11/27/18 16:38) Influenza A And B Antigens (11/27/18 16:38) Ua Culture If Indicated (11/27/18 17:36) Blood Culture (11/27/18 17:36) Lactic Acid Analyzer (11/27/18 17:36) Ceftriaxone For Iv Use (Rocephin For I (11/27/18 17:45) Drug Screen Stat (Urine) (11/27/18 18:30) Sputum Culture (11/27/18 18:30) Medications Given in ED Vital Signs/I&O 11/27/18 11/27/18 11/27/18 11/27/18 14:32 14:43 14:48 14:52 Temp 97.6 Pulse 151 Resp 25 B/P (MAP) 100/79 (86) Pulse Ox 96 97 97 97 O2 Delivery Room Air Room Air Room Air Room Air Capillary Refill : Less Than 3 Seconds Blood Pressure Mean: 86 Progress Note : Progress Note Patient was initially treated with DuoNeb, inhaled dexamethasone, and racemic epinephrine. The racemic epinephrine was added due to the inspiratory wheezing which was initially thought to be stridor. She did improve some but symptoms did not resolve with these measures. She still had inspiratory and expiratory wheezing with increased work of breathing. Solu-Medrol was administered. Vapotherm was eventually applied. 2 g of magnesium were administered by IV route. She received a liter of IV fluid. An hour-long nebulizer treatment was started prior to admission. Case was discussed with Dr. Ahn who agreed with these interventions. He also requested ruiz cultures and empiric antibiotic therapy as patient had a significant leukocytosis. Dr. Freitas was agreeable to admission and requested obstetrical consult for monitoring of the . Singulair and Claritin were added to the therapies per Dr. Ahn's request. Patient will be receiving scheduled nebulizer treatments and scheduled Solu-Med rol doses. Diagnostic Imaging Diagonstic Imaging: Xray Plain Films/CT/US/NM/MRI: chest Comments Chest x-ray report reviewed. See report below: NAME: JOYCELYN PARSON MED REC#: [id number] PT STATUS: REG ER : 1995 PHYSICIAN: JULIANO TORREZ MD ADMIT DATE: 11/27/18/ER Signed Date of Exam: 11/27/18 CHEST 1 VIEW, AP/PA ONLY EXAMINATION: Portable erect AP chest at 03:55 p.m. INDICATION: Shortness of breath. FINDINGS: The heart size is within normal limits and stable when compared to 01/15/2018. The lungs are clear. There is no evidence for pneumonia or for a pleural effusion and there is no sign of pneumothorax. The mediastinum is not widened. The osseous structures are intact. IMPRESSION: There is no evidence for active disease. Dictated by: Dictated on workstation # [id number] Dict: 11/27/18 1602 Trans: 11/27/18 1635 Interpreted by: MARYA GARCIA MD Electronically signed by: MARYA GARCIA MD 11/27/18 1635 Departure Communication (Admissions) Time/Spoke to Admitting Phy: 18:35 Dr. Franco Ireland 18:52 Dr. Ahn 17:30 Impression Primary Impression: Asthma with acute exacerbation in adult Qualified Codes: J45.901 - Unspecified asthma with (acute) exacerbation Additional Impression: Qualified Codes: Z3A.26 - 26 weeks gestation of Disposition: ADMITTED INPATIENT Condition: Improved Admissions Decision to Admit Reason: Admit from ER (General) Decision to Admit/Date: Nov 27, 2018 Time/Decision to Admit Time: 14:50 Departure-Patient Inst. Referrals: [facility] (PCP/Family) Primary Care Physician JULIANO TORREZ MD Nov 27, 2018 19:26
[2018-11-27 19:38] LABS: AMPHETAMINE SCREEN, URINE NEGATIVE (NEGATIVE); BARBITURATE SCREEN URINE NEGATIVE (NEGATIVE); BENZODIAZEPINES SCREEN URINE NEGATIVE (NEGATIVE); CANNABINOID SCREEN, URINE NEGATIVE (NEGATIVE); COCAINE SCREEN URINE NEGATIVE (NEGATIVE); METHADONE STAT NEGATIVE (NEGATIVE); METHAMPHETAMINE SCREEN URINE S NEGATIVE (NEGATIVE); OPIATE SCREEN URINE NEGATIVE (NEGATIVE); OXYCODONE STAT NEGATIVE (NEGATIVE); PROPOXYPHENE STAT NEGATIVE (NEGATIVE); TRICYCLIC ANTIDEPRESSANTS SCRE NEGATIVE (NEGATIVE)
[2018-11-27] MEDS ORDERED: NS IV 1000 ML 1,000 ML ONE (20:13)
[2018-11-27] MEDS ORDERED: LORATADINE (CLARITIN) 10 MG TAB PO NR (20:21)
[2018-11-27] MEDS ORDERED: CATHETER FLUSH 10 ML SYR IV PRN (20:30)
[2018-11-27] MEDS ORDERED: AZITHROMYCIN 500 MG/NS 250 ML IVPB IV ONE ×2 (20:30)
[2018-11-27] MEDS: NS IV 1000 ML 1,000 ML IV SCH (20:32)
[2018-11-27] MEDS ORDERED: NS IV 500 ML 500 ML ONE (20:42)
[2018-11-27] MEDS ORDERED: MAGNESIUM 1 GM/100 ML IVPB 200 ML IV ONE (20:43)
--- NOTE | 2018-11-27 20:46 | NUR ---
This RN called EICU to notify of HR sustaining in 130-140's. New orders received at this time.
[2018-11-27] MEDS: MONTELUKAST 10 MG (SINGULAIR) TAB PO SCH (20:56)
[2018-11-27] MEDS: MAGNESIUM 1 GM/D5W 100 ML IVPB IV SCH ×2 (21:35→22:49)
[2018-11-27] MEDS: RT-ALBUTEROL/IPRATROPIUM 3 ML (DUONEB) VIAL IH SCH (21:45)
[2018-11-27] MEDS ORDERED: NS IV 500 ML 500 ML IV ONE (22:00)
--- NOTE | 2018-11-27 22:47 | NUR ---
This RN called EICU to notify that pt c/o chest pain 07/15. New orders received at this time.
[2018-11-27] MEDS ORDERED: fentaNYL INJECTION 100 MCG/2 ML AMP ONE (22:57)
[2018-11-27] MEDS ORDERED: fentaNYL INJECTION 100 MCG/2 ML AMP IVP ONE (23:00)
[2018-11-27] MEDS ORDERED: fentaNYL INJECTION 100 MCG/2 ML AMP IV ONE (23:15)
--- NOTE | 2018-11-27 23:21 | NUR ---
EKG results show Sinus Tachycardia, EKG sent to EICU. Patient's pain now 0/10 after receiving fentanyl for pain (see EMAR).
[2018-11-27] MEDS: methylPREDNISolone 40 MG/ML (Solu-MEDROL) VIAL IV SCH (23:40)
[2018-11-28] VITALS (23 sets, daily range): BP systolic 96–130; BP diastolic 49–84
[2018-11-28] MEDS: RT-ALBUTEROL/IPRATROPIUM 3 ML (DUONEB) VIAL IH SCH ×6 (02:10→23:08)
[2018-11-28 03:28] LABS: BASOPHILS % (AUTO) 0 % (0-10); EOSINOPHILS % (AUTO) 0 % (0-10); HEMATOCRIT 30 % (35-52); HEMOGLOBIN 9.7 G/DL (11.5-16.0); LYMPHOCYTES # (AUTO) 0.6 X 10^3 (1.0-4.0); LYMPHOCYTES % (AUTO) 4 % (12-44); MEAN CORPUSCULAR HEMOGLOBIN 26 PG (25-34); MEAN CORPUSCULAR HGB CONC 32 G/DL (32-36); MEAN CORPUSCULAR VOLUME 81 FL (80-99); MEAN PLATELET VOLUME 10.3 FL (7.4-10.4); MONOCYTES # (AUTO) 0.4 X 10^3 (0.0-1.0); MONOCYTES % (AUTO) 3 % (0-12); NEUTROPHILS # (AUTO) 15.9 X 10^3 (1.8-7.8); NEUTROPHILS % (AUTO) 94 % (42-75); PLATELET COUNT 283 10^3/uL (130-400); RED CELL DISTRIBUTION WIDTH 14.6 % (10.0-14.5)
[2018-11-28 03:45] LABS: BUN/CREATININE RATIO 8; CALCIUM 7.9 MG/DL (8.5-10.1); CARBON DIOXIDE 13 MMOL/L (21-32); CHLORIDE 108 MMOL/L (98-107); CREATININE SERUM 0.65 MG/DL (0.60-1.30); GFR ESTIMATED > 60; GLUCOSE 180 MG/DL (70-105); MAGNESIUM 2.4 MG/DL (1.6-2.4); PHOSPHORUS 2.2 MG/DL (2.3-4.7); POTASSIUM 3.6 MMOL/L (3.6-5.0); SODIUM 137 MMOL/L (135-145)
[2018-11-28] MEDS ORDERED: ANTACID SUSP 30 ML UDC (MYLANTA) ONE (04:09)
[2018-11-28] MEDS ORDERED: FAMOTIDINE 20 MG (PEPCID) TABLET ONE (04:09)
[2018-11-28] MEDS ORDERED: POTASSIUM CL 10MEQ/50ML IVPB 100 ML IV ONE (04:25)
[2018-11-28] MEDS: RT-ALBUTEROL SULF 2.5 MG/3 ML PRE-MIX VIAL INH PRN ×2 (04:33→16:07)
[2018-11-28] MEDS ORDERED: ANTACID SUSP 30 ML UDC (MYLANTA) PO ONE (04:45)
[2018-11-28] MEDS ORDERED: FAMOTIDINE 20 MG (PEPCID) TABLET PO ONE (04:45)
[2018-11-28] MEDS: inSUlin ASPART (NovoLOG) 1 UNIT/0.01 ML (CHARGE PER UNIT) SC SCH ×4 (05:18→19:42)
[2018-11-28] MEDS: POTASSIUM CL 10MEQ/50ML IVPB 50 ML IV SCH ×4 (05:23→06:30)
--- NOTE | 2018-11-28 05:59 | NUR ---
FHT WERE CHECKED AT THIS TIME BY OB-RN. FHT 145
[2018-11-28] MEDS: MAGNESIUM 1 GM/100 ML IVPB 100 ML IV SCH (06:01)
[2018-11-28] MEDS: KCL 20 MEQ TAB (K-DUR) PO SCH (06:01)
[2018-11-28] MEDS: methylPREDNISolone 40 MG/ML (Solu-MEDROL) VIAL IV SCH ×3 (06:54→17:25)
[2018-11-28] MEDS: NS IV 1000 ML 1,000 ML IV SCH ×2 (06:54→16:03)
--- NOTE | 2018-11-28 06:54 | NUR ---
THIS RN CALLED EICU TO NOTIFY THAT PATIENT IS C/O OF TINGLING AND SHARP PAINS IN BOTH FEET GOING UP TO HER CALVES.
[2018-11-28] MEDS ORDERED: HYDROcodone/APAP 10 MG/325 MG (LORTAB) TAB PO NR (07:14)
[2018-11-28] MEDS: LORATADINE (CLARITIN) 10 MG TAB PO SCH (07:38)
[2018-11-28] MEDS ORDERED: SODIUM PHOSPHATE INJ 30 MM in NS (IVPB) 250 ML IV ONE (08:00)
--- NOTE | 2018-11-28 08:06 | Pulmonary Consultation ---
History of Present Illness History of Present Illness Date of Consultation 11/28/18 08:03 Date of Admission Allergies and Home Medications Allergies Coded Allergies: No Known Drug Allergies (Unverified , 04/10/14) Home Medications Albuterol Sulfate 2.5 Mg/3 Ml Vial.neb, 2.5 MG IH Q6H PRN for SHORTNESS OF BREATH, (Reported) Albuterol Sulfate 1 Puff Puff, 1-4 PUFF IH Q4H PRN for SHORTNESS OF BREATH 1 PUFF = 90 MCG Prescribed by: JULIANO MONTEJO on 08/29/17 09 Albuterol Sulfate 2.5 Mg/3 Ml Vial.neb, 2.5 MG INH Q4H PRN for WHEEZING Prescribed by: SHANITA MARTELL on 03/17/18818 Albuterol Sulfate 2.5 Mg/0.5 Ml Vial.neb, 2.5 MG INH Q4H PRN for WHEEZING Prescribed by: HONEY QUINTERO on 06/08/182299 Albuterol Sulfate 2.5 Mg/3 Ml Vial.neb, 2.5 MG IH Q4H Prescribed by: ANNETTA FIGUEREDO on 08/02/18 232 Fluticasone/Vilanterol 1 Each Blst.w.dev, 1 EACH IH DAILY Prescribed by: ANNETTA FIGUEREDO on 08/02/18 232 Methylprednisolone 4 Mg Tab.ds.pk, 4 MG PO UD Prescribed by: ANNETTA FIGUEREDO on 08/02/18 232 Oseltamivir Phosphate 75 Mg Cap, 75 MG PO DAILY Prescribed by: HONEY QUINTERO on 06/08/182338 Prednisone 20 Mg Tab, 40 MG PO DAILY Prescribed by: SHANITA MARTELL on 03/17/18818 Vits #93/Iron Fum/FA 1 Each Tablet, 1 EACH PO DAILY Prescribed by: HONEY QUINTERO on 06/08/18 230 Past Rzajaij-Svbtyu-Relhke Hx Patient Social History Alcohol Use: Denies Use Recreational Drug Use: No Smoking Status: Former Smoker Type Used: Cigarettes 2nd Hand Smoke Exposure: Yes Recent Foreign Travel: No Contact w/Someone Who Travel: No Recent Infectious Disease Expo: No Recent Hopitalizations: No Physical Abuse: No Sexual Abuse: No Immunizations Up To Date Tetanus Booster (TDap): Unknown PED Vaccines UTD: Yes Date of Pneumonia Vaccine: May 20, 2015 Seasonal Allergies Seasonal Allergies: Yes Past Medical History Surgeries: No Respiratory: Yes Asthma Currently Using CPAP: No Currently Using BIPAP: No Cardiac: No Neurological: No Reproductive Disorders: No Genitourinary: No Gastrointestinal: No Musculoskeletal: No Endocrine: No HEENT: No Cancer: No Psychosocial: No Integumentary: Yes Eczema Blood Disorders: No Family Medical History Asthma 19 MOTHER Cardiovascular disease 19 FATHER Completed stroke paternal grandfather Asthma, Heart Disease Sepsis Event Evaluation Height, Weight, BMI Height: 5'4.00" Weight: 152lbs. 0.7oz. 68.890642qz; 26.1 BMI Method:Stated Exam Exam Vital Signs Date Time Temp Pulse Resp B/P (MAP) Pulse Ox O2 Delivery O2 Flow Rate FiO2 11/28/18 07:42 Nasal Cannula 3.00 11/28/18 07:00 122 25 128/65 (86) 97 Nasal Cannula 2.00 11/28/18 07:00 122 11/28/18 06:39 95 Nasal Cannula 2.00 11/28/18 06:00 109 18 116/57 (76) 96 Nasal Cannula 2.00 11/28/18 05:00 117 15 103/49 (67) 95 Nasal Cannula 2.00 11/28/18 04:33 94 Nasal Cannula 2.00 11/28/18 04:00 104 13 125/72 (89) 96 Nasal Cannula 2.00 11/28/18 04:00 Nasal Cannula 3.00 11/28/18 03:37 98.1 11/28/18 03:00 110 20 109/69 (82) 95 Nasal Cannula 2.00 11/28/18 02:10 94 Nasal Cannula 2.00 11/28/18 02:00 98 18 96/52 (67) 93 Nasal Cannula 2.00 11/28/18 01:00 114 11/28/18 01:00 114 20 106/65 (79) 94 Nasal Cannula 2.00 11/28/18 00:00 Nasal Cannula 3.00 11/28/18 00:00 110 18 109/59 (76) 95 Nasal Cannula 2.00 11/27/18 23:40 98.0 11/27/18 23:00 126 16 104/46 (65) 94 Nasal Cannula 2.00 11/27/18 22:30 125 15 123/71 (88) 96 Nasal Cannula 2.00 11/27/18 22:00 138 14 120/72 (88) 96 Nasal Cannula 2.00 11/27/18 21:55 Nasal Cannula 2.00 11/27/18 21:45 98 Nasal Cannula 3.00 11/27/18 21:30 128 18 123/68 (86) 98 Nasal Cannula 3.00 11/27/18 21:00 128 17 136/83 (100) 97 Nasal Cannula 3.00 11/27/18 20:45 131 19 127/67 (87) 96 Nasal Cannula 3.00 11/27/18 20:30 146 15 137/86 (103) 96 Nasal Cannula 3.00 11/27/18 20:23 98 Nasal Cannula 3.00 11/27/18 20:15 149 11/27/18 20:10 Nasal Cannula 3.00 11/27/18 20:10 98.4 144 20 136/89 (105) 97 Nasal Cannula 3.00 11/27/18 19:56 128 24 126/74 (91) 98 Vapotherm 11/27/18 19:02 94 Vapotherm 8.00 60 11/27/18 14:52 97 Room Air 11/27/18 14:48 97 Room Air 11/27/18 14:43 97 Room Air 11/27/18 14:32 97.6 151 25 100/79 (86) 96 Room Air I & O 11/28/18 07:00 Intake Total 4110 ml Output Total 1400 ml Balance 2710 ml Height & Weight Height: 5'4.00" Weight: 152lbs. 0.7oz. 68.221236bk; 26.1 BMI Method:Stated Capillary Refill: Less Than 3 Seconds Results Lab Laboratory Tests 11/27/18 15:30 11/28/18 03:10 Assessment/Plan Assessment/Plan Asthma AE -Keep in ICU another 24hrs -Solumedrol 40 Q 6 -SVNs with Duoneb Q 4 Metabolic acidosis -Check ABG -Check 26 weeks gestation of CHINEDU MOSQUEDA DO Nov 28, 2018 08:06
[2018-11-28] MEDS ORDERED: ACETAMINOPHEN 325 MG TABLET PO PRN (08:30)
[2018-11-28] MEDS ORDERED: BISACODYL 10 MG SUPP (DULCOLAX) PR PRN (08:30)
[2018-11-28] MEDS ORDERED: MELATONIN 3 MG TABLET PO PRN (08:30)
[2018-11-28] MEDS ORDERED: ONDANSETRON 4 MG (ZOFRAN) ORAL DISSOLVE TAB PO PRN (08:30)
[2018-11-28] MEDS ORDERED: DOCUSATE SODIUM 100 MG (COLACE) CAP PO PRN (08:30)
[2018-11-28] MEDS ORDERED: POLYETHYLENE GLYCOL 17 GM (MIRALAX) PACK PO PRN (08:30)
--- NOTE | 2018-11-28 10:17 | Consultation ---
HPI History of Present Illness: This is a 23 yo [id number] at 27w3d with DENNIS 02/24/19 who was admitted to the ICU for asthma with acute exacerbation. She is currently on 1L O2 by ID and has received, Duoneb treatments, IV steroids, Singulair and Rocephin/Zithromax with improvement since admission. OB Hx: Pt does not have a local provider. She lives in [place] and has seen Dolores Dee APRN with [facility] for 1 month. She reports she had labs drawn but is suppose to follow up with an OB in [place] to review to determine if she can continue to see Dolores or if she needs to be seen by OB - she has not yet done this. She has not yet had an US. She denies any known issues with her current . She did not receive a flu vaccine for the season and has not yet received a Tdap. She is taking a vitamin and initially started addition iron but is not currently taking an iron supplement. She has had 1 previously term delivery. She reports it was a difficult vaginal delivery, baby weight 8#14. No known GDM or other complications with that . She was delivered by Dr. Benjamin. She has had 1 prior SAB. Source: patient Exam Limitations: no limitations Date seen by provider: Nov 28, 2018 Time Seen by Provider: 10:16 Attending Physician Clarita Gamez MD PCP No Local Provider Consult Date of Admission Nov 27, 2018 at 19:00 Home Medications Home Medications Reviewed patient Home Medication Reconciliation performed by pharmacy medication reconciliations tax technician and/or nursing. Patients Allergies have been reviewed. Allergies Coded Allergies: No Known Drug Allergies (Unverified , 04/10/14) [id number] Hx Patient Social History Alcohol Use: Denies Use Recreational Drug Use: No Smoking Status: Former Smoker Type Used: Cigarettes 2nd Hand Smoke Exposure: Yes Recent Foreign Travel: No Contact w/other who traveled: No Recent Hopitalizations: No Recent Infectious Disease Expo: No Immunizations Up To Date Tetanus Booster (TDap): Unknown Date of Pneumonia Vaccine: May 20, 2015 Past Medical History Asthma - Never been intubated for asthma but has had multiple hospitalizations associated with asthma GERD associated with Family Medical History Significant Family History: Asthma, Heart Disease Family History: Asthma 19 MOTHER Cardiovascular disease 19 FATHER Completed stroke paternal grandfather Review of Systems ([facility]) Constitutional: see HPI Reviewed Test Results Reviewed Test Results Lab Laboratory Tests 11/27/18 15:30: White Blood Count 18.2H, Red Blood Count 4.03L, Hemoglobin 10.7L, Hematocrit 33L , Mean Corpuscular Volume 81, Mean Corpuscular Hemoglobin 27, Mean Corpuscular Hemoglobin Concent 33, Red Cell Distribution Width 14.7H, Platelet Count 340, Mean Platelet Volume 10.0, Neutrophils (%) (Auto) 75, Lymphocytes (%) (Auto) 12, Monocytes (%) (Auto) 11, Eosinophils (%) (Auto) 2, Basophils (%) (Auto) 0, Neutrophils # (Auto) 13.6H, Lymphocytes # (Auto) 2.3, Monocytes # (Auto) 2.0H, Eosinophils # (Auto) 0.3, Basophils # (Auto) 0.0, Neutrophils % (Manual) 70, Lymphocytes % (Manual) 15, Monocytes % (Manual) 12, Eosinophils % (Manual) 0, Basophils % (Manual) 0, Band Neutrophils 3, Anisocytosis SLIGHT, Sodium Level 139, Potassium Level 3.4L, Chloride Level 108H, Carbon Dioxide Level 22, Anion Gap 9, Blood Urea Nitrogen 4L, Creatinine 0.59L, Estimat Glomerular Filtration Rate > 60, BUN/Creatinine Ratio 7, Glucose Level 128H, Calcium Level 8.3L, Magnesium Level 1.3L, C-Reactive Protein High Sensitivity 1.31H 11/27/18 17:45: Lactic Acid Level 1.37 11/27/18 18:59: Urine Color YELLOW, Urine Clarity CLEAR, Urine pH 6.5, Urine Specific [place] 1.010L, Urine Protein NEGATIVE, Urine Glucose (UA) 1+H, Urine Ketones NEGATIVE, Urine Nitrite NEGATIVE, Urine Bilirubin NEGATIVE, Urine Urobilinogen NORMAL, Urine Leukocyte Esterase 1+H, Urine RBC (Auto) NEGATIVE, Urine RBC NONE, Urine WBC RARE, Urine Squamous Epithelial Cells 5-10, Urine Crystals NONE, Urine Bacteria NEGATIVE, Urine Casts NONE, Urine Mucus NEGATIVE, Urine Culture Indicated NO, Urine Opiates Screen NEGATIVE, Urine Oxycodone Screen NEGATIVE, Urine Methadone Screen NEGATIVE, Urine Propoxyphene Screen NEGATIVE, Urine Barbiturates Screen NEGATIVE, Ur Tricyclic Antidepressants Screen NEGATIVE, Urine Phencyclidine Screen NEGATIVE, Urine Amphetamines Screen NEGATIVE, Urine Methamphetamines Screen NEGATIVE, Urine Benzodiazepines Screen NEGATIVE, Urine Cocaine Screen NEGATIVE, Urine Cannabinoids Screen NEGATIVE 11/27/18 20:31: Glucometer 179H 11/28/18 03:10: White Blood Count 17.0H, Red Blood Count 3.68L, Hemoglobin 9.7L, Hematocrit 30L, Mean Corpuscular Volume 81, Mean Corpuscular Hemoglobin 26, Mean Corpuscular Hemoglobin Concent 32, Red Cell Distribution Width 14.6H, Platelet Count 283, Mean Platelet Volume 10.3, Neutrophils (%) (Auto) 94H, Lymphocytes (%) (Auto) 4L , Monocytes (%) (Auto) 3, Eosinophils (%) (Auto) 0, Basophils (%) (Auto) 0, Neutrophils # (Auto) 15.9H, Lymphocytes # (Auto) 0.6L, Monocytes # (Auto) 0.4, Eosinophils # (Auto) 0.0, Basophils # (Auto) 0.0, Sodium Level 137, Potassium Level 3.6, Chloride Level 108H, Carbon Dioxide Level 13L, Anion Gap 16H, Blood Urea Nitrogen 5L, Creatinine 0.65, Estimat Glomerular Filtration Rate > 60, BUN/Creatinine Ratio 8, Glucose Level 180H, Calcium Level 7.9L, Phosphorus Level 2.2L, Magnesium Level 2.4 11/28/18 08:27: Lactic Acid Level 3.06*H 11/28/18 10:08: Glucometer 193H 11/28/18 10:43: Lactic Acid Level 2.92*H Microbiology 11/27/18 Influenza Types A,B Antigen (HARPREET) - Final, Complete Physical Exam-([facility]) Physical Exam Vital Signs VS - Last 72 Hours, by Label 11/27/18 11/27/18 11/27/18 11/27/18 14:32 14:43 14:48 14:52 Temp 97.6 Pulse 151 Resp 25 B/P (MAP) 100/79 (86) Pulse Ox 96 97 97 97 O2 Delivery Room Air Room Air Room Air Room Air 11/27/18 11/27/18 11/27/18 11/27/18 19:02 19:56 20:10 20:10 Temp 98.4 Pulse 128 144 Resp 24 20 B/P (MAP) 126/74 (91) 136/89 (105) Pulse Ox 94 98 97 O2 Delivery Vapotherm Vapotherm Nasal Cannula Nasal Cannula O2 Flow Rate 8.00 3.00 3.00 FiO2 60 11/27/18 11/27/18 11/27/18 11/27/18 20:15 20:23 20:30 20:45 Pulse 149 146 131 Resp 15 19 B/P (MAP) 137/86 (103) 127/67 (87) Pulse Ox 98 96 96 O2 Delivery Nasal Cannula Nasal Cannula Nasal Cannula O2 Flow Rate 3.00 3.00 3.00 11/27/18 11/27/18 11/27/18 11/27/18 21:00 21:30 21:45 21:55 Pulse 128 128 Resp 17 18 B/P (MAP) 136/83 (100) 123/68 (86) Pulse Ox 97 98 98 O2 Delivery Nasal Cannula Nasal Cannula Nasal Cannula Nasal Cannula O2 Flow Rate 3.00 3.00 3.00 2.00 11/27/18 11/27/18 11/27/18 11/27/18 22:00 22:30 23:00 23:40 Temp 98.0 Pulse 138 125 126 Resp 14 15 16 B/P (MAP) 120/72 (88) 123/71 (88) 104/46 (65) Pulse Ox 96 96 94 O2 Delivery Nasal Cannula Nasal Cannula Nasal Cannula O2 Flow Rate 2.00 2.00 2.00 11/28/18 11/28/18 11/28/18 11/28/18 00:00 00:00 01:00 01:00 Pulse 110 114 114 Resp 18 20 B/P (MAP) 109/59 (76) 106/65 (79) Pulse Ox 95 94 O2 Delivery Nasal Cannula Nasal Cannula Nasal Cannula O2 Flow Rate 2.00 3.00 2.00 11/28/18 11/28/18 11/28/18 11/28/18 02:00 02:10 03:00 03:37 Temp 98.1 Pulse 98 110 Resp 18 20 B/P (MAP) 96/52 (67) 109/69 (82) Pulse Ox 93 94 95 O2 Delivery Nasal Cannula Nasal Cannula Nasal Cannula O2 Flow Rate 2.00 2.00 2.00 11/28/18 11/28/18 11/28/18 11/28/18 04:00 04:00 04:33 05:00 Pulse 104 117 Resp 13 15 B/P (MAP) 125/72 (89) 103/49 (67) Pulse Ox 96 94 95 O2 Delivery Nasal Cannula Nasal Cannula Nasal Cannula Nasal Cannula O2 Flow Rate 3.00 2.00 2.00 2.00 11/28/18 11/28/18 11/28/18 11/28/18 06:00 06:39 07:00 07:00 Pulse 109 122 122 Resp 18 25 B/P (MAP) 116/57 (76) 128/65 (86) Pulse Ox 96 95 97 O2 Delivery Nasal Cannula Nasal Cannula Nasal Cannula O2 Flow Rate 2.00 2.00 2.00 11/28/18 11/28/18 11/28/18 11/28/18 07:42 08:00 09:00 10:00 Pulse 101 112 123 Resp 14 9 19 B/P (MAP) 104/58 (73) 107/50 (69) 127/78 (94) Pulse Ox 95 95 94 O2 Delivery Nasal Cannula Nasal Cannula Nasal Cannula Nasal Cannula O2 Flow Rate 3.00 2.00 2.00 1.00 11/28/18 11/28/18 10:12 11:00 Pulse 120 Resp 17 B/P (MAP) 122/76 (91) Pulse Ox 93 94 O2 Delivery Nasal Cannula Nasal Cannula O2 Flow Rate 1.00 1.00 Capillary Refill : Less Than 3 Seconds General Appearance: WD/WN, no apparent distress HEENT: PERRL/EOMI Respiratory: no respiratory distress, no accessory muscle use, decreased breath sounds, wheezing (rajendra) Cardiovascular: regular rate, rhythm Gastrointestinal: soft; No tenderness; other (gravid uterus without tenderness) Extremities: no pedal edema Neurologic/Psychiatric: alert, normal mood/affect, oriented x 3 Skin: normal color, warm/dry Assessment/Plan Assessment/Plan Admission Status: Inpatient Order (span 2 midnights) (1) Asthma with acute exacerbation in adult Status: Acute Assessment & Plan: Management per Hospitalist and Dr. Ahn - agree with current regimen. - recommend patient be discharged on corticosteroid/maintenance therapy as she has only been on rescue inhaler prior to admission Qualifiers: Qualified Codes: J45.901 - Unspecified asthma with (acute) exacerbation (2) 27 weeks gestation of Assessment & Plan: Monitoring FHT q shift, no issues currently Continue home medications. (3) Hyperglycemia in Assessment & Plan: - BS since admission were 170-190, will monitor FBS, 2HPP - suspect GDM may contributing, will check A1c (though this can be falsely low in ). - continue SSI for now but will customize treatment after obtaining more BS - goal BS for is Fasting 70-90, 2h pp <120 (4) Anemia affecting in second trimester Assessment & Plan: - add Ferrous sulfate to PNV (5) Limited care in second trimester Assessment & Plan: Patient may be staying in the area after discharge. We can help coordinate follow-up at [facility] for care and hospital f/u. Clinical Quality Measures DVT/VTE Risk/Contraindication: Risk Factor Score Per Nursin RFS Level Per Nursing on Admit: 2=Moderate MATTHEW RINCON DO Nov 28, 2018 10:16
--- NOTE | 2018-11-28 13:56 | History & Physical-Hospitalist ---
History of Present Illness HPI/Chief Complaint Patient is 23-year-old white female with known asthma who is also 26 weeks who first noted head congestion with right-sided sore throat symptoms roughly 72 hours ago. She then did develop progressive shortness of breath with increased wheezing. She was in respiratory distress on admission to the emergency room was given a prolonged breathing treatment started on Solu-Medrol as well as empiric antibiotics. Her cough was nonproductive with some purulent nasal secretions. She denied chills fever or Reiger's. Her reportedly has been uneventful thus far with no reported complications. Date Seen 11/28/18 Time Seen by a Provider: 07:45 Attending Physician Isabella Sarabia MD [facility] Referring Physician Date of Admission Nov 27, 2018 at 19:00 Home Medications & Allergies Home Medications Reviewed patient Home Medication Reconciliation performed by pharmacy medication reconciliations driver service technician and/or nursing. Patients Allergies have been reviewed. Allergies Allergies Coded Allergies No Known Drug Allergies (Unverified04/10/14) Past Pursaub-Trithp-Zmjdhp Hx Past Med/Social Hx: Reviewed and Corrections made Patient Social History Alcohol Use: Denies Use Recreational Drug Use: No Smoking Status: Former Smoker 2nd Hand Smoke Exposure: No Recent Foreign Travel: No Contact w/other who traveled: No Recent Hopitalizations: No Recent Infectious Disease Expo: No Immunizations Up To Date Tetanus Booster (TDap): Unknown Pediatric: Yes Date of Pneumonia Vaccine: May 20, 2015 Seasonal Allergies Seasonal Allergies: Yes Past Medical History Currently Using CPAP: No Currently Using BIPAP: No Reproductive: No Skin/Integumentary: Eczema History of Blood Disorders: No Family History Asthma 19 MOTHER Cardiovascular disease 19 FATHER Completed stroke paternal grandfather Asthma, Heart Disease Review of Systems Constitutional: see HPI Physical Exam Physical Exam Vital Signs Vital Signs - First Documented 11/27/18 11/27/18 14:32 19:02 Temp 97.6 Pulse 151 Resp 25 B/P (MAP) 100/79 (86) Pulse Ox 96 O2 Delivery Room Air O2 Flow Rate 8.00 FiO2 60 Capillary Refill : Less Than 3 Seconds Height, Weight, BMI Height: 5'4.00" Weight: 152lbs. 0.7oz. [id number]; 26.1 BMI Method:Stated General Appearance: No Apparent Distress, Anxious HEENT: Other (Stere pharyngeal erythema no exudate noted no cervical adenopathy noted.) Neck: Full Range of Motion, Normal Inspection, Non Tender Respiratory: No Accessory Muscle Use, No Respiratory Distress, Other (Diffuse expiratory wheezing noted no rales or rhonchi appreciated.) Cardiovascular: Regular Rate, Rhythm, No Edema, No Gallop, No JVD, No Murmur, Normal Peripheral Pulses Gastrointestinal: Non Tender Extremity: Normal Capillary Refill, Normal Inspection, Normal Range of Motion, Non Tender, No Calf Tenderness, No Pedal Edema Results Results/Procedures Labs Laboratory Tests 11/27/18 15:30 11/28/18 03:10 Patient resulted labs reviewed. Assessment/Plan Admission Diagnosis A/P acute asthma exacerbation secondary to viral illness we'll DC antibiotics continue bronchodilator and anti-inflammatory therapy. Regnancy reportedly 26 weeks uneventful thus far will discuss with obstetrics. Admission Status: Inpatient Order (span 2 midnights) Reason for Inpatient Admission: See admission diagnosis Clinical Quality Measures DVT/VTE Risk/Contraindication: Risk Factor Score Per Nursin RFS Level Per Nursing on Admit: 2=Moderate ISABELLA SARABIA MD Nov 28, 2018 13:56
[2018-11-28] MEDS: FERROUS SULF 325 MG (IRON) TAB PO SCH (17:25)
[2018-11-28] MEDS ORDERED: cefTRIAXone 1,000 MG/SWFI 10 ML IV PUSH IV SCH ×2 (18:00)
[2018-11-28] MEDS ORDERED: AZITHROMYCIN 250 MG/NS 250 ML IVPB IV SCH ×2 (21:00)
[2018-11-28] MEDS: MONTELUKAST 10 MG (SINGULAIR) TAB PO SCH (21:58)
--- NOTE | 2018-11-28 23:09 | NUR ---
THIS RN CALLED EICU REGARDING ANTIBIOTIC TREATMENT, INFORMED THEM THAT PT'S LACTIC ACID ELEVATED AT 2.92, WBC ELEVATED AT 17,000 AND PT IS TACHYCARDIC 100-120'S. NO NEW ORDERS AT THIS TIME.
--- NOTE | 2018-11-28 23:18 | NUR ---
YAJAIRA OB-RN CHECKED FHT AT THIS TIME. FHT 142.
[2018-11-29] VITALS (24 sets, daily range): BP systolic 91–150; BP diastolic 53–96
[2018-11-29] MEDS: methylPREDNISolone 40 MG/ML (Solu-MEDROL) VIAL IV SCH ×4 (00:57→18:42)
[2018-11-29 01:49] LABS: BASOPHILS % (AUTO) 0 % (0-10); EOSINOPHILS % (AUTO) 0 % (0-10); HEMATOCRIT 26 % (35-52); HEMOGLOBIN 8.3 G/DL (11.5-16.0); LYMPHOCYTES # (AUTO) 0.9 X 10^3 (1.0-4.0); LYMPHOCYTES % (AUTO) 3 % (12-44); MEAN CORPUSCULAR HEMOGLOBIN 27 PG (25-34); MEAN CORPUSCULAR HGB CONC 32 G/DL (32-36); MEAN CORPUSCULAR VOLUME 82 FL (80-99); MEAN PLATELET VOLUME 10.1 FL (7.4-10.4); MONOCYTES # (AUTO) 2.3 X 10^3 (0.0-1.0); MONOCYTES % (AUTO) 8 % (0-12); NEUTROPHILS # (AUTO) 24.6 X 10^3 (1.8-7.8); NEUTROPHILS % (AUTO) 88 % (42-75); PLATELET COUNT 282 10^3/uL (130-400); RED CELL DISTRIBUTION WIDTH 14.9 % (10.0-14.5); WHITE BLOOD COUNT 27.8 10^3/uL (4.3-11.0)
[2018-11-29] MEDS: RT-ALBUTEROL/IPRATROPIUM 3 ML (DUONEB) VIAL IH SCH ×2 (01:57→06:34)
[2018-11-29 02:10] LABS: BUN/CREATININE RATIO 7; CALCIUM 7.6 MG/DL (8.5-10.1); CARBON DIOXIDE 18 MMOL/L (21-32); CHLORIDE 111 MMOL/L (98-107); CREATININE SERUM 0.55 MG/DL (0.60-1.30); GFR ESTIMATED > 60; GLUCOSE 128 MG/DL (70-105); MAGNESIUM 1.7 MG/DL (1.6-2.4); PHOSPHORUS 2.6 MG/DL (2.3-4.7); POTASSIUM 3.9 MMOL/L (3.6-5.0); SODIUM 138 MMOL/L (135-145)
[2018-11-29] MEDS: MAGNESIUM 1 GM/100 ML IVPB 100 ML IV SCH ×3 (03:59→05:07)
[2018-11-29] MEDS: NS IV 1000 ML 1,000 ML IV SCH ×3 (03:59→20:58)
[2018-11-29] MEDS: POTASSIUM CL 10MEQ/50ML IVPB 50 ML IV SCH (04:32)
[2018-11-29] MEDS: KCL 20 MEQ TAB (K-DUR) PO SCH (04:33)
[2018-11-29] MEDS: inSUlin ASPART (NovoLOG) 1 UNIT/0.01 ML (CHARGE PER UNIT) SC SCH ×4 (05:08→20:20)
[2018-11-29] MEDS: FERROUS SULF 325 MG (IRON) TAB PO SCH ×2 (07:00→18:42)
[2018-11-29] MEDS: PRENATAL VITAMIN 1 EA TAB PO SCH (07:00)
[2018-11-29] MEDS ORDERED: RT-LEVALBUTEROL (XOPENEX) 1.25 MG/3 ML NEB NON-FORMULARY INH PRN (07:30)
--- NOTE | 2018-11-29 07:51 | Pulmonary Progress Note ---
Subjective Time Seen by a Provider: 07:50 Subjective/Events-last exam Pt is doing slightly better. Sepsis Event Evaluation Height, Weight, BMI Height: 5'4.00" Weight: 162lbs. 0.5oz. 73.901249pp; 26.1 BMI Method:Stated Focused Exam Lactate Level 11/28/18 08:27: Lactic Acid Level 3.06*H 11/28/18 10:43: Lactic Acid Level 2.92*H 11/29/18 01:36: Lactic Acid Level 0.87 Exam Exam Vital Signs Date Time Temp Pulse Resp B/P (MAP) Pulse Ox O2 Delivery O2 Flow Rate FiO2 11/29/18 07:00 129 11/29/18 06:34 95 Nasal Cannula 2.00 11/29/18 06:00 90 17 104/59 (74) 95 Nasal Cannula 2.00 11/29/18 05:00 96 18 93/53 (66) 94 Nasal Cannula 2.00 11/29/18 04:10 Nasal Cannula 2.00 11/29/18 04:00 93 Room Air 11/29/18 04:00 96 19 106/53 (70) 91 Room Air 11/29/18 03:58 98.3 11/29/18 03:00 98 19 115/58 (77) 91 Room Air 11/29/18 02:00 96 21 143/88 (106) 96 Room Air 11/29/18 01:57 96 Room Air 11/29/18 01:00 101 21 99/53 (68) 91 Room Air 11/29/18 01:00 101 11/29/18 00:57 98.6 11/29/18 00:00 103 16 100/56 (71) 91 Room Air 11/29/18 00:00 93 Room Air 11/29/18 00:00 98.1 11/28/18 23:08 95 Room Air 11/28/18 23:00 111 19 110/62 (78) 93 Room Air 11/28/18 22:00 116 22 113/72 (86) 91 Room Air 11/28/18 21:00 100 22 102/56 (71) 93 Room Air 11/28/18 20:00 101 21 123/62 (82) 98 Room Air 11/28/18 20:00 93 Room Air 11/28/18 19:57 96 Room Air 11/28/18 19:00 114 8/24/19 19:00 98.0 117 15 130/84 (99) 92 Room Air 11/28/18 19:00 114 16 130/84 (99) 94 Room Air 11/28/18 18:00 126 19 111/65 (80) 93 Nasal Cannula 1.00 11/28/18 17:00 106 17 99/54 (69) 91 Nasal Cannula 1.00 11/28/18 16:08 95 Room Air 11/28/18 16:00 105 14 102/52 (69) 93 Nasal Cannula 1.00 11/28/18 16:00 98.3 11/28/18 15:09 94 Room Air 11/28/18 15:00 104 18 125/71 (89) 93 Nasal Cannula 1.00 11/28/18 14:30 95 Room Air 11/28/18 14:00 105 17 93 Nasal Cannula 1.00 11/28/18 13:00 108 19 123/77 (92) 95 Nasal Cannula 1.00 11/28/18 12:24 110 11/28/18 12:00 111 17 129/76 (93) 94 Nasal Cannula 1.00 11/28/18 12:00 94 Room Air 11/28/18 12:00 98.4 11/28/18 11:00 120 17 122/76 (91) 94 Nasal Cannula 1.00 11/28/18 10:12 93 Nasal Cannula 1.00 11/28/18 10:00 123 19 127/78 (94) 94 Nasal Cannula 1.00 11/28/18 09:00 112 9 107/50 (69) 95 Nasal Cannula 2.00 11/28/18 08:00 101 14 104/58 (73) 95 Nasal Cannula 2.00 I & O 11/29/18 07:00 Intake Total 3080 ml Output Total 1700 ml Balance 1380 ml Height & Weight Height: 5'4.00" Weight: 162lbs. 0.5oz. 73.892214uv; 26.1 BMI Method:Stated General Appearance: No Apparent Distress, Anxious HEENT: Other (Stere pharyngeal erythema no exudate noted no cervical adenopathy noted.) Neck: Full Range of Motion, Normal Inspection, Non Tender Respiratory: No Accessory Muscle Use, No Respiratory Distress, Other (Diffuse expiratory wheezing noted no rales or rhonchi appreciated.) Cardiovascular: Regular Rate, Rhythm, No Edema, No Gallop, No JVD, No Murmur, Normal Peripheral Pulses Capillary Refill: Less Than 3 Seconds Gastrointestinal: non tender, soft, other (appropriately gravid) Extremity: Normal Capillary Refill, Normal Inspection, Normal Range of Motion, Non Tender, No Calf Tenderness, No Pedal Edema Results Lab Laboratory Tests 11/27/18 15:30 11/28/18 03:10 11/29/18 01:36 Assessment/Plan Assessment/Plan Asthma AE - improved however still very wheezy -Add pulmicort BID to SVNs -Solumedrol 40 Q 6 -SVNs with Duoneb Q 4 Metabolic acidosis -LA is now resolved -decrease IVF to 50cc/hr Sinus tachycardia -Keep Sp02 >94% -IVF -Change Albuterol to Xopenex 26 weeks gestation of -FP following and monitoring Normocytic Anemia - -Monitor -occult stool CHINEDU MOSQUEDA DO Nov 29, 2018 07:51
[2018-11-29] MEDS: LORATADINE (CLARITIN) 10 MG TAB PO SCH (07:57)
[2018-11-29] MEDS: RT-LEVALBUTEROL (XOPENEX) 1.25 MG/3 ML NEB NON-FORMULARY INH SCH ×4 (10:25→22:29)
[2018-11-29] MEDS: RT-BUDESONIDE NEBS 0.5 MG/2ML (PULMICORT) AMP INH SCH ×2 (10:25→18:58)
--- NOTE | 2018-11-29 10:32 | Progress Note ---
Subjective Subjective/Events-last exam Reports feeling somewhat better. Reports she was off O2 but now back on 2L. Tachycardia worse with Albuterol and coughing. Denies any complaints. Admits to movement. Focused Exam Lactate Level 11/28/18 08:27: Lactic Acid Level 3.06*H 11/28/18 10:43: Lactic Acid Level 2.92*H 11/29/18 01:36: Lactic Acid Level 0.87 Objective Exam Last Set of Vital Signs Vital Signs Date Time Temp Pulse Resp B/P (MAP) Pulse Ox O2 Delivery O2 Flow Rate FiO2 11/29/18 09:00 109 24 128/75 (92) 95 Nasal Cannula 3.00 11/29/18 03:58 98.3 11/27/18 19:02 60 Capillary Refill : Less Than 3 Seconds I&O Intake and Output 11/29/18 00:00 Intake Total 3070 ml Output Total 1400 ml Balance 1670 ml Intake Oral 1870 ml IV Total 1200 ml Output Urine Total 1400 ml # Voids 5 General: Alert, Oriented X3, Cooperative Lungs: Other (wheezes throughout) Heart: Other (mild tachycardia) Psych/Mental Status: Mood NL Results/Procedures Lab Laboratory Tests 11/28/18 10:43: Lactic Acid Level 2.92*H 11/28/18 14:58: Glucometer 185H 11/28/18 19:42: Glucometer 167H 11/29/18 01:36: Lactic Acid Level 0.87, White Blood Count 27.8H, Red Blood Count 3.13L, Hemoglobin 8.3L, Hematocrit 26L, Mean Corpuscular Volume 82, Mean Corpuscular Hemoglobin 27, Mean Corpuscular Hemoglobin Concent 32, Red Cell Distribution Width 14.9H, Platelet Count 282, Mean Platelet Volume 10.1, Neutrophils (%) (Auto) 88H, Lymphocytes (%) (Auto) 3L, Monocytes (%) (Auto) 8, Eosinophils (%) (Auto) 0, Basophils (%) (Auto) 0, Neutrophils # (Auto) 24.6H, Lymphocytes # (Auto) 0.9L, Monocytes # (Auto) 2.3H, Eosinophils # (Auto) 0.0, Basophils # (Auto) 0.0, Sodium Level 138, Potassium Level 3.9, Chloride Level 111H, Carbon Dioxide Level 18L, Anion Gap 9, Blood Urea Nitrogen 4L, Creatinine 0.55L, Estimat Glomerular Filtration Rate > 60, BUN/Creatinine Ratio 7, Glucose Level 128H, Calcium Level 7.6L, Phosphorus Level 2.6, Magnesium Level 1.7 11/29/18 10:05: Glucometer 149H Microbiology 11/27/18 Blood Culture - Preliminary, Resulted No growth 11/27/18 Gram Stain - Final, Resulted 11/27/18 Sputum Culture, Resulted Pending Assessment/Plan Assessment/Plan (1) Asthma with acute exacerbation in adult Status: Acute Assessment & Plan: Management per Hospitalist and Dr. Ahn - agree with current regimen. - recommend patient be discharged on corticosteroid/maintenance therapy as she has only been on rescue inhaler prior to admission Qualifiers: Qualified Codes: J45.901 - Unspecified asthma with (acute) exacerbation (2) 27 weeks gestation of Assessment & Plan: Monitoring FHT q shift, no issues currently Continue home medications. 11/29: stable from standpoint (3) Hyperglycemia in Assessment & Plan: - BS since admission were 170-190, will monitor FBS, 2HPP - suspect GDM may contributing, will check A1c (though this can be falsely low in ). - continue SSI for now but will customize treatment after obtaining more BS - goal BS for is Fasting 70-90, 2h pp <120 11/29: FBS 128, recieved 4U Novolog yesterday after BS of 185. Steroids likely exacerbating hyperglycemia. Continue to treat BS from SSI - recommend getting 3h GTT done as OP when over acute illness and off steroids. (4) Anemia affecting in second trimester Assessment & Plan: - add Ferrous sulfate to PNV (5) Limited care in second trimester Assessment & Plan: Patient may be staying in the area after discharge. We can help coordinate follow-up at [facility] for care and hospital f/u. Clinical Quality Measures DVT/VTE Risk/Contraindication: Risk Factor Score Per Nursin RFS Level Per Nursing on Admit: 2=Moderate MATTHEW RINCON DO Nov 29, 2018 10:32
--- NOTE | 2018-11-29 15:40 | Progress Note - Hospitalist ---
Subjective HPI/CC On Admission Date Seen by Provider: Nov 29, 2018 Time Seen by Provider: 08:45 Patient is 23-year-old white female with known asthma who is also 26 weeks who first noted head congestion with right-sided sore throat symptoms roughly 72 hours ago. She then did develop progressive shortness of breath with increased wheezing. She was in respiratory distress on admission to the emergency room was given a prolonged breathing treatment started on Solu-Medrol as well as empiric antibiotics. Her cough was nonproductive with some purulent nasal secretions. She denied chills fever or Reiger's. Her reportedly has been uneventful thus far with no reported complications. Subjective/Events-last exam Patient denies chills fever with stable. Sputum production slightly yellow no blood. No shortness of breath at rest feels like she is revealed that easier but still coughs with deep breathing. Focused Exam Lactate Level 11/28/18 08:27: Lactic Acid Level 3.06*H 11/28/18 10:43: Lactic Acid Level 2.92*H 11/29/18 01:36: Lactic Acid Level 0.87 Objective Exam Vital Signs Vital Signs Date Time Temp Pulse Resp B/P (MAP) Pulse Ox O2 Delivery O2 Flow Rate FiO2 11/29/18 15:00 109 21 137/82 (100) 94 Nasal Cannula 1.00 11/29/18 03:58 98.3 11/27/18 19:02 60 Capillary Refill : Less Than 3 Seconds General Appearance: No Apparent Distress Respiratory: No Accessory Muscle Use, No Respiratory Distress, Other (Mild inspiratory and expiratory wheezing with improved air movement compared to yesterday) Cardiovascular: Regular Rate, Rhythm, No Edema, No Gallop, No JVD, No Murmur, Normal Peripheral Pulses Extremity: No Pedal Edema Results/Procedures Lab Laboratory Tests 11/29/18 01:36 Patient resulted labs reviewed. Assessment/Plan Assessment and Plan Assess & Plan/Chief Complaint A/P 1. Acute asthma exacerbation secondary to viral infection continue bronchodilator therapy and IV anti-inflammatory therapy. Dr. Ahn's added inhaled corticosteroid therapy as well condition improving continue another day of ICU monitoring. 2. Reported 26 weeks into what the patient reports had been an uneventful . Clinical Quality Measures DVT/VTE Risk/Contraindication: Risk Factor Score Per Nursin RFS Level Per Nursing on Admit: 2=Moderate ISABELLA SARABIA MD Nov 29, 2018 15:40
--- NOTE | 2018-11-29 20:05 | NUR ---
KATHRYN Agrawal from OB checked FHT at this time. FHT 152.
[2018-11-29] MEDS: MONTELUKAST 10 MG (SINGULAIR) TAB PO SCH (20:21)
[2018-11-29] MEDS: guaiFENesin/DM (ROBITUSSIN DM) 10 ML UDC PO PRN (20:21)
[2018-11-30] VITALS (17 sets, daily range): BP systolic 107–140; BP diastolic 60–83
[2018-11-30] MEDS: methylPREDNISolone 40 MG/ML (Solu-MEDROL) VIAL IV SCH ×4 (00:12→19:53)
[2018-11-30] MEDS: RT-LEVALBUTEROL (XOPENEX) 1.25 MG/3 ML NEB NON-FORMULARY INH SCH ×3 (02:17→10:25)
[2018-11-30 03:47] LABS: BASOPHILS % (AUTO) 0 % (0-10); EOSINOPHILS % (AUTO) 0 % (0-10); HEMATOCRIT 26 % (35-52); HEMOGLOBIN 8.3 G/DL (11.5-16.0); LYMPHOCYTES # (AUTO) 0.8 X 10^3 (1.0-4.0); LYMPHOCYTES % (AUTO) 4 % (12-44); MEAN CORPUSCULAR HEMOGLOBIN 26 PG (25-34); MEAN CORPUSCULAR HGB CONC 32 G/DL (32-36); MEAN CORPUSCULAR VOLUME 84 FL (80-99); MEAN PLATELET VOLUME 10.8 FL (7.4-10.4); MONOCYTES # (AUTO) 1.4 X 10^3 (0.0-1.0); MONOCYTES % (AUTO) 7 % (0-12); NEUTROPHILS # (AUTO) 16.7 X 10^3 (1.8-7.8); NEUTROPHILS % (AUTO) 88 % (42-75); PLATELET COUNT 247 10^3/uL (130-400); RED CELL DISTRIBUTION WIDTH 14.9 % (10.0-14.5); WHITE BLOOD COUNT 18.9 10^3/uL (4.3-11.0)
[2018-11-30 04:14] LABS: BUN/CREATININE RATIO 9; CALCIUM 8.8 MG/DL (8.5-10.1); CARBON DIOXIDE 19 MMOL/L (21-32); CHLORIDE 110 MMOL/L (98-107); CREATININE SERUM 0.55 MG/DL (0.60-1.30); GFR ESTIMATED > 60; GLUCOSE 138 MG/DL (70-105); MAGNESIUM 1.7 MG/DL (1.6-2.4); PHOSPHORUS 2.7 MG/DL (2.3-4.7); POTASSIUM 3.6 MMOL/L (3.6-5.0); SODIUM 141 MMOL/L (135-145)
[2018-11-30] MEDS: MAGNESIUM 1 GM/100 ML IVPB 100 ML IV SCH ×3 (04:27→05:40)
[2018-11-30] MEDS: POTASSIUM CL 10MEQ/50ML IVPB 50 ML IV SCH ×3 (04:27→05:40)
[2018-11-30] MEDS: KCL 20 MEQ TAB (K-DUR) PO SCH (04:27)
--- NOTE | 2018-11-30 05:27 | Pulmonary Progress Note ---
Subjective Time Seen by a Provider: 05:27 Subjective/Events-last exam Pt appears to be improved. Sepsis Event Evaluation Height, Weight, BMI Height: 5'4.00" Weight: 162lbs. 0.5oz. [id number]; 26.1 BMI Method:Stated Focused Exam Lactate Level 11/28/18 08:27: Lactic Acid Level 3.06*H 11/28/18 10:43: Lactic Acid Level 2.92*H 11/29/18 01:36: Lactic Acid Level 0.87 Exam Exam Vital Signs Date Time Temp Pulse Resp B/P (MAP) Pulse Ox O2 Delivery O2 Flow Rate FiO2 11/30/18 05:08 Nasal Cannula 2.00 11/30/18 05:00 86 17 108/60 (76) 89 Room Air 11/30/18 04:00 94 Room Air 11/30/18 04:00 77 16 115/69 (84) 91 Room Air 11/30/18 04:00 98.2 11/30/18 03:00 94 21 121/66 (84) 90 Room Air 11/30/18 02:17 90 Room Air 11/30/18 02:00 76 21 135/74 (94) 93 Room Air 11/30/18 01:00 76 8 116/64 (81) 93 Room Air 11/30/18 01:00 76 11/30/18 00:00 94 Room Air 11/30/18 00:00 98.2 11/30/18 00:00 136/78 (97) Room Air 11/29/18 23:00 96 150/96 (114) 94 Room Air 11/29/18 22:29 93 Room Air 11/29/18 22:00 134/74 (94) 91 Room Air 11/29/18 21:00 137/84 (101) 92 Room Air 11/29/18 20:00 105 28 141/84 (103) 92 Room Air 11/29/18 20:00 94 Room Air 11/29/18 19:00 111 11/29/18 19:00 97.6 109 14 137/92 (107) 94 Room Air 11/29/18 18:58 92 Room Air 11/29/18 18:58 92 Room Air 11/29/18 18:00 113 16 121/84 (96) 92 Room Air 11/29/18 17:00 109 24 126/76 (93) 92 Room Air 11/29/18 16:51 Room Air 11/29/18 16:00 94 Room Air 11/29/18 16:00 107 7 139/89 (106) 93 Nasal Cannula 1.00 11/29/18 15:00 109 21 137/82 (100) 94 Nasal Cannula 1.00 11/29/18 14:14 95 Nasal Cannula 1.00 11/29/18 14:00 91 18 130/85 (100) 93 Nasal Cannula 1.00 11/29/18 13:00 89 16 107/56 (73) 94 Nasal Cannula 1.00 11/29/18 13:00 89 11/29/18 12:00 96 Nasal Cannula 1.00 11/29/18 12:00 98 19 91/57 (68) 95 Nasal Cannula 3.00 11/29/18 11:00 95 19 110/64 (79) 94 Nasal Cannula 3.00 11/29/18 10:27 95 Nasal Cannula 1.00 11/29/18 10:00 82 19 125/74 (91) 95 Nasal Cannula 3.00 11/29/18 09:00 109 24 128/75 (92) 95 Nasal Cannula 3.00 11/29/18 08:00 90 18 127/61 (83) 96 Nasal Cannula 3.00 11/29/18 08:00 98 Nasal Cannula 3.00 11/29/18 07:44 Nasal Cannula 3.00 11/29/18 07:00 129 22 113/71 (85) 92 Nasal Cannula 2.00 11/29/18 07:00 129 11/29/18 06:34 95 Nasal Cannula 2.00 11/29/18 06:00 90 17 104/59 (74) 95 Nasal Cannula 2.00 I & O 11/30/18 07:00 Intake Total 2510 ml Output Total 4075 ml Balance -1565 ml Height & Weight Height: 5'4.00" Weight: 162lbs. 0.5oz. [id number]; 26.1 BMI Method:Stated General Appearance: No Apparent Distress HEENT: PERRL/EOMI Neck: Full Range of Motion, Normal Inspection, Non Tender Respiratory: No Accessory Muscle Use, No Respiratory Distress, Other (Mild inspiratory and expiratory wheezing with improved air movement compared to yesterday) Cardiovascular: Regular Rate, Rhythm, No Edema, No Gallop, No JVD, No Murmur, Normal Peripheral Pulses Capillary Refill: Less Than 3 Seconds Gastrointestinal: non tender, soft, other (appropriately gravid) Extremity: No Pedal Edema Neurologic/Psychiatric: Alert, Oriented x3 Skin: Normal Color, Warm/Dry Lymphatic: No Adenopathy Results Lab Laboratory Tests 11/29/18 01:36 11/30/18 03:09 Assessment/Plan Assessment/Plan Asthma AE - improved however still very wheezy -Add pulmicort BID to SVNs -Solumedrol 40 Q 6 -SVNs with Duoneb Q 4 Metabolic acidosis -LA is now resolved -decrease IVF to 50cc/hr Sinus tachycardia - now much improved -Keep Sp02 >94% -IVF -Change Albuterol to Xopenex 26 weeks gestation of -FP following and monitoring Normocytic Anemia - -Monitor -occult stool CHINEDU MOSQUEDA DO Nov 30, 2018 05:27
[2018-11-30] MEDS: inSUlin ASPART (NovoLOG) 1 UNIT/0.01 ML (CHARGE PER UNIT) SC SCH ×2 (06:48→10:15)
[2018-11-30] MEDS: RT-BUDESONIDE NEBS 0.5 MG/2ML (PULMICORT) AMP INH SCH ×2 (06:56→19:59)
[2018-11-30] MEDS: FAMOTIDINE 20 MG (PEPCID) TABLET PO PRN ×2 (06:57→22:30)
[2018-11-30] MEDS: FERROUS SULF 325 MG (IRON) TAB PO SCH ×2 (06:58→17:55)
[2018-11-30] MEDS: PRENATAL VITAMIN 1 EA TAB PO SCH (06:58)
[2018-11-30] MEDS: guaiFENesin/DM (ROBITUSSIN DM) 10 ML UDC PO PRN (06:58)
--- NOTE | 2018-11-30 09:02 | Progress Note ---
Subjective Subjective/Events-last exam Patient has no new concerns. Focused Exam Lactate Level 11/28/18 08:27: Lactic Acid Level 3.06*H 11/28/18 10:43: Lactic Acid Level 2.92*H 11/29/18 01:36: Lactic Acid Level 0.87 Objective Exam Last Set of Vital Signs Vital Signs Date Time Temp Pulse Resp B/P (MAP) Pulse Ox O2 Delivery O2 Flow Rate FiO2 11/30/18 07:01 96 Nasal Cannula 2.00 11/30/18 07:00 87 11/30/18 06:00 19 107/66 (80) 11/30/18 04:00 98.2 11/27/18 19:02 60 Capillary Refill : Less Than 3 Seconds I&O Intake and Output 11/30/18 00:00 Intake Total 3980 ml Output Total 4575 ml Balance -595 ml Intake Oral 1520 ml IV Total 2460 ml Output Urine Total 4575 ml General: Alert, Oriented X3, Cooperative, No Acute Distress Psych/Mental Status: Mood NL Results/Procedures Lab Laboratory Tests 11/29/18 10:05: Glucometer 149H 11/29/18 16:49: Glucometer 159H 11/29/18 20:20: Glucometer 169H 11/30/18 03:09: White Blood Count 18.9H, Red Blood Count 3.15L, Hemoglobin 8.3L, Hematocrit 26L, Mean Corpuscular Volume 84, Mean Corpuscular Hemoglobin 26, Mean Corpuscular Hemoglobin Concent 32, Red Cell Distribution Width 14.9H, Platelet Count 247, Mean Platelet Volume 10.8H, Neutrophils (%) (Auto) 88H, Lymphocytes (%) (Auto) 4L, Monocytes (%) (Auto) 7, Eosinophils (%) (Auto) 0, Basophils (%) (Auto) 0, Neutrophils # (Auto) 16.7H, Lymphocytes # (Auto) 0.8L, Monocytes # (Auto) 1.4H, Eosinophils # (Auto) 0.0, Basophils # (Auto) 0.0, Sodium Level 141, Potassium Level 3.6, Chloride Level 110H, Carbon Dioxide Level 19L, Anion Gap 12, Blood Urea Nitrogen 5L, Creatinine 0.55L, Estimat Glomerular Filtration Rate > 60, BUN/Creatinine Ratio 9, Glucose Level 138H, Calcium Level 8.8, Phosphorus Level 2.7, Magnesium Level 1.7 Microbiology 11/27/18 Blood Culture - Preliminary, Resulted No growth 11/27/18 MRSA Screen - Final, Complete MRSA not isolated Assessment/Plan Assessment/Plan (1) Asthma with acute exacerbation in adult Status: Acute Assessment & Plan: Management per Hospitalist and Dr. Ahn - agree with current regimen. - recommend patient be discharged on corticosteroid/maintenance therapy as she has only been on rescue inhaler prior to admission Qualifiers: Qualified Codes: J45.901 - Unspecified asthma with (acute) exacerbation (2) 27 weeks gestation of Assessment & Plan: Monitoring FHT q shift, no issues currently Continue home medications. 11/29: stable from standpoint (3) Hyperglycemia in Assessment & Plan: - BS since admission were 170-190, will monitor FBS, 2HPP - suspect GDM may contributing, will check A1c (though this can be falsely low in ). - continue SSI for now but will customize treatment after obtaining more BS - goal BS for is Fasting 70-90, 2h pp <120 11/29: FBS 128, recieved 4U Novolog yesterday after BS of 185. Steroids likely exacerbating hyperglycemia. Continue to treat BS from SSI - recommend getting 3h GTT done as OP when over acute illness and off steroids. (4) Anemia affecting in second trimester Assessment & Plan: - add Ferrous sulfate to PNV (5) Limited care in second trimester Assessment & Plan: Patient may be staying in the area after discharge. We can help coordinate follow-up at [facility] for care and hospital f/u. - order US for dates/ survey as patient has not had an US in yet. Clinical Quality Measures DVT/VTE Risk/Contraindication: Risk Factor Score Per Nursin RFS Level Per Nursing on Admit: 2=Moderate MATTHEW RINCON DO Nov 30, 2018 09:02
[2018-11-30] MEDS ORDERED: CALC500T7 PO (09:34)
[2018-11-30] MEDS ORDERED: RANI150T11 PO (09:34)
[2018-11-30] MEDS ORDERED: PNV1TABL9 PO (09:34)
[2018-11-30] MEDS ORDERED: IPRA3AMP31 NEB (09:34)
[2018-11-30] MEDS ORDERED: DIPH25CA45 PO (09:34)
--- NOTE | 2018-11-30 09:35 | NUR ---
SPOKE WITH PT WELL GOING OVER THE EXT MED HISTORY TO COMPETE THE MED REC. OTC MEDS: TUMS: 1 DAILY PRN : 1 DAILY
[2018-11-30] MEDS: LORATADINE (CLARITIN) 10 MG TAB PO SCH (10:15)
--- NOTE | 2018-11-30 10:33 | Diagnostic Imaging Report ---
INDICATION: Asthma exacerbation. No care. survey. TECHNIQUE: Multiple real-time grayscale images were obtained over the gravid uterus. COMPARISON: None FINDINGS: There is a single living intrauterine in cephalic presentation. Placenta is posterior and fundal. There is no previa. Amniotic fluid index is 19.6. Anatomical survey is unremarkable. This included three-vessel cord and four-chamber heart. Heart rate is 140 beats per minute. The maternal adnexa is unremarkable. Biometrical measurements are as follows: Biparietal 8.1 cm, age 32 weeks 3 days. Head circumference 29.5 cm, age 32 weeks 4 days. Abdominal circumference 26.5 cm, age 30 weeks 5 days. Femur length 6.0 cm, age 31 weeks 3 days. Sonographic estimate age: 31 weeks 6 days. Sonographic estimated date of delivery: 01/26/2019. Estimated Weight: 1719 gm (+/- 251 gm). LMP percentile: 98%%. heart rate: 150 beats per minute. number: 1 of 1. IMPRESSION: Single living intrauterine with sonographically estimated gestational age of 31 weeks 6 days and estimated date of confinement of 01/26/2019. Dictated by: Dictated on workstation # [id number]
--- NOTE | 2018-11-30 10:42 | Progress Note - Hospitalist ---
Subjective HPI/CC On Admission Date Seen by Provider: Nov 30, 2018 Time Seen by Provider: 08:45 Patient is 23-year-old white female with known asthma who is also 26 weeks who first noted head congestion with right-sided sore throat symptoms roughly 72 hours ago. She then did develop progressive shortness of breath with increased wheezing. She was in respiratory distress on admission to the emergency room was given a prolonged breathing treatment started on Solu-Medrol as well as empiric antibiotics. Her cough was nonproductive with some purulent nasal secretions. She denied chills fever or Reiger's. Her reportedly has been uneventful thus far with no reported complications. Subjective/Events-last exam Pt doing much better Crackles on lungs continue Dr. Ahn is appreciated Her partner is asleep at the bedside She is due to have her baby in February Denies any pain or nausea or vomiting Review of Systems General: Fatigue Pulmonary: Dyspnea, Cough Focused Exam Lactate Level 11/28/18 08:27: Lactic Acid Level 3.06*H 11/28/18 10:43: Lactic Acid Level 2.92*H 11/29/18 01:36: Lactic Acid Level 0.87 Objective Exam Vital Signs Vital Signs Date Time Temp Pulse Resp B/P (MAP) Pulse Ox O2 Delivery O2 Flow Rate FiO2 11/30/18 20:09 96 Nasal Cannula 2.00 11/30/18 15:01 97.8 83 18 140/77 (98) 11/27/18 19:02 60 Capillary Refill : Less Than 3 Seconds General Appearance: No Apparent Distress, WD/WN Respiratory: No Accessory Muscle Use, No Respiratory Distress, Crackles, Decreased Breath Sounds, Wheezing Neurologic/Psychiatric: Alert, Oriented x3, No Motor/Sensory Deficits, Normal Mood/Affect Results/Procedures Lab Laboratory Tests 11/30/18 03:09 Patient resulted labs reviewed. Assessment/Plan Assessment and Plan Assess & Plan/Chief Complaint Assessment: Respiratory insufficiency Plan: IV steroids Nebs O2 Dr Ahn is appreciated Diagnosis/Problems Diagnosis/Problems (1) Asthma with acute exacerbation in adult Status: Acute Qualifiers: Asthma severity: unspecified severity Asthma persistence: unspecified Qualified Codes: J45.901 - Unspecified asthma with (acute) exacerbation (2) Status: Acute Qualifiers: Weeks of gestation: 26 weeks Qualified Codes: Z3A.26 - 26 weeks gestation of Clinical Quality Measures DVT/VTE Risk/Contraindication: Risk Factor Score Per Nursin RFS Level Per Nursing on Admit: 2=Moderate DEANNE MURILLO DO Nov 30, 2018 10:42
[2018-11-30] MEDS ORDERED: RT-ALBUTEROL SULF 2.5 MG/3 ML PRE-MIX VIAL INH PRN (13:15)
[2018-11-30] MEDS: RT-ALBUTEROL/IPRATROPIUM 3 ML (DUONEB) VIAL INH SCH ×3 (14:23→22:36)
--- NOTE | 2018-11-30 14:57 | NUR ---
Pt transferred to 3rd floor at this time via wheelchair. Personal belongings with pt at time of transfer. Report given to KATHRYN Francois who will assume pt care at this time.
--- NOTE | 2018-11-30 15:15 | NUR ---
VS OBTAINED. FHT DONE, NOTED TO BE 145. INITIAL PHYSICAL ASSESSMENT COMPLETED; SEE INTERVENTION FOR FURTHER. FRESH ICE WATER PROVIDED. LINENS PROVIDED TO S/O. PT UP TO THE BATHROOM.
[2018-11-30] MEDS: MONTELUKAST 10 MG (SINGULAIR) TAB PO SCH (19:53)
--- NOTE | 2018-11-30 20:50 | NUR ---
This RN called Dr Ireland to clarify Mag and KCl replacement protocol orders, new orders received to discontinue those protocols. Updated Dr on patient vs, and current o2 at 2L per NC. No other new orders received.
--- NOTE | 2018-11-30 22:31 | NUR ---
heart tones obtained at this time FHR of 138 via doppler.
[2018-12-01 00:10] VITALS: BP 140/83
--- NOTE | 2018-12-01 00:10 | NUR ---
This RN to patient room at this time for vital signs. Upon entering room, patient on phone, tearful and upset. Patient hung up phone as this RN entered room. States her S/O was who she was talking to. Patient states that her s/o is "worthless" and that she is wondering what she needs to do to leave against medical advice. This RN strongly encouraged patient to not leave AMA. Patient states she "feels fine and wants to go while I have a chance." This RN asked patient if she feels unsafe with s/o or if she feels as though something is causing her to be unsafe. Patient denies feeling unsafe or in any danger, but that she has someone who could come and get her. This RN again strongly encouraged patient to try and wait till morning when the doctor rounds to discuss concerns with doctor for her best interest. VS taken and fresh ice water provided per patient request. Warm blanket offer, patient denies. Patient calming down and not tearful. Will continue to monitor closely. Call light within reach.
--- NOTE | 2018-12-01 00:35 | NUR ---
This RN called to patient room. Patient again upset and insisting that Dr Ireland be called to attempt discharge at this time so that patient does not have to leave AMA. This RN tried to get more information on situation that patient is dealing with and patient states " I dont have any more information for you, just please tell the doctor what your think she wants to hear so that she will let me go." Again this RN strongly encouraged patient to stay so that she may continue to be treated for asthmatic symptoms. Patient again requesting doctor to be called. Will call Dr Ireland to update her on situation.
--- NOTE | 2018-12-01 00:41 | NUR ---
This RN called Dr Dejesus to notify of patient insisting on her being called to see the chances of a possible discharge at this time so that she may be picked up by her father and taken back to her home town. Discussed with Dr Dejesus that patient is having a situational issue with significant other but that patient will not give any more detail on situation as to why she is requesting to be discharged. Discussed with Dr Dejesus that this RN strongly encouraged patient to stay and that patient denies feeling unsafe with s/o. No discharge orders given as Dr Dejesus is in "on consult". Dr dejesus states hospitalist will have to be the one to discharge patient but that she strongly feels like that will not happen this evening. No further orders received. Will relay this information on to patient.
--- NOTE | 2018-12-01 00:47 | NUR ---
This RN went back to update patient on not receiving discharge orders. This RN tried to console patient and to try to make her more comfortable while she is having to stay by offering warm blanket or offering to see what else patient would request to help her relax for the rest of the night until she is able to have a doctor come round on her to discuss her potential discharge in the morning. Patient tearful and requesting to be provided with items for a shower. Towels, fresh gown and shampoo given. Patient states she "will try to wait it out until morning". Patient states "if I miss my ride, that is it, there is no going back to my home town." This RN again asked patient if there is anyone or reason that is making her feel unsafe. Patient again denies. Will return to check on patient soon.
--- NOTE | 2018-12-01 01:35 | NUR ---
To patient room at this time. Patient states she is waiting to shower as s/o may be coming up here. Patient states she is comfortable with s/o coming up her and does not believe him to be dangerous or for him to cause any issue. Patient calm and not upset at this time. Plan of care reviewed. Patient has call light within reach. Will continue to monitor. No further needs or concerns voiced by patient at this time.
[2018-12-01] MEDS: methylPREDNISolone 40 MG/ML (Solu-MEDROL) VIAL IV SCH ×2 (01:37→08:19)
[2018-12-01] MEDS: RT-ALBUTEROL/IPRATROPIUM 3 ML (DUONEB) VIAL INH SCH ×2 (03:03→07:41)
[2018-12-01 04:05] VITALS: BP 139/82
[2018-12-01 05:23] LABS: BASOPHILS % (AUTO) 0 % (0-10); EOSINOPHILS % (AUTO) 0 % (0-10); HEMATOCRIT 29 % (35-52); HEMOGLOBIN 9.3 G/DL (11.5-16.0); LYMPHOCYTES # (AUTO) 1.1 X 10^3 (1.0-4.0); LYMPHOCYTES % (AUTO) 6 % (12-44); MEAN CORPUSCULAR HEMOGLOBIN 26 PG (25-34); MEAN CORPUSCULAR HGB CONC 32 G/DL (32-36); MEAN CORPUSCULAR VOLUME 82 FL (80-99); MEAN PLATELET VOLUME 10.5 FL (7.4-10.4); MONOCYTES # (AUTO) 1.4 X 10^3 (0.0-1.0); MONOCYTES % (AUTO) 8 % (0-12); NEUTROPHILS # (AUTO) 15.1 X 10^3 (1.8-7.8); NEUTROPHILS % (AUTO) 86 % (42-75); PLATELET COUNT 288 10^3/uL (130-400); WHITE BLOOD COUNT 17.6 10^3/uL (4.3-11.0)
[2018-12-01 05:43] LABS: BUN/CREATININE RATIO 9; CALCIUM 8.8 MG/DL (8.5-10.1); CARBON DIOXIDE 18 MMOL/L (21-32); CHLORIDE 107 MMOL/L (98-107); CREATININE SERUM 0.55 MG/DL (0.60-1.30); GFR ESTIMATED > 60; GLUCOSE 112 MG/DL (70-105); MAGNESIUM 1.3 MG/DL (1.6-2.4); POTASSIUM 3.9 MMOL/L (3.6-5.0); SODIUM 139 MMOL/L (135-145)
[2018-12-01] MEDS: RT-BUDESONIDE NEBS 0.5 MG/2ML (PULMICORT) AMP INH SCH (07:41)
[2018-12-01 08:00] VITALS: BP 125/71
--- NOTE | 2018-12-01 08:00 | NUR ---
A.M. ASSESSMENT COMPLETED. VSS. BREATH SOUNDS REVEAL INSP. AND EXP. WHEEZING THROUGHOUT LUNGS BILATERALLY. PT WANTING TO GO HOME. OFFERED SHOWER IF PT HAS TO STAY. S.O. AT BEDSIDE. FHT 146/DOPPLER.
[2018-12-01] MEDS: PRENATAL VITAMIN 1 EA TAB PO SCH (08:18)
[2018-12-01] MEDS: FAMOTIDINE 20 MG (PEPCID) TABLET PO PRN (08:18)
[2018-12-01] MEDS: LORATADINE (CLARITIN) 10 MG TAB PO SCH (08:18)
[2018-12-01] MEDS: FERROUS SULF 325 MG (IRON) TAB PO SCH (08:18)
[2018-12-01] MEDS: guaiFENesin/DM (ROBITUSSIN DM) 10 ML UDC PO PRN (08:42)
--- NOTE | 2018-12-01 09:00 | NUR ---
PT EATING BREAKFAST. INSTRUCTED PT TO ALERT RN WHEN FINISHED FOR 2 H PP BS TIME TO BE CALCULATED.
--- NOTE | 2018-12-01 09:15 | NUR ---
PT'S S.O. COMPLAINED ABOUT THIS RN TO ANOTHER STAFF MEMBER IN THE [place] THIS RN TOTALLY UNAWARE OF ANY PROBLEMS WITH THIS PT. PT HAS BEEN WANTING TO GO HOME SINCE THE MIDDLE OF THE NIGHT. ED VALERO RN (BUILDING MAINTENANCE ENGINEER) TO ROOM TO TALK WITH THE PT. PT UNABLE TO SPECIFY REASON UPSET WITH THIS RN PER BUILDING MAINTENANCE ENGINEER. PT STATES PEOPLE KEEP COMING INTO THE ROOM WITHOUT KNOCKING. CURTAIN WAS PULLED WHEN THIS RN ENTERED THE ROOM AND ANNOUNCEMENT OF IDENTIFICATION OF GIOVANY RN AND NURSE TAKING CARE OF HER WAS MADE. THIS RN DID NOT NOTICE ANY ILL FEELINGS TOWARDS HERSELF DURING INTERACTION.
--- NOTE | 2018-12-01 09:30 | NUR ---
DR. MURILLO HERE TO SEE PT. DR. MURILLO DOESN'T THINK PT SHOULD GO HOME TODAY BUT WILL HAVE DR. MOSQUEDA COME SEE PT AND LISTEN TO HER LUNGS. PT UPSET.
--- NOTE | 2018-12-01 09:48 | Pulmonary Progress Note ---
Subjective Time Seen by a Provider: 10:25 Subjective/Events-last exam PT wants to go home. I explained to her she needs to stay another 1-2 days. Sepsis Event Evaluation Height, Weight, BMI Height: 5'4.00" Weight: 153lbs. 0.0oz. 69.571512ub; 26.1 BMI Method:Stated Focused Exam Lactate Level 11/28/18 10:43: Lactic Acid Level 2.92*H 11/29/18 01:36: Lactic Acid Level 0.87 Exam Exam Vital Signs Date Time Temp Pulse Resp B/P (MAP) Pulse Ox O2 Delivery O2 Flow Rate FiO2 12/01/18 07:43 94 Room Air 12/01/18 04:05 99.0 96 18 139/82 (101) 96 Room Air 12/01/18 03:04 94 Room Air 2.00 12/01/18 00:10 99.7 82 20 140/83 (102) 95 Room Air 11/30/18 22:36 95 Nasal Cannula 2.00 11/30/18 20:09 96 Nasal Cannula 2.00 11/30/18 20:00 96 Nasal Cannula 2.00 11/30/18 20:00 96 Nasal Cannula 2.00 11/30/18 20:00 98.6 82 20 135/75 (95) 96 Nasal Cannula 2.00 11/30/18 17:55 96 Nasal Cannula 2.00 11/30/18 15:15 95 Room Air 11/30/18 15:11 95 Room Air 11/30/18 15:01 97.8 83 18 140/77 (98) Room Air 11/30/18 14:23 97 Nasal Cannula 2.00 11/30/18 14:00 75 18 116/64 (81) 96 Nasal Cannula 2.00 11/30/18 13:00 94 11/30/18 13:00 88 12 132/83 (99) 97 Nasal Cannula 2.00 11/30/18 12:56 97 Nasal Cannula 2.00 11/30/18 12:00 Room Air 11/30/18 12:00 77 17 132/81 (98) 97 Nasal Cannula 2.00 11/30/18 11:00 88 18 132/79 (96) 97 Nasal Cannula 2.00 11/30/18 10:25 97 Nasal Cannula 2.00 11/30/18 10:00 99 20 123/68 (86) 96 Nasal Cannula 2.00 I & O 12/01/18 07:00 Intake Total 880 ml Output Total 1800 ml Balance -920 ml Height & Weight Height: 5'4.00" Weight: 153lbs. 0.0oz. 69.524292gi; 26.1 BMI Method:Stated General Appearance: No Apparent Distress, WD/WN HEENT: Other (Stere pharyngeal erythema no exudate noted no cervical adenopathy noted.) Neck: Full Range of Motion, Normal Inspection, Non Tender Respiratory: No Accessory Muscle Use, No Respiratory Distress, Crackles, Decreased Breath Sounds, Wheezing Cardiovascular: Regular Rate, Rhythm, No Edema, No Gallop, No JVD, No Murmur, Normal Peripheral Pulses Capillary Refill: Less Than 3 Seconds Gastrointestinal: non tender, soft, other (appropriately gravid) Extremity: Normal Capillary Refill, Normal Inspection, Normal Range of Motion, Non Tender, No Calf Tenderness, No Pedal Edema Neurologic/Psychiatric: Alert, Oriented x3, No Motor/Sensory Deficits, Normal Mood/Affect Skin: Normal Color, Warm/Dry Lymphatic: No Adenopathy Results Lab Laboratory Tests 11/30/18 03:09 12/01/18 04:55 Assessment/Plan Assessment/Plan Asthma AE - improved however still very wheezy -Add pulmicort BID to SVNs -Solumedrol 40 Q 6 -SVNs with Duoneb Q 4 Sinus tachycardia - now much improved -Keep Sp02 >94% -IVF -Change Albuterol to Xopenex 26 weeks gestation of -FP following and monitoring Normocytic Anemia - -Monitor -occult stool PT wants to go home however she is still very wheezy. I explained to patient with and RN at bedside why we want her to stay. I expect patient will leave AMA. CHINEDU MOSQUEDA DO Dec 01, 2018 09:48
--- NOTE | 2018-12-01 09:53 | Progress Note - Hospitalist ---
Subjective HPI/CC On Admission Date Seen by Provider: Dec 01, 2018 Time Seen by Provider: 09:00 Patient is 23-year-old white female with known asthma who is also 26 weeks who first noted head congestion with right-sided sore throat symptoms roughly 72 hours ago. She then did develop progressive shortness of breath with increased wheezing. She was in respiratory distress on admission to the emergency room was given a prolonged breathing treatment started on Solu-Medrol as well as empiric antibiotics. Her cough was nonproductive with some purulent nasal secretions. She denied chills fever or Reiger's. Her reportedly has been uneventful thus far with no reported complications. Subjective/Events-last exam Pt wants to go home but her lungs are very coarse. I did have Dr. Ahn see her who agrees she is not ready to go home. Will continue IV steroids. If she wants to leave and insists on leaving she will have to leave against medical advice. She is walking the halls. Has nebulizer treatment machine but does not have medication to go with it. White count is 17,000 from steroid affect. Review of Systems General: Fatigue Focused Exam Lactate Level 11/29/18 01:36: Lactic Acid Level 0.87 Objective Exam Vital Signs Vital Signs Date Time Temp Pulse Resp B/P (MAP) Pulse Ox O2 Delivery O2 Flow Rate FiO2 12/01/18 08:00 98.4 88 22 125/71 (89) 96 Room Air 12/01/18 03:04 2.00 11/27/18 19:02 60 Capillary Refill : Less Than 3 Seconds General Appearance: No Apparent Distress, WD/WN, Chronically ill Respiratory: Accessory Muscle Use, Crackles, Wheezing Cardiovascular: Regular Rate, Rhythm, No Edema, No Gallop, No JVD, No Murmur, Normal Peripheral Pulses Neurologic/Psychiatric: Alert, Oriented x3, No Motor/Sensory Deficits, Normal Mood/Affect Results/Procedures Lab Laboratory Tests 12/01/18 04:55 Patient resulted labs reviewed. Assessment/Plan Assessment and Plan Assess & Plan/Chief Complaint Assessment: Respiratory insufficiency Plan: IV steroids Nebs O2 Dr Ahn is appreciated Hold DC until tomorrow her lungs sound very coarse and wheezy Diagnosis/Problems Diagnosis/Problems (1) Asthma with acute exacerbation in adult Status: Acute Qualifiers: Asthma severity: unspecified severity Asthma persistence: unspecified Qualified Codes: J45.901 - Unspecified asthma with (acute) exacerbation (2) Status: Acute Qualifiers: Weeks of gestation: 26 weeks Qualified Codes: Z3A.26 - 26 weeks gestation of Clinical Quality Measures DVT/VTE Risk/Contraindication: Risk Factor Score Per Nursin RFS Level Per Nursing on Admit: 2=Moderate DEANNE MURILLO DO Dec 01, 2018 09:53
--- NOTE | 2018-12-01 10:00 | NUR ---
DR. MOSQUEDA HERE TO SEE PT. DR. MOSQUEDA WANTING PT TO STAY AT LEAST UNTIL TOMORROW. PT WANTING TO LEAVE. EXPLANATION TO PT OF NEED TO SIGN AMA FORM IF REFUSING TO STAY. PT WANTING TO SIGN THE FORM.
--- NOTE | 2018-12-01 10:15 | NUR ---
AMA FORM SIGNED BY PT AND WITNESSED BY DENIS PERALTA
--- NOTE | 2018-12-01 10:30 | NUR ---
THIS RN APOLOGIZED TO PATIENT FOR UPSETTING HER UNKNOWINGLY. PT STATES SHE JUST WANTED TO GET HOME.
--- NOTE | 2018-12-01 10:50 | NUR ---
SALINE LOCK D/C'ED. SITE CLEAR.
--- NOTE | 2018-12-01 11:00 | NUR ---
MEDICATIONS CALLED TO [facility] PER DR. MOSQUEDA'S INSTRUCTIONS. REVIEWED NEXT DOSE WITH PT. FOLLOW UP APPOINTMENTS MADE WITH DR. MOSQUEDA AND DR. ROJAS INSTRUCTED AND GIVEN TO PT.
[2018-12-01 11:10] VITALS: BP 125/71
--- NOTE | 2018-12-01 11:10 | NUR ---
DISMISSED AMB FROM [facility] IN STABLE CONDITION AMA ACC BY S.O.
--- NOTE | 2018-12-03 08:21 | Discharge Summary ---
Diagnosis/Chief Complaint Date of Admission Nov 27, 2018 at 19:00 Date of Discharge Dec 01, 2018 at 11:10 Admission Diagnosis A/P acute asthma exacerbation secondary to viral illness we'll DC antibiotics continue bronchodilator and anti-inflammatory therapy. Regnancy reportedly 26 weeks uneventful thus far will discuss with obstetrics. Primary Care Center/[facility] Discharge Diagnosis (1) Asthma with acute exacerbation in adult Status: Acute (2) Status: Acute Discharge Summary Discharge Physical Exam Allergies: Coded Allergies: No Known Drug Allergies (Unverified , 04/10/14) Vitals & I&Os Vital Signs Date Time Temp Pulse Resp B/P (MAP) Pulse Ox O2 Delivery O2 Flow Rate FiO2 12/01/18 11:10 88 22 125/71 96 Room Air 12/01/18 08:00 98.4 12/01/18 03:04 2.00 11/27/18 19:02 60 Hospital Course Labs (last 24 hrs) Microbiology 11/27/18 Blood Culture - Preliminary, Resulted No growth 11/27/18 MRSA Screen - Final, Complete MRSA not isolated Patient resulted labs reviewed. Discharge Home Medications: Active Scripts Active Reported Tums (Calcium Carbonate) 200 Mg Tab.chew 200 Mg PO DAILY PRN Complete Caplet (Pnv Cmb#21/Iron/Folic Acid) 1 Each Tablet 1 Each PO DAILY Iprat-Albut 0.5-3(2.5) mg/3 ml (Ipratropium/Albuterol Sulfate) 3 Ml Ampul.neb 1 Unit NEB Q4-6H PRN Ranitidine HCl 150 Mg Tablet 150 Mg PO DAILY PRN Banophen (Diphenhydramine HCl) 25 Mg Capsule 25 Mg PO HS PRN Instructions to patient/family Please see electronic discharge instructions given to patient. Clinical Quality Measures DVT/VTE Risk/Contraindication: Risk Factor Score Per Nursin RFS Level Per Nursing on Admit: 2=Moderate Problem Qualifiers (1) Asthma with acute exacerbation in adult: Asthma severity: unspecified severity Asthma persistence: unspecified Qualified Codes: J45.901 - Unspecified asthma with (acute) exacerbation (2) : Weeks of gestation: 26 weeks Qualified Codes: Z3A.26 - 26 weeks gestation of DEANNE MURILLO DO Dec 03, 2018 08:21
== END 2018-12-01 11:10 | disposition left against medical advice (07) | DRG 832 ==
LOC: EDUNIT# 14:30 → ER 14:31 → ICU 19:00 → LDRP 11-30 14:45 → WS 12-01 14:04
PROVIDERS: ADMIT Internal Medicine; ATTEND Internal Medicine
DX: O99.512 Diseases of the respiratory system complicating pregnancy, second trimester (principal); J45.901 Unspecified asthma with (acute) exacerbation; O98.512 Other viral diseases complicating pregnancy, second trimester; J02.9 Acute pharyngitis, unspecified; O08.5 Metabolic disorders following an ectopic and molar pregnancy; O99.612 Diseases of the digestive system complicating pregnancy, second trimester; K21.9 Gastro-esophageal reflux disease without esophagitis; O99.012 Anemia complicating pregnancy, second trimester; D64.9 Anemia, unspecified; O99.412 Diseases of the circulatory system complicating pregnancy, second trimester; R00.0 Tachycardia, unspecified; R73.9 Hyperglycemia, unspecified; T38.0X5A Adverse effect of glucocorticoids and synthetic analogues, initial encounter; Z87.891 Personal history of nicotine dependence; Z3A.26 26 weeks gestation of pregnancy
CPT/HCPCS: 36415; 71045; 76805; 80048; 80306; 81000; 82962; 83036; 83605; 83735; 84100; 85007; 85025; 85027; 86141; 87040; 87070; 87081; 87205; 87804; 93005; 94640; 96361; 96365; 96375

== ENCOUNTER 2019-05-28 13:49 | Emergency (ER) | payer MEDICAID ==
[~2019-05-28] VITALS: Ht 162 cm; Wt 60.3 kg
[~2019-05-28 13:49] MED LIST changes: +CALC500T7 PO; +DIPH25CA45 PO; +IPRA3AMP31 NEB; +PNV1TABL9 PO; +RANI150T11 PO
[2019-05-28 15:20] LABS: BASOPHILS # (AUTO) 0.1 10^3/uL (0.0-0.1); BASOPHILS % (AUTO) 1 % (0-10); EOSINOPHILS # (AUTO) 0.1 10^3/uL (0.0-0.3); EOSINOPHILS % (AUTO) 1 % (0-10); HEMATOCRIT 32 % (35-52); HEMOGLOBIN 9.6 G/DL (11.5-16.0); LYMPHOCYTES # (AUTO) 1.8 X 10^3 (1.0-4.0); LYMPHOCYTES % (AUTO) 19 % (12-44); MEAN CORPUSCULAR HEMOGLOBIN 21 PG (25-34); MEAN CORPUSCULAR HGB CONC 30 G/DL (32-36); MEAN CORPUSCULAR VOLUME 69 FL (80-99); MEAN PLATELET VOLUME 9.6 FL (7.4-10.4); MONOCYTES # (AUTO) 1.1 X 10^3 (0.0-1.0); MONOCYTES % (AUTO) 12 % (0-12); NEUTROPHILS # (AUTO) 6.2 X 10^3 (1.8-7.8); NEUTROPHILS % (AUTO) 67 % (42-75); PLATELET COUNT 517 10^3/uL (130-400); RED CELL DISTRIBUTION WIDTH 19.3 % (10.0-14.5); WHITE BLOOD COUNT 9.2 10^3/uL (4.3-11.0)
--- NOTE | 2019-05-28 15:27 | ED GU-Female ---
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 STATES HER SINCE LAST NIGHT SHE IS BLEEDING THRU ONE TAMPON AN HOUR AND HAVING RIGHT LOWER ABD PAIN. HAS A HX OF ANEMIA. Nursing Sepsis Screen: No Definite Risk Source: patient Exam Limitations: no limitations History of Present Illness Date Seen by Provider: May 28, 2019 Time Seen by Provider: 14:46 Initial Comments Here with report of heavy vaginal bleeding over the last 1-2 days as well as some right lower quadrant abdominal pain. States she has history of anemia. She has had abnormal menstrual periods throughout her life. She had a baby in February and had first menstrual period April with 2 more sense including the one currently. She is concerned and wanted further evaluation. She states nobody has been unable to figure out about her pain and she is not had any resolution to her symptoms of her menstrual periods ever either. Timing/Duration: yesterday, getting worse Severity/Quality: moderate, cramping Location: RLQ Radiation: none Activities at Onset: none Prior Genitourinary Problems: none Sexual [place] History: less than 2 months ago, single partner Modifying Factors: Improves With Resting Associated Symptoms: No dysuria, No fever/chills, No lower back pain, No nausea/vomiting, No urinary frequency Allergies and Home Medications Allergies Coded Allergies: No Known Drug Allergies (Unverified , 04/10/14) Patient Home Medication List Home Medication List Reviewed: Yes Review of Systems Review of Systems Constitutional: see HPI; No chills, No fever EENTM: no symptoms reported Respiratory: no symptoms reported Cardiovascular: no symptoms reported Gastrointestinal: see HPI Genitourinary: see HPI : No Musculoskeletal: no symptoms reported Psychiatric/Neurological: No Symptoms Reported Past Hudgems-Afnmxv-Wveunh Hx Past Med/Social Hx: Reviewed Nursing Past Med/Soc Hx Patient Social History Alcohol Use: Denies Use Recreational Drug Use: No Smoking Status: Current Everyday Smoker 2nd Hand Smoke Exposure: No Recent Foreign Travel: No Contact w/Someone Who Travel: No Recent Infectious Disease Expo: No Recent Hopitalizations: No Physical Abuse: No Sexual Abuse: No Immunizations Up To Date Tetanus Booster (TDap): Unknown PED Vaccines UTD: Yes Date of Pneumonia Vaccine: May 20, 2015 Seasonal Allergies Seasonal Allergies: Yes Past Medical History Surgeries: No Respiratory: Yes Asthma Currently Using CPAP: No Currently Using BIPAP: No Cardiac: No Neurological: No : No Last Menstrual Period: May 28, 2019 Reproductive Disorders: No Genitourinary: No Gastrointestinal: No Musculoskeletal: No Endocrine: No HEENT: No Cancer: No Psychosocial: No Integumentary: Yes Eczema Blood Disorders: Yes (ANEMIA) Family Medical History Reviewed Nursing Family Hx Asthma 19 MOTHER Cardiovascular disease 19 FATHER Completed stroke paternal grandfather Asthma, Heart Disease Physical Exam Vital Signs Vital Signs - First Documented 05/28/19 13:53 Temp 36.7 Pulse 78 Resp 16 B/P (MAP) 132/83 (99) Pulse Ox 100 O2 Delivery Room Air Capillary Refill : Less Than 3 Seconds Height, Weight, BMI Height: 5'4.00" Weight: 153lbs. 0.0oz. 69.817427sq; 22.00 BMI Method:Stated General Appearance: WD/WN, no apparent distress HEENT: PERRL/EOMI, pharynx normal Neck: full range of motion, supple Cardiovascular: regular rate, rhythm, no murmur Respiratory: lungs clear, normal breath sounds Gastrointestinal: non tender, soft Pelvic: other (declined) Back: normal inspection, no CVA tenderness, no vertebral tenderness Neurologic/Psychiatric: alert, oriented x 3 Skin: normal color, warm/dry Progress/Results/Core Measures Suspected Sepsis Recent Fever Within 48 Hours: No Infection Criteria Present: None New/Unexplained Altered Menta: No Sepsis Screen: No Definite Risk SIRS Temperature: Pulse: 78 Respiratory Rate: 16 Laboratory Tests 05/28/19 15:14: White Blood Count 9.2 Blood Pressure 132 /83 Mean: 99 Laboratory Tests 05/28/19 15:14: Creatinine 0.74, Platelet Count 517H, Total Bilirubin 0.2 Results/Orders Lab Results Laboratory Tests Test 05/28/19 15:14 Range/Units White Blood Count 9.2 4.3-11.0 10^3/uL Red Blood Count 4.67 4.35-5.85 10^6/uL Hemoglobin 9.6 L 11.5-16.0 G/DL Hematocrit 32 L 35-52 % Mean Corpuscular Volume 69 L 80-99 FL Mean Corpuscular Hemoglobin 21 L 25-34 PG Mean Corpuscular Hemoglobin Concent 30 L 32-36 G/DL Red Cell Distribution Width 19.3 H 10.0-14.5 % Platelet Count 517 H 130-400 10^3/uL Mean Platelet Volume 9.6 7.4-10.4 FL Neutrophils (%) (Auto) 67 42-75 % Lymphocytes (%) (Auto) 19 12-44 % Monocytes (%) (Auto) 12 0-12 % Eosinophils (%) (Auto) 1 0-10 % Basophils (%) (Auto) 1 0-10 % Neutrophils # (Auto) 6.2 1.8-7.8 X 10^3 Lymphocytes # (Auto) 1.8 1.0-4.0 X 10^3 Monocytes # (Auto) 1.1 H 0.0-1.0 X 10^3 Eosinophils # (Auto) 0.1 0.0-0.3 10^3/uL Basophils # (Auto) 0.1 0.0-0.1 10^3/uL Sodium Level 139 135-145 MMOL/L Potassium Level 4.0 3.6-5.0 MMOL/L Chloride Level 107 98-107 MMOL/L Carbon Dioxide Level 22 21-32 MMOL/L Anion Gap 10 5-14 MMOL/L Blood Urea Nitrogen 8 7-18 MG/DL Creatinine 0.74 0.60-1.30 MG/DL Estimat Glomerular Filtration Rate > 60 BUN/Creatinine Ratio 11 Glucose Level 94 70-105 MG/DL Calcium Level 8.8 8.5-10.1 MG/DL Corrected Calcium 8.8 8.5-10.1 MG/DL Total Bilirubin 0.2 0.1-1.0 MG/DL Aspartate Amino Transf (AST/SGOT) 19 5-34 U/L Alanine Aminotransferase (ALT/SGPT) 41 0-55 U/L Alkaline Phosphatase 106 40-136 U/L Total Protein 7.1 6.4-8.2 GM/DL Albumin 4.0 3.2-4.5 GM/DL Serum Test, Qualitative NEGATIVE NEGATIVE My Orders Orders - SHANITA MARTELL MD Cbc With Automated Diff (05/28/19 14:46) Comprehensive Metabolic Panel (05/28/19 14:46) Hcg,Qualitative Serum (05/28/19 14:46) Us Pelvic (Non Ob)13460 (05/28/19 14:46) Vital Signs/I&O 05/28/19 13:53 Temp 36.7 Pulse 78 Resp 16 B/P (MAP) 132/83 (99) Pulse Ox 100 O2 Delivery Room Air Capillary Refill : Less Than 3 Seconds Blood Pressure Mean: 99 Progress Note : Progress Note Seen and evaluated. I did discuss at length with the patient regarding workup. Ultimately we will get labs and ultrasound. She does not want transvaginal pelvic ultrasound but will accept transabdominal ultrasound stating that always try to force her to have vaginal exams. I told her that we would respect her right as a patient but that this could limit evaluation which she was okay with. Patient and family had challenges with telemetry tech and wanted her in the room. Ultimately we were able to get the telemetry tech to do the transabdominal scan in the ER where the could be at bedside. 1630: I have talked with Dr. Rojas. She is recommending medroxyprogesterone 10 mg daily for 5 days to reset the menstrual period. She can see the patient next at 2 PM and this was discussed with the patient to ensure that she was able to go to that visit. Patient states that she would. Patient understand it could be 2 months afterwards if she misses that appointment. Patient stated she would keep appointment. Monitor patient. 1700: Findings discussed with the patient. Discharged home with return precautions. Patient and family verbalize understanding instructions and agreement with plan. Diagnostic Imaging Diagonstic Imaging: Ultrasound Plain Films/CT/US/NM/MRI: pelvis Comments [facility] [place], [place] NAME: [facility] REC#: [id number] PT STATUS: REG ER : 1995 PHYSICIAN: SHANITA MARTELL MD ADMIT DATE: 05/28/19/ER Signed Date of Exam:05/28/19 US PELVIC (NON OB)[id number] PROCEDURE: US PELVIC (NON OB) TECHNIQUE: Multiple real-time grayscale images were obtained over the pelvis in various projections transabdominally. INDICATION: bleeding FINDINGS: Uterus measures 8.2 x 4.5 x 6.0 cm. Endometrial stripe is 7 mm. The myometrium and endometrium appear normal. The ovaries are normal size and have normal blood flow. IMPRESSION: Negative pelvic sonogram. No sonographic evidence for retained products of conception. Dictated by: Dictated on workstation # [id number] Dict: 05/28/19 1648 Trans: 05/28/19 1650 [id number] Interpreted by: SHANITA KNOX MD Electronically signed by: SHANITA KNOX MD 05/28/19 [id number] Departure Impression Primary Impression: Abnormal uterine bleeding Disposition: HOME, SELF-CARE Condition: Stable Departure-Patient Inst. Decision time for Depature: 17:00 [address]errals: [facility] [place] (PCP/Family) Primary Care Physician Patient Instructions: IRREGULAR VAGINAL BLEEDING Add. Discharge Instructions: All discharge instructions reviewed with patient and/or family. Voiced understanding. Take medications as directed. Continue your vitamins. You need to follow-up with Dr. Rojas at the clinic next 06/03/19 at 2 PM. Please do not miss this appointment. Return for worse pain, weakness, breathing problems, persistent or worsening bleeding or other concerns as needed. Scripts Medroxyprogesterone Acetate (Medroxyprogesterone Acetate) 10 Mg Tablet 10 MG PO DAILY for 5 Days, #5 TAB 0 Refills Prov: SHANITA MARTELL MD 05/28/19 Copy Copies To 1: TABATHA ROJAS MD, TIMOTHY D MD May 28, 2019 15:27
[2019-05-28 15:48] LABS: ALANINE AMINOTRANSFERASE 41 U/L (0-55); ALKALINE PHOSPHATASE 106 U/L (40-136); BILIRUBIN,TOTAL 0.2 MG/DL (0.1-1.0); BUN/CREATININE RATIO 11; CALCIUM 8.8 MG/DL (8.5-10.1); CARBON DIOXIDE 22 MMOL/L (21-32); CHLORIDE 107 MMOL/L (98-107); CREATININE SERUM 0.74 MG/DL (0.60-1.30); GFR ESTIMATED > 60; GLUCOSE 94 MG/DL (70-105); SODIUM 139 MMOL/L (135-145); TOTAL PROTEIN 7.1 GM/DL (6.4-8.2)
--- NOTE | 2019-05-28 16:51 | Diagnostic Imaging Report ---
PROCEDURE: US PELVIC (NON OB) TECHNIQUE: Multiple real-time grayscale images were obtained over the pelvis in various projections transabdominally. INDICATION: bleeding FINDINGS: Uterus measures 8.2 x 4.5 x 6.0 cm. Endometrial stripe is 7 mm. The myometrium and endometrium appear normal. The ovaries are normal size and have normal blood flow. IMPRESSION: Negative pelvic sonogram. No sonographic evidence for retained products of conception. Dictated by: Dictated on workstation # [id number]
[2019-05-28] MEDS ORDERED: MEDR10TA9 PO (17:02)
[2019-05-28 17:05] VITALS: BP 132/83
== END 2019-05-28 17:10 | disposition home or self-care (01) ==
LOC: EDUNIT# 13:49 → ER 13:50
DX: N93.9 Abnormal uterine and vaginal bleeding, unspecified (principal); F17.200 Nicotine dependence, unspecified, uncomplicated; Z82.49 Family history of ischemic heart disease and other diseases of the circulatory system
CPT/HCPCS: 36415; 76856; 80053; 84703; 85025

== ENCOUNTER 2019-05-30 13:42 | Emergency (ER) | payer MEDICAID ==
[~2019-05-30] VITALS: Ht 162 cm; Wt 61.0 kg
[~2019-05-30 13:42] MED LIST changes: +MEDR10TA9 PO; -MONT10TA24 PO; +MONT10TA26 PO
[2019-05-30] MEDS ORDERED: LACTATED RINGERS 1,000 ML IV ONE (13:56)
--- NOTE | 2019-05-30 14:12 | ED GU-Female ---
General Chief Complaint: ORACLE PROGRAMMER Stated Complaint: EXCESSIVE VAG BLEEDING Nursing Triage Note: PT PRESENTS TO THE ED C/O LOW ENERGY AND DIZZYNESS THAT SHE FEELS IS D/T PERSISTENT VAGINAL BLEEDING THAT HAS BEEN ONGOING FOR FOUR DAYS AND DESCRIBED BRIGHT RED. PT STATES SHE HAS SATURATED ONE TAMPON PER HR CONSISTENTLY. Nursing Sepsis Screen: No Definite Risk Source: patient Exam Limitations: no limitations History of Present Illness Date Seen by Provider: May 30, 2019 Time Seen by Provider: 13:57 Initial Comments Here with report of not feeling well, not eating or drinking well and persistent and increased vaginal bleeding. She states that she is using a tampon an hour. She was seen a few days ago for the same and started on medroxyprogesterone for the abnormal periods. She's had persistent bleeding since onset of that. She did have a delivery in February and had her first period in early April with another one in late April and then again in May now. She states that she has quite a bit of vaginal bleeding with each menstrual cycle but this is essentially the worst that it's ever been. Now she is feeling weak and dizzy and this is much worse on standing. Denies chest pain or breathing problems. Denies nausea or vomiting. Denies vaginal discharge or difficulty with urination or bowel movement. She did have negative ultrasound transabdominal 2 days ago. Timing/Duration: week, getting worse Severity/Quality: moderate, cramping Location: suprapubic Radiation: none Activities at Onset: none Sexual [place] History: less than 2 months ago, single partner Modifying Factors: Worsens With Exercise; Improves With Resting Associated Symptoms: abdominal pain; No dysuria, No fever/chills, No lower back pain, No nausea/vomiting, No urinary frequency Allergies and Home Medications Allergies Coded Allergies: No Known Drug Allergies (Unverified , 04/10/14) Home Medications Medroxyprogesterone Acetate 10 Mg Tablet, 10 MG PO DAILY Prescribed by: SHANITA MARTELL on 05/28/19 1440 Patient Home Medication List Home Medication List Reviewed: Yes Review of Systems Review of Systems Constitutional: see HPI; No chills, No fever; weakness EENTM: no symptoms reported Respiratory: no symptoms reported Cardiovascular: No chest pain; palpitations Gastrointestinal: see HPI Genitourinary: see HPI : No Musculoskeletal: no symptoms reported Skin: no symptoms reported Psychiatric/Neurological: See HPI; Denies Headache; Weakness, Other (dizziness) All Other Systemes Reviewed Negative Unless Noted: Yes Past Wejvyiv-Yxqots-Mbhnfa Hx Past Med/Social Hx: Reviewed Nursing Past Med/Soc Hx Patient Social History Alcohol Use: Denies Use Recreational Drug Use: No Smoking Status: Current Everyday Smoker Type Used: Cigarettes 2nd Hand Smoke Exposure: No Recent Foreign Travel: No Contact w/Someone Who Travel: No Recent Infectious Disease Expo: No Recent Hopitalizations: No Physical Abuse: No Sexual Abuse: No Mistreated: No Fear: No Immunizations Up To Date Tetanus Booster (TDap): Unknown PED Vaccines UTD: Yes Date of Pneumonia Vaccine: May 20, 2015 Seasonal Allergies Seasonal Allergies: Yes Past Medical History Surgeries: No Respiratory: Yes Asthma Currently Using CPAP: No Currently Using BIPAP: No Cardiac: No Neurological: No : No Last Menstrual Period: Apr 29, 2019 Reproductive Disorders: No Genitourinary: No Gastrointestinal: No Musculoskeletal: No Endocrine: No HEENT: No Cancer: No Psychosocial: No Integumentary: Yes Eczema Blood Disorders: Yes (ANEMIA) Family Medical History Reviewed Nursing Family Hx Asthma 19 MOTHER Cardiovascular disease 19 FATHER Completed stroke paternal grandfather Asthma, Heart Disease Physical Exam Vital Signs Vital Signs - First Documented 05/30/19 13:50 Temp 37.1 Pulse 127 Resp 20 B/P (MAP) 103/73 (83) Pulse Ox 98 O2 Delivery Room Air Capillary Refill : Less Than 3 Seconds Height, Weight, BMI Height: 5'4.00" Weight: 153lbs. 0.0oz. 69.983849nw; 23.00 BMI Method:Stated General Appearance: WD/WN, no apparent distress HEENT: pale conjunctivae (R), pale conjunctivae (L) Neck: full range of motion, supple Cardiovascular: no murmur, tachycardia Respiratory: lungs clear, normal breath sounds Gastrointestinal: non tender, soft Back: normal inspection, no CVA tenderness, no vertebral tenderness Extremities: non-tender, normal inspection Neurologic/Psychiatric: alert Skin: warm/dry, pallor Progress/Results/Core Measures Suspected Sepsis Recent Fever Within 48 Hours: No Infection Criteria Present: None New/Unexplained Altered Menta: No Sepsis Screen: No Definite Risk SIRS Temperature: Pulse: 127 Respiratory Rate: 20 Laboratory Tests 05/30/19 14:05: White Blood Count 13.4H Blood Pressure 103 /73 Mean: 83 Laboratory Tests 05/30/19 14:05: Creatinine 0.84, Platelet Count 536H, Total Bilirubin 0.1 Results/Orders Lab Results Laboratory Tests Test 05/30/19 14:00 05/30/19 14:05 Range/Units Urine Color YELLOW Urine Clarity CLEAR Urine pH 6.0 5-9 Urine Specific [place] >=1.030 1.016-1.022 Urine Protein TRACE H NEGATIVE Urine Glucose (UA) NEGATIVE NEGATIVE Urine Ketones NEGATIVE NEGATIVE Urine Nitrite NEGATIVE NEGATIVE Urine Bilirubin NEGATIVE NEGATIVE Urine Urobilinogen 0.2 < = 1.0 MG/DL Urine Leukocyte Esterase NEGATIVE NEGATIVE Urine RBC (Auto) 3+ H NEGATIVE Urine RBC 2-5 H /HPF Urine WBC RARE /HPF Urine Squamous Epithelial Cells RARE /HPF Urine Crystals NONE /LPF Urine Bacteria TRACE /HPF Urine Casts NONE /LPF Urine Mucus SMALL H /LPF Urine Culture Indicated NO White Blood Count 13.4 H 4.3-11.0 10^3/uL Red Blood Count 4.69 4.35-5.85 10^6/uL Hemoglobin 9.7 L 11.5-16.0 G/DL Hematocrit 32 L 35-52 % Mean Corpuscular Volume 68 L 80-99 FL Mean Corpuscular Hemoglobin 21 L 25-34 PG Mean Corpuscular Hemoglobin Concent 30 L 32-36 G/DL Red Cell Distribution Width 19.3 H 10.0-14.5 % Platelet Count 536 H 130-400 10^3/uL Mean Platelet Volume 9.7 7.4-10.4 FL Neutrophils (%) (Auto) 81 H 42-75 % Lymphocytes (%) (Auto) 12 12-44 % Monocytes (%) (Auto) 7 0-12 % Eosinophils (%) (Auto) 0 0-10 % Basophils (%) (Auto) 1 0-10 % Neutrophils # (Auto) 10.8 H 1.8-7.8 X 10^3 Lymphocytes # (Auto) 1.5 1.0-4.0 X 10^3 Monocytes # (Auto) 0.9 0.0-1.0 X 10^3 Eosinophils # (Auto) 0.1 0.0-0.3 10^3/uL Basophils # (Auto) 0.1 0.0-0.1 10^3/uL Sodium Level 139 135-145 MMOL/L Potassium Level 4.0 3.6-5.0 MMOL/L Chloride Level 108 H 98-107 MMOL/L Carbon Dioxide Level 23 21-32 MMOL/L Anion Gap 8 5-14 MMOL/L Blood Urea Nitrogen 15 7-18 MG/DL Creatinine 0.84 0.60-1.30 MG/DL Estimat Glomerular Filtration Rate > 60 BUN/Creatinine Ratio 18 Glucose Level 99 70-105 MG/DL Calcium Level 8.9 8.5-10.1 MG/DL Corrected Calcium 8.6 8.5-10.1 MG/DL Total Bilirubin 0.1 0.1-1.0 MG/DL Aspartate Amino Transf (AST/SGOT) 21 5-34 U/L Alanine Aminotransferase (ALT/SGPT) 32 0-55 U/L Alkaline Phosphatase 113 40-136 U/L Total Protein 7.8 6.4-8.2 GM/DL Albumin 4.4 3.2-4.5 GM/DL My Orders Orders - SHANITA MARTELL MD Cbc With Automated Diff (05/30/19 13:56) Comprehensive Metabolic Panel (05/30/19 13:56) Red Cells Leukocytes Reduced (05/30/19 13:56) Ed Iv/Invasive Line Start (05/30/19 13:56) Lactated Ringers (Lr 1000 Ml Iv Solution (05/30/19 13:56) Type And Screen (05/30/19 13:56) Ua Culture If Indicated (05/30/19 14:43) Medications Given in ED Current Medications Medications Dose Ordered Sig/Aspen Route Start Time Stop Time Status Last Admin Dose Admin Lactated Ringer's 1,000 ml @ 0 mls/hr Q0M ONCE IV 05/30/19 13:56 05/30/19 14:01 DC 05/30/19 14:14 0 MLS/HR Vital Signs/I&O 05/30/19 13:50 Temp 37.1 Pulse 127 Resp 20 B/P (MAP) 103/73 (83) Pulse Ox 98 O2 Delivery Room Air Capillary Refill : Less Than 3 Seconds Blood Pressure Mean: 83 Progress Note : Progress Note Seen and evaluated. IV, labs, LR 1 L bolus, type and cross for 2 units given the tachycardia and relative hypotension. Previous visit, heart rate was 70s and now 120s. Previous visit, blood pressure 130s systolic and now low 100s systolic. Monitor patient. 1530: Patient is doing better with heart rate in the 80s. Hemoglobin 9.7 although I'm sure is somewhat concentrated. That being said I luisa ve that she is likely safe at this point and so does she. Discharged home with return precautions. Patient verbalize understanding instructions and agreement with plan. We do have 2 units of blood on hold for her for the next 72 hours in case bleeding worsens. Departure Impression Primary Impression: Dysfunctional uterine bleeding Additional Impression: Dehydration Disposition: HOME, SELF-CARE Condition: Improved Departure-Patient Inst. Decision time for Depature: 15:35 Referrals: [facility] [place] Primary Care Physician Patient Instructions: Dehydration, Adult (DC), Heavy Periods (DC) Add. Discharge Instructions: All discharge instructions reviewed with patient and/or family. Voiced understanding. Continue medications as prescribed. Keep appointment with Dr. Aguila on as scheduled on previous visit. Drink plenty of fluids and get some rest. Try to eat a light or normal diet. Return for worse pain, fever, vomiting, weakness, breathing problems or other concerns as needed. Copy Copies To 1: TABATHA AGUILA MD, TIMOTHY D MD May 30, 2019 14:12
[2019-05-30 14:16] LABS: BASOPHILS # (AUTO) 0.1 10^3/uL (0.0-0.1); BASOPHILS % (AUTO) 1 % (0-10); EOSINOPHILS # (AUTO) 0.1 10^3/uL (0.0-0.3); EOSINOPHILS % (AUTO) 0 % (0-10); HEMATOCRIT 32 % (35-52); HEMOGLOBIN 9.7 G/DL (11.5-16.0); LYMPHOCYTES # (AUTO) 1.5 X 10^3 (1.0-4.0); LYMPHOCYTES % (AUTO) 12 % (12-44); MEAN CORPUSCULAR HEMOGLOBIN 21 PG (25-34); MEAN CORPUSCULAR HGB CONC 30 G/DL (32-36); MEAN CORPUSCULAR VOLUME 68 FL (80-99); MEAN PLATELET VOLUME 9.7 FL (7.4-10.4); MONOCYTES # (AUTO) 0.9 X 10^3 (0.0-1.0); MONOCYTES % (AUTO) 7 % (0-12); NEUTROPHILS # (AUTO) 10.8 X 10^3 (1.8-7.8); NEUTROPHILS % (AUTO) 81 % (42-75); PLATELET COUNT 536 10^3/uL (130-400); RED CELL DISTRIBUTION WIDTH 19.3 % (10.0-14.5); WHITE BLOOD COUNT 13.4 10^3/uL (4.3-11.0)
[2019-05-30 14:35] LABS: ALANINE AMINOTRANSFERASE 32 U/L (0-55); ALBUMIN 4.4 GM/DL (3.2-4.5); ALKALINE PHOSPHATASE 113 U/L (40-136); BILIRUBIN,TOTAL 0.1 MG/DL (0.1-1.0); BUN/CREATININE RATIO 18; CALCIUM 8.9 MG/DL (8.5-10.1); CARBON DIOXIDE 23 MMOL/L (21-32); CHLORIDE 108 MMOL/L (98-107); CREATININE SERUM 0.84 MG/DL (0.60-1.30); GFR ESTIMATED > 60; GLUCOSE 99 MG/DL (70-105); SODIUM 139 MMOL/L (135-145); TOTAL PROTEIN 7.8 GM/DL (6.4-8.2)
[2019-05-30 14:59] LABS: BILIRUBIN,URINE NEGATIVE (NEGATIVE); CLARITY,URINE CLEAR; COLOR,URINE YELLOW; GLUCOSE, URINE (UA) NEGATIVE (NEGATIVE); KETONES,URINE NEGATIVE (NEGATIVE); LEUKOCYTE ESTERASE ,URINE NEGATIVE (NEGATIVE); NITRITE,URINE NEGATIVE (NEGATIVE); PROTEIN,URINE TRACE (NEGATIVE)
[2019-05-30 15:17] LABS: BACTERIA,URINE TRACE /HPF; SQUAMOUS EPITHELIAL CELL,UR RARE /HPF; WBC,URINE RARE /HPF
[2019-05-30 15:45] VITALS: BP 106/77
== END 2019-05-30 15:45 | disposition home or self-care (01) ==
LOC: EDUNIT# 13:42 → ER 13:43
DX: N93.8 Other specified abnormal uterine and vaginal bleeding (principal); E86.0 Dehydration; F17.210 Nicotine dependence, cigarettes, uncomplicated; Z82.49 Family history of ischemic heart disease and other diseases of the circulatory system
CPT/HCPCS: 36415; 80053; 81000; 85025; 86850; 86900; 86901; 86920

== ENCOUNTER 2021-01-02 17:22 | Emergency (ER) | payer MEDICAID ==
[~2021-01-02] VITALS: Ht 162.5 cm; Wt 31.2 kg
[~2021-01-02 17:22] MED LIST changes: +DIPH-958 PO; -DIPH25CA45 PO; +DOXY-311 PO; -DOXY100C42 PO; -MONT10TA26 PO; +MONT10TA32 PO
[2021-01-02] MEDS ORDERED: fentaNYL INJ 100 MCG/2 ML AMP ONE ×3 (17:37→20:46)
[2021-01-02] MEDS ORDERED: TETANUS,DIPTH,PERTUSS P/F (BOOSTRIX) 0.5 ML VIAL IM ONE (17:45)
[2021-01-02] MEDS ORDERED: fentaNYL INJ 100 MCG/2 ML AMP IVP ONE ×3 (17:45→19:30)
[2021-01-02] MEDS ORDERED: LIDOCAINE/EPI 2% 1:100,00 (XYLOCAINE) 20 ML VIAL INJ ONE (17:45)
[2021-01-02 17:56] LABS: HEMATOCRIT 36 % (35-52); HEMOGLOBIN 11.2 g/dL (11.5-16.0); MEAN CORPUSCULAR HEMOGLOBIN 23 pg (25-34); MEAN CORPUSCULAR HGB CONC 31 g/dL (32-36); MEAN CORPUSCULAR VOLUME 74 fL (80-99); MEAN PLATELET VOLUME 10.1 fL (9.0-12.2); PLATELET COUNT 500 10^3/uL (130-400); WHITE BLOOD COUNT 14.9 10^3/uL (4.3-11.0)
[2021-01-02 18:11] LABS: ALBUMIN 4.1 GM/DL (3.2-4.5); CHLORIDE 106 MMOL/L (98-107); POTASSIUM 3.8 MMOL/L (3.6-5.0); SODIUM 138 MMOL/L (135-145)
[2021-01-02 18:12] LABS: CALCIUM 8.8 MG/DL (8.5-10.1)
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
[2021-01-02 18:13] LABS: GLUCOSE 110 MG/DL (70-105); TOTAL PROTEIN 7.4 GM/DL (6.4-8.2)
[2021-01-02 18:14] LABS: CARBON DIOXIDE 20 MMOL/L (21-32)
[2021-01-02 18:15] LABS: BILIRUBIN,TOTAL 0.4 MG/DL (0.1-1.0)
[2021-01-02 18:17] LABS: ALKALINE PHOSPHATASE 90 U/L (40-136); CREATININE SERUM 0.81 MG/DL (0.60-1.30); GFR ESTIMATED 87
[2021-01-02 18:18] LABS: BILIRUBIN,DIRECT 0.2 MG/DL (0.0-0.3); BILIRUBIN,INDIRECT 0.2 MG/DL; BUN/CREATININE RATIO 10
[2021-01-02 18:20] LABS: ALANINE AMINOTRANSFERASE 35 U/L (0-55)
--- NOTE | 2021-01-02 18:34 | Diagnostic Imaging Report ---
PROCEDURE: CT head and CT cervical spine without contrast. TECHNIQUE: Multiple contiguous axial images were obtained through the brain and cervical spine without the use of intravenous contrast. Sagittal and coronal reformations through the cervical spine were then performed. Auto Exposure Controls were utilized during the CT exam to meet ALARA standards for radiation dose reduction. INDICATION: Injury, head and neck pain. There are no prior studies available for comparison. CT head: There is no mass, shift of the midline or hemorrhage identified. The ventricles are not abnormally dilated. The bone windows show no sign of a fracture. However, there is evidence of a soft tissue injury along the scalp of the right frontoparietal region near the vertex of the skull. There is also linear gas-filled tubular structure in this area which most likely represents a laceration. This laceration extends to the outer table of the skull but does not clearly interrupt the outer table. The orbits are symmetrical and within normal limits. The sinuses are generally clear. IMPRESSION: 1. There is a soft tissue injury to the right frontal parietal region near the vertex of the skull. There does appear to be a deep laceration in this area but there is no sign of a skull fracture. 2. There is no acute intracranial abnormality noted either. CT cervical spine: The reconstructed parasagittal images show the vertebral body heights and alignment to be generally within normal limits. The intervertebral disc spaces are well-maintained. There is no evidence for a high-grade central stenosis at any level. There is no fracture or acute bony abnormality appreciated. The thyroid gland is unremarkable. There is no evidence for retropharyngeal edema. The lung apices are clear. IMPRESSION: There is no evidence for an acute bony abnormality of the cervical spine. Dictated by: Dictated on workstation # [id number]
--- NOTE | 2021-01-02 18:38 | Diagnostic Imaging Report ---
EXAMINATION: Portable supine chest at 6:23 PM INDICATION: Trauma The heart size is within normal limits and stable when compared to the prior exam of 11/27/2018. The central pulmonary vascularity does seem more striking than on the prior study. This is probably related to the patient's supine position. The lungs seem generally clear. There is no evidence for pneumonia or for pleural effusion and there is no sign of a pneumothorax. The mediastinum is not widened. The osseous structures are intact. IMPRESSION: The prominence of the central pulmonary vascularity is most likely due to the patient's supine position. There is no acute abnormality identified. Dictated by: Dictated on workstation # [id number]
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
[2021-01-02] MEDS ORDERED: IOHEXOL 350 MG/ML 100 ML (OMNIPAQUE 350) VIAL IV ONE (18:45)
[2021-01-02] MEDS ORDERED: HOLD METFORMIN - RECEIVED CONTRAST 20 ML VIAL IV SCH (18:45)
[2021-01-02] MEDS ORDERED: NS 100 ML (IVPB) BAG IV ONE (18:45)
[2021-01-02] MEDS ORDERED: LACTATED RINGERS 1,000 ML IV ONE ×2 (18:45→18:46)
[2021-01-02] MEDS ORDERED: NS IV 1000 ML 1,000 ML IV SCH (19:00)
[2021-01-02] MEDS ORDERED: ORPHENADRINE 60 MG/2 ML (NORFLEX) AMP (ED ONLY) IV ONE (19:00)
[2021-01-02] MEDS ORDERED: LIDOCAINE/EPI 1%-1:100,000 (XYLOCAINE) 10 ML ONE (19:25)
[2021-01-02] MEDS ORDERED: LIDOCAINE/EPI 1%-1:100,000 (XYLOCAINE) 20ML INJ ONE (19:30)
[2021-01-02 21:18] VITALS: BP 111/65
== END 2021-01-02 21:22 | disposition short-term general hospital (02) ==
LOC: EDUNIT# 17:22 → ER 17:25
DX: S22.061A Stable burst fracture of T7-T8 vertebra, initial encounter for closed fracture (principal); S01.01XA Laceration without foreign body of scalp, initial encounter; S40.011A Contusion of right shoulder, initial encounter; S50.311A Abrasion of right elbow, initial encounter; J45.909 Unspecified asthma, uncomplicated; R40.2410 Glasgow coma scale score 13-15, unspecified time; Z87.891 Personal history of nicotine dependence; Z23 Encounter for immunization; W20.8XXA Other cause of strike by thrown, projected or falling object, initial encounter
CPT/HCPCS: 12034; 36415; 70450; 71045; 71260; 72125; 74177; 80048; 80076; 80320; 84703; 85027; 90715; 93041

== ENCOUNTER 2021-07-07 21:09 | Emergency (ER) | payer MEDICAID ==
[~2021-07-07] VITALS: Ht 162.6 cm; Wt 61.7 kg
[~2021-07-07 21:09] MED LIST changes: +CYCL10TA25 PO; -CYCL10TA9 PO; +MONT-40 PO; -MONT10TA32 PO
[2021-07-07] MEDS ORDERED: ACETAMINOPHEN 325 MG TABLET PO STA (21:55)
[2021-07-07] MEDS ORDERED: CYCLOBENZAPRINE 10 MG (FLEXERIL) TAB PO STA (21:55)
--- NOTE | 2021-07-07 22:02 | ED Back Pain ---
General Chief Complaint: Back Problems Stated Complaint: PREVIOUS INJ/BACK PAIN Nursing Triage Note: PT AMB TO FT 3 W C/O BACK PAIN SX 1430 WHEN SHE WAS LIFTING HER LEG TO PUT ON PANTS AND FELT A POP NEAR LEFT HIP. PT CONCERNED D/T PREVIOUS BACK INJ. PT A&OX4. History of Present Illness Date Seen by Provider: Jul 07, 2021 Time Seen by Provider: 21:20 Initial Comments 25-year-old female sustained a T8 compression fracture on 12/2020. She was referred to a neurosurgeon at [facility], she did not undergo spine surgery, she wore a spine brace and was discharged home. She then had evaluation with a spin e specialist at [facility] but did not see him for the 3-month follow-up. She has never attended physical therapy or established with another patient service specialist. She will take 600-1600 mg of Ibuprofen every 4 hours, when the pain is bad. Lately the pain has been improving and she is taking less Ibuprofen. Today she was resting most of the day and having minimal back pain. However when she was lifting her leg to put it in her pants she had a pulling sensation in her back and felt a pop, then had immediate onset of severe back pain. The pain is in her mid back at the location of the T8 compression fracture with some radiation to her hips. She denies any paresthesias or radicular symptoms going into her legs. She does not take Tylenol for the pain because she does not have it available at her home. She is emotionally upset as she had plans to start a new job in the coming weeks and is concerned that this may cause issues. She denies any bowel or bladder retention or incontinence. Timing/Duration: 4-6 Hours Severity: Moderate Pain/Injury Location: Back Associated Symptoms: muscle spasms; No fever, No weakness, No numbness in legs/feet, No tingling in legs/feet, No sensory/motor loss; lower back pain; No loss of bladder control, No loss of bowel control Allergies and Home Medications Allergies Coded Allergies: cyclobenzaprine (Verified Allergy, Severe, 07/07/21) hydrocodone (Verified Allergy, Severe, 07/07/21) Patient Home Medication List Home Medication List Reviewed: Yes Medroxyprogesterone Acetate (Medroxyprogesterone Acetate) 10 Mg Tablet, 10 MG PO DAILY Prescribed by: SHANITA MARTELL on 05/28/19 1702 Review of Systems Constitutional: no symptoms reported, see HPI Musculoskeletal: see HPI, back pain All Other Systems Reviewed Negative Unless Noted: Yes Past Rxjjptv-Snfpfx-Yjrvjs Hx Patient Social History Tobacco Use?: Yes Tobacco type used: Cigarettes Smoking Status: Current Everyday Smoker Use of E-Cig and/or Vaping dev: No Substance use?: No Alcohol Use?: Yes Alcohol Frequency: Once in a while Immunizations Up To Date Tetanus Booster (TDap): Unknown PED Vaccines UTD: Yes Influenza Vaccine Up-to-Date: No; Not Current First/Initial COVID19 Vaccinat: NONE Second COVID19 Vaccination Ottoniel: NONE Third COVID19 Vaccination Date: NONE COVID19 Vaccine Education Courses Sales Representative: NONE Seasonal Allergies Seasonal Allergies: Yes Past Medical History Surgeries: No Respiratory: Yes Asthma Currently Using CPAP: No Currently Using BIPAP: No Cardiac: No Neurological: No Last Menstrual Period: Jun 23, 2021 Reproductive Disorders: No Genitourinary: No Gastrointestinal: No Musculoskeletal: No Endocrine: No HEENT: No Cancer: No Psychosocial: No Integumentary: Yes Eczema Blood Disorders: Yes (ANEMIA) Family Medical History Reviewed Nursing Family Hx Asthma 19 MOTHER Cardiovascular disease 19 FATHER Completed stroke paternal grandfather Asthma, Heart Disease Physical Exam Vital Signs Vital Signs - First Documented 07/07/21 21:20 Temp 37.1 Pulse 88 Resp 20 B/P (MAP) 131/88 (102) Pulse Ox 100 O2 Delivery Room Air Capillary Refill : Less Than 3 Seconds Height, Weight, BMI Height: 5'4.00" Weight: 153lbs. 0.0oz. 69.378759kg; 23.00 BMI Method:Stated General Appearance: No Apparent Distress, WD/WN Neck: Full Range of Motion, Normal Inspection Cardiovascular: Regular Rate, Rhythm, No Edema, No Murmur, Normal Peripheral Pulses Respiratory: Chest Non Tender, Lungs Clear, Normal Breath Sounds Back: Normal Inspection, Decreased Range of Motion, Muscle Spasm, Vertebral Ten derness, Other (power V/V L4-S1. Pain with SLR. Able to ambulate on toes and heels, steady gait but antalgic. ) Extremity: Normal Capillary Refill, Normal Inspection, No Pedal Edema, Pelvis Stable Neurologic/Psychiatric: Alert, Oriented x3, No Motor/Sensory Deficits, Normal Mood/Affect Skin: Normal Color, Warm/Dry Progress/Results/Core Measures Results/Orders My Orders Orders - OMAR NELSON Urine Bedside (07/07/21 21:27) Thoracic Spine, 2 Views Only (07/07/21 21:55) Lumbar Spine - 2-3 Views (07/07/21 21:55) Acetaminophen Tablet/Caplet (Tylenol T (07/07/21 21:55) Vital Signs/I&O 07/07/21 21:20 Temp 37.1 Pulse 88 Resp 20 B/P (MAP) 131/88 (102) Pulse Ox 100 O2 Delivery Room Air Blood Pressure Mean: 102 Diagnostic Imaging Diagonstic Imaging: Xray Plain Films/CT/US/NM/MRI: other (L Spine ) Comments CARLEY: BLANKJOYCELYN Grandis REC#: [id number] PT STATUS: REG ER : 1995 PHYSICIAN: OMAR NELSON ADMIT DATE: 07/07/21/ER Signed Date of Exam:07/07/21 LUMBAR SPINE - 2-3 VIEWS HISTORY: Low back pain COMPARISON: CT abdomen and pelvis from 01/02/2021. TECHNIQUE: 3 views of the lumbar spine FINDINGS: Alignment of the lumbar spine is normal. No acute fracture is seen. Vertebral body heights and disc heights are preserved. Bilateral sacroiliac joints are patent. IMPRESSION:. No acute osseous abnormality in the lumbar spine. Dictated by: Dictated on workstation # [id number] Dict: 07/07/212249 Trans: 07/07/212251 [facility] [id number] Interpreted by: BRANDY REAL MD Electronically signed by: BRANDY REAL MD 07/07/212251 Reviewed: Reviewed by Me Diagonstic Imaging: Xray Plain Films/CT/US/NM/MRI: other (T spine) Comments NAME: BLANKTRICECHICO Grandis REC#: [id number] PT STATUS: REG ER : 1995 PHYSICIAN: OMAR NELSON ADMIT DATE: 07/07/21/ER Signed Date of Exam:07/07/21 THORACIC SPINE, 2 VIEWS ONLY HISTORY: Back pain TECHNIQUE: 2 views of the thoracic spine. COMPARISON: CT chest from 01/02/2021 FINDINGS: There is a compression deformity of T8 with mild focal kyphosis in this region. This is chronic. There is no spondylolisthesis. No new compression deformities are seen. Alignment otherwise appears normal. IMPRESSION:. Chronic compression deformity of T8 with mild associated kyphosis. No new compression deformity is seen. Dictated by: Dictated on workstation # [id number] Dict: 07/07/212248 Trans: 07/07/212251 [facility] [id number] Interpreted by: BRANDY REAL MD Electronically signed by: BRANDY REAL MD 07/07/212251 Reviewed: Reviewed by Me Departure Impression Primary Impression: Compression fracture of T8 vertebra Qualified Codes: S22.060S - Wedge compression fracture of T7-t8 vertebra, sequela Additional Impression: Thoracic spine pain Disposition: 01 HOME, SELF-CARE Condition: Stable Departure-Patient Inst. Decision time for Depature: 22:40 Referrals: [facility],LOCAL PHYSICIAN (PCP) Primary Care Physician Patient Instructions: Low Back Pain (DC), Vertebral Compression Fracture (DC) Add. Discharge Instructions: Alternate between ibuprofen 600 mg and Tylenol 650 mg every 4 hours for pain. Establish with a primary care provider at [facility] and get referral to a spine surgeon to consider further treatment or physical therapy. Alternate heat and ice to your low back. Return to the emergency department for new, urgent healthcare needs. All discharge instructions reviewed with patient and/or family. Voiced understanding. Copy Copies To 1: MATTHEW RINCON AMY ARNP Jul 07, 2021 22:02
--- NOTE | 2021-07-07 22:52 | Diagnostic Imaging Report ---
HISTORY: Back pain TECHNIQUE: 2 views of the thoracic spine. COMPARISON: CT chest from 01/02/2021 FINDINGS: There is a compression deformity of T8 with mild focal kyphosis in this region. This is chronic. There is no spondylolisthesis. No new compression deformities are seen. Alignment otherwise appears normal. IMPRESSION:. Chronic compression deformity of T8 with mild associated kyphosis. No new compression deformity is seen. Dictated by: Dictated on workstation # [id number]
--- NOTE | 2021-07-07 22:52 | Diagnostic Imaging Report ---
HISTORY: Low back pain COMPARISON: CT abdomen and pelvis from 01/02/2021. TECHNIQUE: 3 views of the lumbar spine FINDINGS: Alignment of the lumbar spine is normal. No acute fracture is seen. Vertebral body heights and disc heights are preserved. Bilateral sacroiliac joints are patent. IMPRESSION:. No acute osseous abnormality in the lumbar spine. Dictated by: Dictated on workstation # [id number]
[2021-07-07 23:05] VITALS: BP 109/80
== END 2021-07-07 23:05 | disposition home or self-care (01) ==
LOC: EDUNIT# 21:09 → ER 21:10
DX: S22.068A Other fracture of T7-T8 thoracic vertebra, initial encounter for closed fracture (principal); F17.210 Nicotine dependence, cigarettes, uncomplicated; X50.0XXA Overexertion from strenuous movement or load, initial encounter
CPT/HCPCS: 72070; 72100; 84703

== ENCOUNTER 2021-10-17 19:25 | Emergency (ER) | payer MEDICAID ==
[~2021-10-17] VITALS: Ht 160 cm; Wt 64.0 kg
--- NOTE | 2021-10-17 20:11 | ED General ---
General Chief Complaint: Skin/Wound Problems Stated Complaint: SHOULDER NG, LEG NG Source of Information: Patient Exam Limitations: No Limitations Allergies and Home Medications Allergies Coded Allergies: hydrocodone (Verified Allergy, Severe, 07/07/21) cyclobenzaprine (Verified Adverse Reaction, Severe, Vomiting, 10/17/21) Patient Home Medication List Medroxyprogesterone Acetate (Medroxyprogesterone Acetate) 10 Mg Tablet, 10 MG PO DAILY Prescribed by: SHANITA MARTELL on 05/28/19 1702 Past Ucoiiyw-Nxpxxq-Xbocxa Hx Patient Social History Tobacco Use?: Yes Tobacco type used: Cigarettes Smoking Status: Current Everyday Smoker Use of E-Cig and/or Vaping dev: No Substance use?: No Alcohol Use?: Yes Alcohol Frequency: Rarely Pt feels they are or have been: No Immunizations Up To Date Tetanus Booster (TDap): Unknown PED Vaccines UTD: Yes First/Initial COVID19 Vaccinat: NONE Second COVID19 Vaccination Ottoniel: NONE Third COVID19 Vaccination Date: NONE Seasonal Allergies Seasonal Allergies: Yes Past Medical History Surgeries: No Respiratory: Yes Asthma Currently Using CPAP: No Currently Using BIPAP: No Cardiac: No Neurological: No Reproductive Disorders: No Genitourinary: No Gastrointestinal: No Musculoskeletal: No Endocrine: No HEENT: No Cancer: No Psychosocial: No Integumentary: Yes Eczema Blood Disorders: Yes (ANEMIA) Family Medical History Asthma 19 MOTHER Cardiovascular disease 19 FATHER Completed stroke paternal grandfather Asthma, Heart Disease Physical Exam Vital Signs Capillary Refill : Height, Weight, BMI Height: 5'4.00" Weight: 153lbs. 0.0oz. 69.632470tu; 23.00 BMI Method:Stated Progress/Results/Core Measures Suspected Sepsis SIRS Temperature: Pulse: Respiratory Rate: Blood Pressure / Mean: Results/Orders My Orders Orders - JULIANO TORREZ MD Rx-Oxycodone/Apap 5-325 Mg (Rx-Percocet (10/17/21 20:15) Vital Signs/I&O Capillary Refill : Departure Impression Primary Impression: Sunburn Disposition: 01 HOME, SELF-CARE Condition: Stable Departure-Patient Inst. Decision time for Depature: 20:08 Referrals: NO,LOCAL PHYSICIAN (PCP/Family) Primary Care Physician Patient Instructions: Sunburn ED Add. Discharge Instructions: Elevate your feet above the level of your heart as much as possible to help reduce the swelling. Reducing the swelling will also reduce tension on the skin and decrease pain. You may continue using cool moist cloths to help calm the pain. Maximize your ibuprofen dosing with up to 600 mg every 6 hours as needed. You may additionally use Tylenol (acetaminophen) up to 1000 mg every 6 hours as needed. Use the Percocet as prescribed for more severe pain when you do not need to drive or operate machinery. Please be advised that Percocet contains 325 mg of Tylenol (acetaminophen) per tablet. Topical treatments such as aloe vera, lidocaine cream (sparingly), or moisturizing lotion may be used as well. A thin layer of Vaseline may be used to help keep your socks from sticking to your skin at work if needed. Return to care if you have not worsening symptoms despite following these instructions. Your burn should rapidly improve over the next 2 to 3 days. All discharge instructions reviewed with patient and/or family. Voiced understanding. JULIANO TORREZ MD Oct 17, 2021 20:11
[2021-10-17] MEDS ORDERED: RX-OXYCODONE/APAP 5-325 MG #4 TAB PK PO PRN (20:15)
[2021-10-17 20:30] VITALS: BP_SYST 153
== END 2021-10-17 20:30 | disposition home or self-care (01) ==
LOC: EDUNIT# 19:25 → ER 19:27
DX: L55.9 Sunburn, unspecified (principal); F17.210 Nicotine dependence, cigarettes, uncomplicated; Z28.310 Unvaccinated for COVID-19
CPT/HCPCS: 99283